=== PATIENT | female | born 2000 | race Caucasian/White ===

== ENCOUNTER 2022-10-30 16:42 | Outpatient (OUT) | payer OTHER, SELFPAY ==
--- NOTE | 2022-10-30 16:59 | US_ITS ---
[address] [address] Patient Name: SIMON RAMOS MRN: [id number] date: 2000 Sex: F Assigned Patient Location: US Current Patient Location: US Accession/Order Number: [id number] Exam Date: 10/30/2022 16:58 Report Date: 10/31/2022 15:11 At the request of: MARIALUISA ODELL Procedure: US OB growth EXAMINATION: US OB growth, US OB follow up HISTORY: size inconsistent with dates O26.849 COMPARISON: Ultrasound incomplete anatomy 10/09/2022, ultrasound anatomy 09/11/2022 FINDINGS: Heart Rate: 145.9 bpm Number: 1.0 Position: CEPHALIC Amniotic Fluid Volume: 12.6 cm Maximum Vertical Pocket: 4.6 cm Anatomy: Echogenic focus within left cardiac ventricle. BIOMETRY: BPD: 6.6 cm cm; 26 weeks 4 days; 5% HC: 24.6 cmcm; 26 weeks 5 days; <3% AC: 22.2 cm cm; 26 weeks 4 days; 9% FL: 5.0 cm cm; 27 weeks 0 days; 11 % EFW: 977.6 grams; 7% FL/AC: 22.6 FL/BPD: 76.3 HC/AC: 1.1 GESTATIONAL AGE: Age by EDC: 28 weeks 0 days VENKAT by EDC: Age by US: VENKAT by US: [id number] IMPRESSION: 1. Single live intrauterine with growth detailed above. 2. Estimated weight is at 7th percentile. Head circumference is less than 3rd percentile. 3. Persistent echogenic focus within left cardiac ventricle. Electronically authenticated by: CARMEL YODER Date: 10/31/2022 15:11
--- NOTE | 2022-10-30 16:59 | US_ITS ---
[address] [address] Patient Name: SIMON RAMOS MRN: [id number] date: 2000 Sex: F Assigned Patient Location: US Current Patient Location: US Accession/Order Number: [id number] Exam Date: 10/30/2022 16:58 Report Date: 10/31/2022 15:11 At the request of: MARIALUISA ODELL Procedure: US OB follow up EXAMINATION: US OB growth, US OB follow up HISTORY: size inconsistent with dates O26.849 COMPARISON: Ultrasound incomplete anatomy 10/09/2022, ultrasound anatomy 09/11/2022 FINDINGS: Heart Rate: 145.9 bpm Number: 1.0 Position: CEPHALIC Amniotic Fluid Volume: 12.6 cm Maximum Vertical Pocket: 4.6 cm Anatomy: Echogenic focus within left cardiac ventricle. BIOMETRY: BPD: 6.6 cm cm; 26 weeks 4 days; 5% HC: 24.6 cmcm; 26 weeks 5 days; <3% AC: 22.2 cm cm; 26 weeks 4 days; 9% FL: 5.0 cm cm; 27 weeks 0 days; 11 % EFW: 977.6 grams; 7% FL/AC: 22.6 FL/BPD: 76.3 HC/AC: 1.1 GESTATIONAL AGE: Age by EDC: 28 weeks 0 days VENKAT by EDC: Age by US: VENKAT by US: [id number] IMPRESSION: 1. Single live intrauterine with growth detailed above. 2. Estimated weight is at 7th percentile. Head circumference is less than 3rd percentile. 3. Persistent echogenic focus within left cardiac ventricle. Electronically authenticated by: CARMEL YODER Date: 10/31/2022 15:11
== END 2022-10-30 16:43 ==
PROVIDERS: PCP Family Medicine; Visit Provider Obstetrics & Gynecology
DX: O26.842 Uterine size-date discrepancy, second trimester (principal); Z36.2 Encounter for other antenatal screening follow-up
CPT/HCPCS: 76816

== ENCOUNTER 2022-12-02 13:50 | Outpatient (OUT) | payer OTHER, SELFPAY ==
--- NOTE | 2022-12-02 13:53 | US_ITS ---
The [address] [address] Patient Name: SIMON RAMOS MRN: [id number] date: 2000 Sex: F Assigned Patient Location: US Current Patient Location: US Accession/Order Number: [id number] Exam Date: 12/02/2022 13:55 Report Date: 12/02/2022 16:11 At the request of: MARIALUISA ODELL Procedure: US OB growth EXAMINATION: US OB growth HISTORY: SIZE INCONSISTENT WITH DATES COMPARISON: Ultrasound OB growth 10/30/2022 FINDINGS: Heart Rate: 154.0 bpm Number: 1.0 Position: CEPHALIC Amniotic Fluid Volume: 10.1 cm Maximum Vertical Pocket: 3.5 cm BIOMETRY: BPD: 7.6 cm cm; 30 weeks 4 days; <3% HC: 28.8 cmcm; 31 weeks 5 days; 3% AC: 27.2 cm cm; 31 weeks 2 days; 13% FL: 6.4 cm cm; 33 weeks 1 days; 51% EFW: 1846.5 grams; 17% FL/AC: 23.7 FL/BPD: 84.3 HC/AC: 1.1 GESTATIONAL AGE: Age by EDC: 32 weeks 5 days VENKAT by EDC: 01/22/2023 Age by US: 31 weeks 5 days VENKAT by US: 01/29/2023 US/US OB growth IMPRESSION: 1. Single live intrauterine with growth detailed above. 2. Estimated weight has increased to the 17th percentile. Electronically authenticated by: CARMEL YODER Date: 12/02/2022 16:11
== END 2022-12-02 13:51 | disposition home or self-care (01) ==
LOC: US 13:50
PROVIDERS: Visit Provider Obstetrics & Gynecology
DX: O26.843 Uterine size-date discrepancy, third trimester (principal); Z3A.32 32 weeks gestation of pregnancy
CPT/HCPCS: 76816

== ENCOUNTER 2022-12-11 09:16 | Outpatient (OUT) | payer OTHER, SELFPAY ==
--- NOTE | 2022-12-11 09:12 | US_ITS ---
[address] [address] Patient Name: SIMON RAMOS MRN: [facility]:[id number] date: 2000 Sex: F Assigned Patient Location: US Current Patient Location: Accession/Order Number: [id number] Exam Date: 12/11/2022 09:18 Report Date: 12/11/2022 15:31 At the request of: MARIALUISA ODELL Procedure: US OB BPP w non-stress EXAMINATION: US OB BPP w non-stress HISTORY: size inconsistent with dates O26.849 COMPARISON: Ultrasound OB growth 12/02/2022 TECHNIQUE: Ultrasound biophysical profile was performed in the radiology department. BREATHING MOVEMENTS: 2.0 GROSS BODY MOVEMENTS: 2.0 TONE: 2.0 QUALITATIVE AMNIOTIC FLUID VOLUME: 2.0 PRESENTATION: CEPHALIC HEART RATE: 129.8 bpm bpm. AMNIOTIC FLUID VOLUME: 10.7 cm GESTATIONAL AGE: 34 weeks 0 days CONCLUSION: 1. Total biophysical profile score 8.0. 2. Persistent echogenic focus within left cardiac ventricle. Electronically authenticated by: CARMEL YODER Date: 12/11/2022 15:31
[2022-12-11 09:59] VITALS: BP 118/79; PULSE 82
== END 2022-12-11 10:23 | disposition home or self-care (01) ==
LOC: US 09:16 → FBC 09:19
PROVIDERS: Visit Provider Obstetrics & Gynecology
DX: O26.843 Uterine size-date discrepancy, third trimester (principal); Z3A.34 34 weeks gestation of pregnancy
CPT/HCPCS: 76818

== ENCOUNTER 2022-12-14 07:14 | Outpatient (RCR) | payer OTHER, SELFPAY ==
[2022-12-14 07:25] VITALS: BP 120/65; PULSE 107
== END 2022-12-14 08:00 | disposition home or self-care (01) ==
LOC: FBCO 07:14
PROVIDERS: Visit Provider Obstetrics & Gynecology
DX: O26.843 Uterine size-date discrepancy, third trimester (principal)
CPT/HCPCS: 59025

== ENCOUNTER 2022-12-18 19:02 | Outpatient (OUT) | payer OTHER, SELFPAY ==
--- NOTE | 2022-12-18 19:05 | US_ITS ---
[address] [address] Patient Name: SIMON RAMOS MRN: [facility]:[id number] date: 2000 Sex: F Assigned Patient Location: [facility] Current Patient Location: [facility] Accession/Order Number: [id number] Exam Date: 12/18/2022 19:06 Report Date: 12/19/2022 15:15 At the request of: MARIALUSIA ODELL Procedure: US OB BPP w non-stress EXAMINATION: US OB BPP w non-stress HISTORY: SIZE INCONSISTENT WITH DATES COMPARISON: Ultrasound biophysical 12/11/2022 TECHNIQUE: Ultrasound biophysical profile was performed in the radiology department. BREATHING MOVEMENTS: 2.0 GROSS BODY MOVEMENTS: 2.0 TONE: 2.0 QUALITATIVE AMNIOTIC FLUID VOLUME: 2.0 PRESENTATION: CEPHALIC HEART RATE: 150.0 bpm bpm. AMNIOTIC FLUID VOLUME: 11.4 cm GESTATIONAL AGE: 35 weeks 0 days CONCLUSION: Total biophysical profile score 8.0. Electronically authenticated by: CARMEL YODER Date: 12/19/2022 15:15
[2022-12-18 19:29] VITALS: BP 129/74; PULSE 87; TEMP 36.3
== END 2022-12-18 19:53 | disposition home or self-care (01) ==
LOC: US 19:03 → FBC 19:05
PROVIDERS: Visit Provider Obstetrics & Gynecology
DX: O26.843 Uterine size-date discrepancy, third trimester (principal); Z3A.35 35 weeks gestation of pregnancy
CPT/HCPCS: 76818

== ENCOUNTER 2022-12-21 07:00 | Outpatient (RCR) | payer OTHER, SELFPAY | END 2022-12-21 07:50 | disposition home or self-care (01) | LOC: FBCO 07:00 | PROVIDERS: Visit Provider Obstetrics & Gynecology Gynecology | DX: O26.843 Uterine size-date discrepancy, third trimester (principal); Z3A.00 Weeks of gestation of pregnancy not specified | CPT/HCPCS: 59025 ==

== ENCOUNTER 2022-12-25 10:05 | Outpatient (OUT) | payer OTHER, SELFPAY ==
--- NOTE | 2022-12-25 18:52 | US_ITS ---
[address] [address] Patient Name: SIMON RAMOS MRN: [facility]:[id number] date: 2000 Sex: F Assigned Patient Location: US Current Patient Location: US Accession/Order Number: [id number] Exam Date: 12/25/2022 18:53 Report Date: 12/26/2022 15:33 At the request of: MARIALUISA ODELL Procedure: US OB BPP w non-stress EXAMINATION: US OB BPP w non-stress HISTORY: SIZE INCONSISTENT WITH DATES COMPARISON: Ultrasound biophysical 12/18/2022 TECHNIQUE: Ultrasound biophysical profile was performed in the radiology department. BREATHING MOVEMENTS: 2.0 GROSS BODY MOVEMENTS: 2.0 TONE: 2.0 QUALITATIVE AMNIOTIC FLUID VOLUME: 2.0 PRESENTATION: CEPHALIC HEART RATE: 134.3 bpm bpm. AMNIOTIC FLUID VOLUME: 12.5 cm GESTATIONAL AGE: 36 weeks 0 days CONCLUSION: Total biophysical profile score 8.0. Electronically authenticated by: CARMEL YODER Date: 12/26/2022 15:33
== END 2022-12-25 10:10 | disposition home or self-care (01) ==
LOC: US 12-31 10:01
PROVIDERS: PCP Family Medicine; Visit Provider Obstetrics & Gynecology
DX: O26.843 Uterine size-date discrepancy, third trimester (principal); Z3A.36 36 weeks gestation of pregnancy
CPT/HCPCS: 59025; 76818

== ENCOUNTER 2022-12-25 18:40 | Outpatient (OUT) | payer OTHER, SELFPAY | END 2022-12-25 20:05 | disposition home or self-care (01) | LOC: FBCO 12-31 10:09 → FBC 12-31 10:09 | PROVIDERS: PCP Family Medicine; Visit Provider Obstetrics & Gynecology | DX: O26.843 Uterine size-date discrepancy, third trimester (principal); Z3A.00 Weeks of gestation of pregnancy not specified ==

== ENCOUNTER 2022-12-28 07:22 | Outpatient (OUT) | payer OTHER, SELFPAY ==
[2022-12-28 07:30] VITALS: BP 133/89; PULSE 80
== END 2022-12-28 08:00 | disposition home or self-care (01) ==
LOC: FBCO 07:23 → FBC 07:24
PROVIDERS: PCP Family Medicine; Visit Provider Obstetrics & Gynecology
DX: O26.843 Uterine size-date discrepancy, third trimester (principal); Z3A.00 Weeks of gestation of pregnancy not specified
CPT/HCPCS: 59025

== ENCOUNTER 2023-01-01 18:42 | Outpatient (OUT) | payer OTHER, SELFPAY ==
--- NOTE | 2023-01-01 18:49 | US_ITS ---
[address] [address] Patient Name: SIMON RAMOS MRN: [facility]:[id number] date: 2000 Sex: F Assigned Patient Location: [facility] [place] [facility] Current Patient Location: [facility] [place] [facility] Accession/Order Number: [id number] Exam Date: 01/01/2023 18:50 Report Date: 01/02/2023 15:06 At the request of: MARIALUISA ODELL Procedure: US OB BPP w non-stress EXAMINATION: US OB BPP w non-stress HISTORY: SIZE INCONSISTENT WITH DATES O26.849 COMPARISON: Ultrasound OB biophysical 12/25/2022 TECHNIQUE: Ultrasound biophysical profile was performed in the radiology department. BREATHING MOVEMENTS: 2.0 GROSS BODY MOVEMENTS: 2.0 TONE: 2.0 QUALITATIVE AMNIOTIC FLUID VOLUME: 2.0 PRESENTATION: CEPHALIC HEART RATE: 135.7 bpm bpm. AMNIOTIC FLUID VOLUME: 11.9 cm GESTATIONAL AGE: 37 weeks 0 days CONCLUSION: 1. Total biophysical profile score 8.0. 2. Nuchal cord, with suspected double wrapped nuchal cord. Electronically authenticated by: CARMEL YODER Date: 01/02/2023 15:06
[2023-01-01 19:19] VITALS: BP 135/80; PULSE 98; TEMP 36.6
== END 2023-01-01 19:51 | disposition home or self-care (01) ==
LOC: FBCO 18:49 → FBC 18:58
PROVIDERS: PCP Family Medicine; Visit Provider Obstetrics & Gynecology
DX: O26.843 Uterine size-date discrepancy, third trimester (principal); Z3A.37 37 weeks gestation of pregnancy
CPT/HCPCS: 59025; 76818

== ENCOUNTER 2023-01-02 20:37 | Outpatient (REF) | payer OTHER, SELFPAY | END 2023-01-02 20:38 | disposition home or self-care (01) | LOC: LAB 20:37 | PROVIDERS: PCP Obstetrics & Gynecology; Visit Provider Obstetrics & Gynecology | DX: Z34.93 Encounter for supervision of normal pregnancy, unspecified, third trimester (principal) | CPT/HCPCS: 87081 ==

== ENCOUNTER 2023-01-04 07:00 | Outpatient (OUT) | payer OTHER, SELFPAY ==
[2023-01-04 07:35] VITALS: BP 130/81; PULSE 87
== END 2023-01-04 08:17 ==
LOC: FBC 07:30 → FBCO 07:30
PROVIDERS: PCP Obstetrics & Gynecology; Visit Provider Obstetrics & Gynecology
DX: O26.843 Uterine size-date discrepancy, third trimester (principal)
CPT/HCPCS: 59025

== ENCOUNTER 2023-01-05 17:15 | Inpatient (IN) | payer OTHER, SELFPAY ==
[2023-01-05] VITALS (17 sets, daily range): BP systolic 98–171; BP diastolic 57–97; PULSE 71–109; RESP 16; TEMP 36.7
--- NOTE | 2023-01-05 16:13 | PC.NURSE ---
here for nst, called in by RN after Dr Forman reviews results from last bpp. States baby feels like a fllipping motion but not normal kicks today. leaking fluid in pants since approx 1300, not wearing pad
[2023-01-05 19:32] LABS: Amnisure NEGATIVE (NEGATIVE)
[2023-01-05 19:39] LABS: Hematocrit 33.5 % (36.0-48.0); Mean Corpuscular HGB Conc 32.8 g/dL (29.9-35.2); Mean Corpuscular Hemoglobin 27.1 pg (26.7-34.0); Mean Corpuscular Volume 82.5 fL (81.0-99.0); Mean Platelet Volume 11.1 fL (9.5-13.5); Platelet Count 195 10^3/uL (150-450); Red Blood Count 4.06 10^6/uL (4.20-5.40); Red Cell Distribution Width 13.2 % (11.0-15.0); White Blood Count 11.5 10^3/uL (4.0-11.0)
[2023-01-05 19:54] LABS: Alanine Aminotransferase 15 U/L (14-59); Aspartate Amino Transferase 11 U/L (15-37); Lactate Dehydrogenase 154 U/L (81-234); Uric Acid 3.2 mg/dL (2.6-6.0)
--- NOTE | 2023-01-05 20:08 | W.PC.ACHO ---
Registration Status: ADM IN Primary Language: Liberian Preferred Language: Liberian Active Medications Generic Name Dose Route Start Last Admin Trade Name Freq PRN Reason Stop Dose Admin Carboprost Tromethamine 250 mcg 01/05/23 19:23 Carboprost Tromethamine 250 Mcg/Ml 1 Ml Vial IM 01/07/23 19:23 Q15M PRN Bleeding Diphenhydramine HCl 25 mg 01/05/23 19:38 Diphenhydramine Hcl 50 Mg/Ml (1ml) Vial IV 01/06/23 19:41 Q6H PRN Itching Ephedrine Sulfate 5 mg 01/05/23 19:38 Ephedrine Sulfate 50 Mg/Ml Vial IV 01/06/23 19:41 Q5M PRN Blood Pressure - Low Fentanyl Citrate 100 mcg 01/05/23 19:38 Fentanyl Citrate/Pf 100 Mcg/2 Ml Vial EPIDURAL 01/06/23 19:40 Q4H PRN Pain Oxytocin/Sodium Chloride 10 units in 500 mls @ 6 mls/hr 01/05/23 19:30 Pitocin 10 Unit/500 Ml-Ns IV Q24H [facility] Protocol 2 MILLIUNIT/MIN Oxytocin/Sodium Chloride 20 units in 1,000 mls @ 125 mls/hr 01/06/23 19:27 Pitocin 20 Unit/1,000 Ml-Ns IV 01/07/23 03:26 ONCE ONE Protocol Sodium Chloride 1,000 mls @ 1,000 mls/hr 01/05/23 19:38 Sodium Chloride 0.9% 1,000 Ml IV 01/05/23 20:37 .Q1H ONE Ropivacaine/Sodium Chloride 400 mg in 200 mls @ 6 mls/hr 01/05/23 19:45 Naropin 0.2% 400 Mg/200 Ml Bag EPIDURAL 01/06/23 19:40 Q24H SINDHU Lidocaine 5 ml 01/05/23 19:23 Lidocaine Viscous 2% 15 Ml Topical Solution TOPICAL PRN PRN Pain Lidocaine 1 ml 01/05/23 19:23 Lidocaine Hcl 1% 200 Mg/20 Ml Mdv INJ PRN PRN Pain Lidocaine 5 ml 01/05/23 19:38 Lidocaine Hcl 2% Pf 100 Mg/5 Ml Vial INJ 01/06/23 19:40 Q1H PRN EPIDURAL Methylergonovine Maleate 0.2 mg 01/05/23 19:23 Methylergonovine Maleate 0.2 Mg/Ml Ampule IM 01/07/23 19:23 ONCE PRN Uterine Contractility/Contract Methylergonovine Maleate 0.2 mg 01/05/23 19:23 Methylergonovine Maleate 0.2 Mg Tablet PO 01/07/23 19:23 Q4H PRN Uterine Contractility/Contract Misoprostol 600 mcg 01/05/23 19:23 Misoprostol 100 Mcg Tablet PO 01/07/23 19:23 ONCE PRN Uterine Bleeding Misoprostol 800 mcg 01/05/23 19:23 Misoprostol 100 Mcg Tablet SL 01/07/23 19:23 ONCE PRN Uterine Bleeding Misoprostol 1,000 mcg 01/05/23 19:23 Misoprostol 100 Mcg Tablet NM 01/07/23 19:23 ONCE PRN Uterine Bleeding Naloxone HCl 0.4 mg 01/05/23 19:38 Naloxone Hcl 0.4 Mg/Ml Vial IV 01/06/23 19:41 ONCE PRN RESP DEPRESSION Ondansetron HCl 4 mg 01/05/23 19:23 Ondansetron Pf 4 Mg/2 Ml Vial IV Q6H PRN Nausea And Vomiting Ondansetron HCl 4 mg 01/05/23 19:23 Ondansetron 4 Mg Rapdis Tablet SL Q6H PRN Nausea And Vomiting Oxytocin 10 unit 01/05/23 19:23 Oxytocin 10 Unit/Ml Vial IM 01/07/23 19:23 ONCE PRN HEMMORRHAGE Ropivacaine/Sodium Chloride 20 mg 01/05/23 19:38 Ropivacaine Hcl Pf 40 Mg/20 Ml Vial EPIDURAL 01/05/23 19:39 ONCE ONE Diet Category Date Time Status Regular Consistency Diet Diet 01/06/23 Breakfast Active Consults Category Date Time Status Consult to Anesthesiology Routine Cons 01/05/23 Ordered IV Insertion/Site Date of IV Line Insertion [ 01/05/23 Long PIV (>1.75 in) 20g left Hand] IV Insertion Time [Long PIV (> 18:45 1.75 in) 20g left Hand] Neurology Patient orientation (short person,place,time,situation list)
[2023-01-05] MEDS: 0.9 % SODIUM CHLORIDE 1,000 ML 125 ML IV (21:15)
[2023-01-05] MEDS: OXYTOCIN/0.9 % SODIUM CHLORIDE 10 UNITS/500 ML PLAST..BAG 6 UNIT IV (21:25)
[2023-01-05 22:23] LABS: Amphetamine Screen Urine NEGATIVE (NEGATIVE); Barbiturates Screen Urine NEGATIVE (NEGATIVE); Benzodiazepines Screen Urine NEGATIVE (NEGATIVE); Buprenorphine Screen Urine NEGATIVE (NEGATIVE); Cannabinoid Screen Urine NEGATIVE (NEGATIVE); Cocaine Screen Urine NEGATIVE (NEGATIVE); Methadone Screen Urine NEGATIVE (NEGATIVE); Methamphetamines Screen Urine NEGATIVE (NEGATIVE); Opiate Screen Urine NEGATIVE (NEGATIVE); Oxycodone Screen Urine NEGATIVE (NEGATIVE); Phencyclidine Screen Urine NEGATIVE (NEGATIVE); Tricyclic Antidepressant Urine NEGATIVE (NEGATIVE)
[2023-01-06] VITALS (50 sets, daily range): BP systolic 91–148; BP diastolic 51–93; PULSE 69–103; TEMP 35.1–35.7
[2023-01-06] MEDS: 0.9 % SODIUM CHLORIDE 1,000 ML 125 ML IV (04:25)
[2023-01-06] MEDS: ACETAMINOPHEN 325 MG TABLET 650 MG PO (05:42)
--- NOTE | 2023-01-06 07:24 | W.PC.ACHO ---
Registration Status: ADM IN Primary Language: Greenlandic Preferred Language: Greenlandic Report given to Adolfo Griffin and all epidural medications given to Adolfo Griffin. care relinquished Active Medications Generic Name Dose Route Start Last Admin Trade Name Veronica PRN Reason Stop Dose Admin Acetaminophen 650 mg 01/06/23 05:01 01/06/23 05:42 Acetaminophen 325 Mg Tablet PO 650 mg Q4H PRN Administration Mild Pain Carboprost Tromethamine 250 mcg 01/05/23 19:23 Carboprost Tromethamine 250 Mcg/Ml 1 Ml Vial IM 01/07/23 19:23 Q15M PRN Bleeding Diphenhydramine HCl 25 mg 01/05/23 19:38 Diphenhydramine Hcl 50 Mg/Ml (1ml) Vial IV 01/06/23 19:41 Q6H PRN Itching Ephedrine Sulfate 5 mg 01/05/23 19:38 Ephedrine Sulfate 50 Mg/Ml Vial IV 01/06/23 19:41 Q5M PRN Blood Pressure - Low Fentanyl Citrate 100 mcg 01/05/23 19:38 Fentanyl Citrate/Pf 100 Mcg/2 Ml Vial EPIDURAL 01/06/23 19:40 Q4H PRN Pain Oxytocin/Sodium Chloride 10 units in 500 mls @ 6 mls/hr 01/05/23 19:30 01/05/23 21:25 Pitocin 10 Unit/500 Ml-Ns IV 2 milliunit/min Q24H SINDHU 6 mls/hr Administration Protocol 2 MILLIUNIT/MIN Oxytocin/Sodium Chloride 20 units in 1,000 mls @ 125 mls/hr 01/06/23 19:27 Pitocin 20 Unit/1,000 Ml-Ns IV 01/07/23 03:26 ONCE ONE Protocol Ropivacaine/Sodium Chloride 400 mg in 200 mls @ 6 mls/hr 01/05/23 19:45 Naropin 0.2% 400 Mg/200 Ml Bag EPIDURAL 01/06/23 19:40 Q24H SINDHU Sodium Chloride 1,000 mls @ 125 mls/hr 01/06/23 04:30 01/06/23 04:25 Sodium Chloride 0.9% 1,000 Ml IV 125 mls/hr .Q8H SINDHU Administration Lidocaine 5 ml 01/05/23 19:23 Lidocaine Viscous 2% 15 Ml Topical Solution TOPICAL DAILY PRN Pain Lidocaine 1 ml 01/05/23 19:23 Lidocaine Hcl 1% 200 Mg/20 Ml Mdv INJ ONCE PRN Pain Lidocaine 5 ml 01/05/23 19:38 Lidocaine Hcl 2% Pf 100 Mg/5 Ml Vial INJ 01/06/23 19:40 Q1H PRN EPIDURAL Methylergonovine Maleate 0.2 mg 01/05/23 19:23 Methylergonovine Maleate 0.2 Mg/Ml Ampule IM 01/07/23 19:23 ONCE PRN Uterine Contractility/Contract Methylergonovine Maleate 0.2 mg 01/05/23 19:23 Methylergonovine Maleate 0.2 Mg Tablet PO 01/07/23 19:23 Q4H PRN Uterine Contractility/Contract Misoprostol 600 mcg 01/05/23 19:23 Misoprostol 100 Mcg Tablet PO 01/07/23 19:23 ONCE PRN Uterine Bleeding Misoprostol 800 mcg 01/05/23 19:23 Misoprostol 100 Mcg Tablet SL 01/07/23 19:23 ONCE PRN Uterine Bleeding Misoprostol 1,000 mcg 01/05/23 19:23 Misoprostol 100 Mcg Tablet ME 01/07/23 19:23 ONCE PRN Uterine Bleeding Naloxone HCl 0.4 mg 01/05/23 19:38 Naloxone Hcl 0.4 Mg/Ml Vial IV 01/06/23 19:41 ONCE PRN RESP DEPRESSION Ondansetron HCl 4 mg 01/05/23 19:23 Ondansetron Pf 4 Mg/2 Ml Vial IV Q6H PRN Nausea And Vomiting Ondansetron HCl 4 mg 01/05/23 19:23 Ondansetron 4 Mg Rapdis Tablet SL Q6H PRN Nausea And Vomiting Oxytocin 10 unit 01/05/23 19:23 Oxytocin 10 Unit/Ml Vial IM 01/07/23 19:23 ONCE PRN HEMMORRHAGE Diet Category Date Time Status Regular Consistency Diet Diet 01/06/23 Breakfast Active IV Insertion/Site Date of IV Line Insertion [20g 01/05/23 left Hand] Date of IV Line Insertion [ 01/05/23 Long PIV (>1.75 in) 20g left Hand] IV Insertion Time [20g left 20:58 Hand] IV Insertion Time [Long PIV (> 18:45 1.75 in) 20g left Hand] Neurology Patient orientation (short person,place,time,situation list)
[2023-01-06] MEDS: OXYTOCIN/0.9 % SODIUM CHLORIDE 10 UNITS/500 ML PLAST..BAG 6 UNIT IV (10:00)
[2023-01-06] MEDS: FENTANYL CITRATE/PF 100 MCG/2 ML VIAL EPIDURAL (13:25)
[2023-01-06] MEDS: ROPIVACAINE HCL/PF 400 MG/200 ML PREMIX 10 MG EPIDURAL (13:25)
[2023-01-06] MEDS: OXYTOCIN/0.9 % SODIUM CHLORIDE 10 UNITS/500 ML PLAST..BAG 60 UNIT IV (17:14)
--- NOTE | 2023-01-06 19:36 | PM.OBPRCVD ---
Procedure Intrapartal events: None Induction method: artificial rupture of membranes Delivery augmentation: rupture of membranes and pitocin Delivery monitor: external FHT and external uterine Route of delivery: Episiotomy Description: none Laceration description: none Estimated blood loss (mL): 200 Anesthesia type: Epidural Disposition: floor Delivery date: 01/06/23 Gender: male presentation: vertex Placental delivery description: Spontaneous cord description: 3 Vessels and Nuchal Cord (times 2)
[2023-01-06] MEDS: IBUPROFEN 600 MG TABLET PO (20:28)
[2023-01-07 00:30] VITALS: BP 138/87; PULSE 77; TEMP 36.9
[2023-01-07 05:54] VITALS: TEMP 36.9
[2023-01-07 06:27] LABS: Basophils Percent Auto 0.3 % (0.2-2.0); Eosinophils Absolute Auto 0.2 10^3/uL (0.0-0.7); Eosinophils Percent Auto 2.2 % (0.9-7.0); Hematocrit 29.8 % (36.0-48.0); Hemoglobin 9.5 g/dL (12.0-16.0); Immature Granulocytes Abs Auto 0.12 10^3/uL (0.00-0.03); Immature Granulocytes Pct Auto 1.1 % (0.0-0.5); Lymphocytes Absolute Auto 1.5 10^3/uL (1.2-3.8); Lymphocytes Percent Auto 13.8 % (20.5-60.0); Mean Corpuscular HGB Conc 31.9 g/dL (29.9-35.2); Mean Corpuscular Hemoglobin 27.1 pg (26.7-34.0); Mean Corpuscular Volume 85.1 fL (81.0-99.0); Mean Platelet Volume 10.5 fL (9.5-13.5); Monocytes Absolute Auto 1.1 10^3/uL (0.3-0.8); Monocytes Percent Auto 10.3 % (1.7-12.0); Neutrophils Absolute Auto 7.7 10^3/uL (1.4-6.5); Neutrophils Percent Auto 72.3 % (43.0-75.0); Platelet Count 136 10^3/uL (150-450); Red Cell Distribution Width 13.2 % (11.0-15.0); White Blood Count 10.7 10^3/uL (4.0-11.0)
--- NOTE | 2023-01-07 07:31 | W.PC.ACHO ---
Registration Status: ADM IN Primary Language: Czech Preferred Language: Czech Active Medications Generic Name Dose Route Start Last Admin Trade Name Freq PRN Reason Stop Dose Admin Acetaminophen 650 mg 01/06/23 19:34 Acetaminophen 325 Mg Tablet PO Q6H PRN Mild Pain Al Hydroxide/Mg Hydroxide 2,400 mg 01/06/23 19:34 Magnesium Hydroxide 2,400 Mg/10 Ml Oral.Susp PO Q6H PRN Dyspepsia Benzocaine/Menthol 1 applic 01/06/23 19:34 Benzocaine/Menthol 85 Gram [place] Bottle TOPICAL Q2H PRN Pain Diphenhydramine HCl 25 mg 01/06/23 11:07 Diphenhydramine Hcl 50 Mg/Ml (1ml) Vial IV Q6H PRN Itching Diphtheria/Pertussis/Tetanus Vacc 0.5 ml 01/08/23 09:00 Adacel Diph,Pertuss(Acell),Tet Vac/Pf 0.5 Ml Adult Syringe IM 01/08/23 09:01 .ONCE ONE Docusate Sodium 100 mg 01/07/23 09:00 Docusate Sodium 100 Mg Capsule PO BID SINDHU Ephedrine Sulfate 5 mg 01/06/23 11:07 Ephedrine Sulfate 50 Mg/Ml Vial IV Q5M PRN Blood Pressure - Low Fentanyl Citrate 100 mcg 01/06/23 11:06 01/06/23 13:25 Fentanyl Citrate/Pf 100 Mcg/2 Ml Vial EPIDURAL 100 mcg Q4H PRN Administration Pain Sodium Chloride 1,000 mls @ 125 mls/hr 01/06/23 04:30 01/06/23 09:30 Sodium Chloride 0.9% 1,000 Ml IV Infused .Q8H SINDHU Infusion Oxytocin/Sodium Chloride 10 units in 500 mls @ 6 mls/hr 01/06/23 10:00 01/06/23 10:00 Pitocin 10 Unit/500 Ml-Ns IV 2 milliunit/min Q24H SINDHU 6 mls/hr Administration Protocol 2 MILLIUNIT/MIN Ropivacaine/Sodium Chloride 400 mg in 200 mls @ 6 mls/hr 01/06/23 11:45 01/06/23 13:25 Naropin 0.2% 400 Mg/200 Ml Bag EPIDURAL 10 mls/hr Q24H SINDHU 10 mls/hr Administration Oxytocin/Sodium Chloride 10 units in 500 mls @ 60 mls/hr 01/06/23 17:15 01/06/23 17:14 Pitocin 10 Unit/500 Ml-Ns IV 20 milliunit/min Q24H SINDHU 60 mls/hr Administration Protocol 20 MILLIUNIT/MIN Ibuprofen 600 mg 01/06/23 19:34 01/06/23 20:28 Ibuprofen 600 Mg Tablet PO 600 mg Q6H PRN Administration Moderate Pain Lidocaine 1 ml 01/06/23 11:32 Lidocaine Hcl 1% 200 Mg/20 Ml Mdv INJ ONCE PRN Pain Lidocaine 5 ml 01/06/23 11:33 Lidocaine Viscous 2% 15 Ml Topical Solution TOPICAL DAILY PRN Pain Lidocaine 5 ml 01/06/23 11:33 Lidocaine Hcl 2% Pf 100 Mg/5 Ml Vial INJ Q1H PRN EPIDURAL Measles/Mumps/Rubella Vaccine Live 0.5 ml 01/08/23 09:00 Measles,Mumps,Rubella Vacc/Pf 0.5 Ml Vial SQ 01/08/23 09:01 .ONCE ONE Naloxone HCl 0.4 mg 01/06/23 11:34 Naloxone Hcl 0.4 Mg/Ml Vial IV ONCE PRN RESP DEPRESSION Ondansetron HCl 4 mg 01/05/23 19:23 Ondansetron Pf 4 Mg/2 Ml Vial IV Q6H PRN Nausea And Vomiting Ondansetron HCl 4 mg 01/05/23 19:23 Ondansetron 4 Mg Rapdis Tablet SL Q6H PRN Nausea And Vomiting Oxytocin 10 unit 01/06/23 11:06 Oxytocin 10 Unit/Ml Vial IM ONCE PRN HEMMORRHAGE Senna 17.2 mg 01/06/23 20:00 Sennosides 8.6 Mg Tablet PO QHS PRN Constipation Simethicone 80 mg 01/06/23 19:34 Simethicone 80 Mg Tab.Chew PO QID PRN Abdominal Distention Temazepam 15 mg 01/06/23 19:34 Temazepam 15 Mg Capsule PO QHS PRN Sleep Witch Mandie/Glycerin 1 pad 01/06/23 19:34 Glycerin/Witch Mandie Pads TOPICAL Q2H PRN Pain Diet Category Date Time Status Regular Consistency Diet Diet 01/06/23 Dinner Active Respiratory Lung sounds [Bilateral clear Throughout] Lung sounds [Bilateral clear Throughout] Lung sounds [Bilateral clear Throughout] Oxygen Delivery Method Room Air Oxygen Delivery Method Room Air
[2023-01-07] MEDS: DOCUSATE SODIUM 100 MG CAPSULE PO (09:19)
[2023-01-07] MEDS: IBUPROFEN 600 MG TABLET PO (09:19)
[2023-01-07 09:27] VITALS: BP 132/75; PULSE 101
--- NOTE | 2023-01-07 09:32 | P.OBPN_ITS ---
OB - PN: Subj Subjective Patient comments: no complaints [place] status: doing well Narrative: patient doing well. s/p patient would like to be discharged today as her baby is in [place]. She states she does have a sore throat, but she's not sure if it's due to the dryness in the room. She just woke up with it. I gave her fresh ice water and a popsicle to see if that helps. I will discharge her today so she can go see her baby in [place]. . Exam Constitutional Vital Signs, click to edit/add: Last Vital Signs Temp 98.5 F 01/07/23 05:54 Pulse 101 H 01/07/23 09:27 Resp 16 01/05/23 18:32 BP 132/75 01/07/23 09:27 O2 Del Method Room Air 01/07/23 00:30 Documenting provider has reviewed patient's vital signs: yes Common normals: no apparent distress General appearance: cooperative, comfortable and well kempt Orientation/consciousness: Yes awake, Yes oriented to person, Yes oriented to place and Yes oriented to time HENMT Common normals: normocephalic Lymph Lymphatic: no lymphadenopathy noted Chest Common normals: inspection of chest normal Respiratory Common normals: normal respiratory effort Effort & inspection: able to speak in complete sentences Auscultation: clear to auscultation bilaterally Cardio Common normals: no JVD, regular rate and regular rhythm Rate: regular rate Rhythm: regular rhythm GI Common normals: Normal to inspection, nondistended, normoactive bowel sounds present Auscultation: normoactive bowel sounds Palpation: soft and other (FF U/-1) Percussion: normal to percussion Common normals: no CVA tenderness Extremity Common normals: normal to inspection Neuro Common normals: oriented x3 Sensorium/orientation: awake, alert, oriented to person, oriented to place and oriented to time Psych Common normals: mental status grossly normal, thought process normal, cooperative, affect normal and speech normal Results Labs Labs: Short CBC 01/07/23 Range/Units 06:17 WBC 10.7 (4.0-11.0) 10^3/uL Hgb 9.5 L (12.0-16.0) g/dL Hct 29.8 L (36.0-48.0) % Plt Count 136 L (150-450) 10^3/uL OB - PN: A/P Plan - Vaginal Delivery day: 1 Time Spent with Patient Time: Total time spent is greater than 50% in coordination of care (as documented) at patient's floor/unit and/or counseling patient: Total time spent with greater than 50% in coordination of care (as documented) at patient's floor/unit and/or counseling patient: less than 15 minutes
[2023-01-07 09:35] VITALS: RESP 16; TEMP 37.2
--- NOTE | 2023-01-07 09:45 | P.DS_ITS ---
DS: Providers Provider Date of admission: 01/05/23 17:15 Primary care physician: Mitchell Arriola DO Admitting clinician: Mitchell Arriola Attending physician on admission: Mitchell Arriola Consults: 01/05/23 Consult to Anesthesiology Routine Consulting Provider: Hospitalist Reason for consultation: LABOR PAIN Has provider been notified: Yes Attending physician on discharge: ANTONI ALEGRE Discharging clinician: ANTONI ALEGRE Anticipated date of discharge: 01/07/23 DS: Diagnosis Discharge Diagnosis (1) Vaginal delivery: Plan Normal spontaneous vaginal delivery OB - DS: Summary Hospital Course Hospital Course: uneventful for patient. Baby was transferred to [facility] for RDS Peripartum Data - Vaginal Delivery Laceration description: none Complications complications: none Delivery method: spontaneous vaginal delivery Gender: male Discharge plan: home Time Spent with Patient Time attestation: Total time spent providing and/or coordinating discharge services: Time spent: less than 30 minutes Exam Constitutional Vital Signs, click to edit/add: Last Vital Signs Temp 98.5 F 01/07/23 05:54 Pulse 101 H 01/07/23 09:27 Resp 16 01/05/23 18:32 BP 132/75 01/07/23 09:27 O2 Del Method Room Air 01/07/23 00:30 Documenting provider has reviewed patient's vital signs: yes Common normals: no apparent distress DS: Data Data Completed and Pending Labs on day of discharge: Labs from last 24 hours 01/07/23 06:17 WBC 10.7 RBC 3.50 L Hgb 9.5 L Hct 29.8 L MCV 85.1 MCH 27.1 MCHC 31.9 RDW 13.2 Plt Count 136 L MPV 10.5 Neut % (Auto) 72.3 Lymph % (Auto) 13.8 L Barry % (Auto) 10.3 Eos % (Auto) 2.2 Baso % (Auto) 0.3 Neut # (Auto) 7.7 H Lymph # (Auto) 1.5 Barry # (Auto) 1.1 H Eos # (Auto) 0.2 Baso # (Auto) 0.0 Abs Immat Gran (auto) 0.12 H Imm/Tot Granulo (auto) 1.1 H Discharge Plan Discharge Disposition: Home, Self-Care Condition: Good Discharge Medications: New ibuprofen 800 mg tablet 800 mg PO Q8H PRN (Reason: Moderate Pain) Qty: 60 1RF ferrous sulfate 325 mg (65 mg iron) tablet 325 mg PO BID 30 Days Qty: 60 3RF ferrous sulfate [Iron (ferrous sulfate)] 325 mg (65 mg iron) tablet 325 mg PO BID 30 Days Qty: 60 2RF Continued levothyroxine [Euthyrox] 50 mcg tablet 50 mcg PO DAILY Activity: increase activity as tolerated Diet: advance to your usual diet Forms: Portal Instructions Follow Up Appointments: [address] Arriola
== END 2023-01-07 10:00 | disposition home or self-care (01) | DRG 560 ==
LOC: FBCO 17:49 → FBC 17:49
PROVIDERS: Admitting Provider Obstetrics & Gynecology; PCP Obstetrics & Gynecology; Visit Provider Obstetrics & Gynecology
DX: O26.843 Uterine size-date discrepancy, third trimester (principal); O69.81X0 Labor and delivery complicated by cord around neck, without compression, not applicable or unspecified; Z3A.00 Weeks of gestation of pregnancy not specified; Z37.0 Single live birth; Z79.890 Hormone replacement therapy
CPT/HCPCS: 36415; 51702; 59025; 59050; 59410; 80307; 83615; 84112; 84450; 84460; 84550; 85025; 85027; 85610; 85730; 86850; 86900; 86901; 87081; 96374; 96376

== ENCOUNTER 2023-07-16 08:38 | Outpatient (OUT) | payer OTHER, SELFPAY ==
--- NOTE | 2023-07-16 08:41 | US_ITS ---
Patient Name: SIMON RAMOS MR#: [id number] : 2000 Exam Date: 07/16/2023 Ordering Doctor: DR Mitchell Arriola . RADIOLOGY REPORT PROCEDURE: MM TOMOSYNTHESIS DIAGNOSTIC BI, 07/16/2023, 08:44 US BREAST BI COMPLETE, 07/16/2023, 09:34 COMPARISON: None. INDICATIONS: Mass Of Right Breast N63.10 Calculator Name NCI Breast Cancer Risk Assessment Tool 5 Year Breast Cancer Risk Not Applicable. Lifetime Breast Cancer Risk Not Applicable. Personal Breast Cancer No Personal Ovarian Cancer No Treatments None Family Cancers None LOCATION: [facility] BREAST COMPOSITION: Heterogeneously dense,which may obscure small masses. FINDINGS: DIAGNOSTIC CATEGORY 1--NEGATIVE. Breasts are medium to large in size. Heterogeneous parenchymal pattern. No mammographic or ultrasound abnormality is identified correspond to the 2 right and single left palpable lesions, indicated by triangle markers. Further evaluation should be based on clinical and physical exam. RIGHT BREAST: No significant suspicious finding. LEFT BREAST: No significant suspicious finding. RECOMMENDATIONS: CLINICAL EVALUATION. PLEASE NOTE: A NORMAL MAMMOGRAM DOES NOT EXCLUDE THE POSSIBILITY OF BREAST CANCER. A CLINICALLY SUSPICIOUS PALPABLE LUMP SHOULD BE BIOPSIED. Dictated by: Kaleb Flowers MD on 07/16/2023 at 09:46 Approved by: Kaleb Flowers MD on 07/16/2023 at 09:50
== END 2023-07-16 08:39 | disposition home or self-care (01) ==
LOC: MAMMO 08:38
PROVIDERS: PCP Obstetrics & Gynecology; Visit Provider Obstetrics & Gynecology
DX: N63.10 Unspecified lump in the right breast, unspecified quadrant (principal)
CPT/HCPCS: 76642; 77066; G0279

== ENCOUNTER 2024-10-18 12:27 | Outpatient (REF) | payer OTHER, SELFPAY ==
--- OUTSIDE RECORDS SUMMARY | 2024-05-26 11:20 | XMS_ITS ---
Author Organization [facility] in [place] Address [address] [place] [address] Care Team Providers Care It Program Auditor Name Role Phone Homer Ho MD Primary Care Provider Alexander Mtz [phone] Allergies No Known Allergies REASON FOR VISIT [...] points) Points 3 Interpretation Positive Vital Signs Weight 224.6 lbs 05/26/2024 Height 69 in 05/26/2024 BMI 33.16 kg/m2 05/26/2024 Encounters Encounter Location Date Provider Diagnosis Urology [facility] [address] [place] [address] 05/26/2024 Alexander Rogers Recurrent UTI N39.0 Assessments [...] * Ana SAUCEDADOB: 2 (24 yo F)Acc No.[id number]:05/26/2024 Progress Note Patient: Ana HERNANDEZ Provider: Omar Rogers MD :2000 A ge:24 Y S ex:Female Date:05/26/2024 Address:[address] [place], [place] [id number] Pcp:Homer Ho MD Check In:03:10 PM ESTCheck [...] 05/26/2024 Generated for Art portillo/Ana/Lauroitting on: 0 10/18/2024 12:30 PM EDT
--- OUTSIDE RECORDS SUMMARY | 2024-08-31 09:40 | XMS_ITS ---
Author Organization [facility] in [place] Address [address] [place] [address] Care Team Providers Care School Traffic Guard Name Role Phone Vic BERNSTEIN, Homer Primary Care Provider Unavailab Alexander Montano [phone] REASON FOR VISIT 3 month f/u Encounters Encounter Location Date Provider Diagnosis Urology [facility] [address] [address] 08/31/2024 Alexander Rogers Plan Of Treatment No Information Progress Notes * Ana SAUCEDADOB: [birth year] (24 yo F)Acc No.[id number]:08/31/2024 UNLOCKED PROGRESS NOTE Patient: Ana HERNANDEZ Provider: Omar Rogers MD :2000 A ge:24 Y S ex:Female Date:08/31/2024 Address:[address] [place], [place] [phone] Pcp:Homer Ho MD Subjective: * Chief Complaints: * 1 . 3 month f/u. * Medical History: Objective: * Vitals: Assessment: Plan: * Treatment: * * Electronic signature of Oscar Rogers MD, [id number] on 10/18/2024 at 12:31 PM EDT Sign off status: Pending Visit Status: N /S N/C (No Show/No Charge) * Provider: Omar Rogers MD Date: 0 08/31/2024 Generated for Printi ng/Faxing/eTransmitting on: 0 10/18/2024 12:31 PM EDT
--- OUTSIDE RECORDS SUMMARY | 2024-10-18 11:00 | XMS_ITS | Encounter Summary ---
Author Organization [facility] Address [address] [place] [address] Care Team Providers Care Surgical Specialist Name Role Phone Kaleb Vanegas MD Primary Care Provider [phone] Terri Gallardo Unavailable Reason for Visit * Reason Comments Well Women Visit Encounter Details Date Type Department Care Team (Late st Contact Info) Description 10/18/2024 11:00 AM EDT Office Visit [facility] [address] [place] [address] Terri Gallardo PA [address] [place] [address] Well woman exam with routine gynecological exam; Follow-up encounter involving medication; Yeast infection; Encounter for routine checking of intrauterine contraceptive device (IUD); Menorrhagia with irregular cycle Social History Tobacco Use Types Packs/Day Years Used Date Smoking Tobacco: Former Cigarettes Smokeless Tobacco: Never Alcohol Use Standard Drinks/Week Comments Never 0 (1 standard drink = 0.6 oz pur e alcohol) Comments No Sex and Gender Information Value Date Recorded Sex Assigned at Not on file Legal Sex Female 10:53 PM EDT Gender Identity Not on file Sexual Orientation Not on file documented as of this encounter Last Filed Vital Signs Vital Sign Reading Time Taken Comments Blood Pressure 120/82 10/18/2024 11:20 AM EDT Pulse - - Temperature - - Respiratory Rate - - Oxygen Saturation - - Inhaled Oxygen Concentration - - Weight 105 kg (231 lb 1.9 oz) 10/18/2024 11:20 A M EDT Height - - Body Mass Index 34.13 03/24/2024 2:33 PM EST documented in this encounter Progress Notes * YVONNE Gregg - 10/18/2024 11:00 AM EDT Reason for Appointment: Patient ID: Ana Sauceda is a 24 y.o. female who presents for Well Women Visit Patient presents today for Annual Exam. MEDICATIONS Current Outpatient Medications Medication Instructions Levonorgestrel (Mirena, 52 MG,) 20 MCG/DAY intrauterine device by Intrauterine route levothyroxine (SYNTHROID, LEVOXYL) 100 mcg, Daily before breakfast metFORMIN XR (GLUCOPHAGE-XR) 1,000 mg, Oral, Daily with evening meal, Do not crush, chew, or split. ALLERGIES No Known Allergies PROBLEMS Active Ambulatory Problems Diagnosis Date Noted Generalized anxiety disorder (CMS/HCC) 10/09/2022 Panic disorder (CMS/HCC) 10/09/2022 Hypothyroid (CMS/HCC) 10/09/2022 Resolved Ambulatory Problems Diagnosis Date Noted No Resolved Ambulatory Problems Past Medical History: Diagnosis Date BMI 29.0-29.9,adult ALLI (generalized anxiety disorder) (CMS/HCC) Hypothyroidism (CMS/HCC) Panic disorder without agoraphobia (CMS/HCC) Sinus tachycardia HISTORY PAST MEDICAL HISTORY SOCIAL HISTORY Past Medical History: Diagnosis Date BMI 29.0-29.9,adult ALLI (generalized anxiety disorder) (CMS/HCC) Hypothyroidism (CMS/HCC) Panic disorder without agoraphobia (CMS/HCC) Sinus tachycardia Social History Tobacco Use Smoking status: Former Types: Cigarettes Smokeless tobacco: Never Substance Use Topics Alcohol use: Never Drug use: Never FAMILY HISTORY Family History Problem Relation Name Age of Onset Alcohol abuse Father No Known Problems Son Mekhi No Known Problems Son [place] Cancer Other Grandmother SURGICAL HISTORY Past Surgical History: Procedure Laterality Date FEMUR SURGERY Right 10/12/2016 REVIEW OF SYSTEMS Review of Systems: Review of Systems Constitutional: Negative. HENT: Negative. Eyes: Negative. Respiratory: Negative. Cardiovascular: Negative. Gastrointestinal: Negative. Genitourinary: Negative. Musculoskeletal: Negative. Skin: Negative. Neurological: Negative. All other systems reviewed and are negative. Hematological: Negative. Endocrine: Negative. Allergic/Immunologic: Negative. OBJECTIVE Objective: Physical Exam Constitutional: Appearance: Normal appearance. She is well-developed. Genitourinary: Vulva normal. Genitourinary Comments: Bilateral nipple piecing Right Adnexa: not tender and no mass present. Left Adnexa: not tender and no mass present. No cervical discharge. Breasts: Breasts are soft. Right: Normal. Left: Normal. HENT: Head: Normocephalic. Nose: Nose normal. Mouth/Throat: Mouth: Mucous membranes are moist. Cardiovascular: Rate and Rhythm: Normal rate and regular rhythm. Pulmonary: Effort: Pulmonary effort is normal. Breath sounds: Normal breath sounds. Abdominal: General: Bowel sounds are normal. There is no distension. Palpations: Abdomen is soft. Tenderness: There is no abdominal tenderness. There is no guarding or rebound. Musculoskeletal: General: No swelling. Normal range of motion. Cervical back: Normal range of motion. Right lower leg: No edema. Left lower leg: No edema. Neurological: General: No focal deficit present. Mental Status: She is alert and oriented to person, place, and time. Skin: General: Skin is warm and dry. Psychiatric: Mood and Affect: Mood normal. Behavior: Behavior normal. Vitals and nursing note reviewed. Exam conducted with a grocery stock clerk present. Vitals: Estimated body mass index is 34.13 kg/m?? as calculated from the following: Height as of 24: 5' 9 . Weight as of this encounter: 231 lb 1.9 oz. BP: 120/82 No LMP recorded. (Menstrual status: IUD). ASSESSMENT & PLAN ICD-10-CM 1. Well woman exam with routine gynecological exam Z01.419 Pap Smear 2. Follow-up encounter involving medication Z79.899 metFORMIN XR (Glucophage-XR) 500 MG 24 hr tablet Annual Exam: Patient presents today for an annual exam. Patient states she is doing well and has no complaints. Pap was obtained without difficulty. Patient will have heavy bleeding with her IUD, discussed takingan oral BC but she would like to continue without oral medication at this time. We will do ultrasound to check IUD placement. Patient did have waxing recently and we will order medication for yeast infection. Follow Up: Patient is to return in one year for annual unless needed otherwise. Documented by Devora Jean LPN on behalf of: YVONNE Gregg documented in this encounter Plan of Treatment Scheduled Orders Name Type Priority Associated Diagnoses Orde r Schedule Pap Smear Pathology and Cytology Routine Well woman exam with routine gynecological exam Ordered: 10/18/2024 US pelvis transvaginal Imaging Routine Encounter for routine checking of intrauterine contraceptive device (IUD) Menorrhagia with irregular cycle Expected: 10/18/2024, Expires: 04/19/2025 documented as of this encounter Visit Diagnoses Diagnosis Well woman exam with routine gynecological exam Routine gynecological examination Follow-up encounter involving medication Yeast infection Encounter for routine checking of intrauterine contraceptive device (IUD) Menorrhagia with irregular cycle documented in this encounter Care Teams Surgical Specialist Relationship Specialty Start Date End Date Kaleb Vanegas MD [address] [place] [address] PCP - General Pediatrics 10/09/22 Terri Gallardo PA [address] [place] [address] [place] [address] PCP - [facility] 11/10/2304/10 documented as of this encounter
--- OUTSIDE RECORDS SUMMARY | 2024-10-18 12:30 | XMS_ITS | Encounter Summary ---
Author Organization [facility] Address [address] [place] [address] Care Team Providers Care Home Demonstrator Name Role Phone Kaleb Vanegas MD Primary Care Provider [phone] Terri Gallardo Unavailable Encounter Details Date Type Department Care Team (Late st Contact Info) Description 11/05/2022 Abstract [facility] [address] [facility] [place] [address] Mitchell Arriola, [address] [facility] [address] [place], [place] [id number] Social History Tobacco Use Types Packs/Day Years Used Date Smoking Tobacco: Never Assessed Comments Yes Sex and Gender Information Value Date Recorded Sex Assigned at Not on file Legal Sex Female 10:53 PM EDT Gender Identity Not on file Sexual Orientation Not on file documented as of this encounter Plan of Treatment Not on file documented as of this encounter Visit Diagnoses Not on filedocumented in this encounter Care Teams Home Demonstrator Relationship Specialty Start Date End Date Kaleb Vanegas MD [address] [place] [address] PCP - General Pediatrics 10/09/22 Terri Gallardo PA [address] [facility] [address] [place], [place] [id number] PCP - [facility] 11/10/2304/10 documented as of this encounter
--- OUTSIDE RECORDS SUMMARY | 2024-10-18 12:30 | XMS_ITS | Encounter Summary ---
Author Organization [facility] Address [address] [place] [address] Care Team Providers Care Wind Turbine Design Engineer Name Role Phone Kaleb Vanegas MD Primary Care Provider [phone] Terri Gallardo Unavailable Encounter Details Date Type Department Care Team (Late st Contact Info) Description 10/09/2022 Clinisync Result Encounter [facility] External Department Unsolicited Mitchell Arriola, DO [address] [facility] [address] [place], [place] [id number] Social History Tobacco Use Types Packs/Day Years Used Date Smoking Tobacco: Never Assessed Comments Yes Sex and Gender Information Value Date Recorded Sex Assigned at Not on file Legal Sex Female 10:53 PM EDT Gender Identity Not on file Sexual Orientation Not on file documented as of this encounter Plan of Treatment Not on file documented as of this encounter Procedures Procedure Name Priority Date/Time Associated Diagnosis Comments US PREG INCOMPLETE ANATOMY 10/09/2022 1:47 PM EDT documented in this encounter Results * US PREG INCOMPLETE ANATOMY (10/09/2022 1:47 PM EDT) Anatomical Region Laterality Modality Other 10/09/2022 1:47 PM EDT Narrative 10/09/2022 3:19 PM EDT EXAMINATION: US PREG INCOMPLETE ANATOMY HISTORY: screening COMPARISON: Ultrasound anatomy 09/11/2022 FINDINGS: Presentation: Cephalic Heart rate: 138 bpm Anatomy: Echogenic focus within left ventricle of heart. Adequate four-chamber view and cardiac outflow tracts. GA: 25 weeks 0 days VENKAT: 01/22/2023 IMPRESSION: 1. Single live intrauterine . 2. Echogenic focus within left cardiac ventricle; nonspecific but can be associated with the trisomy syndromes. Electronically authenticated by: CARMEL YODER Date: 2022-10-09 15:19 Procedure Note Radiology, Radiologist, - 10/09/2022 EXAMINATION: US PREG INCOMPLETE ANATOMY HISTORY: screening COMPARISON: Ultrasound anatomy 09/11/2022 FINDINGS: Presentation: Cephalic Heart rate: 138 bpm Anatomy: Echogenic focus within left ventricle of heart. Adequatefour-chamber view and cardiac outflow tracts. GA: 25 weeks 0 days VENKAT: 01/22/2023 IMPRESSION: 1. Single live intrauterine . 2. Echogenic focus within left cardiac ventricle; nonspecific but can be associated with the trisomy syndromes. Electronically authenticated by: CARMEL YODER Date: 2022-10-09 15:19 Mitchell Zeinab [facility] Final Result documented in this encounter Visit Diagnoses Not on filedocumented in this encounter Care Teams Wind Turbine Design Engineer Relationship Specialty Start Date End Date Kaleb Vanegas MD [address] [place] [address] PCP - General Pediatrics 10/09/22 Terri Gallardo PA [address] [place] [address] [place] [address] PCP - [facility] 11/10/2304/10 documented as of this encounter
--- OUTSIDE RECORDS SUMMARY | 2024-10-18 12:30 | XMS_ITS | Encounter Summary ---
Author Organization [facility] Address [address] [place] [address] Care Team Providers Care Certified Medical Technician Name Role Phone Kaleb Vanegas MD Primary Care Provider [phone] Terri Gallardo Unavailable Encounter Details Date Type Department Care Team (Late st Contact Info) Description 10/18/2024 Bamboo flowsheet [facility] [address] [facility] [place] [address] Terri Gallardo PA [address] [place] [address] [place], [id number] Social History Tobacco Use Types Packs/Day Years [...] on filedocumented in this encounter Care Teams Certified Medical Technician Relationship Specialty Start Date End Date Kaleb Vanegas MD [address] [place] [address] PCP - General Pediatrics 10/09/22 Terri Gallardo PA [address] [facility] [address] [place], [id number] 11/10/2304/10 documented as of this encounter
--- OUTSIDE RECORDS SUMMARY | 2024-10-18 12:30 | XMS_ITS | Clinical Summary ---
Author Organization [facility] Address [address] [place] [address] Care Team Providers Care Exhaust And Muffler Repairer Name Role Phone Kaleb Vanegas MD Primary Care Provider [phone] Terri Gallardo Unavailable Allergies No known active allergies Medications levothyroxine (Synthroid, Levoxyl) 50 MCG tablet Take 100 mcg by mouth in the morning. Take before meals. Active Levonorgestrel (Mirena, 52 MG,) 20 MCG/DAY intrauterine device by Intrauterine route Active metFORMIN XR (Glucophage-XR) 500 MG 24 hr tabletIndicatio ns:Follow-up encounter involving medication Take 2 tablets (1,000 mg) by mouth in the evening. Take with meals Do not crush, chew, or split. 30 tablet 025 2025 Active fluconazole (Diflucan) 150 MG tabletIndicatio ns:Yeast infection Take 1 tablet (150 mg) by mouth 1 (one) time for 1 dose This is a 1 time dose, take single tablet by mouth. 1 tablet 1 025 2024 Active metFORMIN XR (Glucophage-XR) 500 MG 24 hr tabletIndicatio ns:Insulin resistance Take 1 tablet (500 mg) by mouth in the evening. Take with meals Do not crush, chew, or split. 30 tablet 024 2024 Discontinued metFORMIN XR (Glucophage-XR) 500 MG 24 hr tabletIndicatio ns:Insulin resistance Take 1 tablet (500 mg) by mouth in the evening. Take with meals Do not crush, chew, or split. 30 tablet 11 025 2024 Discontinued metFORMIN XR (Glucophage-XR) 500 MG 24 hr tabletIndicatio ns:Follow-up encounter involving medication Take 2 tablets (1,000 mg) by mouth in the evening. Take with meals Do not crush, chew, or split. 30 tablet 11 025 2024 Discontinued(R eorder) Active Problems Problem Noted Date Diagnosed Date Generalized anxiety disorder 10/09/2022 Panic disorder 10/09/2022 Hypothyroid 10/09/2022 Encounters Date Type Department Care Team Description 10/18/2024 11:00 AM EDT Office Visit [facility] [address] [place] [address] Terri Gallardo PA Well woman exam with routine gynecological exam; Follow-up encounter involving medication; Yeast infection; Encounter for routine checking of intrauterine contraceptive device (IUD); Menorrhagia with irregular cycle 10/18/2024 Bamboo flowsheet [facility] [address] [place] [phone] Terri Gallardo PA 09/20/2024 11:10 AM EDT Office Visit [facility] [place] [address] [place] [phone] Mitchell Arriola DO Follow-up encounter involving medication 09/20/2024 Bamboo flowsheet [facility] [address] [place] [address] Mitchell Arriola DO 08/30/2024 9:20 AM EDT Office Visit [facility] [address] [place] [phone] Mitchell Arriola DO Vaginal cyst; Exposure to STD; Sinus tachycardia; Infected sebaceous gland; Insulin resistance; Bacterial vaginosis 08/30/2024 External Result Encounter [facility] External Department Unsolicited Mitchell Arriola DO 08/30/2024 Bamboo flowsheet [facility] [address] [place] [address] Mitchell Arriola DO from Last 3 Months Family History Medical History Relation Name Comments Alcohol abuse Father Cancer Other Grandmother No Known Problems Son 1 Mekhi No Known Problems Son 2 Leonardo Relation Name Status Comments Father Alive Other Grandmother Son 1 Mekhi Alive Son 2 Sabine Alive Social History Tobacco Use Types Packs/Day Years Used Date Smoking Tobacco: Former Cigarettes Smokeless Tobacco: Never Tobacco Cessation:Counseling Given: Not Answered Alcohol Use Standard Drinks/Week Comments Never 0 (1 standard drink = 0.6 oz pur e alcohol) Comments No Sex and Gender Information Value Date Recorded Sex Assigned at Not on file Legal Sex Female 10:53 PM EDT Gender Identity Not on file Sexual Orientation Not on file Last Filed Vital Signs Vital Sign Reading Time Taken Comments Blood Pressure 120/82 10/18/2024 11:20 AM EDT Pulse - - Temperature - - Respiratory Rate - - Oxygen Saturation - - Inhaled Oxygen Concentration - - Weight 105 kg (231 lb 1.9 oz) 10/18/2024 11:20 A M EDT Height 175.3 cm (5' 9 ) 03/24/2024 2:33 PM EST Body Mass Index 34.13 03/24/2024 2:33 PM EST Plan of Treatment Health Maintenance Due Date Last Done Comments Influenza Vaccine (Season Ended) 2025 Procedures Procedure Name Priority Date/Time Associated Diagnosis Comments RECURRENT VAGINITIS (HTRX) Routine 08/30/2024 11:29 AM EDT POCT URINALYSIS DIPSTICK Routine 08/30/2024 9:53 AM EDT Exposure to STD from Last 3 Months Results * (ABNORMAL) RECURRENT VAGINITIS (HTRX) (08/30/2024 11:29 AM EDT) Pathologist [facility] [place] ATOPOBIUM VAGINAE 25.654(A) 19.961 - 24.689 ppm 08/31/2024 7:39 AM EDT [facility] ATOPOBIUM VAGINAE Detected(A) 19.961 - 24.689 ppm 08/31/2024 7:39 AM EDT [facility] BVAB 2,3 (BACTERIAL VAGINOSIS ASSOCIATED BACTERIA 2, 3); MOBILUNCUS SPP 24.289(A) 19.961 - 24.689 ppm 08/31/2024 7:39 AM EDT [facility] BVAB 2,3 (BACTERIAL VAGINOSIS ASSOCIATED BACTERIA 2, 3); MOBILUNCUS SPP Detected(A) 19.961 - 24.689 ppm 08/31/2024 7:39 AM EDT [facility] SYLWIA ALBICANS, PARAPSILOSIS, TROPICALIS 0.000 19.961 - 30.770 ppm 08/31/2024 7:39 AM EDT [facility] SYLWIA ALBICANS, PARAPSILOSIS, TROPICALIS Not Detected 19.961 - 30.770 ppm 08/31/2024 7:39 AM EDT [facility] SYLWIA GLABRATA 0.000 23.000 - 32.138 ppm 08/31/2024 7:39 AM EDT [facility] SYLWIA GLABRATA Not Detected 23.000 - 32.138 ppm 08/31/2024 7:39 AM EDT [facility] SYLWIA KRUSEI 0.000 23.000 - 32.271 ppm 08/31/2024 7:39 AM EDT [facility] SYLWIA KRUSEI Not Detected 23.000 - 32.271 ppm 08/31/2024 7:39 AM EDT [facility] CHLAMYDIA TRACHOMATIS 0.000 23.000 - 31.467 ppm 08/31/2024 7:39 AM EDT [facility] CHLAMYDIA TRACHOMATIS Not Detected 23.000 - 31.467 ppm 08/31/2024 7:39 AM EDT [facility] GARDNERELLA VAGINALIS 20.731(A) 19.961 - 24.689 ppm 08/31/2024 7:39 AM EDT [facility] GARDNERELLA VAGINALIS Detected(A) 19.961 - 24.689 ppm 08/31/2024 7:39 AM EDT [facility] MEGASPHAERA (TYPES 1, 2) 0.000 19.961 - 24.689 ppm 08/31/2024 7:39 AM EDT [facility] MEGASPHAERA (TYPES 1, 2) Not Detected 19.961 - 24.689 ppm 08/31/2024 7:39 AM EDT [facility] NEISSERIA GONORRHOEAE 0.000 23.000 - 32.117 ppm 08/31/2024 7:39 AM EDT [facility] NEISSERIA GONORRHOEAE Not Detected 23.000 - 32.117 ppm 08/31/2024 7:39 AM EDT [facility] TRICHOMONAS VAGINALIS 0.000 23.000 - 32.119 ppm 08/31/2024 7:39 AM EDT [facility] TRICHOMONAS VAGINALIS Not Detected 23.000 - 32.119 ppm 08/31/2024 7:39 AM EDT [facility] MYCOPLASMA GENITALIUM 0.000 19.961 - 24.689 ppm 08/31/2024 7:39 AM EDT [facility] MYCOPLASMA GENITALIUM Not Detected 19.961 - 24.689 ppm 08/31/2024 7:39 AM EDT [facility] ERMB, C; MEFA 19.208(A) 23.000 - 27.611 ppm 08/31/2024 7:39 AM EDT [facility] ERMB, C; MEFA Detected(A) 23.000 - 27.611 ppm 08/31/2024 7:39 AM EDT [facility] TET B, TET M 18.046(A) 23.000 - 27.778 ppm 08/31/2024 7:39 AM EDT [facility] TET B, TET M Detected(A) 23.000 - 27.778 ppm 08/31/2024 7:39 AM EDT [facility] Tissue 08/30/2024 11:2 9 AM EDT 08/31/2024 2:24 AM EDT us Mitchell Dolano DO LAB BLOOD ORDERABLES Final Resul t [facility] [place] [address] * POCT urinalysis dipstick manually resulted (08/30/2024 9:53 AM EDT) Color, UA Yellow Clarity, UA Clear Glucose, UA Negative Negative - 2000(110) ++++ mg/dL Bilirubin, UA Negative Negative - 4(70) +++ mg/dL Ketones, UA Negative Negative - 160(16) ++++ mg/dL Spec Grav, UA 1.020 1 - 1.03 Blood, UA Negative Negative - 50 Matthew/mcL pH, UA 6.0 5 - 9 Protein, UA Negative Negative - 2000(20) ++++ mg/dL Urobilinogen, UA 0.2 0.2 - 12 mg/dL Leukocytes, UA Positive Negative - 500+++ Rosa/mcL Nitrite, UA Negative Negative - Positive Urine 08/30/2024 9:53 AM EDT Mitchell Arriola DO POINT OF CARE TEST ENTER/EDIT OR DERABLES Final Result from Last 3 Months Insurance [employer] Care Teams Exhaust And Muffler Repairer Relationship Specialty Start Date End Date Kaleb Vanegas MD [address] [place] [address] PCP - General Pediatrics 10/09/22 Terri Gallardo PA [address] [place] [address] Dr [place], [facility] - [facility] 11/10/2304/10
--- OUTSIDE RECORDS SUMMARY | 2024-10-18 12:30 | XMS_ITS | Encounter Summary ---
Author Organization [facility] Address [address] [place] [address] Care Team Providers Care Learning Support Specialist Name Role Phone Kaleb Vanegas MD Primary Care Provider [phone] Terri Gallardo Unavailable Encounter Details Date Type Department Care Team (Late st Contact Info) Description 07/16/2023 Clinisync Result Encounter [facility] External Department Unsolicited Mitchell Arriola DO [address] [facility] [place], [place] [id number] Social History Tobacco Use Types Packs/Day Years [...] Name Priority Date/Time Associated Diagnosis Comments US BREAST BI LIMITED 07/16/2023 9:50 AM EST documented in this encounter Results * US BREAST BI LIMITED (07/16/2023 9:50 AM EST) Anatomical Region Laterality Modality Other 07/16/2023 9:50 AM EST Narrative 07/16/2023 9:51 AM EST The [address] [address] Ultrasound Report Signed Patient: SIMON SAUCEDA MR#: [id number] : 2000 Acct:[id number] Age/Sex: 23 / F ADM Date: 07/16/23 Loc: MAMMO Attending Dr: Mitchell Arriola D.O. Ordering Physician: Mitchell Arriola D.O. Date of Service: 07/16/23 Procedure(s): US breast BI limited Accession Number(s): [id number] cc: Mitchell Arriola D.O. Patient Name: SIMON SAUCEDA MR#: [id number] : 2000 Exam Date: 07/16/2023 Ordering Doctor: DR Mitchell Arriola . RADIOLOGY REPORT PROCEDURE: MM TOMOSYNTHESIS DIAGNOSTIC BI, 07/16/2023, 08:44 US BREAST BI COMPLETE, 07/16/2023, 09:34 COMPARISON: None. INDICATIONS: Mass Of Right Breast N63.10 Calculator Name NCI Breast Cancer Risk Assessment Tool 5 Year Breast Cancer Risk Not Applicable. Lifetime Breast Cancer Risk Not Applicable. Personal Breast Cancer No Personal Ovarian Cancer No Treatments None Family Cancers None LOCATION: [facility] BREAST COMPOSITION: Heterogeneously dense,which may obscure small masses. FINDINGS: DIAGNOSTIC CATEGORY 1--NEGATIVE. Breasts are medium to large in size. Heterogeneous parenchymal pattern. No mammographic or ultrasound abnormality is identified correspond to the 2 right and single left palpable lesions, indicated by triangle markers. Further evaluation should be based on clinical and physical exam. RIGHT BREAST: No significant suspicious finding. LEFT BREAST: No significant suspicious finding. RECOMMENDATIONS: CLINICAL EVALUATION. PLEASE NOTE: A NORMAL MAMMOGRAM DOES NOT EXCLUDE THE POSSIBILITY OF BREAST CANCER. A CLINICALLY SUSPICIOUS PALPABLE LUMP SHOULD BE BIOPSIED. Dictated by: Kaleb Flowers MD on 07/16/2023 at 09:46 Approved by: Kaleb Flowers MD on 07/16/2023 at 09:50 Dictated By: Kaleb Flowers M.D. Signed By: 07/16/2351 DD/ TD/TT: Gi Technician: Procedure Note Radiology, RadiologistMD - 07/16/2023 [place] [address] Ultrasound Report Signed Patient: SIMON SAUCEDA LMR#: [id number] : 2000Acct:[id number] Age/Sex: 23 / FADM Date: 07/16/23 Loc: MAMMO Attending Dr: Mitchell Arriola D.O. Ordering Physician: Mitchell Arriola D.O. Date of Service: 07/16/23 Procedure(s): US breast BI limited Accession Number(s): [id number] cc: Mitchell Arriola D.O. Patient Name: SIMON SAUCEDA MR#: [id number] : 2000 Exam Date: 07/16/2023 Ordering Doctor: DR Mitchell Arriola . RADIOLOGY REPORT PROCEDURE: MM TOMOSYNTHESIS DIAGNOSTIC BI, 07/16/2023, 08:44 US BREAST BI COMPLETE, 07/16/2023, 09:34 COMPARISON: None. INDICATIONS: Mass Of Right Breast N63.10 Calculator Name NCI Breast Cancer Risk Assessment Tool 5 Year Breast Cancer Risk Not Applicable. Lifetime Breast Cancer Risk Not Applicable. Personal Breast Cancer No Personal Ovarian Cancer No Treatments None Family Cancers None LOCATION: [facility] BREAST COMPOSITION: Heterogeneously dense,which may obscure smallmasses. FINDINGS: DIAGNOSTIC CATEGORY 1--NEGATIVE. Breasts are medium to large in size. Heterogeneous parenchymal pattern.No mammographic or ultrasound abnormality is identified correspond to the 2right and single left palpable lesions, indicated by triangle markers. Further evaluation should be based on clinical and physical exam. RIGHT BREAST: No significant suspicious finding. LEFT BREAST: No significant suspicious finding. RECOMMENDATIONS: CLINICAL EVALUATION. PLEASE NOTE: A NORMAL MAMMOGRAM DOES NOT EXCLUDE THE POSSIBILITY OFBREAST CANCER. A CLINICALLY SUSPICIOUS PALPABLE LUMP SHOULD BE BIOPSIED. Dictated by: Kaleb Flowers MD on 07/16/2023 at 09:46 Approved by: Kaleb Flowers MD on 07/16/2023 at 09:50 Dictated By: Kaleb Flowers M.D. Signed By:07/16/2351 DD/ 9 TD/TT: Gi Technician: Mitchell Arriola DO [facility] Final Result documented in this encounter Visit Diagnoses Not on filedocumented in this encounter Care Teams Learning Support Specialist Relationship Specialty Start Date End Date Kaleb Vanegas MD [address] [place] [address] PCP - General Pediatrics 10/09/22 Terri Gallardo PA [address] [place] [address] [place] [address] PCP - [facility] 11/10/2304/10 documented as of this encounter
--- OUTSIDE RECORDS SUMMARY | 2024-10-18 12:30 | XMS_ITS | Encounter Summary ---
Author Organization [facility] Address [address] [place] [address] Care Team Providers Care Applications Specialist Name Role Phone Kaleb Vanegas MD Primary Care Provider [phone] Terri Gallardo Unavailable Encounter Details Date Type Department Care Team (Late st Contact Info) Description 11/04/2023 Abstract [facility] BCP OB [address] [facility] [place] [address] Mitchell Arriola DO [address] [facility] [address] [place], [facility] Social History Tobacco Use Types Packs/Day Years [...] on filedocumented in this encounter Care Teams Applications Specialist Relationship Specialty Start Date End Date Kaleb Vanegas MD [address] [place] [address] PCP - General Pediatrics 10/09/22 Terri Gallardo PA [address] [place] [address] [facility] 11/10/2304/10 documented as of this encounter
--- OUTSIDE RECORDS SUMMARY | 2024-10-18 12:31 | XMS_ITS | Patient Health Record ---
Author Organization [facility] [place] Address [address] [place] [address] Care Team Providers Care Sea Air Land Officer Name Role Phone Homer Ho MD Primary Care Provider UnavailAlexander Wood [phone] Allergies No Known Allergies Reason For Referral No Information Medications Medication SIG (Take, Route, Frequency, Duration) [...] Encounters Encounter Location Date Provider Diagnosis Urology s[facility] [address] [place] [address] 05/26/2024 Alexander Rogers Recurrent UTI N39.0 Assessments Encounter Date Diagnosis (ICD Code) Assessment Notes Treatment Notes Treatment Clinical Notes Section Notes 05/26/2024 Recurrent UTI (ICD-10 - N39.0) 05/26/2024 Other Discussed and recommended removal of IUD. Starting methenamine BID Plan Of Treatment No Information Insurance Providers Payer Name Payer Address Payer Phone Subscriber Number Group Number Insured Name Patient Relationship to Insured Coverage Start Date Coverage End Date [employer] [place] [employer] [address] [place] [address] [id number] Ana Sauceda Self - patient is the insured Medical (General) History Medical History History ICD Code Hypothyroidism sinus tachycardia recurrent UTI Surgical History Surgery Date(Month/Year) right femur dennis and screws
--- OUTSIDE RECORDS SUMMARY | 2024-10-18 12:31 | XMS_ITS | Encounter Summary ---
Author Organization [facility] Address [address] [place] [address] Care Team Providers Care Land Mobile Radio Technician Name Role Phone Kaleb Vanegas MD Primary Care Provider [phone] Terri Gallardo Unavailable Encounter Details Date Type Department Care Team (Late st Contact Info) Description 01/07/2023 Abstract [facility] BCP [facility] [address] [place] [address] Devora Jean LPN [address] [facility] [id number] Social History Tobacco Use Types Packs/Day Years Used Date Smoking Tobacco: Former Cigarettes Smokeless Tobacco: Never Alcohol Use Standard Drinks/Week Comments Never 0 (1 standard drink = 0.6 oz pur e alcohol) Comments Yes Sex and Gender Information Value Date Recorded Sex Assigned at Not on file Legal Sex Female 10:53 PM EDT Gender Identity Not on file Sexual Orientation Not on file documented as of this encounter Plan of Treatment Not on file documented as of this encounter Visit Diagnoses Not on filedocumented in this encounter Care Teams Land Mobile Radio Technician Relationship Specialty Start Date End Date Kaleb Vanegas MD [address] [place] [address] PCP - General Pediatrics 10/09/22 Terri Gallardo PA [address] [place] [address] [facility] 11/10/2304/10 documented as of this encounter
--- OUTSIDE RECORDS SUMMARY | 2024-10-18 12:31 | XMS_ITS | Encounter Summary ---
Author Organization [facility] Address [address] [place] [address] Care Team Providers Care Rental Counter Clerk Name Role Phone Kaleb Vanegas MD Primary Care Provider [phone] Terri Gallardo Unavailable Encounter Details Date Type Department Care Team (Late st Contact Info) Description 12/18/2022 Abstract [facility] BCP OB [address] [facility] [place] [address] Terri Gallardo PA [address] [facility] [address] [place], [facility] Social History Tobacco Use Types Packs/Day Years [...] on filedocumented in this encounter Care Teams Rental Counter Clerk Relationship Specialty Start Date End Date Kaleb Vanegas MD [address] [place] [address] PCP - General Pediatrics 10/09/22 Terri Gallardo PA [address] [facility] [address] [place] [id number] [facility] 11/10/2304/10 documented as of this encounter
--- OUTSIDE RECORDS SUMMARY | 2024-10-18 12:31 | XMS_ITS | Encounter Summary ---
Author Organization [facility] Address [id number] [address] [place] [address] Care Team Providers Care Sampler First Name Role Phone Unavailable Primary Care Provider Unavailabl e Encounter Details Date Type Department Care Team (Late Contact Info) Description 07/01/2024 Orders Only [facility] [address] [place] [phone] Susie Rivas MA Intermittent palpitations; Precordial pain Social History Tobacco Use Types Packs/Day Years Used Date Smoking Tobacco: Former Cigarettes Smokeless Tobacco: Never Alcohol Use Standard Drinks/Week Comments Yes 0 (1 standard drink = 0.6 oz pur e alcohol) Childcare Answer Date Recorded Childcare Unknown 10/21/2018 Employment Answer Date Recorded Employment Unknown 10/21/2018 Hunger Screening Answer Date Recorded Within the past 12 months we worried whether our food would run out before we got money to buy more. Never True 06/10/2024 Within the past 12 months th e food we bought just didn't last and we didn't have money to get more. Never True 06/10/2024 Comments Unknown Sex and Gender Information Value Date Recorded Sex Assigned at Not on file Legal Sex Female 11:59 AM EDT Gender Identity Not on file Sexual Orientation Not on file documented as of this encounter Plan of Treatment Upcoming Encounters Date Type Department Care Team (Late Contact Info) Description 12/22/2024 9:00 AM EDT Office Visit [facility] [address] [place] [phone] Ronaldo Murrell MD [address] [place] [address] documented as of this encounter Procedures Procedure Name Priority Date/Time Associated Diagnosis Comments EVENT MONITOR Routine 06/30/2024 Intermittent palpitations Precordial pain documented in this encounter Results * Event monitor (06/30/2024) Anatomical Region Laterality Modality Chest N/A Other us Ronaldo Murrell MD [facility] ORDERABLE S Final Result documented in this encounter Visit Diagnoses Diagnosis Intermittent palpitations Precordial pain documented in this encounter
--- OUTSIDE RECORDS SUMMARY | 2024-10-18 12:31 | XMS_ITS | Patient Health Record ---
Author Organization [facility] Address [address] [place] [address] Care Team Providers Care Filament Cutter Name Role Phone Devonte Marco Primary Care Provider Dr. Mendel Orozco [facility] [phone] Reason For Referral No Information Medications Medication SIG (Take, Route, Fr equency, Duration) Notes Start Date End Date Status Ibuprofen 800 MG 1 tablet with food o r milk as needed Orally Three times a day 10/04/2021 Active Plan Of Treatment No Information Insurance Providers Payer Name Payer Address Payer Phone Subscriber Number Group Number Insured Name Patient Relationship to Insured Coverage Start Date Coverage End Date [facility] ed 22. [address] [place] [place] [address] [phone] [id number] SIMON RAMOS Self - patient is the insured 2 zMEDICAID [employer] after [employer] [address] [place] [address] [id number] SIMON RAMOS Self - patient is the insured 2 zDENTAL [employer] 22 [address] [address] [place] [address] [id number] SIMON RAMOS Self - patient is the insured 2 zDental MEDICAID [employer] after [employer] [address] [place] [address] [id number] SIMON RAMOS Self - patient is the insured 2
--- OUTSIDE RECORDS SUMMARY | 2024-10-18 12:31 | XMS_ITS | Clinical Summary ---
Author Organization [facility] Address [id number] [address] [place] [address] Care Team Providers Care Car Driver Name Role Phone Unavailable Primary Care Provider Unavailabl e Allergies No known active allergies Medications levothyroxine (SYNTHROID, LEVOTHROID) 50 MCG tablet Take 2 tablets (100 mcg total) by mouth in the morning. 08/29/2022 Active methenamine (HIPREX) 1 gram tablet Take 1 tablet (1 g total) by mouth in the morning and 1 tablet (1 g total) in the evening. Take with meals. 05/28/2024 Active Active Problems No known active problems Social History Tobacco Use Types Packs/Day Years Used Date Smoking Tobacco: Former Cigarettes Smokeless Tobacco: Never Tobacco Cessation:Counseling Given: Not Answered Alcohol Use Standard Drinks/Week Comments Yes 0 [...] Sign Reading Time Taken Comments Blood Pressure 118/80 06/10/2024 1:35 PM EST Pulse 88 06/10/2024 1:35 PM EST Temperature - - Respiratory Rate - - Oxygen Saturation - - Inhaled Oxygen Concentration - - Weight 100.7 kg (222 lb) 06/10/2024 1:35 PM EST Height 175.3 cm (5' 9 ) 06/10/2024 1:35 PM EST Body Mass Index 32.78 06/10/2024 1:35 PM EST Plan of Treatment Upcoming Encounters Date Type Department Care Team (Late st Contact Info) Description 12/22/2024 9:00 AM EDT Office Visit [facility] [address] [place] [address] Ronaldo Murrell MD [address] [place] [address] Health Maintenance Due Date Last Done Comments Depression Screening 2014 Tobacco Screening 2014 Adult BMI Follow Up Plan 02/28/2020 Pap Smear 2023 Influenza Vaccine 01/10/2025 Adult BMI Screening 06/10/2025 06/10/2024 DTaP,Tdap and Td Vaccines (6 - Tdap) 06/12/2031 06/12/2021, 04/02/2004, 2002, Additional history exists Medical Devices Not on file Insurance [employer] [place] [id number]
--- OUTSIDE RECORDS SUMMARY | 2024-10-18 12:31 | XMS_ITS | Encounter Summary ---
Author Organization [employer] Address [id number] [address] [place] [address] Care Team Providers Care Baccarat Manager Name Role Phone Unavailable Primary Care Provider Unavailabl e Encounter Details Date Type Department Care Team ([facility] Contact Info) Description 06/11/2024 Orders Only [facility] [address] [place] [phone] External, Scanning Provider Social History Tobacco Use Types Packs/Day Years [...] AM EDT Office Visit [facility] [address] [place] [phone] Ronaldo Murrell MD [address] [place] [address] documented as of this encounter Procedures Procedure Name Priority Date/Time Associated Diagnosis Comments MULTIPLE LABS Routine 05/05/2024 12:59 PM EST ECG 12-LEAD Routine 05/02/2024 1:01 PM EST MULTIPLE LABS Routine 05/02/2024 1:00 PM EST ECG 12-LEAD Routine 03/14/2024 1:01 PM EST documented in this encounter Results * Multiple labs (05/05/2024 12:59 PM EST) us Scanning Provider External [place] [facility] Final Result Performing Organization Address [facility] de Phone Number MANUALLY TRANSCRIBED RESULTS * ECG 12 lead (05/02/2024 1:01 PM EST) us Scanning Provider External ECG ORDERABLES Final Result Performing Organization Address [facility] Phone Number MANUALLY TRANSCRIBED RESULTS * Multiple labs (05/02/2024 1:00 PM EST) us Scanning Provider External [place] [facility] Final Result Performing Organization Address [facility] de Phone Number MANUALLY TRANSCRIBED RESULTS * ECG 12 lead (03/14/2024 1:01 PM EST) us Scanning Provider External ECG ORDERABLES Final Result Performing Organization Address [facility] de Phone Number MANUALLY TRANSCRIBED RESULTS documented in this encounter Visit Diagnoses Not on filedocumented in this encounter
--- OUTSIDE RECORDS SUMMARY | 2024-10-18 12:31 | XMS_ITS | Encounter Summary ---
Author Organization [facility] Address [address] [place] [address] Care Team Providers Care Lawn Specialist Name Role Phone Kaleb Vanegas MD Primary Care Provider [phone] Terri Gallardo Unavailable Encounter Details Date Type Department Care Team (Late st Contact Info) Description 07/16/2023 Clinisync Result Encounter [facility] External Department Unsolicited Mitchell Arriola DO [address] [place] [address] [place], [place] [phone] Social History Tobacco Use Types Packs/Day Years [...] Procedure Name Priority Date/Time Associated Diagnosis Comments MM TOMOSYNTHESIS DIAGNOSTIC BI 07/16/2023 9:50 AM EST documented in this encounter Results * MM TOMOSYNTHESIS DIAGNOSTIC BI (07/16/2023 9:50 AM EST) Anatomical Region Laterality Modality Other 07/16/2023 9:50 AM EST Narrative 07/16/2023 9:51 AM EST The [address] [address] Mammography Report Signed Patient: SIMON SAUCEDA MR#: [id number] : 2000 Acct:[id number] Age/Sex: 23 / F ADM Date: 07/16/23 Loc: MAMMO Attending Dr: Mitchell Arriola D.O. Ordering Physician: Mitchell Arriola D.O. Results: Date of Service: 07/16/23 Follow Up: Procedure(s): MM tomosynthesis diagnostic BI Accession Number(s): [id number] cc: Mitchell Arriola D.O. Patient Name: SIMON SAUCEDA MR#: [id number] : 2000 Exam Date: 07/16/2023 Ordering Doctor: [...] Treatments None Family Cancers None LOCATION: [facility] BREAST COMPOSITION: Heterogeneously dense,which may obscure small [...] Dictated By: Kaleb Flowers M.D. Signed By: 07/16/23 0951 DD/ TD/TT: Bone Char Operator: Procedure Note Radiology, Radiologist, - 07/16/2023 [place] [address] Mammography Report Signed Patient: SIMON SAUCEDA LMR#: [id number] : 2000Acct:[id number] Age/Sex: 23 FADM Date: 07/16/23 Loc: MAMMO Attending Dr: Mitchell Arriola D.O. Ordering Physician: Mitchell Arriola D.O.Results: Date of Service: 07/16/23Follow Up: Procedure(s): MM tomosynthesis diagnostic BI Accession Number(s): [id number] cc: Mitchell Arriola D.O. Patient Name: SIMON SAUCEDA MR#: [id number] : 2000 Exam Date: 07/16/2023 Ordering Doctor: [...] Treatments None Family Cancers None LOCATION: [facility] BREAST COMPOSITION: Heterogeneously dense,which may obscure smallmasses. [...] By: Kaleb Flowers M.D. Signed By:07/16/2351 DD/ TD/TT: Bone Char Operator: Mitchell Arriola DO [facility] Final Result documented in this encounter Visit Diagnoses Not on filedocumented in this encounter Care Teams Lawn Specialist Relationship Specialty Start Date End Date Kaleb Vanegas MD [address] [place] [address] PCP - General Pediatrics 10/09/22 Terri Gallardo PA [address] [place] [address] [place] [address] PCP - [facility] 11/10/2304/10 documented as of this encounter
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
--- OUTSIDE RECORDS SUMMARY | 2024-10-18 12:31 | XMS_ITS | Encounter Summary ---
Author Organization [employer] [facility] tem Address [id number] [address] [place] [address] Care Team Providers Care Dry Cleaner Hand Name Role Phone Unavailable Primary Care Provider Unavailabl e Encounter Details Date Type Department Care Team (Late st Contact Info) Description 06/24/2024 Orders Only [facility] [address] [place] [phone] Susie Rivas MA Intermittent palpitations; Precordial pain [...] AM EDT Office Visit [facility] [address] [place] [phone] Ronaldo Murrell MD [address] [place] [address] documented as of this encounter Procedures Procedure Name Priority Date/Time Associated Diagnosis Comments ECHO COMPLETE WO CONTRAST Routine 06/24/2024 Intermittent palpitations Precordial pain documented in this encounter Results * Echo complete W/O contrast (06/24/2024) Anatomical Region Laterality Modality Chest N/A Ultrasound us Ronaldo Murrell MD CV ECHO ORDERABLES Final Resu lt documented in this encounter Visit Diagnoses Diagnosis Intermittent palpitations Precordial pain documented in this encounter
[2024-10-20 14:09] LABS: Age Gdln ACOG Testing Note (.); IGP, rfx Aptima HPV ASCU Note (.)
== END 2024-10-18 12:28 | disposition home or self-care (01) ==
LOC: LAB 12:27
PROVIDERS: PCP Obstetrics & Gynecology; Visit Provider Physician Assistant
DX: Z01.419 Encounter for gynecological examination (general) (routine) without abnormal findings (principal)
CPT/HCPCS: 88175

== ENCOUNTER 2024-10-22 19:58 | Outpatient (OUT) | payer OTHER, SELFPAY ==
--- OUTSIDE RECORDS SUMMARY | 2024-05-26 11:20 | XMS_ITS ---
Author Organization [facility] in [place] Address [address] [place] [address] Care Team Providers Care Heel Scourer Name Role Phone Homer Ho MD Primary Care Provider Alexander Mtz [phone] Allergies No Known Allergies REASON FOR VISIT Referred for Recurrent UTi/Pyelo -Right Medications Medication SIG (Take, Route, Frequency, Duration) Notes Start Date End Date Status Methenamine Hippurate 1 GM 1 tablet Oral ly Twice a day for 30 days 05/26/2024 Active Levothyroxine Sodium 100 MCG Oral for 30 Days Active Cephalexin 500 MG Oral for 10 Days Not-Taking Social History Tobacco Use: Social History Observation Description Date Details (start date - stop date) Current Smoker NA - NA Tobacco Control (Standard) Question Answer Notes Tobacco use: Current smoker AUDIT-C (Standard) Question Answer Notes Did you have a drink contain ing alcohol in the past year? Yes How often did you have six o r more drinks on one occasion in the past year? Never (0 point) How many drinks did you have on a typical day when you were drinking in the past year? 3 or 4 drinks (1 point) How often did you have a dri nk containing alcohol in the past year? 2 to 4 times a month (2 points) Points 3 Interpretation Positive Vital Signs Height 69 in 05/26/2024 Weight 224.6 lbs 05/26/2024 BMI 33.16 kg/m2 05/26/2024 Encounters Encounter Location Date Provider Diagnosis Urology [facility] [address] [place] [address] 05/26/2024 Alexander Rogers Recurrent UTI N39.0 Assessments Encounter Date Diagnosis (ICD Code) Assessment Notes Treatment Notes Treatment Clinical Notes Section Notes 05/26/2024 Recurrent UTI (ICD-10 - N39.0) 05/26/2024 Other Discussed and recommended removal of IUD. Starting methenamine BID Plan Of Treatment Medication Medication Name Sig Start Date Stop Date Notes Methenamine Hippurate 1 GM 1 tablet Oral ly Twice a day for 30 days 05/26/2024 Treatment Notes Assessment Notes Other Discussed and recomm ended removal of IUD. Starting methenamine BID Next Appt Details Follow Up: 3 Months, Reason: Progress Notes * Ana SAUCEDADOB: 2 (24 yo F)Acc No.[id number]:05/26/2024 Progress Note Patient: Ana HERNANDEZ Provider: Omar Rogers MD :2000 A ge:24 Y S ex:Female Date:05/26/2024 Address:[address] [place], [place] [id number] Pcp:Homer Ho MD Check In:03:10 PM ESTCheck O ut:03:47 PM EST Subjective: * Chief Complaints: * R eferred for Recurrent UTi/Pyelo -Right * HPI: U rology: We see Ana for recurrent UTI. Urine cultures demonstrate E. coli. No UTIs as a child. UTI started March 2024. She does have an IUD in place. CT scan normal. Will start on methenamine. * ROS: G eneral/Constitutional: Fever d enies. W eight loss d enies. F atigue or Weakness a dmits. G enitourinary: Incontinence d enies. F requent urination d enies.?Painful urination d enies. B lood in Urine d enies. * Active Problem List ?Problem List has not been verified* Medical History: * Surgical History: r ight femur dennis and screws * Hospitalization/Major Diagno stic Procedure: * Family History: N on-Contributory. * Social History: T obacco Use: T obacco Control (Standard) T obacco use: C urrent smoker D rug/Alcohol: A ALYSSA-C (Standard) D id you have a drink containing alcohol in the past year? Y es H ow often did you have six or more drinks on one occasion in the past year? N ever (0 point) H ow many drinks did you have on a typical day when you were drinking in the past year? 3 or 4 drinks (1 point) H ow often did you have a drink containing alcohol in the past year? 2 to 4 times a month (2 points) P oints 3 I nterpretation P ositive D rugs/Alcohol: C affeine I ntake: m ore than 4 cups per day * Medications: T akingLevothyroxine Sodium 100 MCG Tablet Oral Taking Levothyroxine Sodium 100 MCG Tablet Oral Not-Taking/PRNCephalexin 500 MG Capsule Oral Medication List reviewed and reconciled with the patientNot-Taking/PRN Cephalexin 500 MG Capsule Oral Medication List reviewed and reconciled with the patient * Allergies: N .K.D.A.no[Allergies Verified] Objective: * Vitals: W t:224.6lbs, Ht: 69 in, BMI:33.16Index, Ht-cm: 175.26 cm, Wt-k.88 kg. Assessment: * Assessment: 1. R ecurrent UTI - N39.0 (Primary) Plan: * Treatment: * Procedure Codes: * Follow Up: 3 Months * * Sign off status: Completed Visit Status: C HK (Check Out) true * Provider: Omar Rogers MD Date: 0 05/26/2024 Generated for Art portillo/Ana/Lauroitting on: 0 10/22/2024 08:01 PM EDT
--- OUTSIDE RECORDS SUMMARY | 2024-08-31 09:40 | XMS_ITS ---
Author Organization [facility] in [place] Address [address] [place] [address] Care Team Providers Care Outpatient Therapist Name Role Phone Vic BERNSTEIN, Homer Primary Care Provider Unavailab Alexander Montano [phone] REASON FOR VISIT 3 month f/u Encounters Encounter Location Date Provider Diagnosis Urology [facility] [address] [address] 08/31/2024 Alexander Rogers Plan Of Treatment No Information Progress Notes * Ana SAUCEDADOB: 2 (24 yo F)Acc No.[id number]:08/31/2024 UNLOCKED PROGRESS NOTE Patient: Ana HERNANDEZ Provider: Omar Rogers MD :2000 A ge:24 Y S ex:Female Date:08/31/2024 Address:[address] [place], [place] [phone] Pcp:Homer Ho MD Subjective: * Chief Complaints: * 1 . 3 month f/u. * Medical History: Objective: * Vitals: Assessment: Plan: * Treatment: * * Electronic signature of Oscar Rogers MD, [id number] on 10/22/2024 at 08:02 PM EDT Sign off status: Pending Visit Status: N /S N/C (No Show/No Charge) * Provider: Omar Rogers MD Date: 08/31/2024 Generated for Printi ng/Faxing/eTransmitting on: 0 10/22/2024 08:02 PM EDT
--- OUTSIDE RECORDS SUMMARY | 2024-10-18 11:00 | XMS_ITS | Encounter Summary ---
Author Organization [facility] Address [address] [place] [address] Care Team Providers Care Wharfmaster Name Role Phone Kaleb Vanegas MD Primary Care Provider [phone] Terri Gallardo Unavailable Reason for Visit * Reason Comments Well Women Visit Encounter Details Date Type Department Care Team (Late st Contact Info) Description 10/18/2024 11:00 AM EDT Office Visit [facility] [address] [facility] [place] [address] Terri Gallardo PA [address] [place] [address] Well woman exam with routine gynecological [...] Problems Son Mekhi No Known Problems Son [place] Cancer Other Grandmother SURGICAL HISTORY Past Surgical [...] nursing note reviewed. Exam conducted with a folder gluer operator present. Vitals: Estimated body mass index is [...] cycle documented in this encounter Care Teams Wharfmaster Relationship Specialty Start Date End Date Kaleb Vanegas MD [address] [place] [address] PCP - General Pediatrics 10/09/22 Terri Gallardo PA [address] [place] [address] [place] [address] PCP - [facility] 11/10/2304/10 documented as of this encounter
--- NOTE | 2024-10-22 | US_ITS ---
The [address] [address] Patient Name: SIMON RAMOS MRN: [id number] date: 2000 Sex: F Assigned Patient Location: US Current Patient Location: Accession/Order Number: [id number] Exam Date: 10/23/2024 10:34 Report Date: 10/23/2024 10:36 At the request of: SHERRY MIMS Procedure: US pelvis transvaginal Transabdominal and transvaginal pelvic ultrasound HISTORY: Assessment of IUD placement Uterus is anteverted. Uterus measures 8.3 x 4.4 x 6.3 cm. IUD identified in the endometrium in adequate position. The endometrium has a total combined thickness of 3 mm. Right ovary measures 2.3 x 2.5 x 2.0 cm. The left ovary not visualized. Multiple right ovarian follicles present. No adnexal mass. No free fluid. US/US pelvis transvaginal IMPRESSION: Adequate position of IUD. Impression dictated by: Reuben Brown M.D. 10/23/2024 10:36 AM Dictation Location: [place] [address] Electronically authenticated by: [id number] Y Date: 10/23/2024 10:36
--- OUTSIDE RECORDS SUMMARY | 2024-10-22 20:01 | XMS_ITS | Encounter Summary ---
Author Organization [facility] Address [address] [place] [address] Care Team Providers Care Nursery Nurse Name Role Phone Kaleb Vanegas MD Primary Care Provider [phone] Terri Gallardo Unavailable Encounter Details Date Type Department Care Team (Late st Contact Info) Description 10/09/2022 Clinisync Result Encounter [facility] External Department Unsolicited Mitchell Arriola, DO [address] [facility] [place], [place] [phone] Social History Tobacco Use Types Packs/Day Years [...] on filedocumented in this encounter Care Teams Nursery Nurse Relationship Specialty Start Date End Date Kaleb Vanegas MD [address] [place] [address] PCP - General Pediatrics 10/09/22 Terri Gallardo PA [address] [place] [address] [place] [address] PCP - [facility] 11/10/2304/10 documented as of this encounter
--- OUTSIDE RECORDS SUMMARY | 2024-10-22 20:01 | XMS_ITS | Clinical Summary ---
Author Organization [facility] Address [address] [place] [address] Care Team Providers Care Merry Go Round Operator Name Role Phone Unavailable Primary Care Provider [...] not taking.Reported on 01/07/2023 vitamin D (ERGOCALCIFEROL) 67639 UNITS CAPS capsule Take 1 capsule by [...] this topic Medical Devices Implanted Type Area Waterworks Chief Engineer Device Identifier Shelf Expiration Date Model / Serial / Lot Nail Fem [id number] Implanted:Qty: 1 on 10/12/2016 by Dewey Nicole MD at [facility] Screw/Mariah te/Nail/R od SYNTHES-PMM 07/09/2017 [id number] / / [id number] Screw Lk W/ T25 Stardrive 4.0x50mm Implanted:Qty: 1 on 10/12/2016 by Dewey Nicole MD at [facility] Screw/Mariah te/Nail/R od Right: Femur SYNTHES-PMM [id number] / / Screw Lk W/ T25 Stardrive 4.0x48mm Implanted:Qty: 1 on 10/12/2016 by Dewey Nicole MD at [facility] Screw/Mariah te/Nail/R od Right: Femur SYNTHES-PMM [id number] / / [place] [address] [place] [address] [employer] Advance Directives * Full Code (Latest Code Status on File) Date Activated Date Inactivated Comments 10/12/2016 3:24 AM 10/14/2016 9:38 PM
--- OUTSIDE RECORDS SUMMARY | 2024-10-22 20:01 | XMS_ITS | Clinical Summary ---
Author Organization [facility] Address [address] [place] [address] Care Team Providers Care Fitter Up Name Role Phone Kaleb Vanegas MD Primary Care Provider [phone] Terri Gallardo Unavailable Allergies No known active allergies Medications levothyroxine (Synthroid, Levoxyl) 50 MCG tablet Take 100 mcg by mouth in the morning. Take before meals. Active Levonorgestrel (Mirena, 52 MG,) 20 MCG/DAY intrauterine device by Intrauterine route 024 Active metFORMIN XR (Glucophage-XR) 500 MG 24 hr tabletIndicatio ns:Follow-up encounter involving medication Take 2 tablets (1,000 mg) by mouth in the evening. Take with meals Do not crush, chew, or split. 30 tablet 025 2025 Active metFORMIN XR (Glucophage-XR) 500 MG 24 hr tabletIndicatio ns:Insulin resistance Take 1 tablet (500 mg) by mouth in the evening. Take with meals Do not crush, chew, or split. 30 tablet 11 024 2024 Discontinued metFORMIN XR (Glucophage-XR) 500 MG 24 hr tabletIndicatio ns:Insulin resistance Take 1 tablet (500 mg) by mouth in the evening. Take with meals Do not crush, chew, or split. 30 tablet 025 2024 Discontinued metFORMIN XR (Glucophage-XR) 500 MG 24 hr tabletIndicatio ns:Follow-up encounter involving medication Take 2 tablets (1,000 mg) by mouth in the evening. Take with meals Do not crush, chew, or split. 30 tablet 11 025 2024 Discontinued(R eorder) fluconazole (Diflucan) 150 MG tabletIndicatio ns:Yeast infection Take 1 tablet (150 mg) by mouth 1 (one) time for 1 dose This is a 1 time dose, take single tablet by mouth. 1 tablet 1 025 2024 Active Problems Problem Noted Date Diagnosed Date Generalized anxiety disorder 10/09/2022 Panic disorder 10/09/2022 Hypothyroid 10/09/2022 Encounters Date Type Department Care Team Description 10/18/2024 11:00 AM EDT Office Visit [facility] [address] [place] [address] Terri Gallardo PA Well woman exam with routine gynecological exam; Follow-up encounter involving medication; Yeast infection; Encounter for routine checking of intrauterine contraceptive device (IUD); Menorrhagia with irregular cycle 10/18/2024 Clinisync Result Encounter [facility] External Department Unsolicited Terri Gallardo PA 10/18/2024 Bamboo flowsheet [facility] [address] [place] [address] Terri Gallardo PA 09/20/2024 11:10 AM EDT Office Visit [facility] [place] [address] [place] [address] Mitchell Arriola DO Follow-up encounter involving medication 09/20/2024 Bamboo flowsheet [facility] [address] [place] [address] Mitchell Arriola DO 08/30/2024 9:20 AM EDT Office Visit [facility] [address] [place] [address] Mitchell Arriola DO Vaginal cyst; Exposure to STD; Sinus tachycardia; Infected sebaceous gland; Insulin resistance; Bacterial vaginosis 08/30/2024 External Result Encounter [facility] External Department Unsolicited Mitchell Arriola DO 08/30/2024 Bamboo flowsheet [facility] [address] [facility] [address] [place] [address] Mitchell Arriola DO from Last 3 Months Family History Medical History Relation Name Comments Alcohol abuse Father Cancer Other Grandmother No Known Problems Son 1 Mekhi No Known Problems Son 2 Leonardo Relation Name Status Comments Father Alive Other Grandmother Son 1 Mekhi Alive Son 2 Clarion Alive Social History Tobacco Use Types Packs/Day [...] Procedure Name Priority Date/Time Associated Diagnosis Comments IGP,APTIMA HPV,AGE GDLN Routine 10/18/2024 11:14 AM EDT RECURRENT VAGINITIS (HTRX) Routine 08/30/2024 11:29 AM EDT POCT URINALYSIS DIPSTICK Routine 08/30/2024 9:53 AM EDT Exposure to STD from Last 3 Months Results * IGP,APTIMA HPV,AGE GDLN (10/18/2024 11:14 AM EDT) AGE GDLN ACOG TESTING Note . TB Comment: TESTS RESULT FLAG UNITS REF RANGE LAB Clinician Provided Cytology Information Source.............Cervix;Endocervix No. of containers..01 ThinPrep Vial Age Pete RANDLE Khadijah... FLAG LEGEND: L-Low Normal,H-High Normal,LL-Alert Low,HH-Alert High <-Panic Low,>-Panic High,A-Abnormal,AA-Critical Abnormal Performed at: 01 [facility] [address] [place] [address] Vonnie Hermosillo MD, IGP, RFX APTIMA HPV ASCU Note . [facility] Comment: TESTS RESULT FLAG UNITS REF RANGE LAB DIAGNOSIS: 02 NEGATIVE FOR INTRAEPITHELIAL LESION OR MALIGNANCY. Specimen adequacy: 02 Satisfactory for evaluation. No endocervical component is identified. Performed by: 02 Teddy Grady Marketing Information Analyst ([facility]) . 02 Note: Note 02 The Pap smear is a screening test designed to aid in the detection of premalignant and malignant conditions of the uterine cervix. It is not a diagnostic procedure and should not be used as the sole means of detecting cervical cancer. Both false-positive and false-negative reports do occur. Test Methodology: Note 02 This liquid based ThinPrep(R) pap test was screened with the use of an image guided system. . 02 The HPV DNA reflex criteria were not met with this specimen result therefore, no HPV testing was performed. FLAG LEGEND: L-Low Normal,H-High Normal,LL-Alert Low,HH-Alert High <-Panic Low,>-Panic High,A-Abnormal,AA-Critical Abnormal Performed at: [address] [address] Vonnie Hermosillo MD, Performed at: = - [facility] [id number] Civil Design Specialist: Vonnie Hermosillo MD, Phone: [phone] Performed at: [address] [id number] Civil Design Specialist: Vonnie Hermosillo MD, Phone: [phone] 10/18/2024 11:1 4 AM EDT 10/18/2024 12:31 PM EDT Narrative [facility] - 10/20/2024 2:09 PM EDT BRUSH-SPATULA CERVIX ENDOCERVIX us Terri RUSSELL LAB BLOOD ORDERABLES Final Resul t [facility] * (ABNORMAL) RECURRENT VAGINITIS (HTRX) (08/30/2024 11:29 AM EDT) ATOPOBIUM VAGINAE 25.654(A) 19.961 - 24.689 ppm 08/31/2024 7:39 AM EDT [facility] ATOPOBIUM VAGINAE Detected(A) 19.961 - 24.689 ppm 08/31/2024 7:39 AM EDT [facility] BVAB 2,3 (BACTERIAL VAGINOSIS ASSOCIATED BACTERIA 2, 3); MOBILUNCUS SPP 24.289(A) 19.961 - 24.689 ppm 08/31/2024 7:39 AM EDT [facility] BVAB 2,3 (BACTERIAL VAGINOSIS ASSOCIATED BACTERIA 2, 3); MOBILUNCUS SPP Detected(A) 19.961 - 24.689 ppm 08/31/2024 7:39 AM EDT [facility] SYLWIA ALBICANS, PARAPSILOSIS, TROPICALIS 0.000 19.961 - 30.770 ppm 08/31/2024 7:39 AM EDT [facility] SYLWIA ALBICANS, PARAPSILOSIS, TROPICALIS Not Detected 19.961 - 30.770 ppm 08/31/2024 7:39 AM EDT [facility] SYLWIA GLABRATA 0.000 23.000 - 32.138 ppm 08/31/2024 7:39 AM EDT [facility] SYLWIA GLABRATA Not Detected 23.000 - 32.138 ppm 08/31/2024 7:39 AM EDT [facility] SYLWIA KRUSEI 0.000 23.000 - 32.271 ppm 08/31/2024 7:39 AM EDT [facility] SYLWIA KRUSEI Not Detected 23.000 - 32.271 ppm 08/31/2024 7:39 AM EDT [facility] CHLAMYDIA TRACHOMATIS 0.000 23.000 - 31.467 ppm 08/31/2024 7:39 AM EDT [facility] CHLAMYDIA TRACHOMATIS Not Detected 23.000 - 31.467 ppm 08/31/2024 7:39 AM EDT [facility] GARDNERELLA VAGINALIS 20.731(A) 19.961 - 24.689 ppm 08/31/2024 7:39 AM EDT [facility] GARDNERELLA VAGINALIS Detected(A) 19.961 - 24.689 ppm 08/31/2024 7:39 AM EDT [facility] MEGASPHAERA (TYPES 1, 2) 0.000 19.961 - 24.689 ppm 08/31/2024 7:39 AM EDT [facility] MEGASPHAERA (TYPES 1, 2) Not Detected 19.961 - 24.689 ppm 08/31/2024 7:39 AM EDT [facility] NEISSERIA GONORRHOEAE 0.000 23.000 - 32.117 ppm 08/31/2024 7:39 AM EDT [facility] NEISSERIA GONORRHOEAE Not Detected 23.000 - 32.117 ppm 08/31/2024 7:39 AM EDT [facility] TRICHOMONAS VAGINALIS 0.000 23.000 - 32.119 ppm 08/31/2024 7:39 AM EDT [facility] TRICHOMONAS VAGINALIS Not Detected 23.000 - 32.119 ppm 08/31/2024 7:39 AM EDT [facility] MYCOPLASMA GENITALIUM 0.000 19.961 - 24.689 ppm 08/31/2024 7:39 AM EDT [facility] MYCOPLASMA GENITALIUM Not Detected 19.961 - 24.689 ppm 08/31/2024 7:39 AM EDT [facility] ERMB, C; MEFA 19.208(A) 23.000 - 27.611 ppm 08/31/2024 7:39 AM EDT [facility] ERMB, C; MEFA Detected(A) 23.000 - 27.611 ppm 08/31/2024 7:39 AM EDT [facility] TET B, TET M 18.046(A) 23.000 - 27.778 ppm 08/31/2024 7:39 AM EDT [facility] TET B, TET M Detected(A) 23.000 - 27.778 ppm 08/31/2024 7:39 AM EDT [facility] Tissue 08/30/2024 11:2 9 AM EDT 08/31/2024 2:24 AM EDT Mitchell Arriola DO LAB BLOOD ORDERABLES Final Resul t [facility] [place] [address] * POCT urinalysis dipstick manually resulted (08/30/2024 [...] Months Insurance [employer] Care Teams Fitter Up Relationship Specialty Start Date End Date Kaleb Vanegas MD [address] [place] [address] PCP - General Pediatrics 10/09/22 Terri Gallardo PA [address] [place] [address] [place] [address] PCP - [facility] 11/10/2304/10
--- OUTSIDE RECORDS SUMMARY | 2024-10-22 20:01 | XMS_ITS | Encounter Summary ---
Author Organization [facility] Address [address] [place] [address] Care Team Providers Care Coal Bagger Name Role Phone Kaleb Vanegas MD Primary Care Provider [phone] Terri Gallardo Unavailable Encounter Details Date Type Department Care Team (Late st Contact Info) Description 07/16/2023 Clinisync Result Encounter [facility] External Department Unsolicited Mitchell Arriola DO [address] [facility] [address] [place], [place] [id number] Social History Tobacco Use Types Packs/Day Years [...] EST Narrative 07/16/2023 9:51 AM EST The [address] [address] Ultrasound Report Signed Patient: SIMON SAUCEDA MR#: [id number] : 2000 Acct:[id number] Age/Sex: 23 / F ADM Date: 07/16/23 Loc: MAMMO Attending Dr: Mitchell Arriola D.O. Ordering Physician: Mitchell Arriola D.O. Date of Service: 07/16/23 Procedure(s): US breast BI limited Accession Number(s): [id number] cc: Mitchell Arriola D.O. Patient Name: SIMON SAUCEDA MR#: [id number] : 2000 Exam Date: 07/16/2023 Ordering Doctor: [...] Treatments None Family Cancers None LOCATION: The [facility] BREAST COMPOSITION: Heterogeneously dense,which may obscure small [...] Flowers M.D. Signed By: 07/16/2351 DD/ TD/TT: Nut Feeder: Procedure Note Radiology, RadiologistMD - 07/16/2023 [place] [address] Ultrasound Report Signed Patient: SIMON SAUCEDA LMR#: [id number] : 2000Acct:[id number] Age/Sex: 23 / FADM Date: 07/16/23 Loc: MAMMO Attending Dr: Mitchell Arriola D.O. Ordering Physician: Mitchell Arriola D.O. Date of Service: 07/16/23 Procedure(s): US breast BI limited Accession Number(s): [id number] cc: Mitchell Arriola D.O. Patient Name: SIMON SAUCEDA MR#: [id number] : 2000 Exam Date: 07/16/2023 Ordering Doctor: [...] Treatments None Family Cancers None LOCATION: The [facility] BREAST COMPOSITION: Heterogeneously dense,which may obscure smallmasses. [...] Flowers M.D. Signed By:07/16/2351 DD/ 9 TD/TT: Nut Feeder: Mitchell Arriola DO [facility] Final Result documented in this encounter Visit Diagnoses Not on filedocumented in this encounter Care Teams Coal Bagger Relationship Specialty Start Date End Date Kaleb Vanegas MD [address] [place] [id number] PCP - General Pediatrics 10/09/22 Terri Gallardo PA [address] [place] [address] [place] [address] PCP - [facility] 11/10/2304/10 documented as of this encounter
--- OUTSIDE RECORDS SUMMARY | 2024-10-22 20:01 | XMS_ITS | CCD ---
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 [facility] Comment on above: Performed By: #### 2 [id number] #### [facility] (DEFAULT) [address] [place] [address] 31750 Anion gap [Moles/Vol] 13.8 mmol/L Normal 5.0-19.0 [facility] Comment on above: Performed By: #### 2 [id number] #### [facility] (DEFAULT) [address] [place] [address] 32411 AST [Catalytic activity/Vol] 13 U/L Low 15-41 [facility] Comment on above: Performed By: #### 2 [id number] #### [facility] (DEFAULT) [address] [place] [address] 51044 Bili Total 0.2 mg/dL Low 0.3-1.2 [facility] Comment on above: Performed By: #### 2 [id number] #### [facility] (DEFAULT) [address] [place] [address] 97722 Calcium [Mass/Vol] 9.4 mg/dL Normal 8.9-10.3 [facility] Comment on above: Performed By: #### 2 [id number] #### [facility] (DEFAULT) [address] [place] [address] 27245 Chloride [Moles/Vol] 104 mmol/L Normal 101-111 [facility] Comment on above: Performed By: #### 2 [id number] #### [facility] (DEFAULT) [address] [place] [address] 59033 CO2 [Moles/Vol] 25 mmol/L Normal 21-32 [facility] Comment on above: Performed By: #### 2 [id number] #### [facility] (DEFAULT) [address] [place] [address] 49382 Creatinine [Mass/Vol] 0.73 mg/dL Normal 0.60-1.30 [facility] Comment on above: Performed By: #### 2 [id number] #### [facility] (DEFAULT) [address] [place] [address] 04795 Globulin (S) [Mass/Vol] 4.0 g/dL Normal 1.5-4.3 [facility] Comment on above: Performed By: #### 2 [id number] #### [facility] (DEFAULT) [address] [place] [address] 85398 Glucose [Mass/Vol] 107.0 mg/dL Normal 74.0-118.0 [facility] Comment on above: Performed By: #### 2 [id number] #### [facility] (DEFAULT) [address] [place] [address] 09506 Osmolality 276 mOsm/L Invalid Interpretation Code [facility] Comment on above: Performed By: #### 2 [id number] #### [facility] (DEFAULT) [address] [place] [address] 67731 Potassium [Moles/Vol] 3.8 mmol/L Normal 3.6-5.1 [facility] Comment on above: Performed By: #### 2 [id number] #### [facility] (DEFAULT) [address] [place] [address] 46457 Protein [Mass/Vol] 8.3 g/dL High 6.5-8.1 [facility] Comment on above: Performed By: #### 2 [id number] #### [facility] (DEFAULT) [address] [place] [address] 27109 Sodium [Moles/Vol] 139.0 mmol/L Normal 136.0-144.0 [facility] Comment on above: Performed By: #### 2 [id number] #### [facility] (DEFAULT) [address] [place] [address] 82584 Urea nitrogen [Mass/Vol] 8 mg/dL Normal 8-26 [facility] Comment on above: Performed By: #### 2 [id number] #### [facility] (DEFAULT) [address] [place] [address] 89578 Urea nitrogen/Creatinine [Mass ratio] 10.9 mg/mg Normal 4.6-16.2 [facility] Comment on above: Performed By: #### 2 [id number] #### [facility] (DEFAULT) [address] [place] [address] 34895 ED Note-Nursingon 09-08-2024 ED Note-Nursing Pt ambulatory back t o ED RM 8 C/O sun burnt, headache, dizziness, and nausea that started two days ago. Pt has vomited a several episodes the past two days. pt stated yessenia increased my fluid and tried liquid iv pt skin is red/ pink no blisters. Pt denies any abdominal pain or fever or chills. Pt is A/OX4 call light within reach Normal [facility] Extra Blueon 09-08-2024 Tube Collected Yes Invalid Interpretation Code [facility] Comment on above: Performed By: #### 2 [id number] #### [facility] (DEFAULT) [address] [place] [address] hCG Quantitativeon hCG Quantitative <0.6 Normal 0.0-0.6 [facility] Comment on above: Result Comment: Post -Menopausal Reference Range is: 0.1-11.6 mIU/mL Performed By: #### 2 [id number] #### [facility] (DEFAULT) [address] [place] [address] RECURRENT VAGINITIS (HTRX)on 08-31-2024 ATOPOBIUM VAGINAE 25.654 Abnormal [facility] althcare ATOPOBIUM VAGINAE Detected Abnormal [facility] althcare BVAB 2,3 (BACTERIAL VAGINOSIS ASSOCIATED BACTERIA 2, 3); MOBILUNCUS SPP 24.289 Abnormal [facility] BVAB 2,3 (BACTERIAL VAGINOSIS ASSOCIATED BACTERIA 2, 3); MOBILUNCUS SPP Detected Abnormal [facility] SYLWIA ALBICANS, PARAPSILOSIS, TROPICALIS 0 [facility] SYLWIA ALBICANS, PARAPSILOSIS, TROPICALIS Not detected [facility] SYLWIA GLABRATA 0 [facility] Hea lthcare SYLWIA GLABRATA Not [facility] SYLWIA KRUSEI 0 [facility] Healt hcare SYLWIA KRUSEI Not detected [facility] He[facility] lthcare CHLAMYDIA TRACHOMATIS 0 [facility] CHLAMYDIA TRACHOMATIS Not detected [facility] ERMB, C; MEFA 19.208 Abnormal [facility] Health care ERMB, C; MEFA Detected Abnormal [facility] GARDNERELLA VAGINALIS 20.731 Abnormal [facility] GARDNERELLA VAGINALIS Detected Abnormal [facility] Interpretation and review of laboratory results Abnormal [facility] Healthca re MEGASPHAERA (TYPES 1, 2) 0 [facility] Healthcare MEGASPHAERA (TYPES 1, 2) Not detected [facility] Healthcare MYCOPLASMA GENITALIUM 0 [facility] MYCOPLASMA GENITALIUM Not detected [facility] NEISSERIA GONORRHOEAE 0 [facility] NEISSERIA GONORRHOEAE Not detected [facility] TET B, TET M 18.046 Abnormal [facility] Health[facility] are TET B, TET M Detected Abnormal [facility] Healthc are TRICHOMONAS VAGINALIS 0 [facility] TRICHOMONAS VAGINALIS Not detected [facility] Healthcar e Urinalysis macro (dipstick) panel (U)on 08-30-2024 Bilirubin, UA Negative Negative - 4(70) +++ mg/dL [facility] Blood, UA Negative Negative - 50 Matthew/mcL [facility] Clarity, UA [facility] re Color, UA Yellow [facility] Healthcar e Glucose, UA Negative Negative - 1999(110) ++++ mg/dL [facility] Interpretation and review of laboratory results [facility] re Ketones, UA Negative Negative - 160(16) ++++ mg/dL [facility] Leukocytes, UA Positive Negative - 500+++ Rosa/mcL [facility] Nitrite, UA Negative Negative - Positive [facility] pH, UA 6 5 - 9 [facility] Protein, UA Negative Negative - 1999(20) ++++ mg/dL [facility] Spec Grav, UA 1.02 1 - 1.03 [facility] Urobilinogen, UA 0.2 0.2 - 12 mg/dL [facility] Coding Summaryon 08-26-2024 Coding Summary HTMLBase 64 PlzdviqiRSz5eBe+PGhlY WQ+KU8FMOClC59rrGVkdB 3dA1RCIHlXMejfOUKNACb UQbNbbiUgWV8whMGuPFYm IC8+WI5cRWMkHrqbuUCmr 4E1hBU7I86ohr8lATairT D5DSUeEzDpnsfhy7igoAw 6IDcuNmluOyBt TLKjfY36YTW3rB37Kq38q NPbeLNpz4keiMn3KwHwLP YfOKA5mCotIOjkq6YfJOQ zU22cqJLwo1S2 BSIcoZrxyYZlWhYsvRY3a Y9rBSdnhrahh6mwqsrpOd t9bs70hKQsl3P2gAK2T1F crvY9RXWcgESy IfwhmZZOeA3cdnhwc2wve cviKxMnMRCcHEu2BCh5UM ZzzWgxIqXrVF87SEL8SPY nxgZeN6GpGUMw eIqqXdK5h8N9Du5VA1XUA bklW2DHCBZFQKkhaYS+PC 98ws35Z6TzGrjdFkr6VSW bBPL2yKX2nT3l KIZxECuvl4G0rIN0G2Loj pXxdl1dr4phOLZkQBenM6 5zvKUtg7J5FZWeaEZ0FXH osDndMhKkpF51 Oyc+XIWxbDolm7LaKmpfn 1jca9tldPz0HedoRTEkol JnoReaMQL5u8FsAk8fHDV xmTH5iQY2kX0r UgVeUuE7UPkoW124LqSlg JCaWgwiA01gU9OfrHL+PH OpGex6GMLfeTucPW0cB6U hZGRpbmctbGVm pOolXC8qYEVccjrkTYPhj A4sJZRgW9h4HvOvVxY5EL ouP0GgORJyrlesSd01lD9 xDpJeChN7KNkm L8DbvvV6FWAbgJSqMQiuH OC5B59al1W3OWAwGWMyLU P3nGT1bC3hmVwaaaiymXN mdDsgdmVydGlj QCtrQFqdZ953KNVekNtbO kNvZGluZyBEYXRlOiAgMD QvMTcvMjAyNTwvdGQ+PHR hTWK6fUazRALg gCYhEEotNi1ifEexbQpyF B0zPPOjjjnfZIHwyT9aHM BbnVSfgBwzZA8vSQMhnrv bu446NhAfSUC6 VATspLDcM4TjeI7tHvFiP BKoRJScC8JjxAOeNYgeU9 10EEwkRnZ0DWEoijTgS8K sLWFsaWduOiB0 o5Z8Dk4Kr4RagnsvS6Kcr ULnRnXxNscjTPf0G0JmWb wvdHI+FM21MVOgCV23JDv 8AOH5rDrbUCgj NLFkB4AeuO7vYgXwVUMuP GRkOyc+PHRhYmxlIHdpZH RoPScxMDAlJyBzdHlsZT0 hTv5xEZNoVRPv qHporOViEnOxv1wdVXDrC EtvDF2fiGydY8ZutSR1DJ Ptw9p5Ek59A70nM8KiiPR +YAZzgYA8hBP5 cU9lZyAdKiU5DPeyG089X aLefCYkStkan2xee8zotJ v5DfQ2HTTkhePvdWguHTL 2g5PtEa37F82s IHdpZHRoPSIxNSUiIHZhb Njzau2ymE8lYo0+PGNvbC F6eQL2cD1hLlTwFzP6RNj lY975KsAmqROp Mlwpo5pjo6nngBv6XgLaA NLgmxSfoJpqBZN3h2WsEv 27B2EsvOzjz5BvTga9er4 9lFAuu5Y7eDJ2 I9OtKJTpscbgbMRufVojU T3pPZWumvxrZWBnxN5eWG DhC1o0CiNvIhS6OZtkF7M xslZ7UXShiAIt SCVwvAKCaK6anfgyx2ysj yrgZmUeJMDzUAm8LBb7WK TblRnsDsPaJSJ1EfR4KMU 1iQAouI4oxUlp boihjP0nIpi+VFI0jNBqr UYUGX6fYqcrnGD+PHRkIH O9nNarGFxfDBUuzQ4vVLJ jA1e8ZrZhByT1 NSpgX9BoxjQ9WEOkxUKwW CHzvBJXzD0avdhve9ktjg haFeBvPPDsHYv9CBj4GIH saWduOiBsZWZ0 EjW6BGU9zWOikI0anKhaq byibE6nDhl+QmlydGggRG S9LMb1F2ZiUai8FNNbvOd oJC5rvUQlNSot Cd9spRhdcKzqJC8oROOhj lqlb063PbEsk0lgYRZxvS TlEXmoTKM8J81nu7L6KJB yTIHsDYG8yJU9 xT8exAqoqymahPQfeLrue fNthQsfXAesUIsqV352GN EtaYfyUjIdYMl1F0QkWpj 1OCQtoZteBL1u jVSdSJvfEp2syHdplBvyE V6eYNKwzsxhl123TsNry7 xqMMWdoFFpYHraBWQ1R15 ik1N9PBUhWADn NVZ2tWV7vV5nrRtgjuraf GVmdDsgdmVydGljYWwtYW hkE584UCQszVwzKpEtaXj 9I4PtWqg6QVFo rNpkSH0mjSWhMPgjCs1xp PgtsLbyFO9uMCUggyeaw8 76TkQjd5bsXSPnrHPvNZm qPJB6J25aq6D7 KBDqFKTxBPZ2cFB1oS6mg GlnbjogbGVmdDsgdmVydG fkTTmtZUkzE559EVDkiGb nPlBhdGllbnQg KTymYAd4S1DcOllwbPB+P O12AAZeVG82zXOzwLSwd9 imrHp9IpJtADHeOIQ2nTs kCVzmp6OmXUPc O73taBTqi3C7ULJitFgqb PYdEvCsiEA3eS0aBJnrwp nnf8kovrtlBksuu9pujj0 6lY30A59pIIya ZHRoPSIzMCUiIHZhbGlnb b6jsD6xIx2+INFdeZV8aA C0wV1zVFJjPbB2VLrvP15 9InRvcCIvPjxj n0qsa5ypfHa1VbY7QGRkb kVsdXuuNMG6x0ExUb36D2 9sIHdpZHRoPSIyMCUiIHZ ktAzqff9ggW3h Ii8+THQvgVJ7dFK9cY3bM yOoRzM0MQgnH074FxBczT LoTzbvZ51eX3UsfVB+PHR pTmf6RGRczYpt TK1goMWyONwgPn7vLFU9P tEoBwTtSGxoO0GwEKJarp bvcnljjPA1ZXVuPWRyxG4 3Ia2xuAleRKRe jIGLrX5nhcmsi2fekuztK fHbHQYtGIb4KDh1UJDkjG vtCxVyLLT3UtL8TED9pZE rlU9vvUjwuzls cS3mE0HbMVTdddtnTs74p K7tTpSiWuG9YEokPmp+RF VORkVFLCBNSVJBTkRBIEx FRTwvdGQ+PHRk EPD8sTijBJiwCVNzsY5kM YIhT5e8MgSmNmO9NCzlI2 BgVBBaocanHx14kX3jWeQ mDcW2NNvvG8Jv gcU2JKTncKNwHLdhQEW2K 22dr0A5YBWiYZFtTTN7oT Q4lK3tiEapplzqfCWhbVn gdmVydGljYWwt JXeeS048WQFohFtsSoNnT bN6UtUkLVZ1G5VmXlc0OW QakOsgKC1ldKGeQAlhQj2 npDhyuJmpTS4e AMZzimsuUMYhtO2wFQXvn JVjcEhdQB4sRVBqitxqy0 36MkRsERG7GULyvOLuC5H mcF9jQxOhUFQg EKAwK1VfbMLnACoqG657J GuaNhF2LANtudSlN1ZdKK DulHedElA2u5P0En5bQaN ZZWFyczwvdGQ+ OACiOXB6nDjnHOaqHSQvg H9gSCKhR2h8YfYdLdH0GX jcF9IpGLCexbfdNe49nD6 jEzXuSpL6GGbs F6QxlqV1ELDlzUHxRTawO IJ6M05xa4Z8IVVyVPJrKD R9fGB8uA5rrPuxmmlntSO mdDsgdmVydGlj JGihHFmoO142QKKrbLtoD kZFTUFMRTwvdGQ+PHRkIH B5fZopJAcxTHOtzE1pXXN mU8e7NjQnUxT8 DRnhR5HwAJOyivquWb60a L5dKbFwQsL0JGoqE3Wvtr J8GNMtiSGbJFeiXKX2G05 yw5K1FSQzLCOa EDY5vPI1pT4aqPbiyitix GVmdDsgdmVydGljYWwtYW mcQ296GCNjeDhgQuCoLQL kDE5utSqscDO+ SR64zs72W1BnXxfjHic6U ADpZPM7rXI3hI6mMLAdLU dhe9Q5lIK2L4JcsuJwfv8 cq4mmPSAlDEat Y73vtLOtk5T5CDMiuVF0F WWndZyzPjHggS91Bnu+PG AhfZlre9ZtFixzr8smf3p tvAu0GuIcVONl kmPvuAzeQTL4w2XuKx11G 29sIHdpZHRoPSIzMCUiIH NziJllyl0ltH0dYc3+PGN yiXP9qJP3mR1e NnJaVdT2DMaoB274XyCoa AElYiplj9xhi7qbiYc9Mf UwNFFdnvVwcTmpCBZ2u7O bGs58H4FfeXbm k1XzUas2gw64gMAqk4W6q BM0T3HrWIYzokaxuTKajD reRK4fOOXfrjrdALMjhZ4 mXUVgB9p2XmPw NbW0DAhwS9JueyL2WITca UAfYYVtbGIEiI0qbgqrz2 mjtovtOcPfETPkPJb4MUe 0LWFsaWduOiBs QTC5LlE6RXK2fETcrF0ki FwroagnyZ5dBpz+UGh5c2 rdmCWfCJ2dfWJ3SN13EZ9 9tFBeq5A4pDP6 Y8IkLYZluqrfyzryoXO6L CZeVXOhdF22Zs3fsQjaAw 4uFOTpWWX6IIOlxLHhS4R wtK4lTmGeAIEg JXJwR0PwiJPsCRbbG934G BrcDbP3ZPNmnqNtX6VtXM JxgNmnHwW0c1W7Qc6EGN2 2RN23CB26qIKh c6H8oUB3O6MwQIXbamyve sugaGU7CPStQQNjkH76Ys 3sqGngEm8cNWNtYLQ0AQE usKGvX8PacQ3c ZqCuTAQuJGArR3PfbRXrU FjtI670ERpkWoW8DBGjez XyS2EkAGJffLgzTaB2h5J 1Kl5OQn55BQ76 QO57bKBut5J1mCM1L5GgU RSerysyhcuyhGV3IMHyWO XbwW81Yq5eeJhlTm5lGSH aUGR6HDGidKPm L5FkmT2vRrBcYSNkMEJmH 6EkiGZbKOplD338ZUwxSr P9ELJwwmZkV2DmJMQatYm sSdC7p5J8Oc0Z IEzsrmg5S2RcWpcegOB+P V49PQQcOL14eIWhjQScw3 pxjAz3YyEwSMLtJZV1hSh wIQwsf5LgOSPk Y29 (more content not included)... [facility] Outside Recordson 08-19-2024 Outside Records [id number] [facility] Coding Summaryon 07-05-2024 Coding Summary HTMLBase 64 VqsuklffJTx4oBa+PGhlY WQ+NB4AAPWjZ34ryTHjaM 4oT6JQPJfVTvplWLOXZPb ERuXukiFwSV8nuNZeKBTd IC8+GB7oPTBzImcmkZTtb 4R8wGC9D56odg7gFKfqvM M3KINsWbChgmnfu5gavVh 6IDcuNmluOyBt TJVtmF05DVN1qP98Kt84l XYmvHXib0redVd0NlCwBV ZcJDT4eYisKJyoi4AoPHD uC74czUJyr2L7 JAJvmRtmwGWbGgRkbKK6l N0nZOohshbxn2sglzzgNn o9zh67cKXvm2M8wLB6C2U oozK3BXCqfPSp HoepgHXTkP8shumqw2dyv zooRtHbQSLrILn5VYo4JR TqiVvoVrGkDP72YEE9IVW stwQmC2IsHXSb aCftBjG5c7O7Qv3UI0MKH nvyL9KHTWUIHZlnnYB+PC 00dn45Y9ZmMethTir4PLN aWUM5eHL1tB1m FPZkXJfgs2G7yTV2C1Csd nOnrd5lj5izMZDdJVckA4 4zuGZra6O6MKKmnLE5MYH sySyuYxCwiS44 Oyc+AXHydYiek0VjAfwvr 6mau6iagUk2HtyrSLXnmj HpdOprFHZ9k2UnDj6wIPD ucTJ3mCI2gF1c CrYfHyV3FVopO780JfBle DZmRvcaW00zZ7WjiYO+PH VfAdc6KTMsaHqhDI0jZ6K hZGRpbmctbGVm rMeaNG1mCWSjvsxhUVOqw K2pTPKcZ9s0BbCkDqZ3LC miV9EzGBCqyhorFh41oN3 tLrCiFhO8ATtn D7YhkhN6RWRheILvIVppV TJ0Q19mi8B4GIPzXZWfJT J7fCA1rC0muJeqpikzaAU mdDsgdmVydGlj CVfmEDcxC476FGYzuZkpB kNvZGluZyBEYXRlOiAgMD IvMjQvMjAyNTwvdGQ+PHR pJOS0cNgqFZTl sBZoQYsqEb7qsEykfTpoU R7sUOYsurbfAVQatM2qNV ZtyUAigVkkFF1vYWAjxey lg138PyAkKVK6 KMNxjWHnV0OvfG9wMbFdI ZRsJJTkN6PbtCFhJWwfF9 04SPdfXkH8FKMxftHzH7P sLWFsaWduOiB0 i9D2Ul6Oi4CedjnuI7Lyx OUkGfTkWadoFYy7B6ShWq wvdHI+WU35IXGuOJ49EBm 4ZBW9xPeuBPev TRQaB4KjvK3nSsQzSLAfW GRkOyc+PHRhYmxlIHdpZH RoPScxMDAlJyBzdHlsZT0 yNx0jPZQdDMPo jHjuaSDwKyXbv4bfITBgQ KexGG4fsUucK7OspJV9US Wbw5n4Zi63J01kO3QciBM +TUYldVD6qMX6 fC3lFbBbYnT5DVjcZ375S jYjwUOpEvclq4dcj6reyC r8XxG6JJYysaOpkNitHBF 6o8KcSc67G07g IHdpZHRoPSIxNSUiIHZhb Yttds7dbC5iRx7+PGNvbC W4dAZ3dO9nBuOlKuR7HMs sV298XjUriPNa Zjtnp8ydn6nlmUd9JnYtN ILvvzSugJcnPBI9n3QpXe 00J4QfhWssx5YdJwe6su6 1eCCmi4C3cOX1 R5NmDWJxbejokPOsdUhqO V3uWVXrbvznLGQbyL6vNF EnI6j4GzCjSbO7UDlhL9H ydhU1PYMvnCVp TCKznPLTsQ9cjfjwm9bwd swqOpAoOSVfSHr5HYm7TP VdiLwsIiOsHLS1SrC3MHL 7oLYnsU8pnRxx kerzcW8jMpc+WRN3lNFjt KPCTB5kVpyyaKP+PHRkIH K3rPazGTxeXPAslV1yDSB sX2a3CvMaHxF8 SNrkT7QvojL0EORmkMQrF TRoyVVFrA5yuangq9nfes wnRoGtAPXhROb7ANm7LLT saWduOiBsZWZ0 IhR3MMN9dCSzhT1xrPmzq yckhL0cYow+QmlydGggRG D0JEw0I5FqGgc0VLTorDm zHV0miYPzZQtk Wt6qzVahhDlrCB9vSJChz ymyo216GjKpk2cfSFIroU AaTAlzIKU1Y92jr5K3TBC cWAQhZNK3nDH3 qX6nzAcpxkjltNQxdFvbj wGtuKwlPVlyOCbaV709BV CkpFpcWxHaVJw3R8FnAqp 4FPYueTizER9i cAUiKOjcVc1mlLpghOzrX S0bVQTjhoemm100RoUug0 yxPRUbxHHbWXvxIPS0M47 yk7D6JGXkLXIk IJP6yLO2eY5soHqvopvnh GVmdDsgdmVydGljYWwtYW koF270GETunRoaUbCmsZy 7P1SrXyy7OGNz jJkuVR5puNEyYGivPm2tt FbepKbqGY1jAEZsbeylr5 93DyFle5nhZMYjfGTtZAl lDCV6Y94wx8Z0 HMOyBKUcSFU6dYY4pN3ea GlnbjogbGVmdDsgdmVydG cmVEhoFDuiC184DTCftZn nPlBhdGllbnQg MSynYBb6U0WjDioihGN+P R44YAVeGK67aOWhoGCcw5 ersSy4ZtZoYUMrAVF4vLx sXTzwc6TrZAVq V30smJIsn5I6ISMeuOitt TOqIgOfhGL0mJ8yZDpkxk qck4wmshilCrfit2hkhi8 3vV50R98wPJtw ZHRoPSIzMCUiIHZhbGlnb y0hfH8yLk1+WXZraFE3fF D9vJ5nZZLwSnM8OGvvA45 9InRvcCIvPjxj b5cxv0dhkWq2WgL8RGLxb nQwyHjgWMO8w6HoSg52F0 9sIHdpZHRoPSIyMCUiIHZ njHezfw8dhK4w Ii8+IXHrsPL1dMW7dD0jP cUjObK7WOxcA073XsAzmS XvPwoxN81kA1MsyYZ+PHR hOro8RNHbwNov HJ6qbOXcZUgjKo1jPFF0Q jRxYnMmDKboC2FiMTHlag mzoewraWR5XUDeZQHruA7 3We8wcDntRUAu wHHQsG3tuvqnd9psqmqmF gFlEABjOBx8EIv8LSAkfE cbJuCzVCF3ScY5CWU5yEZ kjN6qtZuibdol uR2dV2IhOCEtlsfpLu41d R9xOlOrFgE1LLnoUuz+RF VORkVFLCBNSVJBTkRBIEx FRTwvdGQ+PHRk FOT7jUylMXcdRPOylH6kQ UOhU3w5RlJdYsK8EGadU9 ScDZZbmitfWq58pX1iEjB uRyY9NPvxM2Qt evZ5LTRglGIkBThqWMP6D 07yt3O7KLJmPTAcKPR9gL J2dC9lvCkmqwvtkPRwuGg gdmVydGljYWwt AGzzR720XQDcgCuuYeQmL iF2BtHvTOR9G7EwHxh1BU OqcUzgYV6qlQZfKIokBf1 pcYngsRewXC7w CUSybykbBLXblI7vYRWtw CNnrCkaJT2tVZPzqxpvl7 55KuRmDIE5LPGsaGSzZ3K nvO7qYwWpNDHo ZMXbG2EnhYRuKMgeG022Z BviAdN3OPSdkbZgX1TwJZ RuhMvnUnS3l9A5Qv1lZcM ZZWFyczwvdGQ+ KEBeZZG0xPvsKNgeELYsi A9gYDYoR8a6HuZvIoG3AO lkP4FmSCIehxzyQx95oL7 jSrJwXbY6IAac A0EzcvT0REIfjUWoWVhcZ AU7Y12bk8U6MBZiIQMqBN G3yFA0pN1rlKepfxeuwYA mdDsgdmVydGlj BQwhBXmyJ480DSOhxQwwP kZFTUFMRTwvdGQ+PHRkIH E5qIuiXHrfFXCoxY7iSWZ dJ8w6VdQyEgL7 YRluX9GrEPEahicqAw76w L1yVfReOmW8KQplB1Nvic G1HXQfcLTpVHtgKVL0Y76 qf1N6TSTbBOGg AQJ2xKZ9fN1inKrhgxwfq GVmdDsgdmVydGljYWwtYW zfG628RPNvkCjgEb7SCP4 8CW34F1HkGjfd dGFibGU+PHRhYmxlIHdpZ HRoPScxMDAlJyBzdHlsZT 1uUy6oRNEpVBQkoDyhiHR sAlLby6miSDIj ZEvgNZ5mxYtsY9CwyGX2H GNvo6n9Gk18T91nI6LckR A+UGCycGI6lXZ3bB0tHeB fTgI9FGegU435 RgLhzPDwHbgli1cmv1gic Jg7PrJjPQXkezAboGejTC G2p1NoWz43V98cDSuhQQA oPSIyMCUiIHZh vKifhc9ptQ4iGa4+PGNvb RT4gNH3hU5cWpTtFtR4XK ilF589VcMjoVMdXvnrQ22 rK8JnvAR+PHRy Psj1TYHdwYhlGF9vkVXoQ EnrTi5iEBI2CkVgNkRoGN krV2BaNPWnqvtaglxziEI 9SICkPXBxdM87 Ml8fiSyvJh8cKCIvONX1D EKrpOMcN4WekC7eYqHeUB XqDBYcL6MlyCAmUHhkL31 4HCuhRwL4UYAs xsFtR5PbBRZifCydIrV3k 5S6Ja4BxDzaqATdYI2tIk GvLAs1A8OoTmw0NSJjmNb jPB7vbZPsITwi Bq4sjDbzvHcbWI0oTQDsz zovf983ZuGzh2pnZNUbfZ UhCInhTEI5T88vj9F6TAU qRYDfFAE2sIC9 vG7hhYnwfscerZOetLfgb vQujHonTRsnDWfwI080HV VxtIufAzAONyt3Q2MfQao 3USZvvPidLK1f wIAlTUvwEu3whOmwuRdpX O6qMHTvowbrr766YlRqt9 gbTIHipZGnBFgvBVD3F09 ay0G7UJRcPASb PPZ0tPL0hI0iqFibwaaey GVmdDsgdmVydGljYWwtYW lyF087IMKzuBxmKw8AHfd 4K4XrGel9VYSw uAowDQ2ysIAhJFnrPo2xp IgszHldYF5mPKAstzxzo7 06AgKfw8ngXAJsmBVhTZc rHNU2V80bo0T4 SQPjGVBqJDO0eLG8yU3es GlnbjogbGVmdDsgdmVydG ooMZjgNVurI703YPIxmYw nPlBheWVyOjwv dGQ+NR85nj04S8GaCdvcB yn3VTDkMVU3sWL5eH6bMC WsMUxpo8U5oFL8G8XthhX bpj6jb7nzUOOl ZTo (more content not included)... [facility] Event Monitoron 07-02-2024 Event Monitor [id number]#1 .00OTGTIFF [facility] US Echocardiogram Completeon 06-23-2024 US Echocardiogram Complete APPROVED REPORT EXAM: Comprehensive 2D, Doppler, and color-flow Echocardiogram BSA: 2.14 m2BP: 138/82 mmHg Rhythm: NSR Indications: Palpitations:Precordi al pain Past Med. Hx: Hypothyroid, Anxiety, ? POTS, Former smoker, Vapes daily Other Information Study Quality: Adequate Conclusion The left ventricular systolic function is normal. The left ventricular ejection fraction is within the normal range. LVEF is 60-65%. The left ventricular diastolic function is normal. The right ventricle is normal size. Left Ventricle The left ventricle is normal size. There is normal left ventricular wall thickness. The left ventricular systolic function is normal. The left ventricular ejection fraction is within the normal range. LVEF is 60-65%. There is normal LV segmental wall motion. The left ventricular diastolic function is normal. Right Ventricle The right ventricle is normal size. The right ventricular systolic function is normal. Atria The left atrium size is normal. The right atrium size is normal. Aortic Valve The aortic valve is normal in structure. Adequate excursion of aortic valve leaflets. There is no aortic valvular stenosis. No aortic regurgitation is present. Mitral Valve The mitral valve is normal in structure. No evidence of mitral valve stenosis. There is no mitral valve regurgitation noted. Tricuspid Valve The tricuspid valve is normal in structure. There is trace tricuspid regurgitation. The right atrial pressure is estimated at 3 mmHg. Right ventricular systolic pressure is estimated at less than 30 mmHg. There is no pulmonary hypertension. RVSP may be underestimated due to poor TR envelope. Pulmonic Valve The pulmonary valve is normal in structure. Trace pulmonic regurgitation. Great Vessels The aortic root is normal in size. IVC is normal in size and collapses >50% with inspiration. Pericardium There is no pericardial effusion. 2D Dimensions RV Minor (Base)3.32 cmLV EDV (Teich) 99.43 mL IVSd 0.94 cm F: 0.6 - 0.9LV ESV (Teich) 42.02 mL LVDd 4.64 cm F: 3.9 - 5.3Left Atrium 3.15 cm F: 2.7 - 3.8 PWd 0.98 cm F: 0.6 - 1.0Sinus of Valsalva2.43 cm LVDs 3.23 (2.1 - 4.0 cm) Sinotubular Junction1.89 cm F: 2.3 - 2.9 LV Qrta935.62 g LVOT Diameter 2.09 cm IVC1.99 (<= 2.1cm) M-Mode Dimensions Aortic Root2.99 cm F: < 3.8MV EPSS0.68 ( < 0.7 cm) Aortic Cusp Exc2.30 (1.5 - 2.6 cm)TAPSE 2.2 (>1.7) Left Atrium3.59 cm F: 2.7 - 3.8 LV Volume - Method of Disks (Castellanos's) Single Plane 2D LV VolumesBiplane 2D LV Volumes LV EDV A6H432.7 mLLV EDV BP113.81 mL F: 46 - 106 LV ESV A4C43.5 mLLV ESV BP42.3 mL LVEF(%) A4C60.0 %LVEF(%) BP62.87 % F: 54 - 74 LV EDV F4Z447.4 mLLV EDV BP Index53.18 mL/m2 F: 29 - 61 LV ESV A2C39.3 mLSV (BP)71.55 mL LVEF(%) A2C65.7 %SV (BP) Index33.37 mL/m2 CO BP5.5 L/min Left Atrium Volume Systole (Method of Disks) Single Plane 4 CH 44.83 mLBiplane LA Aujhsc97.53 mL Single Plane 2 CH44.38 mLLA ESV Index22.21 mL/m2 Right Atrium Area Systole RA Systolic Area A4C15.61 cm2RA Systolic Vol A4C41.40 mL Aortic Valve AoV Peak Velocity1.27 m/sLVOT Peak Velocity0.90 m/s AO Mean Velocity0.85 m/sLVOT Mean Velocity0.56 m/s AO Peak PG6.46 mmHgLVOT Peak PG3.26 mmHg AO Mean PG3.25 mmHgLVOT Mean PG1.53 mmHg AO V2 VTI23.41 cmLVOT V1 VTI19.27 cm NEETA (Vmax)2.45 yt6GRQS Area 3.44 cm2 NEETA (VTI)2.84 cm2SV (LVOT) 66.37 mL Indexed NEETA (VTI)1.32 cm2/m2 Mitral Valve MV E Max Velocity0.66 m/sMV PHT56.08 ms MV A Max Velocity0.45 m/sMVA (PHT)3.92 cm2 E/A Ratio1.5 MV Decel. Tjfg646.38 ms TDI Med e' Iwcpkzpl42.61 cm/sMV E / Medial e' 5.69 Lat e' Bsuiasof62.60 cm/sMV E / Lateral e' 3.76 TV S'14.67 cm/s Pulmonary Valve PV Peak Velocity0.97 m/sPV Peak PG3.78 mmHg AK End Diastolic Cody.41.97 m/s PV Mean PG2.09 mmHg Tricuspid Valve TR Peak Velocity1.56 m/sRAP Estimate3.00 mmHg TR Peak PG9.79 lvYdNCZS22.79 mmHg Final Signed (Electronic Signature): Home Caro MD 06/24/24 12:06 p Technologist: [facility] Provider Orderson 06-10-2024 Provider Orders [id number]# [facility] [id number]# 1.00[facility] Coding Summaryon 05-13-2024 Coding Summary [facility] NiuwnwlbINr7rNw+PGhlY WQ+QV2LMOStW94ldMFehU 2yI5BCJTjPDnltSQNMVHv LKeAilgNaEF3hvNQlIRWm IC8+XB4oZNYuLxipfGMej 3Q7nCL2C64iqm4rNQtaaH L6CBIePuZpygzwy8hrsMg 6IDcuNmluOyBt BHIctO67GPB0bF76Gb71h BEpjYCey2jjqLe1VxDwHT JkGJX8tEgdKXfhn8ReSEP fZ36zlQHso1Z1 KFYebOttaQHrQaShlDZ6t G5zXHcgukyeq8tsggaaYj u7mx41vBSuq8O6rVA8D8H gbnX2YCRkeUHo XgiiwAXCoT2vyosdt7vad kjyJfWcPZPaKSw1KTx4XN IwwBinIiSdGF28TOM0ABP zweWeU1IxBARd cUhhHiK0n4Y2Km3CG0TKG lotX8OOHIHSKMkuyLH+PC 90is53I0HlPbzzFdi0CYD yGIO2zAJ2hV4l GMIjFNydh0B4iJA6W8Jem lWzqn9eo2puDOFuCWhtP9 7igRPmw9W4GYRydYQ4OPN uiLncQgRscR42 Oyc+HOBvdZpku1BqLmejn 6rxm7jnnUk5OmabAFFnjy FhzQdlMAP4m9WcCe6xTSI nwGJ0ePK9bP5o BhCtGiH5GSzxE756KtTie ALyIilbT66mM5UnkEP+PH HyBif0TQPacZdbEX1zB2M hZGRpbmctbGVm wQggQV6cKDUqloupAPPpx F3mEOAuR4m1FeKhOoM1DF mbJ2PsXWVaryxiDr62cF2 eCoZtHoX7WSxa M2DikmF8BHAwpRCtLHuwY IQ2J09df7Q6OEAiFNFlJD H6kSQ4nT5tmDjremikrCK mdDsgdmVydGlj XOpyTYcvA163WMWilChqT kNvZGluZyBEYXRlOiAgMD EvMDIvMjAyNTwvdGQ+PHR wITK8wPelBQOg bJLoUVwcKa6aySofbDqbF G1fXQOwqflhWJLdfX2oOT ZidEAboWobKU9fJIJmlfa iz159PpEyWHK6 OQItcSHzO1VicA1qYjCeN NWkQTItZ6VpvRCwHIqbK0 13LNieBwA5NMJcndJfO8R sLWFsaWduOiB0 n6D9Ww9Ol6TgtcjtM1Eky MXqKjUhYhvyDYx2Y4KjDi wvdHI+LU94FHKrJC25YXl 5UUH4yZdqWXuk CDRsA6DskO0oZuRvCLEeP GRkOyc+PHRhYmxlIHdpZH RoPScxMDAlJyBzdHlsZT0 yNv9qBYSpNKMq uVwcvJDuDyTaq0bjCWUxY VsxIZ9xuXthI2FroKH9AN Wwv5b8Ro34B47aK9NyiXN +JUBizZP8wCT9 iD2pTfRgBqF9PXjpD378P eNrxYYzJsfrb6hqk9ixbN b1HpO5QPHzorJtfZthAZS 1q1EzAa04V31l IHdpZHRoPSIxNSUiIHZhb Rbmhs9zvT1wKl6+PGNvbC I4iHH7nB6dBtCcCfN7FWx iI193PhJffQVg Clbpz5egl6wbkWf9ViLhX NBbwsOujRxnZSE4o7IzHd 26I8TyjRpjd9XoVgy3cb0 8tLIjs0X2cIG3 O0QiNBMagnzupAOriBmrT K8oLTKcmkswPFMxpC3zJT OmY2z1QiFyRiQ5KFshD7Z hfkM3ORKcbDFo KKPygPZAfQ0shewlz1mol qpeUsOuDNSqWIc9MPn0WB WlkZnzFnAkNIJ4WzE9DYD 9zGQzjJ2ryLvo zkryxV8fLkv+HRE0jTLef RQHVV3nIpqdaJO+PHRkIH Z0yJcvHStyRKRdzV8dFPN kM3r6BeZmChK9 CZhbD1IvpcR7TCLynFHcY CDisYULyC7xnwive7liyf fcHiUiJEYyZWy9RKb3XID saWduOiBsZWZ0 YtZ4AYS6kSYkpL7dwHehs sfyfQ3dJbe+QmlydGggRG I8HDv9Z6BcDrp3QZKuzSf wKZ3klJQbFGfe Iv6kmPpwwRzkIT9hKNOqw deqo598NyPjy9xzSCZuyW BlAJvjFIS4K36xo0Y4ZZJ mVWHnCIA1pIL1 jB9jsGaggtfdvVNfcQsxx fOghVwbCUuqUKmaQ005ZQ UbaCghPiVnPMw4B2YeIuh 9JXPmeFatBG6q fXLzHBohRt8orGfftGqsS T2zBPHjbpbex828MlPwf9 lsPAQfiVRhILniRWY3Y92 re3Z4ZNBnIYKp RXL4kQA9wJ4ykGeszhllk GVmdDsgdmVydGljYWwtYW zjV150UELkjMoeCzHcqZi 3J5NkUnh4UJZv oHjlAC6geEOyZGffVi8xq IuchDczQX7bKYGtaxwsr8 00YfQpb0eoMCYzmGSjZPb hTLM8R82jt4P9 LVOsQRBwZFZ0yAT4wE0bd GlnbjogbGVmdDsgdmVydG mnTXwtYTxeP235MCWmxFd nPlBhdGllbnQg HYjwSJc4U2PqVwmprRO+P D24JAUmNK21fACszZSgs1 qutVy1SyDaXBTnAPH6iPw dYQbmv9IjBHMr C62iaYGkm2X2UTEmiWmmp VKyVqEzlYC4iL8mLNjwfn mnb9sblwulYeqsb3aajl1 2kY59G81lMCjw ZHRoPSIzMCUiIHZhbGlnb n5tmW6aTy7+XRNhmVR8qA I5iJ5tGDKiGpR6AKhpE10 9InRvcCIvPjxj r8ugm3sbnAr4NsW0EZKmd zItxKebHDE8y3NiPe52X3 9sIHdpZHRoPSIyMCUiIHZ anZzima3kfG4n Ii8+XWGpbWW6rBL4gT5lD wPcYrY0KXtrV813BkYzfG WcToyeA70hH4HnbLE+PHR zAvt8RAMokPpl DU6toXJeLRwbXh8fBXN9N kKwNhUtTLjtU4InFEIdzr vnfnwhzIE0GRHgQCBiyB8 7Rg1zjNgeRIIi qFZHpB3fkyfce1fczuesA mTsMPAxFIo7OPe4RZLntC ceFlDoAFR4VpQ4MKG8kQL caI7gvRwzokfo iM6dC0GqIQTvpzixPd52q X8kByBlEmV3ICcrHzx+RF VORkVFLCBNSVJBTkRBIEx FRTwvdGQ+PHRk GGI6sUudAQtaWOAxoM7cG HQbJ9c6AcUtIcW5NFveH9 ViUCHmfilgLg74dN0hUaM pOcQ8YUacR0Zi miT1QYAceCTzDAqrQBD4R 16oz2O7QEBtSEChEQI0kK U9oK3yjVgxywotaNZfmSe gdmVydGljYWwt SNthJ164SOWrrEcdIhMlK kO0HjRqUGM4U7ImUvu3TB SdqHeoZN7wrJHbNSszAi6 avGbabIhtZY1w MWScipkfHRIftD2gZTYbb JEplAknNF5iRTTzrthyd5 33BkVrFUI3DDOdkFDkO8C fqF4hYaXrGIPj LGCyT9WnzIBqZCnoF110F UgwMbP9RZTznxSeR5YaQH YxfQesPmG3z5D2Zz9qLrQ ZZWFyczwvdGQ+ WRTrNDG2iWyzGBoqHJXal L3zKSRvC7z9RdOaFiF0MZ joM8DxGJLkuvxyNk77uZ1 fNsTzEqR2MIma J3VluxD4ZKZpmTIgIFykR HE0V88xg2Z8TQDjCTLoKU I3mCG5jE9neEtdfigsjDT mdDsgdmVydGlj XLahCYzcY482HTVoxTziY kZFTUFMRTwvdGQ+PHRkIH H4pAooLBsuQBGjoP4yGGQ tV8z7PkUlDgY7 CSdpX8XoCNEatxkvZf78w S6hIrLmMtX7NWabM2Sxrv X9MQTowIQcASlwKBM3G79 cc3S2FCUfIMIg LFP4qYA9jA9vlQpimjawm GVmdDsgdmVydGljYWwtYW qqM217BKQzaQdqWiDwMBT cDN0wlXdqfWN+ UC49nb05A2UkBjrlJjs8X JWtCON9aVX5rK8wONSxJY mui6J8zVM3V2CaasLmsu7 di2ffXJFoHXlo S47dkHAiw5O4WZXvqYV2H GHceJjjFyVoqH14Jjy+PG ZtnIoqj6GkAxpou8puy8b tnZr2KtVbWVJx pmAktQumIJN0r8QbMz81Q 29sIHdpZHRoPSIzMCUiIH OzxVotqu6kfF8cYg3+PGN eeJV3vVY3fL8h JhErUtD1ELrpB741RrFbg DNrUewzt4gkf6reeCt6Le NmYZSxeuArpCoqJXJ3d0K iYo61Q0WnoMju e1RhHns9pn04vUUuv2D6u BD8A3ItIGQznzyigEQixD frGC8xYNCpvgitYYMniC1 cDELuB7q7AlDq RzI9IUmhN8YkloG3JQEuw XJkXYKngCPTiZ5leckbp5 ugxakcQvKzVTPwHSq4JRs 0LWFsaWduOiBs IBW7HoT8ODM2oHGyaB7zp OlelhlofV0jNgf+UGh5c2 unoNCqAD9irUM5UY94LO5 9fAOgu6G4jVF9 N4BxYYOturpwtsbehEB4E OXxGODdjK34Mq6tzJgyXr 0uXKOgKPB5BSYivWBiD0M dgA6aTqPgRCYu XTUsK9TveHMnLAecM468K ElwZyO7ATRfwsCyD0UpOI HwcZggFvO0g3R2Nk2NJH6 6DX23CG55qOUc p4Z9dCD8O7RdCEQvnrteg ygnmKE7SLUvEKMyjU16Lk 3mnEthEa1vFQGyJNP7IGT ovBXjO3MunD2d AqSrNTUaWQNxG8LqgPCtO IaxJ239JOywHjU1QDIcge ZqJ2TyGBVorXknKwO7p2F 8Uc4QFm98BL23 VW88kHLbl1W9rXV2I4FiD XBionmdeisdcUL7ALGdPN OoqT30Go5nbQixEc6qXHE wJUM7RDDrnVTm Y1VxyW6uVmHoCVHyYWLoB 4QvmARaPEyoH771PTpgOr I7AZXydnRfV1DhHOBsgNm lWwB6i6H3Tp9L ILcquub4G4MzRqlkpMU+P V50EYBdIE99eQVdiODfi8 tukKx8TjGeQLLiIUT8dDt fDXhmm4AqHZYn Y29 (more content not included)... Normal [facility] C Bloodon 05-07-2024 C Blood No growth at 5 Days [facility] Comment on above: Performed By: #### [id number] ####[facility] (DEFAULT)[address] [place] [address] Outside Recordson 05-06-2024 Outside Records [id number] .[id number] [facility] Blood Cultureon 05-05-2024 Bacteria identified Cx Nom (Bld) NO GROWTH 5 DAYS PERFORMED BY: [address] [place] [address] PATHOLOGIST MECH[employer] ENGINE[employer] RYAN ZUNIGA M.D. Normal [facility] Comment on above: Performed By: #### L ACTIC, CBC, CMP, CUBLD #### [address] Complete Blood Count Auto Di ffon 05-05-2024 Basophils (Bld) [#/Vol] 0.0 10*3/uL Normal 0.0-0.2 [facility] Comment on above: Result Comment: PERF ORMED BY: [place] [phone] PATHOLOGIST [employer]CH[employer] ENG[employer] RYAN ZUNIGA M.D. Performed By: #### L ACTIC, CBC, CMP, CUBLD #### [address] Basophils/100 WBC (Bld) 0.4 % Normal . [facility] Comment on above: Performed By: #### L ACTIC, CBC, CMP, CUBLD #### [address] Eosinophils (Bld) [#/Vol] 0.0 10*3/uL Normal 0.0-0.45 [facility] Comment on above: Performed By: #### L ACTIC, CBC, CMP, CUBLD #### [address] Eosinophils/100 WBC (Bld) 0.4 % Normal . [facility] Comment on above: Performed By: #### L ACTIC, CBC, CMP, CUBLD #### [address] Erythrocyte distribution width (RBC) [Ratio] 17.1 % High 11.9-15.3 [facility] Comment on above: Performed By: #### L ACTIC, CBC, CMP, CUBLD #### [address] Hematocrit (Bld) [Volume fraction] 30.2 % Low 34.0-46.4 [facility] Comment on above: Performed By: #### L ACTIC, CBC, CMP, CUBLD #### [address] Hemoglobin (Bld) [Mass/Vol] 9.6 g/dL Low 11.8-15.4 [facility] Comment on above: Performed By: #### L ACTIC, CBC, CMP, CUBLD #### [address] Lymphocytes (Bld) [#/Vol] 1.1 10*3/uL Normal 1.00-4.8 [facility] Comment on above: Performed By: #### L ACTIC, CBC, CMP, CUBLD #### [address] Lymphocytes/100 WBC (Bld) 10.3 % Normal . [facility] Comment on above: Performed By: #### L ACTIC, CBC, CMP, CUBLD #### [address] MCH (RBC) [Entitic mass] 23.0 pg Low 24.7-34.3 [facility] Comment on above: Performed By: #### L ACTIC, CBC, CMP, CUBLD #### [address] MCV (RBC) [Entitic vol] 72.1 fL Low 80-100 [facility] Comment on above: Performed By: #### L ACTIC, CBC, CMP, CUBLD #### [address] Mean Corpuscular HGB Conc 31.9 g/dL Low 32.0-35.0 [facility] Comment on above: Performed By: #### L ACTIC, CBC, CMP, CUBLD #### [address] Monocytes (Bld) [#/Vol] 1.5 10*3/uL High 0.0-0.8 [facility] Comment on above: Performed By: #### L ACTIC, CBC, CMP, CUBLD #### [place] [id number] [place] Monocytes/100 WBC (Bld) 23.61 % High 0.00-20.00 [facility] Comment on above: Result Comment: For adults in ED, MDW > 20.0 may be associated with a higher risk of sepsis during the first 12 hrs of hospital admission Performed By: #### L ACTIC, CBC, CMP, CUBLD #### [address] Monocytes/100 WBC (Bld) 14.1 % Normal . [facility] Comment on above: Performed By: #### L ACTIC, CBC, CMP, CUBLD #### [address] Neutrophils (Bld) [#/Vol] 8.0 10*3/uL High 1.8-7.7 [facility] Comment on above: Performed By: #### L ACTIC, CBC, CMP, CUBLD #### [address] Neutrophils/100 WBC (Bld) 74.8 % Normal . [facility] Comment on above: Performed By: #### L ACTIC, CBC, CMP, CUBLD #### [address] NRBC% 0.0 /100{WBC} Normal 0-0.5 [facility] Comment on above: Performed By: #### L ACTIC, CBC, CMP, CUBLD #### [address] Platelet mean volume (Bld) [Entitic vol] 8.2 fL Normal 6.3-10.7 [facility] Comment on above: Performed By: #### L ACTIC, CBC, CMP, CUBLD #### [address] Platelets (Bld) [#/Vol] 216 10*3/uL Normal 150-450 [facility] Comment on above: Performed By: #### L ACTIC, CBC, CMP, CUBLD #### [address] RBC (Bld) [#/Vol] 4.20 10*6/uL Normal 3.60-5.00 [facility] Comment on above: Performed By: #### L ACTIC, CBC, CMP, CUBLD #### [facility] [address] WBC (Bld) [#/Vol] 10.7 10*3/uL Normal 3.8-11.6 [facility] Comment on above: Performed By: #### L ACTIC, CBC, CMP, CUBLD #### [address] Comprehensive Metabolic Pane rafaela 05-05-2024 Albumin [Mass/Vol] 4.0 g/dL Normal 3.5-5.7 [facility] Comment on above: Performed By: #### L ACTIC, CBC, CMP, CUBLD #### [address] Albumin/Globulin [Mass ratio] 1.2 {ratio} Normal [facility] Comment on above: Performed By: #### L ACTIC, CBC, CMP, CUBLD #### [address] ALP [Catalytic activity/Vol] 41 U/L Normal 34-104 [facility] Comment on above: Performed By: #### L ACTIC, CBC, CMP, CUBLD #### [address] ALT [Catalytic activity/Vol] 9 U/L Normal 7-52 [facility] Comment on above: Performed By: #### L ACTIC, CBC, CMP, CUBLD #### [address] Anion gap [Moles/Vol] 12.3 mmol/L Normal 6.0-15.0 [facility] Comment on above: Performed By: #### L ACTIC, CBC, CMP, CUBLD #### [address] AST [Catalytic activity/Vol] 9 U/L Low 13-39 [facility] Comment on above: Performed By: #### L ACTIC, CBC, CMP, CUBLD #### [address] Bilirubin [Mass/Vol] 0.5 mg/dL Normal 0.3-1.0 [facility] Comment on above: Performed By: #### L ACTIC, CBC, CMP, CUBLD #### [address] Calcium [Mass/Vol] 8.5 mg/dL Low 8.6-10.3 [facility] Comment on above: Performed By: #### L ACTIC, CBC, CMP, CUBLD #### [address] Chloride [Moles/Vol] 104 mmol/L Normal 98-107 [facility] Comment on above: Performed By: #### L ACTIC, CBC, CMP, CUBLD #### [address] CO2 [Moles/Vol] 24.1 mmol/L Normal 21.0-31.0 [facility] Comment on above: Performed By: #### L ACTIC, CBC, CMP, CUBLD #### [address] Creatinine [Mass/Vol] 0.71 mg/dL Normal 0.60-1.20 [facility] Comment on above: Performed By: #### L ACTIC, CBC, CMP, CUBLD #### [address] Creatinine Clr Calc Pharmacy 157.12 Normal [facility] Comment on above: Result Comment: PERF ORMED BY: [place] [id number] PATHOLOGIST [employer]CH[employer] ENGINEER[employer] RYAN ZUNIGA M.D. Performed By: #### L ACTIC, CBC, CMP, CUBLD #### [address] GFR/1.73 sq M.predicted MDRD (S/P/Bld) [Vol rate/Area] mL/min/{1.73_m2} Normal [facility] Comment on above: Performed By: #### L ACTIC, CBC, CMP, CUBLD #### [address] Globulin (S) [Mass/Vol] 3.3 g/dL Normal [facility] Comment on above: Performed By: #### L ACTIC, CBC, CMP, CUBLD #### [address] Glucose [Mass/Vol] 102 mg/dL High 70-100 [facility] Comment on above: Result Comment: [facility] Glucose Reference Range is dependent on time and content of last meal. Glucose of more than 200 mg/dL in a nonstressed, ambulatory subject supports the diagnosis of Diabetes Mellitus. ADA recommended reference range Performed By: #### L ACTIC, CBC, CMP, CUBLD #### [address] Potassium [Moles/Vol] 3.4 mmol/L Low 3.5-5.1 [facility] Comment on above: Performed By: #### L ACTIC, CBC, CMP, CUBLD #### [address] Protein [Mass/Vol] 7.3 g/dL Normal 6.4-8.9 [facility] Comment on above: Performed By: #### L ACTIC, CBC, CMP, CUBLD #### [address] Sodium [Moles/Vol] 137 mmol/L Normal 136-145 [facility] Comment on above: Performed By: #### L ACTIC, CBC, CMP, CUBLD #### [address] Urea nitrogen [Mass/Vol] 7 mg/dL Normal 7-25 [facility] Comment on above: Performed By: #### L ACTIC, CBC, CMP, CUBLD #### [address] Dipstick and Microscopicon 1 07-06-2023 Appearance (U) Cloudy Critically abnormal Clear [facility] Comment on above: Order Comment: Name Collection Type:: Clean-Voided Midstream Performed By: #### C UU, ADDONUAPLUS #### [address] Bacteria,Urine 2+ High None Seen [facility] Comment on above: Order Comment: Name Collection Type:: Clean-Voided Midstream Performed By: #### C UU, ADDONUAPLUS #### [place] [address] [place] Bilirubin,Urine Negative Normal Negative [facility] Comment on above: Order Comment: Name Collection Type:: Clean-Voided Midstream Performed By: #### C UU, ADDONUAPLUS #### [address] Color (U) Yellow Normal Yellow [facility] Comment on above: Order Comment: Name Collection Type:: Clean-Voided Midstream Performed By: #### C UU, ADDONUAPLUS #### [address] Glucose Ql (U) Normal Normal Normal [facility] Comment on above: Order Comment: Name Collection Type:: Clean-Voided Midstream Performed By: #### C UU, ADDONUAPLUS #### [place] [address] [place] Hyaline Casts,Urine None Normal 0-8 [facility] Comment on above: Order Comment: Name Collection Type:: Clean-Voided Midstream Performed By: #### C UU, ADDONUAPLUS #### [place] [address] [place] Ketones Ql (U) Negative Normal Negative [facility] Comment on above: Order Comment: Name Collection Type:: Clean-Voided Midstream Performed By: #### C UU, ADDONUAPLUS #### [place] [address] [place] Leukocyte esterase Test strip Ql (U) 4+ High Negative [facility] Comment on above: Order Comment: Name Collection Type:: Clean-Voided Midstream Performed By: #### C UU, ADDONUAPLUS #### [address] Mucus,Urine Rare Normal [facility] Comment on above: Order Comment: Name Collection Type:: Clean-Voided Midstream Result Comment: PERF ORMED BY: [place] [id number] PATHOLOGIST MECHANICAL ENGINEER[employer] RYAN ZUNIGA M.D. Performed By: #### C UU, ADDONUAPLUS #### [address] Nitrite,Urine Positive High Negative [facility] Comment on above: Order Comment: Name Collection Type:: Clean-Voided Midstream Performed By: #### C UU, ADDONUAPLUS #### [place] [address] [place] Occult Blood,Urine 2+ High Negative [facility] Comment on above: Order Comment: Name Collection Type:: Clean-Voided Midstream Result Comment: PERF ORMED BY: [place] [id number] PATHOLOGIST MECH[employer] ENGINEER[employer] RYAN ZUNIGA M.D. Performed By: #### C UU, ADDONUAPLUS #### [address] pH (U) 7.0 [pH] Normal 5.0-9.0 [facility] Comment on above: Order Comment: Name Collection Type:: Clean-Voided Midstream Performed By: #### C UU, ADDONUAPLUS #### [address] Protein (U) [Mass/Vol] 20 mg/dL High Negative [facility] Comment on above: Order Comment: Name Collection Type:: Clean-Voided Midstream Performed By: #### C UU, ADDONUAPLUS #### [address] RBC,Urine 5 [HPF] High 0-4 [facility] Comment on above: Order Comment: Name Collection Type:: Clean-Voided Midstream Performed By: #### C UU, ADDONUAPLUS #### [address] Specificy [place],Urine 1.016 Normal 1.001-1.030 [facility] Comment on above: Order Comment: Name Collection Type:: Clean-Voided Midstream Performed By: #### C UU, ADDONUAPLUS #### [address] Squamous Epithelial Cell,Urine 20 [HPF] High 0-2 [facility] Comment on above: Order Comment: Name Collection Type:: Clean-Voided Midstream Performed By: #### C UU, ADDONUAPLUS #### [address] Urobilinogen,Urine Normal Normal Normal [facility] Comment on above: Order Comment: Name Collection Type:: Clean-Voided Midstream Performed By: #### C UU, ADDONUAPLUS #### [address] WBC CLUMP, Urine Many High None Seen [facility] Comment on above: Order Comment: Name Collection Type:: Clean-Voided Midstream Performed By: #### C UU, ADDONUAPLUS #### [address] WBC,Urine Innumerable High 0-4 [facility] Comment on above: Order Comment: Name Collection Type:: Clean-Voided Midstream Performed By: #### C UU, ADDONUAPLUS #### [address] Lactic Acidon 05-05-2024 Lactate [Moles/Vol] 0.6 mmol/L Normal 0.5-2.2 [facility] Comment on above: Result Comment: PERF ORMED BY: [place] [id number] PATHOLOGIST MECHANICAL ENGINEER[employer] RYAN ZUNIGA M.D. Performed By: #### L ACTIC, CBC, CMP, CUBLD #### [address] Urine Cultureon 05-05-2024 Bacteria identified Cx Nom (U) ORGANISM: Escherichia coli (O:ESCCOL) [place] Count >100,000 Aerobic WILIAN Charge (NMIC56) ---- SUSCEPTIBILITY --- ORGANISM: O:ESCCOL ANTIBIOTIC INTERPRETATION WILAIN Amikacin S <16 Amoxacillin/K Clavulanate S <8 Ampicillin S <8 Ampicillin/Sulbactam S <4 Aztreonam S <4 Cefazolin S <2 Cefepime S <2 Ceftazidime S <1 Ceftazidime/Avibactam S <4 Ceftolozane/Tazobacta m S <2 Ceftriaxone S <1 Cefuroxime S <4 Ciprofloxacin S <0.25 Ertapenem S <0.5 Gentamicin S <2 Levofloxacin S <0.5 Meropenem S <1 Meropenem/Vaborbactam S <2 Nitrofurantoin S <32 Piperacillin/Tazobact am S <8 Tetracycline S <4 Tigecycline S <2 Tobramycin S <2 Trimethoprim/Sulfamet hoxazole R >2 S = SUSCEPTIBLE I = INTERMEDIATE R = RESISTANT BLANK = DATA NOT AVAILABLE, OR DRUG NOT ADVISABLE OR TESTED R* = RESISTANCE DUE TO EXTENDED SPECTRUM BETA-LACTAMASES ESBL = EXTENDED SPECTRUM BETA-LACTAMASE TFG = THYMIDINE-DEPENDENT STRAIN CHERIE = BETA-LACTAMASE POSITIVE IB = INDUCIBLE BETA-LACTAMASE. APPEARS IN PLACE OF 'S' WITH SPECIES KNOWN TO POSSESS INDUCIBLE BETA-LACTAMASES. POTENTIALLY THEY MAY BECOME RESISTANT TO ALL B-LACTAM DRUGS. PERFORMED BY: [facility] [address] [place] [address] PATHOLOGIST MECHANICAL ENGINEERING COOP RYAN ZUNIGA M.D. Normal [facility] Comment on above: Performed By: #### C UU, ADDONUAPLUS #### [facility] [address] [place] [id number] [facility] .QC SARS-CoV-2 (COVID-19)/Fl u/RSV (GeneXpert)on 05-03-2024 Internal Control Pass Normal [facility] Comment on above: Order Comment: Place d by Discern Expert Performed By: #### 2 [id number] #### [facility] (DEFAULT) [address] [place] [id number] COVID/Flu/RSV (GeneXpert)on 05-03-2024 Flu A (GXpert COVFLURSV) Negative Normal Negative [facility] Comment on above: Performed By: #### 2 [id number] #### [facility] (DEFAULT) [address] [place] [address] Flu B (GXpert COVFLURSV) Negative Normal Negative [facility] Comment on above: Performed By: #### 2 [id number] #### [facility] (DEFAULT) [address] [place] [id number] RSV (GXpert COVFLURSV) Negative Normal Negative [facility] Comment on above: Performed By: #### 2 [id number] #### [facility] (DEFAULT) [address] [place] [id number] SARS-CoV-2 (COVID-19) RNA ELEONORA+probe Ql (Unsp spec) Negative Normal Negative [facility] Comment on above: Result Comment: Perf ormed by PCR methodology. Performed By: #### 2 [id number] #### [facility] (DEFAULT) [address] [place] [address] ED Clinical Summaryon 2023 ED Clinical Summary [facility] - Emergency Department [address] [place] [address] ED Clinical Summary PERSON INFORMATION Name: ANA SAUCEDA Age: 24 Years Sex: FEMALE : 2000 MRN: Acct#: Visit Reason: Flank pain; L FLANK PAIN Arrival: 05/02/2024 22:14:00 Discharge: 05/03/2024 01:28:00 LOS: 000 03:14 Check In: 05/02/2024 22:14:00 Checkout:05/03/2024 01:28:00 Address: [facility] [place] [id number] PCP: Joseph Vanegas MD PROVIDER INFORMATION Provider Role Assigned Unassigned Alejandro Alonzo MD ED Provider 05/02/2024 22:14:31 Betsy Richardson RN ED Nurse 05/02/2024 22:32:03 Sara Okeefe RN ED Nurse 05/02/2024 22:51:55 VITALS INFORMATION Vital Sign Triage Latest Temperature Tympanic Temperature Temporal Artery Pulse Rate 146 bpm 95 bpm O2 Sat 100 % 96 % Respiratory Rate 18 br/min 12 br/min Blood Pressure /97 mmHg /97 mmHg MEDICAL INFORMATION Medications Given: Medication Dose Route Sodium Chloride 0.9% intravenous solution 500 mL 500 mL Initial Volume 250 mL/hr IV Right Antecubital Fossa Sodium Chloride 0.9% intravenous solution 500 mL 500 mL Initial Volume 250 mL/hr IV Right Antecubital Fossa acetaminophen (Tylenol) 1000 mg Oral ondansetron 4 mg Oral ketorolac 30 mg IV Push metoclopramide 10 mg IV Piggyback Allergy Information: No Known Medication Allergies PHYSICIAN DOCUMENTATION DISCHARGE INFORMATION: Discharge Disposition: Home Discharge Location: Home PATIENT EDUCATION INFORMATION Instructions: Abdominal Pain, Adult, Kcoo-bp-Brbn Follow-Up: With: Address: When: Joseph Vanegas MD [address] [place], [place] [id number] Within 3 to 5 days DIAGNOSIS: 1:Left flank pain Patient Understands: Yes - Patient/family/caregi migue verbalizes understanding of instructions given Comment: Normal [facility] ED Patient Summaryon 024 ED Patient Summary [facility] - Emergency Department [address] [place] [address] PATIENT DISCHARGE INSTRUCTIONS Patient Information Name: ANA SAUCEDA Age: 24 Years Date of : 2000 Reason For Visit: Flank pain; L FLANK PAIN Arrival Time: 05/02/2024 22:14:00 Primary Care Physician: Joseph Vanegas MD Attending Physician: Alejandro Alonzo MD Comment: Visit Diagnosis: Diagnoses This Visit Flank pain ([id number]) Left flank pain (R10.9) The Pharmacy at [facility] is open Friday through Friday from 9A to 6P and Friday and Friday from 9A to 5P Prescription Information: If you have been given a prescription for narcotics, seek immediate medical attention if you have any difficulty breathing or any sudden status changes such as confusion and sleepiness. If you or anyone you know is experiencing suicidal thoughts, mental health, alcohol and/or drug addiction problems; contact the [facility] 02/12 Crisis Hotline -Text 1PEGO hw [id number]. If you received any narcotics, sedation, or any other medication that causes drowsiness for the next 24 hours, unless otherwise directed: ? Do not drive a car. ? Do not operate machinery such as power tools, lawn mowers, drills, sewing machines, or stoves ? Avoid alcoholic beverages and drugs for allergies, nerves, or sleep ? Do not make important personal or business decisions or sign any legal documents With: Address: When: Guilherme BERNSTEIN, Joseph Thurston [address] [place], [place] [id number] Within 3 to 5 days Medication Information: The exam and treatment you received today in the [facility] Department were for an urgent problem and are not intended as complete care. It is important for you to follow up with a doctor, nurse practitioner, or physician?s data assistant for ongoing care. If your symptoms become worse or you do not improve as expected and you are unable to reach your usual health care provider, you should return to the Emergency Department, we are available 24 hours a day. For those patients who have received Radiology results, the interpretation of your X-ray as given to you by our Emergency Department physician is only a preliminary report. The Radiologist will review your films and if there is a change in the diagnosis you will be notified by phone. Please make sure you have provided a working phone number so we can reach you if necessary. In the event that you had a lab culture while you were a patient in the Emergency Department, you will be notified by phone if there is a need to change your antibiotic. Please make sure you have provided a working phone number so we can reach you if necessary. [facility] Emergency Department has provided you with a complete list of medications post discharge. Please inform your filenet p8 developer/provider of your visit and for further instruction on these medications. Any specific questions regarding your chronic medications and dosages should be discussed with your primary care physician(s) and/or pharmacist. Additional medications on your home medication list not specifically addressed. Please contact the ordering physician if you have questions about these medications. ferrous sulfate (ferrous sulfate 325 mg (65 mg elemental iron) oral delayed release tablet) 1 tab(s) Oral (given by mouth) every day. Refills: 9. levothyroxine (levothyroxine 100 mcg (0.1 mg) oral tablet) 1 tab(s) Oral (given by mouth) every day. Refills: 9. metFORMIN (MetFORMIN (Eqv-Glucophage XR) 500 mg oral tablet, extended release) Visit Information Allergies: Substance Reaction Symptoms Type Comments No Known Medication Allergies Drug Vital Signs: Vitals and Measurements this Visit (last charted value for your 05/02/2024 visit) Vital Signs This Visit Temperature Oral: 39.4 DegC Peripheral Pulse Rate: 95 bpm Heart Rate Monitored: 97 bpm Respiratory Rate: 12 br/min Systolic Blood Pressure: 114 mmHg Diastolic Blood Pressure: 75 mmHg Mean Arterial Pressure, Cuff-Calculation: 88 mmHg Mean Arterial Pressure Cuff-Monitor: 86 mmHg SpO2: 96 % Oxygen Therapy: Room air Measurements This Visit Height/Length Measured: 175.26 cm Weight Measured: 99.79 kg Weight Dosin.790 kg Body Mass Index: 32.49 kg/m2 Problems List: Problem Onset Comments Closed fracture of shaft of femur 10/12/16 COVID-19 ruled out Generalized anxiety disorder 10/09/22 Hypothyroidism Lightheadedness Patient Education Abdominal Pain, Adult Use Tylenol or ibuprofen as needed for the pain. Follow-up with your primary care physician to review this emergency department visit. Return to the emergency department any worsening symptoms. Many things can cause belly (abdominal) pain. In most cases, belly pain is not a serious problem and can be watched (more content not included)... Normal [facility] .Auto Diff 05-02-2024 Auto [place] % 2 % Normal 05-23 [facility] Comment on above: Performed By: #### 1 [id number], 1424273, 45132511, 6458933, 1929336810, [id number] #### [facility] (DEFAULT) [address] [place] [address]3781 Baso Abs# 0.0 x10 Normal 0.0-0.2 [facility] Comment on above: Performed By: #### 1 [id number], 8147362, 91344493, 7156201, 5634477122, 1164487253 #### [facility] (DEFAULT) [address] [place] [address] 28920 Basophils/100 WBC (Bld) 0.4 % Normal 0.2-2.0 [facility] Comment on above: Performed By: #### 1 190034142, 3371081, 57937989, 2366550, 0191219686, 5311494404 #### [facility] (DEFAULT) [address] [place] [address] Eos Abs# 0.1 x10 Normal 0.0-0.4 [facility] Comment on above: Performed By: #### 1 [id number], 7399527, 76553353, 8280304, 1661720347, 0839216848 #### [facility] (DEFAULT) [address] [place] [address] 27060 Eosinophils/100 WBC (Bld) 0.7 % Low 0.9-4.0 [facility] Comment on above: Performed By: #### 1 780217215, 6341300, 54557187, 5732761, 4159128741, 4156018143 #### [facility] (DEFAULT) [address] [place] [address] 89023 Lymph Abs# 1.0 x10 Low 1.3-2.9 [facility] Comment on above: Performed By: #### 1 651541957, 5491926, 53285737, 1716279, 6878888591, 5931251130 #### [facility] (DEFAULT) [address] [place] [address] 74654 Lymphocytes/100 WBC (Bld) 10 % Low 14-48 [facility] Comment on above: Performed By: #### 1 154147906, 4912546, 71218383, 9481419, 8074515952, 5906559293 #### [facility] (DEFAULT) [address] [place] [address] [place] Abs# 0.2 x10 Normal 0.0-0.8 [facility] Comment on above: Performed By: #### 1 182596325, 8777791, 40976140, 7045544, 8404378402, 6980496917 #### [facility] (DEFAULT) [address] [place] [address] Neut Abs# 8.4 x10 Normal 1.5-9.2 [facility] Comment on above: Performed By: #### 1 299344754, 9914628, 73721017, 2150685, 5396201449, 6531381698 #### [facility] (DEFAULT) [address] [place] [address] Neutrophils/100 WBC (Bld) 86 % Normal 44-88 [facility] Comment on above: Performed By: #### 1 390045377, 5276017, 76270063, 2660217, 4108582632, 4061370651 #### [facility] (DEFAULT) [address] [place] [address] CBC w/ Auto Diffon 4 Erythrocyte distribution width (RBC) [Ratio] 17.5 % High 11.5-15.0 [facility] Comment on above: Performed By: #### 1 708921171, 9085603, 63812364, 7361793, 4634484293, 1898219328 #### [facility] (DEFAULT) [address] [place] [address] Hematocrit (Bld) [Volume fraction] 33.0 % Low 33.7-40.4 [facility] Comment on above: Performed By: #### 1 739979521, 6364528, 45738701, 0558950, 2602121743, 4997346135 #### [facility] (DEFAULT) [address] [place] [address] Hemoglobin (Bld) [Mass/Vol] 10.5 g/dL Low 11.3-15.9 [facility] Comment on above: Performed By: #### 1 488631919, 1985098, 59892295, 2456855, 5166447103, 1867008346 #### [facility] (DEFAULT) [address] [place] [address] Man Diff? Auto Invalid Interpretation Code [facility] Comment on above: Performed By: #### 1 909345753, 9945067, 62497139, 4444731, 0080720059, 0378733866 #### [facility] (DEFAULT) [address] [place] [address] MCH (RBC) [Entitic mass] 24 pg Normal 24-34 [facility] Comment on above: Performed By: #### 1 361276562, 1696738, 81625566, 7950034, 2647089178, 9002304589 #### [facility] (DEFAULT) [address] [place] [address] MCHC (RBC) [Mass/Vol] 32 g/dL Normal 26-37 [facility] Comment on above: Performed By: #### 1 621505172, 1027374, 61638686, 5249903, 1436908048, 1559968166 #### [facility] (DEFAULT) [address] [place], [place] [address] MCV (RBC) [Entitic vol] 74 fL Low 81-100 [facility] Comment on above: Performed By: #### 1 078938832, 5542293, 86337122, 3450162, 3942486520, 1055312397 #### [facility] (DEFAULT) [address] [place] [address] Platelet 239 x10 Normal 138-427 [facility] Comment on above: Performed By: #### 1 103614827, 8324505, 22985798, 1031008, 1357937143, 1222765364 #### [facility] (DEFAULT) [address] [place] [address] Platelet mean volume (Bld) [Entitic vol] 7.7 fL Normal 6.3-10.2 [facility] Comment on above: Performed By: #### 1 121522785, 8273646, 45004940, 8904506, 4702781171, 4963245530 #### [facility] (DEFAULT) [address] [place] [address] RBC 4.46 x10 Normal 3.70-5.30 [facility] Comment on above: Performed By: #### 1 138124221, 3097344, 76527518, 7332039, 2752880112, 3882008838 #### [facility] (DEFAULT) [address] [place] [address] WBC 9.7 x10 Normal 3.5-10.5 [facility] Comment on above: Performed By: #### 1 650529003, 7512019, 34587120, 2978740, 8459861725, 8384678444 #### [facility] (DEFAULT) [address] [place] [address] CMP Standardon 05-02-2024 eGFR Non AA >60 Invalid Interpretation Code [facility] Comment on above: Performed By: #### 1 723504930, 4232923, 80307661, 7725155, 3115736259, 6018512490 #### [facility] (DEFAULT) [address] [place] [address] eGFR AA >60 Invalid Interpretation Code [facility] Comment on above: Performed By: #### 1 048212818, 7058259, 28470889, 6164286, 6500726852, 1967491262 #### [facility] (DEFAULT) [address] [place] [address] Albumin [Mass/Vol] 3.9 g/dL Normal 3.5-5.0 [facility] Comment on above: Performed By: #### 1 044620134, 2487147, 33035388, 8615672, 2370132906, 0667547193 #### [facility] (DEFAULT) [address] [place] [address] Albumin/Globulin [Mass ratio] 1.0 {ratio} Low 1.4-2.6 [facility] Comment on above: Performed By: #### 1 727774286, 8879212, 72262894, 2972943, 8942106631, 9738400877 #### [facility] (DEFAULT) [address] [place] [address] 31617 Alk Phos 51 IU/L Normal 32-91 [facility] Comment on above: Performed By: #### 1 422129724, 5264234, 99715416, 4220513, 9411373604, 5798136732 #### [facility] (DEFAULT) [address] [place] [address] 20692 ALT [Catalytic activity/Vol] 15.0 U/L Normal 14.0-54.0 [facility] Comment on above: Performed By: #### 1 675291216, 9547240, 41932153, 8692207, 9386156386, 3116467784 #### [facility] (DEFAULT) [address] [place] [address] Anion gap [Moles/Vol] 10.2 mmol/L Normal 5.0-19.0 [facility] Comment on above: Performed By: #### 1 131949857, 1751380, 79628632, 9520439, 0647630738, 9430643043 #### [facility] (DEFAULT) [address] [place] [address] 67976 AST [Catalytic activity/Vol] 20 U/L Normal 15-41 [facility] Comment on above: Performed By: #### 1 047604920, 4492506, 48231091, 5802955, 1133332340, 5126807410 #### [facility] (DEFAULT) [address] [place] [address] 61740 Bili Total 0.4 mg/dL Normal 0.3-1.2 [facility] Comment on above: Performed By: #### 1 650193627, 3269952, 55545631, 4298794, 2042240110, 1816692663 #### [facility] (DEFAULT) [address] [place] [address] 49957 Calcium [Mass/Vol] 8.4 mg/dL Low 8.9-10.3 [facility] Comment on above: Performed By: #### 1 308936430, 8024022, 92025806, 3419856, 7711106003, 5964849873 #### [facility] (DEFAULT) [address] [place] [address] 25058 Chloride [Moles/Vol] 103 mmol/L Normal 101-111 [facility] Comment on above: Performed By: #### 1 188197554, 9026980, 51299950, 2320541, 9674410532, 1369617475 #### [facility] (DEFAULT) [address] [place] [address] 85377 CO2 [Moles/Vol] 23 mmol/L Normal 21-32 [facility] Comment on above: Performed By: #### 1 661835685, 3313728, 02866568, 1260941, 2275125961, 3943234823 #### [facility] (DEFAULT) [address] [place] [address] 67787 Creatinine [Mass/Vol] 0.72 mg/dL Normal 0.60-1.30 [facility] Comment on above: Performed By: #### 1 033478579, 4636397, 41166169, 6696425, 7932216076, 6432468446 #### [facility] (DEFAULT) [address] [place] [address] 85304 Globulin (S) [Mass/Vol] 3.9 g/dL Normal 1.5-4.3 [facility] Comment on above: Performed By: #### 1 463423611, 9932563, 56491845, 3336427, 4334716588, 3030851166 #### [facility] (DEFAULT) [address] [place] [address] 31989 Glucose [Mass/Vol] 101.0 mg/dL Normal 74.0-118.0 [facility] Comment on above: Performed By: #### 1 014140246, 8022469, 20567378, 2219803, 6879053623, 8433852694 #### [facility] (DEFAULT) [address] [place] [address] 96891 Osmolality 266 mOsm/L Invalid Interpretation Code [facility] Comment on above: Performed By: #### 1 734850579, 1917734, 14369396, 7812374, 9846604031, 3528705649 #### [facility] (DEFAULT) [address] [place] [address] 83651 Potassium [Moles/Vol] 3.2 mmol/L Low 3.6-5.1 [facility] Comment on above: Performed By: #### 1 594833675, 6942145, 36331146, 2478320, 4113324724, 8127389568 #### [facility] (DEFAULT) [address] [place] [address] 12046 Protein [Mass/Vol] 7.8 g/dL Normal 6.5-8.1 [facility] Comment on above: Performed By: #### 1 044188631, 3387768, 39727858, 6502065, 1985075429, 3560404694 #### [facility] (DEFAULT) [address] [place] [address] 58726 Sodium [Moles/Vol] 133.0 mmol/L Low 136.0-144.0 [facility] Comment on above: Performed By: #### 1 263067543, 0173203, 16081161, 6491225, 9517924550, 2752604325 #### [facility] (DEFAULT) [address] [place] [address] 00614 Urea nitrogen [Mass/Vol] 12 mg/dL Normal 8-26 [facility] Comment on above: Performed By: #### 1 961118571, 2115190, 96550318, 4835143, 0903532577, 2855074286 #### [facility] (DEFAULT) [address] [place] [address] 79928 Urea nitrogen/Creatinine [Mass ratio] 16.6 mg/mg High 4.6-16.2 [facility] Comment on above: Performed By: #### 1 675405385, 2049866, 29139665, 0162149, 6607382562, 5839915523 #### [facility] (DEFAULT) [address] [place] [address] Abdomen/Pelvis w/o Contra ston 05-02-2024 CT Abdomen/Pelvis w/o Contrast EXAMINATION: CT Abdomen/Pelvis w/o Contrast, 05/02/2024 10:18 PM MST HISTORY: Fever, left flank pain COMPARISON: CT abdomen and pelvis examination dated 01/07/2024. TECHNIQUE: CT scan of the abdomen and pelvis was performed without IV contrast. CT dose reduction technique was used, including Automated Exposure Control. FINDINGS: There is a 0.4 cm nodule in the right middle lobe (series 2, image 5). There is mild bibasilar atelectasis. There is a 0.3 cm nodule in the left lower lobe (series 2, image 11). Abdomen: Please note that the sensitivity for detection of focal lesions or vascular disease is markedly reduced without intravenous contrast. The liver and spleen are unremarkable. There is no intra or extrahepatic biliary duct dilatation. The gallbladder is unremarkable. The pancreas, adrenal glands, kidneys, and bowel loops, including the appendix, are unremarkable. There is no mesenteric or retroperitoneal lymphadenopathy. Pelvis: The bladder and rectum are unremarkable. There is no iliac or inguinal lymphadenopathy. An IUD is in place. The ovaries appear within normal limits by CT. Bone windows show no aggressive osseous lesions. Partially imaged are postsurgical changes of the right femur. The hardware causes streak artifact which renders evaluation of adjacent structures suboptimal. IMPRESSION: 1. No specific etiology identified to explain the patient's fever or flank pain. 2. There are a couple pulmonary nodules measuring up to 0.4 cm. These are likely postinfectious or inflammatory in a patient of this age. 3. Normal appendix. 4. An IUD is in place. Final Dictated by: Faustino Haynes MD Dictated DT/TM: 05/03/24 0:55 Signed (Electronic Signature): Faustino Haynes MD 05/03/24 1:02 am Technologist: JALEN Olivarez [facility] Extra Greenon 05-02-2024 Tube Collected Yes Invalid Interpretation Code [facility] Comment on above: Performed By: #### 1 [id number], 7721826, 70833680, 5029155, 6742475986, 8428469278 #### [facility] (DEFAULT) [address] [place] [address] Test Urine 1on U Preg Negative [facility] Comment on above: Performed By: #### 3 [id number] ####[facility] (DEFAULT)[address] [place] [address] U Preg Internal Control Pass [facility] Comment on above: Performed By: #### 3 [id number] ####[facility] (DEFAULT)[address] [place] [address] UA Oobzz8mf 05-02-2024 UA Bacteria Trace [facility] Comment on above: Order Comment: Urina lysis Microscopic order added on by Discern Expert Rules system. Performed By: #### 1 258579947, 5099922, 91300473, 4148285, 3602655577, 4640417025 #### [facility] (DEFAULT) [address] [place] [address] UA Mucous Trace [facility] Comment on above: Order Comment: Urina lysis Microscopic order added on by Discern Expert Rules system. Performed By: #### 1 674762058, 5429181, 35617428, 9372960, 2766185333, 9882022125 #### [facility] (DEFAULT) [address] [place] [address] UA RBC 0-2 [facility] Comment on above: Order Comment: Urina lysis Microscopic order added on by SeeOn Expert Rules system. Performed By: #### 1 757515619, 4251502, 39389033, 6915059, 0429459094, 3181967194 #### [facility] (DEFAULT) [address] [place] [address] UA Squam Epi Few [facility] Comment on above: Order Comment: Urina lysis Microscopic order added on by Discern Expert Rules system. Performed By: #### 1 976199078, 3145274, 85132888, 8971218, 0363395269, 8334181169 #### [facility] (DEFAULT) [address] [place] [address] UA WBC 0-2 [facility] Comment on above: Order Comment: Urina lysis Microscopic order added on by Discern Expert Rules system. Performed By: #### 1 804830665, 7501288, 27257218, 5847551, 8018196733, 8486132183 #### [facility] (DEFAULT) [address] [place] [address] UA w Culture if Ind Standard on 05-02-2024 Breakpoint UA Normal [facility] Comment on above: Performed By: #### 1 658524361, 4436004, 61796816, 9669041, 1096060372, 6111834014 #### [facility] (DEFAULT) [address] [place] [address] Color (U) Yellow Normal [facility] Comment on above: Performed By: #### 1 080673508, 3733765, 31239908, 1007951, 1836348511, 7657528743 #### [facility] (DEFAULT) [address] [place] [address] Culture? Not Indicated Invalid Interpretation Code [facility] Comment on above: Result Comment: Resu lt created by rule GL_MAGR_ADD_UA_CULT Result created by rule GL_MAGR_ADD_UA_CULT Performed By: #### 1 001335403, 4982871, 54850705, 4124654, 5311019954, 5246292175 #### [facility] (DEFAULT) [address] [place] [address] Glucose (U) [Mass/Vol] Negative [facility] Comment on above: Performed By: #### 1 729935366, 6957463, 34848159, 1213495, 5238637104, 6955458702 #### [facility] (DEFAULT) [address] [place] [address] 86270 Ketones Ql (U) Negative Normal [facility] Comment on above: Performed By: #### 1 156088298, 2862687, 73460914, 4544868, 4510539654, 0249297982 #### [facility] (DEFAULT) [address] [place] [address] Micro? Indicated Invalid Interpretation Code [facility] Comment on above: Result Comment: Resu lt created by rule GL_MAGR_ADD_UA_MICRO Performed By: #### 1 [id number], 5825442, 68893079, 6166848, 7326090968, 4175624105 #### [facility] (DEFAULT) [address] [place] [address] 99451 UA Bilirubin Negative Normal [facility] Comment on above: Performed By: #### 1 131757475, 1555739, 68237262, 0160133, 7997886824, 0109617174 #### [facility] (DEFAULT) [address] [place] [address] 64014 UA Blood SMALL Abnormal NEGATIVE [facility] Comment on above: Performed By: #### 1 635994912, 1305895, 78614344, 0704110, 3818059009, 6467019209 #### [facility] (DEFAULT) [address] [place] [address] 11046 UA Clarity CLEAR Normal CLEAR [facility] Comment on above: Performed By: #### 1 025071397, 1799129, 95838265, 9570510, 8872868817, 5647409540 #### [facility] (DEFAULT) [address] [place] [address] 92348 UA Leuk Est SMALL Abnormal NEGATIVE [facility] Comment on above: Performed By: #### 1 196705287, 8268610, 75618013, 4494787, 7278170243, 8070360693 #### [facility] (DEFAULT) [address] [place] [address] 29166 UA Nitrite Negative Normal NEGATIVE [facility] Comment on above: Performed By: #### 1 357965103, 3881241, 02125539, 2719787, 7587458486, 7790782705 #### [facility] (DEFAULT) [address] [place] [address] 24981 UA pH 5.5 Normal 5-8 [facility] Comment on above: Performed By: #### 1 838795254, 9356667, 63864359, 3324996, 4157997006, 0833642149 #### [facility] (DEFAULT) [address] [place] [address] 60230 UA Protein Negative Normal NEGATIVE [facility] Comment on above: Performed By: #### 1 110646985, 2057563, 51432734, 1613685, 4445543127, 3363324668 #### [facility] (DEFAULT) [address] [place] [address] UA Spec Grav 1.015 Normal 1.001-1.035 [facility] Comment on above: Performed By: #### 1 917255348, 8095546, 82505590, 1788046, 6632523404, 1422679728 #### [facility] (DEFAULT) [address] [place] [address] UA Urobilinogen 0.2 mg/dL Normal 0.2-1.0 [facility] Comment on above: Performed By: #### 1 136990637, 8369474, 25874762, 2803552, 2882038764, 0360663562 #### [facility] (DEFAULT) [address] [place] [address] Urine Source Clean Catch Normal [facility] Comment on above: Performed By: #### 1 823697721, 2971002, 57657480, 1220682, 3804159227, 2653565342 #### [facility] (DEFAULT) [address] [place] [address] ADT Notificationon ADT Notification - From: Maria Esther Hernandez ([facility] ([facility])) To: Joseph Vanegas MD; Sent: 04/13/2024 12:43:49 EST Subject: tachycardia Caller Name: ANA SAUCEDA; Caller Number: Germán , M I called the patient with lab results. She wanted me to tell you that she has been trying to go to the gym and work out. She said when she is on the treadmill for just a few minutes her heart rate is up to almost 200 and she becomes faint and has mild chest pains. She spoke to you about this at her appointment and you wanted to check her thyroid and her thyroid is normal. What do you recommend? Please advise. From: Joseph Vanegas MD To: Guilherme Basurto ([facility]); Sent: 04/14/2024 07:53:02 EST Subject: RE: tachycardia Caller Name: ANA SAUCEDA; Caller Number: Germán , Bobby would recommend referral to cardio to eval. Spoke with patient, she does agree with referral to Proposal Review Analyst From: Courtney Reyes LPN ([facility] ([facility])) To: Joseph Vanegas MD; Sent: 04/14/2024 11:06:30 EST Subject: FW: tachycardia Caller Name: ANA SAUCEDA; Caller Number: Germán , Bobby Submitted: Order:Referral Ambulatory [facility] Details: Cardiology, tachycardia, [facility], External Referral, 04/14/2024 11:26 EST Signed by Joseph Vanegas MD 04/14/2024 11:26:00 EST Normal [facility] Coding Summaryon 04-09-2024 Coding [facility] SdeftygjBKi2bHd+PGhlY WQ+JB2IORSnG82uoNWgyN 0wY1ATLYeZMvwuDSRVEXl RQzFrpnJwQM6wcEVzARUy IC8+SH6zISZdNaxuxFJys 0N9rBG7J40lbp5vMPwqzQ V6IEVvDfGgawjhv2rfkQv 6IDcuNmluOyBt EJHsfC52WMK6pC36Dh60u IAnaITfs7esaQi1JqOmLC IrPPB6fAvnNGzsx3SmTKS rB02cjDBrq2S4 PXEwkWsvdRFdQiSjoRA3u V1qJGnwmliph9aeuhfsSb i5qp25iFBic5Q7qQV1T2D aixZ4LBZytOZq UnqdwOSEoH9aqyauc2fjx yrlBaHdKDOgIBh1LKh5ON UlhGrcJdSxUK65YWR8XWS uiyNhW3CcBVBg gZeyJhT7f4K7Sq5NF5GEK kriV2CDHZSSSEbkmAD+PC 21nn30Y5AiFlnnLhm5TMC xPBE8rHP9uX2i PBNsPWpmv2H5sEH7I4Gfc gVyfd0sm4muLEPyOLqlY3 1huRSvq0Z8QSCzcWU9UXQ hjJufAlAngJ95 Oyc+XRKfpHlgv5VfNxbqw 9ihm9rqqJj9QkpjWDJbui TeoHgkNFA2c1BgCr4fCLY qhKX0mTN4bW5r BvHcEmK6UBadH159CcCtj PJdGyrfO02iL6XuvFL+PH CyBei9ESHhpNovAD6fO9H hZGRpbmctbGVm jAwhHG0mYQMozosuJKPki N2dAMHdX2j0RpSqVfA7VU cbN2TwABEdhtonMv54wU1 jFuHvJgW2TWeg H2OuymR6GNGhiLNcUBshU DE8E20oh3Z1QFHwFCFxCI O5iTU3rG9izVpjwfzdxTZ mdDsgdmVydGlj FUweUFgvZ298JZPuqZetX kNvZGluZyBEYXRlOiAgMT EvMjkvMjAyNDwvdGQ+PHR oNZP8wSnbCINr fUXhELhlQw3skEixzZjsC P3qQOYpluyxGACovH9lPB NurTIhxTvkTS5oPCGjjzf oc787RdIcJGL4 IWLorWUzX4KtxX5vQbNvU VSpVVDsZ2DdtWCtSHnsS9 68NHsqRsU1ODPvpcWcT3V sLWFsaWduOiB0 v6I0Rp9Xd8UucexxE7Jmc OArEoJlZycrCLi0Q9EfGd wvdHI+VC00PNXpWJ44ALj 9WIR2mQduYDqi EUGoE1SvyU5mHfDoFPWdD GRkOyc+PHRhYmxlIHdpZH RoPScxMDAlJyBzdHlsZT0 fAh8iGRXsRTWf iWaftVTvLoMgi0vvEZUsD EzvUM8iaKliC2ZssXZ0SV Gcl8i0Me52B26jT2YqwLB +OSEurTM2yUY3 nY9cYrKaHbT2LTlpB484Z mUbgSHwXjwlq6tqp7ftmZ b0BmT7LAJgjkPbaQvlJKQ 1n7GjOe11S47r IHdpZHRoPSIxNSUiIHZhb Vyudi5vrD7cAt7+PGNvbC U1zSF8yD6mHrNhSjX8TSg wZ788QnRayZWg Obioe0iyh7fyfFq0OhMbU YWejfMtrEmaTPL7g3GoYy 36N6RfaPvwn4WdDec4ha0 6sAZlb9L3aIE3 B9EvXYSkvsvakPAwxPqnO P2vQZXcmnnwVJTpeC8dFK QlR5v0RnNjNzX1PUkuW3I hdpU8NKRxdGVh BINejXFAkY1vhjviz1qxy rarWzYoYWXzEYd8ISj0VU YhfZomHtIiYHK2OnV9WTI 8hGJtgM4jaKqh uliidE0dTvw+BTI3yYYwr MVLCA3pMkxanSZ+PHRkIH U9mIhwQQcoVFBprM0xIAF rN3y8WbEhMmY0 ONocS4IadwR7MYGdpDKaG URdlWRJnM0fzpfym3bjve sbQaKdTBUmIVa1TBi5WFR saWduOiBsZWZ0 ZuI3YJO7rWSowE9kgFmer wagwL8jPjn+QmlydGggRG U0NNj4E2LhIlz5RUBlgBc hUD4tyYDwDVxy Ie0vvTxodIfnMV0uSOLfx nwvb420YmQyr5lfKLNyzA HrXZhkTFR7P96ho1V2ZWZ xLXVhZYJ3qFY3 rE6fhQyniaajbLXgqLgad aCgzLvpUZsvQJveG688NO QhwVisBkOmXQg0Z7RcRaw 9VPWouHaeMB8w kHLwSScuJv7cnLyyeEegR R9xTDHqstllg013TnHcz8 qvCQUqpAQyLMjsRRW9R28 oc1N3WONtGOOw ZGS4fXU4xG6lyZoxiqocl GVmdDsgdmVydGljYWwtYW frF801DEAqcVxwHgPagHg 8H0UzNpk3WTAx fGzcJM0cvJYmLDlfDu0fg LjreXxqRJ6vAWRicwapk6 13PmAqa1goCHJcdWAdEBb vJDC5C86sg8T4 JMCuWWJgGSA9lNC3aF1ra GlnbjogbGVmdDsgdmVydG ugLRcjRDptD024BSGhvZo nPlBhdGllbnQg YAacPIo1O8RuKjgjlUB+P O88LMVrZJ11eUCvsPSfk6 syjBm7NoZnVHCuKRT7fZa eEIxga8QbCWEj L77nmTAac6Y8HORmuZzhj WNjDkJrwSJ5bY0rYRnsln brd7jbexejUhimy3ayxw6 3fE67K83tTQnn ZHRoPSIzMCUiIHZhbGlnb s3emV5qCr3+LKVlzCZ5wZ R2bG5xPFBuTsF2HKtqD26 9InRvcCIvPjxj d5iqp4naaVl7FoN0GVSev gBfgVkhGPP1v3NsOf23U5 9sIHdpZHRoPSIyMCUiIHZ deOlolq8agN1t Ii8+TOBmrHU3pLR7sT6kC bPvWxH0CJlaZ768ZrExgT YsZxaqJ75pI9DvwSA+PHR oVgx6BXThnQno KS0ztQHcKDcuTi7uJCS8N yXiGaDnXNbbS5IzGFHibv ptadctiGR7GKVtAXMasP7 3Vb0prYewQRMj cFZCpL9pkkldt6pcrzibP mUgJVHdYOc6WGp7VYWyeU jiLrPqNNC5RzH5JKA5gED yjR9aaEgyccqt cY1oK8DfLBJsuuxwSg05s D0oTqSuEuX5RAwvJmf+RF VORkVFLCBNSVJBTkRBIEx FRTwvdGQ+PHRk IVZ6mZsrMLhjOWXdeJ8jN RObE1p2UjWzDlA9PYgmD2 McUSHywmrwDz13fK3nStG zSuC2DRuvK4Ed jrN4BHUiiVMtRXxsTBA6R 83rj4L3KPWvTVVhOBI3hQ L2yY5jsJhxkqklaESfwBs gdmVydGljYWwt LPvxG635JWVotDqgBfFbE yN8OcJpKWI3G1YzDbg8UM EbqTqqKH0psVTcTTyuVb0 deFzijKjzAV4u GCVapafdAGVjdL5sBROji RNdrObfAE1jRUImaizbe2 76QgEfWTY4LPPdlZQzN9H mfG0xJqTdDOTl ZUNjD0LarSJrOIhvM425K LxxNhF5DJQqanFoA5MjPN FnlGldVfR0q8X5Oz7pDvR ZZWFyczwvdGQ+ FOQzKUY8pJyqYOacPOBdj A8cHGPyR5k9SmCsFwQ1YP nrY3TkBFDziivdAg20sB5 uBkMcBtL9ZZow L2VmegG4KNHtzMKcBXlnO CO4M01my0Z6OFOnLSQdXF K9hSK1iO7tlFdpnzsybPT mdDsgdmVydGlj WHgtVRkkK192QEFxyHerE kZFTUFMRTwvdGQ+PHRkIH N7uBckGWwlADSaoO5tLTK qU0m2DwYuAiF3 OPfmM2GpTSAtcqrvGu90y T4tGdInLuN1MXovE3Oayo Z7RKOdwSMaOQoaMXU5T04 ch2T8CMOcIGUk IBD8tZB9pE6ixApfwazpq GVmdDsgdmVydGljYWwtYW coO111UVQxrOpjNc4NAM4 1FB49T8ZxEixa dGFibGU+PHRhYmxlIHdpZ HRoPScxMDAlJyBzdHlsZT 5rYw2pOKWfLCHvaJvblTM zSwVcy6klUVSd OJgyIA4wdZkjH2IorZP1K RPjr6j5Av24T86eC6UdrK A+PTTtzGG1vCH5oO9lPiP hWbD5PJtdF676 ZnBwmQLmEuexr7dyr5ewj Dk6TxGqYTZvtqSnbOziEW C5y0EjZn51G57aUWkdGTF oPSIyMCUiIHZh nQssvd3voP1mMh8+PGNvb IM6aAP7rC2mMcDcPwY2SE eeX582UiMgdFHwXkakF28 fJ4QkgNY+PHRy Fhl2LUSkgYygCG3inEZqI WplPx0gBJO3YtYzLcXjBD qnJ3BjQCZlekracffpuXR 9YPWrWKPzfS25 Wm1ccChfLn0gCIHoPTT1Y JOulUSnA2CepX3vSlZsBK EeGBSsG0IehMUfPKgqP06 4XZvoQzW1LJGx biFbK3RoZMZmmYfsJfE2r 4K5We2QnHofoKTbLC0uQg AlMCn6H3ZxFjc8WIZjkIl dAZ5utZMnTIkr Dx6hgEykdSmpFG4yUAUem mawg079MnAai3teHQGheT DvSSygMEN7W72gx9C3WMG zNYZwDCX2rKC4 fJ8riHfwffyycHGqjTxbb wUtoMdpTSssZZnsT026OA FvtXelWnHQJnm0X5JlQos 3DRNeaGytSL9t sDNgFBqvXt5pqAikfQryD C5iNOKsxiqal808FkPtd9 bmPYJnaIDmSVhdNBX8I57 we5Q1NKZvSCBv PGF0gTP3tY8tbAhtsrinq GVmdDsgdmVydGljYWwtYW ndR514IIQshOpfYe3QZvg 7N5IbXro1JQKh aAclPX4igRPdZFdtPk4hk SnyyNibQF0fTKCaxpqyi6 72HrFsc2iaUSJsaTXnVVa iYVE0E03xn0A7 SIBvVTWlGJY5qZG9cA7yf GlnbjogbGVmdDsgdmVydG blOJpfBVidA238NDWriOn nPlBheWVyOjwv dGQ+OC62ix69B2PsQxbqV gq0QOBaJDI2rGJ8zR0eQW YnLIhaa9T7zFS3G5JlugF gxc2fm4ahKNAx ZTo (more content not included)... Normal [facility] 04-05-2024 eGFR Non AA >60 Invalid Interpretation Code [facility] Comment on above: Performed By: #### 1 [id number] ####[facility] (DEFAULT)[address] [place] [address] eGFR AA >60 Invalid Interpretation Code [facility] Comment on above: Performed By: #### 1 [id number] ####[facility] (DEFAULT)[address] [place] [address] 81009 Anion gap [Moles/Vol] 13.4 mmol/L Normal 5.0-19.0 [facility] Comment on above: Performed By: #### 1 [id number] ####[facility] (DEFAULT)[address] [place] [address] 18838 Calcium [Mass/Vol] 8.7 mg/dL Low 8.9-10.3 [facility] Comment on above: Performed By: #### 1 [id number] ####[facility] (DEFAULT)[address] [place] [address] 42730 Chloride [Moles/Vol] 104 mmol/L Normal 101-111 [facility] Comment on above: Performed By: #### 1 [id number] ####[facility] (DEFAULT)[address] [place] [address] 03782 CO2 [Moles/Vol] 22 mmol/L Normal 21-32 [facility] Comment on above: Performed By: #### 1 [id number] ####[facility] (DEFAULT)[address] [place] [address] 86822 Creatinine [Mass/Vol] 0.61 mg/dL Normal 0.60-1.30 [facility] Comment on above: Performed By: #### 1 [id number] ####[facility] (DEFAULT)[address] [place] [address] 49246 Glucose [Mass/Vol] 81.0 mg/dL Normal 74.0-118.0 [facility] Comment on above: Performed By: #### 1 [id number] ####[facility] (DEFAULT)[address] [place] [address] 28723 Osmolality 270 mOsm/L Invalid Interpretation Code [facility] Comment on above: Performed By: #### 1 [id number] ####[facility] (DEFAULT)[address] [place] [address] 33352 Potassium [Moles/Vol] 3.4 mmol/L Low 3.6-5.1 [facility] Comment on above: Performed By: #### 1 [id number] ####[facility] (DEFAULT)[address] [place] [address] 85760 Sodium [Moles/Vol] 136.0 mmol/L Normal 136.0-144.0 [facility] Comment on above: Performed By: #### 1 [id number] ####[facility] (DEFAULT)[address] [place] [address] 10415 Urea nitrogen [Mass/Vol] 10 mg/dL Normal 8-26 [facility] Comment on above: Performed By: #### 1 [id number] ####[facility] (DEFAULT)[address] [place] [address] 21288 Urea nitrogen/Creatinine [Mass ratio] 16.3 mg/mg High 4.6-16.2 [facility] Comment on above: Performed By: #### 1 [id number] ####[facility] (DEFAULT)[address] [place] [address] 48284 Iron Profileon 04-05-2024 Iron [Mass/Vol] 21.0 ug/dL Low 28.0-170.0 [facility] Comment on above: Performed By: #### 1 [id number] ####[facility] (DEFAULT)[address] [place] [address] 52547 Iron Sat 5 % Low 20-55 [facility] Comment on above: Performed By: #### 1 [id number], [id number], [id number] ####[facility] (DEFAULT)[address] [place] [address] 88862 TIBC 434 mcg/dL High 250-400 [facility] Comment on above: Performed By: #### 1 [id number], [id number] ####[facility] (DEFAULT)[address] [place] [address] Transferrin [Mass/Vol] 309.8 mg/dL Normal 192.0-382.0 [facility] Comment on above: Performed By: #### 1 [id number], [id number], [id number] ####[facility] (DEFAULT)[address] [place] [address] Office/Clinic Noteon 024 Office/Clinic Note Patient: ANA SAUCEDA Age: 24 years Sex: FEMALE : 2000 Associated Diagnoses: Hypokalemia; Iron deficiency anemia; Hypothyroidism; Recurrent UTI Author: Joseph Vanegas MD A History of Present Illness 24-year-old female presents in follow-up UTI at the beginning of the month. She has had recurrent urinary tract infections which ends up causing Pyelo on the right side. She has not had any imaging studies or seen urology. Urine culture was positive for E. coli. She denies any symptoms. When she does get a urinary tract infection will cause her to become septic very quickly. She denies even having any symptoms prior to the episodes. While in the emergency room was also found to be anemic with a MCV of about 78. Iron levels were not checked. She was also hypokalemic. She does have a history of hypothyroidism and is due to have her thyroid checked as well. Review of Systems Constitutional: Fatigue. Respiratory: Negative. Cardiovascular: Negative. Genitourinary: Negative except as documented in history of present illness. Health Status Allergies: Allergic Reactions (Selected) No Known Medication Allergies, Allergies (1) Active Severity Reaction No Known Medication Allergies None Documented Current medications: (Selected) Prescriptions Prescribed levothyroxine 100 mcg (0.1 mg) oral tablet: 100 mcg = 1 tab(s), Oral, Daily, 30 tab(s), 9 Refill(s) naproxen sodium 550 mg oral tablet: 550 mg = 1 tab(s), Oral, q12hr, PRN: as needed for pain, 20 tab(s), 0 Refill(s) nystatin 100,000 units/g topical powder: 1 willy, Topical, BID, 60 gm, 1 Refill(s) ondansetron 4 mg oral tablet, disintegratin mg = 1 tab(s), Oral, TID, for 3 day(s), PRN: as needed for nausea/vomiting, 10 tab(s), 0 Refill(s) Documented Medications Documented MetFORMIN (Eqv-Glucophage XR) 500 mg oral tablet, extended release: 0 Refill(s) Physical Examination VS/Measurements Vital Signs 04/05/2024 14:57 EST Apical Heart Rate 113 bpm HI Pulse Site Pulse Oximetry Systolic Blood Pressure 120 mmHg Diastolic Blood Pressure 74 mmHg BP Site Right arm SpO2 98 % , Measurements from flowsheet : Measurements 04/05/2024 14:57 EST Height 175 cm Height/Length Measured (inches) 68.9 in Weight 98.61 kg Weight Measured (lbs) 217.398 lb Weight Dosing 98.610 kg Body Mass Index 32.2 kg/m2 Pearl Body Weight Calculated 65.965 kg BSA Measured 2.19 m2 Documented vital signs: Pulse ( 90 beats per min ) General: Alert and oriented, No acute distress. Neck: No carotid bruit, No jugular venous distention, No lymphadenopathy. Respiratory: Lungs are clear to auscultation, Respirations are non-labored, Breath sounds are equal. Cardiovascular: Normal rate, Regular rhythm, No murmur, Good pulses equal in all extremities. Impression and Plan Diagnosis Hypokalemia (GAO22-HB E87.6). Plan: Will repeat potassium level.. Orders Orders Evaluation and Management: 18837 Office visit - established pt, Level 4 (Order): 04/05/2024 14:56 EST, Qty: 1, Recurrent UTI - Hypokalemia - Hypothyroidism - Iron deficiency anemia. Diagnosis Iron deficiency anemia (NNO78-QC D50.9). Course: Will check iron profile. Will start her on iron supplement 325 mg daily. Discussed possibility of dark stool also constipation with iron supplement.. Diagnosis Hypothyroidism (ZTS84-VS E03.9). Course: She is due to have her thyroid rechecked since adjusting her medication previously.. Diagnosis Recurrent UTI (JOG25-DF N39.0). Course: Will refer to urology for potential evaluation of recurrent urinary tract infection and history of Juan A. Prep she needs imaging study looking for stricture of the ureter.. Orders Orders Referral: Referral Ambulatory MAG[facility] (Order): Urology, recurrent uti/ pyelo Ken taylor Bradley J MD, External Referral, 04/05/2024 15:38 EST, Recurrent UTI. [Electronically Signed on: 04/05/2024 15:39 EST] Joseph Vanegas MD [Verified on: 04/05/2024 15:39 EST] Joseph Vanegas MD Normal [facility] TSH w/ Reflex to FT4on 04-05 TSH Qn 1.72 m[IU]/L Normal 0.45-5.33 [facility] Comment on above: Performed By: #### 1 [id number], [id number] ####[facility] (DEFAULT)[address] [place] [address] Coding Summaryon 03-29-2024 Coding Summary HTMLBase 64 HaqtqtpgUTc3aFg+PGhlY WQ+DW4RSKIrJ97mmVDcpB 4qJ6NYYQwLVtjhFJSPKOj NDtJdhmOtXN4jhBCuPGIc IC8+TK6qOOIgOiucvMBtp 1X6tLU0C53zkh0cYTnmkE E1KJGmQmNhumxda8htjOe 6IDcuNmluOyBt KFRnmT47ACI0hI59Mp60u YEkvVXci0wkoFt6XuRlUR NxQWR1aXefJZfwc7KwZGQ vB86wlRAan3M1 NFPhgUwixTWhOcLiqZZ7k Y4oQDdiwbbma3jfmvgdAd m9sp16eKQwg3U5oSV6J5I skzL6RHKuwHEf JpzugYSPwL2aahnel2fdn ghgQlTsTZQiLBu6NBq9EW XjjFkgXpBfCX81DTM5MOY hcbYjP4GfFEZs sAadYlR3g1R1Pw3WZ9XMY mmmX3HNKCNTKVdndFU+PC 13lc68V8ZlOakvDiq3VNU dQSC5pMI2dU5c YRCtEJqik0P7pFL2N5Lli oJqko8zo6jyMAUqERvcM8 1ugBZpe3Q8ZJXhkXQ8DOW bqNaoNmLacQ51 Oyc+DLUweFjoj7YfZrneu 2fie7rjzJq7RinlUWOmnn TraMxdIAN4d9PvVh1bLEX nnYY8uMD6hK1m HtVvAzG3EHbiA632WjOtw JOrKxfkK57lK6YhbBH+PH FgIlp0BUOoqGvmJK3zF7K hZGRpbmctbGVm pInhQC2hPDSpoyneVCAlc E7gFKOvK3w9WeJmEgM2EU dhB6RmTEFpjggjAn34bM0 gRnDfHcP5IJxp J5DskxM2KFOsrOVyCUsbA WI3P31jg4X1UYOrSRTtWA F0aSB3pH9epIolkvpqyBW mdDsgdmVydGlj VByeSDigE848WHYjlAphU kNvZGluZyBEYXRlOiAgMT EvMTgvMjAyNDwvdGQ+PHR gUON4zMyxGLHj aUJuIGwqUj7ioNguxCnyX U6rUSHdburePQBkfF6fCS ZwkWJukWveNK9xHFXtduv de054QjIhVIN8 FNRecHYqN7HdyD4hPvBhQ KKuQTMhB8HqtNLmGKwyR8 68EPqtXlH3GOZbrtVnF7D sLWFsaWduOiB0 r6O3Zs0Vr7BcjawrK7Wmi YSlLaItCrsrCTt4K6EdEl wvdHI+UK79KZYoXR98VFk 7QWI1aEjmBRpg AXYtN5QibL5qClTxOSGbM GRkOyc+PHRhYmxlIHdpZH RoPScxMDAlJyBzdHlsZT0 mAr8pCXWmZAAt nYdkoJJyEnTeb9wiSWUlK PebNA6kwSnrY1FkwAS2WC Fub7o8Gg40K12wC8QctLK +YCIblKP7cZY7 mJ6gWwSoOxO1PDlvB160W fTgiWDzSjjyl7jre2hnuN g3XmS5BZCsozKykOhfWGC 7x9UvXy35T12o IHdpZHRoPSIxNSUiIHZhb Efmjk2mwI0fFb2+PGNvbC M4gWE1yO9nNwVsZnT8VSz zB364HiFmgPLp Xjuiz5ckr2dxtUe7AxViM KBpohCrqRgySIY8x4KxJt 10T5XqlSbky1EfNnm1hp4 6uBXmq7H8oBE6 B6FpPPLgcvemyFOcxXnvD J0eQRVrxlrgNKSraI5lIN YoX2t8WhYbGwP7IWvhM7M eedQ1AIHwtYYz WNOyhZRQxV6nlbuym0xiy daoNvAwJXLyCCv3ELo3CA AfmZutKvXkDCR2TcI3UBE 5bJRcmC1kdQsy dtgijS7rKyf+NSX1gXKxg OXGKK6yGcaxjDV+PHRkIH B1mHzcIWlyWSFnpG2jHFX cU8z1KtYxTlL5 PWttP6ZoyaO1MKEkcPOiQ KKyjJHLkF5cxmvwo7dndl qxTzAoEENiKGo0OYe5ATI saWduOiBsZWZ0 HuQ1GCY8aXRolS8giQaxr pdgqX6lMic+QmlydGggRG N1QYr4O4BpZpi3FHLntJv tSK1nzTGxEIcu Nl3bvZmqyRvdTF0nRWAfn pcph619JtHpf1clMTKleE ZxIHdiEIX3P24gr0P3UWM nBJWvNYE0hZI2 zO2krDshaackgGGhrKsin qTofKrbJLqzINsuR133WS OneVudLeXuGRt1S0BuKri 2LAFhfSoaLP8e mXRyLFdfGu0xfPsuoQtbV B3cDVPkhdwyb586BgCqt9 xsOXJdcAMyPPhkFML0H57 gx9Q6WMUkGHKw KKR9vQC1rJ3seQvryzwdi GVmdDsgdmVydGljYWwtYW iuY459CVIeiHymMcHeuMe 3Q0QyAqz7PZYl aRanDU3duSKmBQmcQm4bf MuwcZesZV2fNZTakgjvh3 09CkBkk5hlMHWraGOsOBm hXRB6P45xq0I1 XXTgFKNjCZA2jOQ9fC2wg GlnbjogbGVmdDsgdmVydG yqSAxuIQhbP322GQYkdJz nPlBhdGllbnQg NFynZTl3X8UoGxfvrAZ+P P05DOKhMH35rCHmdFBjj0 txvVl1CeSkVDUnCSP8qYs wYRjro0XuOAWo A78djQLwq9E2UNQehLbwd HGzVxZcqTC5pA3cFTsonl idw8ujqjxnFjdgg7hzjd6 0sM73Y32mXXuf ZHRoPSIzMCUiIHZhbGlnb r9lzQ7uDh2+GOXwmTB6eS Q9vP5lMFYvMlZ8URhuG28 9InRvcCIvPjxj j1uqm3norIc4IiZ0YHKwo xReqLxvTQV2e2AxNd45F6 9sIHdpZHRoPSIyMCUiIHZ cfYjuoj4kpQ5k Ii8+IVMvkKH2gZC6qO2iC oFhZiW8FRwyY727FvSrrU OyLnodF85tZ8KxgSU+PHR uYpx1YVIivRxk JP9waOCjAYqpAs4qXOF1G dZfOqSjUCvuX7BtHTLwhh teuitocCW9ACRzVXQobF4 2Zg2spPloVNNk iUNWuC9mfsjia4qlqmfbI rImCLNkGTx7GEt9DMYcnB olItShEUW3CmA8OKB5bQB xqW7bbNxffvni wI9aG0AeIUIxndnbAj08a W1bKvLmZkV4SLwiEvc+RF VORkVFLCBNSVJBTkRBIEx FRTwvdGQ+PHRk UJB1sWqbTOhfNELipL1oR QBtX0z0RcBwHyF6FLdfD8 NqLHIygbovWy01zT4xCaF hBdI0BHcxC5Ri kqD6PCZluXFnKEqpVVX2N 08mc0R2FBTmCUUcCFC8pI U2dQ5nfGgpavnncFHoiVz gdmVydGljYWwt OCcpR969BPOwjDqfXuTpL fL1HrOwRQL0Q5RdRor8UR YbbRjsOY7zuUUeTBleTh1 muTbdqQbhYW5i ULWujcqcJNYqvU1sLSJzd BCleDazWS8fDAZrdhzrl4 96ClAfGJQ8EAOgmJLuC4C bjR1hVjWhHFSx XNBnZ8AypVNfJWmwO861Q KsvTvW4EHPvipTcN3SdYW WkzLuyIqC7c5C6Jq7rUuM ZZWFyczwvdGQ+ ZYJmIKZ2rGlxBEyyDRPjh T6vFSYsT7t4KzHwHwA4BX ltC0WiWRIwutniDh46aD6 qHhOqRvV6DEcg P0GfipN2LTIshLHsOCjnL HO1D90di5O4CTAuZTElYH K8aSF5vS1zmFhbkmggfMT mdDsgdmVydGlj FIlzEKahK434NWGojZlzZ kZFTUFMRTwvdGQ+PHRkIH J5gRhgGQsfTGYvuG6tLIB fX8l6OwLmTsH6 YRrhE7WoAQRtvnxlGm62r C6mTxEaZhN7EBlaE3Cczk C9OPKeaDLlDNsuEVC6D89 ju4R0DISxWLIf PTQ7nLN2qT1pxXgbgfczx GVmdDsgdmVydGljYWwtYW eaY115NUBhsAezLbWbTRA vPF3omDsaoUU+ RJ17na98B1KxGmqfAfy5X VRkFRM9lLS2tE2oLSXuYU xqx1U4uRG3R7WrzoWmzi1 xr3hbPKJlYXlp E69nfTOpu6B6QXLoaBD5D CCarJeoZrVxiQ84Qgi+PG NiwFdrp5QfFctfj5pot5h jbEv7MbVqEAFu zvCvkEfjRDQ2w1DxCi10K 29sIHdpZHRoPSIzMCUiIH PxjLllms5ggC0hYo5+PGN maUT9pTK5rE2x BpToObX4QUxrL191FwPug KHwXpppi4nql3dxeSa2Zv QlDIPqfsLujVxlHXF7o0K zLj52S9YedAyw d0BsJpc6nw22zVLlo8K0l VR9U3DpROPqbkwsdTGgcP ymGM8bQEEswpeyVSRahU8 fWWIzJ1m1GoRb TpA1CTdaT6IhslO9PXJyv TXmQJPyiABJuB8eaabap8 uhgrllPcDgMWRjFFj8WMv 0LWFsaWduOiBs QGK2UeQ7PMO4uXKzuE7ur TscmhsltW5lKra+UGh5c2 pyaGPqQM5usXV4FT68AQ4 0pWTby7P2mGL3 L8UuTLYrfkpvzjerwRD6D MZoEIMqcU77Qo8fiXxjNj 5cAMQrIIP6DEHhnVYgK9J ylO6qBlZgOQUo KSUxS8DuaQIsXQtlJ940S LbsLhF4OQKqquCwB9ReFF WhlWyiUjK7b2C7Yr9TAO4 9VV03KV61wDGj d9J0lLH6I9GdREJjdrjja wjszJI5CNHyZRIsmJ53Ws 0njUbkZd9bKSLvRVN4MHX zfBHjQ0GibJ0s StBzHCPdNNQuT2ZioKKuS IdcQ585PFqbYlO4JQQaob UhS1ThKFJdbBhjQlG3n9G 5Ce5QGz33VR77 RU85oANwh7D6wTJ9R0GtG BBnfjxerzsaiXB6LRXdFN VabZ00Uj5wsVgrMj4jCVL rEEY4BCClhEBo O1UqoJ4aRyHmVMBvLLZoE 3AndSVlGJxpE209WSatDn X1FLKuerJcR4JcGSZicDl wWdG0v0D2Dx5H BXnxcnb1W5JlKfsdpSU+P U76KKRaQM18fAMkbQHod7 uddLr4DrMtURQpELL3tIs cOQair2VwVTOa Y29 (more content not included)... [facility] Outside Recordson 03-18-2024 Outside Records [id number] [facility] C Bloodon 03-17-2024 C Blood Escherichia coli Results called to Peggy Aparicio at ED by [facility] and results read back for confirmation on 03/15/2024 13:09:34 ORGANISM EC ---- SUSCEPTIBILITY --- ORGANISM ID: 1 ANTIBIOTIC INTERPRETATION WILIAN STATUS ORGANISM ECEC Amp S <=8 Verified Amp/Sul S <=8/4 Verified Azt S <=4 Verified Cefaz S <=2 Verified Cefep S <=2 Verified Cefo <=2 Verified Ceftaz S <=1 Verified Ceftri S <=1 Verified Cefur S <=4 Verified Cipro S <=0.25 Verified Ertap S <=0.5 Verified Gent S <=2 Verified Levo S <=0.5 Verified Nitro <=32 Verified Pip/Tae S <=8 Verified Tetra S <=4 Verified Tobra S <=2 Verified Tri/Sulf R > Verified [facility] Comment on above: Performed By: #### 6 [id number] #### [facility] (DEFAULT) [address] [place] [address] ED Note-Nursingon 03-17-2024 ED Note-Nursing Blood Culture result s were reviewed by Dr. Worrell. He requested the cultures to be faxed to PCP. Results were faxed to Dr. Vanegas's at [phone]. [facility] C Urineon 03-16-2024 C Urine Urine Culture ordere d as a result of parameters set on specific urine dip and urine microsopic results. >100,000 cfu/ml Escherichia coli ORGANISM EC ---- SUSCEPTIBILITY --- ORGANISM ID: 1 ANTIBIOTIC INTERPRETATION WILIAN STATUS ORGANISM ECEC Amp S <=8 Verified Amp/Sul S <=8/4 Verified Azt S <=4 Verified Cefaz S <=2 Verified Cefep S <=2 Verified Cefo <=2 Verified Ceftaz S <=1 Verified Ceftri S <=1 Verified Cefur S <=4 Verified Cipro S <=0.25 Verified Ertap S <=0.5 Verified Gent S <=2 Verified Levo S <=0.5 Verified Nitro S <=32 Verified Pip/Tae S <=8 Verified Tetra S <=4 Verified Tobra S <=2 Verified Tri/Sulf R > Verified [facility] Comment on above: Performed By: #### 6 [id number] ####[facility] (DEFAULT)[address] [place] [address] ED Note - Physicianon 2023 ED Note - Physician Patient: ANA SAUCEDA Age: 24 years Sex: FEMALE : 2000 Associated Diagnoses: None Author: Main Worrell DO Made aware at 9:20 this morning that patient urine culture was positive for E. coli greater than 100,000 colonies. Also patient has a preliminary blood culture that is positive. Chart was reviewed. Patient with a history of pyelonephritis and sepsis. Patient was treated in the ER with IV Rocephin. Discharged home on amoxicillin. Discussed with the nurse to send information to patient's primary care physician. Also to contact the patient. Strongly encouraged to return to the emergency department for any worsening persistence or changes to her symptoms. If the patient is feeling better we will change her antibiotic to Augmentin 875 mg twice daily x 10 days. [Electronically Signed on: 03/16/2024 09:33 EST] Main Worrell DO [Verified on: 03/16/2024 09:33 EST] Main Worrell DO [facility] ED Note-Nursingon 03-16-2024 ED Note-Nursing Patient returned mik l and informed of positive urine and blood cx, states she is doing about the same. Informed Dr would like to put her on a stronger antibiotic she requested [place]. Instructed to return to ER if worsening symptoms or develops fever. Patient understands. Rx called in to [facility]. [facility] ED Clinical Summaryon 2023 ED Clinical Summary [facility] - Emergency Department [address] [place] [id number] ED Clinical Summary PERSON INFORMATION Name: ANA SAUCEDA Age: 24 Years Sex: FEMALE : 2000 MRN: Acct#: Visit Reason: Flank pain; LIGHTHEADED, BACK PAIN, CHILLS, VOMITING Arrival: 03/14/2024 22:21:52 Discharge: 03/15/2024 02:01:00 LOS: 000 03:40 Check In: 03/14/2024 22:21:52 Checkout:03/15/2024 02:01:00 Address: [address] [place], [place] [id number] PCP: Joseph Vanegas MD PROVIDER INFORMATION Provider Role Assigned Unassigned Holger Carranza MD ED Provider 03/14/2024 22:34:43 Romana Lunsford CLERICAL INVESTIGATOR Nurse 03/14/2024 22:43:57 VITALS INFORMATION Vital Sign Triage Latest Temperature Tympanic Temperature Temporal Artery Pulse Rate 105 bpm 95 bpm O2 Sat 100 % 95 % Respiratory Rate 15 br/min 16 br/min Blood Pressure /93 mmHg /93 mmHg MEDICAL INFORMATION Medications Given: Medication Dose Route acetaminophen (Tylenol) 1000 mg Oral ondansetron 4 mg IV Push cefTRIAXone 2 gm IV Piggyback Allergy Information: No Known Medication Allergies PHYSICIAN DOCUMENTATION Patient: AAN SAUCEDA Age: 24 years Sex: FEMALE : 2000 Associated Diagnoses: Microcytic anemia; Acute pyelonephritis; Acute hypokalemia Author: Holger Carranza MD Basic Information Time seen: Date & time 03/14/2024 22:35:00. History source: Patient. Arrival mode: Private vehicle. History limitation: None. Additional information: Chief Complaint from Nursing Triage Note : Chief Complaint 03/14/2024 22:30 EST Chief Complaint Pt arrives with c/o fever and right flank pain . History of Present Illness The patient presents with flank pain. 24-year-old female presented to ER with complaint regarding fever and flank pain. Patient stated that she had concern regarding possible urinary tract infection and septicemia. Stated that she had a previous infection several months ago. Stated that she has some pain with urination postcoital, about 4 days ago. Only 1 time. Stated that there is increasing pain at the right flank area, within the past 24 hours. Stated that there is fever today. Stated that she has been vomiting. No abdominal pain. Only right flank pain. Admitted that she is not . Has IUD in place. Admitted that she had 3 previous . Review of Systems Constitutional symptoms: Fever. Skin symptoms: Negative except as documented in HPI. Eye symptoms: Negative except as documented in HPI. ENMT symptoms: Negative except as documented in HPI. Respiratory symptoms: Negative except as documented in HPI. Cardiovascular symptoms: Negative except as documented in HPI. Gastrointestinal symptoms: Abdominal pain, right flank, nausea, vomiting, No diarrhea, Genitourinary symptoms: No dysuria, no hematuria. Musculoskeletal symptoms: Back pain. Neurologic symptoms: Negative except as documented in HPI. Psychiatric symptoms: Negative except as documented in HPI. Endocrine symptoms: Negative except as documented in HPI. Hematologic/Lymphatic symptoms: Negative except as documented in HPI. Allergy/immunologic symptoms: Recurrent infections. Health Status Allergies: Allergic Reactions (Selected) No Known Medication Allergies. Medications: (Selected) Prescriptions Prescribed levothyroxine 100 mcg (0.1 mg) oral tablet: 100 mcg = 1 tab(s), Oral, Daily, 30 tab(s), 9 Refill(s) naproxen sodium 550 mg oral tablet: 550 mg = 1 tab(s), Oral, q12hr, PRN: as needed for pain, 20 tab(s), 0 Refill(s) nystatin 100,000 units/g topical powder: 1 willy, Topical, BID, 60 gm, 1 Refill(s) Documented Medications Documented MetFORMIN (Eqv-Glucophage XR) 500 mg oral tablet, extended release: 0 Refill(s). Past Medical/ Family/ Social History Medical history: Resolved Acne, mild (36634067): Resolved. Submental lymphadenopathy (030959): Resolved. ([id number]): Resolved. Chlamydia infection during (614561115): Resolved., Reviewed as documented in chart. Surgical history: Fracture of femoral condyle ([id number]). Comments: 08/09/2022 15:00 Sruthi Red LPN dennis placed, Reviewed as documented in chart. Family history: Diabetes mellitus Grandparent Hypertension Father , Reviewed as documented in chart. 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 [facility] ED Patient Summaryon 024 ED Patient Summary [facility] - Emergency Department [address] [place] [address] PATIENT DISCHARGE INSTRUCTIONS Patient Information Name: ANA SAUCEDA Age: 24 Years Date of : 2000 Reason For Visit: Flank pain; LIGHTHEADED, BACK PAIN, CHILLS, VOMITING Arrival Time: 03/14/2024 22:21:52 Primary Care Physician: Joseph Vanegas MD Attending Physician: Holger Carranza MD Comment: Visit Diagnosis: Diagnoses This Visit Acute hypokalemia (E87.6) Acute pyelonephritis (N10) Flank pain ([id number]) Microcytic anemia (D50.9) The Pharmacy at [facility] is open Friday through Friday from 9A to 6P and Friday and Friday from 9A to 5P Prescription Information: If you have been given a prescription for narcotics, seek immediate medical attention if you have any difficulty breathing or any sudden status changes such as confusion and sleepiness. If you or anyone you know is experiencing suicidal thoughts, mental health, alcohol and/or drug addiction problems; contact the [facility] 02/12 Crisis Hotline -Text 6QWJT pj 877815. If you received any narcotics, sedation, or any other medication that causes drowsiness for the next 24 hours, unless otherwise directed: ? Do not drive a car. ? Do not operate machinery such as power tools, lawn mowers, drills, sewing machines, or stoves ? Avoid alcoholic beverages and drugs for allergies, nerves, or sleep ? Do not make important personal or business decisions or sign any legal documents With: Address: When: Joseph Vanegas [address] [place], [place] [id number] Business (1) Within 3 to 5 days Comments: Reviewed discharge care instruction. Continue with therapy as outlined by Dr. Carranza. Hydrate yourself adequately. Drink 8 ounce of fluid every 3-4 hours. May take 2 tablet of Tylenol 3 times a day as needed for fever aches or pain. Take amoxicillin twice daily for the next 7 days. Take Zofran as needed for nausea or vomiting. Take potassium supplementation daily. Contact your family doctor or PCP within the recommended time. Return to ER for any worsening symptoms especially any symptom that concerns you. Medication Information: The exam and treatment you received today in the [facility] Emergency Department were for an urgent problem and are not intended as complete care. It is important for you to follow up with a doctor, nurse practitioner, or physician?s data assistant for ongoing care. If your symptoms become worse or you do not improve as expected and you are unable to reach your usual health care provider, you should return to the Emergency Department, we are available 24 hours a day. For those patients who have received Radiology results, the interpretation of your X-ray as given to you by our Emergency Department physician is only a preliminary report. The Radiologist will review your films and if there is a change in the diagnosis you will be notified by phone. Please make sure you have provided a working phone number so we can reach you if necessary. In the event that you had a lab culture while you were a patient in the Emergency Department, you will be notified by phone if there is a need to change your antibiotic. Please make sure you have provided a working phone number so we can reach you if necessary. [facility] Emergency Department has provided you with a complete list of medications post discharge. Please inform your filenet p8 developer/provider of your visit and for further instruction on these medications. Any specific questions regarding your chronic medications and dosages should be discussed with your primary care physician(s) and/or pharmacist. New Medications [facility] [id number], [address], [place] [id number], [phone] amoxicillin (amoxicillin 500 mg oral capsule) 2 cap(s) Oral (given by mouth) 2 times per day for 7 Days. Refills: 0. ondansetron (ondansetron 4 mg oral tablet, disintegrating) 1 tab(s) Oral (given by mouth) 3 times per day as needed as needed for nausea/vomiting for 3 Days. Refills: 0. potassium bicarbonate (potassium bicarbonate 25 mEq oral tablet, effervescent) 1 tab(s) Oral (given by mouth) every day for 7 Days. dissolve in water or juice. Refills: 0. Additional medications on your home medication list not specifically addressed. Please contact the ordering physician if you have questions about these medications. levothyroxine (levothyroxine 100 mcg (0.1 mg) oral tablet) 1 tab(s) Oral (given by mouth) every day. Refills: 9. metFORMIN (MetFORMIN (Eqv-Glucophage XR) 500 mg oral tablet, extended release) naproxen (naproxen sodium 550 mg oral tablet) 1 tab(s) Oral (given by mouth) Every 12 hours scheduled time as needed as needed for pain. Refills: 0. nystatin topical (nystatin 100,000 units/g topical powder) 1 willy Topical (on the skin) 2 times per day. (more content not included)... [facility] UA [id number] 03-15-2024 UA Bacteria 1+ [facility] Comment on above: Order Comment: Urina lysis Microscopic order added on by SeeOn Expert Rules system. Performed By: #### 6 [id number], [id number], [id number] ####[facility] (DEFAULT)[address] [place] [address] UA Mucous Trace [facility] Comment on above: Order Comment: Urina lysis Microscopic order added on by SeeOn Expert Rules system. Performed By: #### 6 [id number], [id number], [id number] ####[facility] (DEFAULT)[address] [place] [address] 17674 UA RBC 0-2 [facility] Comment on above: Order Comment: Urina lysis Microscopic order added on by SeeOn Expert Rules system. Performed By: #### 6 [id number], [id number], [id number] ####[facility] (DEFAULT)[address] [place] [address] UA Squam Epi Few [facility] Comment on above: Order Comment: Urina lysis Microscopic order added on by SeeOn Expert Rules system. Performed By: #### 6 050614, [id number], [id number] ####[facility] (DEFAULT)[address] [place] [address] UA WBC 3-5 [facility] Comment on above: Order Comment: Urina lysis Microscopic order added on by Discern Expert Rules system. Performed By: #### 6 855001, [id number], [id number] ####[facility] (DEFAULT)[address] [place] [address] UA w Culture if Ind Standard on 03-15-2024 Breakpoint UA [facility] Comment on above: Performed By: #### 6 995992, [id number], [id number] ####[facility] (DEFAULT)[address] [place] [address] Color (U) Yellow [facility] Comment on above: Performed By: #### 6 982854, [id number], [id number] ####[facility] (DEFAULT)[address] [place] [address] Culture? Indicated Invalid Interpretation Code [facility] Comment on above: Result Comment: Resu lt created by rule GL_MAGR_ADD_UA_CULT Result created by rule GL_MAGR_ADD_UA_CULT Result created by rule GL_MAGR_ADD_UA_CULT1 Result created by rule GL_MAGR_ADD_UA_CULT Performed By: #### 6 [id number], [id number], [id number] ####[facility] (DEFAULT)[address] [place] [address] Glucose (U) [Mass/Vol] Negative [facility] Comment on above: Performed By: #### 6 544623, [id number], [id number] ####[facility] (DEFAULT)[address] [place] [address] Ketones Ql (U) Negative Normal [facility] Comment on above: Performed By: #### 6 472599, [id number], [id number] ####[facility] (DEFAULT)[address] [place] [address] Micro? Indicated Invalid Interpretation Code [facility] Comment on above: Result Comment: Resu lt created by rule GL_MAGR_ADD_UA_MICRO Performed By: #### 6 687887, [id number], [id number] ####[facility] (DEFAULT)[address] [place] [address] UA Bilirubin Negative Normal [facility] Comment on above: Performed By: #### 6 105867, 74285653, [id number] ####[facility] (DEFAULT)[address] [place] [address] UA Blood MODERATE Abnormal NEGATIVE [facility] Comment on above: Performed By: #### 6 950763, 24307120, [id number] ####[facility] (DEFAULT)[address] [place] [address] UA Clarity CLEAR Normal CLEAR [facility] Comment on above: Performed By: #### 6 931285, [id number], [id number] ####[facility] (DEFAULT)[address] [place] [address]57 UA Leuk Est TRACE Abnormal NEGATIVE [facility] Comment on above: Performed By: #### 6 327406, 12435531, [id number] ####[facility] (DEFAULT)[address] [place] [address] 61058 UA Nitrite Negative Normal NEGATIVE [facility] Comment on above: Performed By: #### 6 541292, 93801235, [id number] ####[facility] (DEFAULT)[address] [place] [address] 61339 UA pH 7.5 Normal 5-8 [facility] Comment on above: Performed By: #### 6 434798, 29931149, [id number] ####[facility] (DEFAULT)[address] [place] [address] 66713 UA Protein Negative Normal NEGATIVE [facility] Comment on above: Performed By: #### 6 364973, 88356777, [id number] ####[facility] (DEFAULT)[address] [place] [address] UA Spec Grav 1.015 Normal 1.001-1.035 [facility] Comment on above: Performed By: #### 6 771036, 19308784, [id number] ####[facility] (DEFAULT)[address] [place] [address] UA Urobilinogen 0.2 mg/dL Normal 0.2-1.0 [facility] Comment on above: Performed By: #### 6 546716, 84255903, [id number] ####[facility] (DEFAULT)[address] [place] [address] Urine Source Clean Catch Normal [facility] Comment on above: Performed By: #### 6 754486, 30541554, [id number] ####[facility] (DEFAULT)[address] [place] [address] .Auto Diff 1on - Auto [place] % 4 % Normal -12 [facility] Comment on above: Performed By: #### 1 [id number], 9947673, 3197530679, 96402961, [id number] ####[facility] (DEFAULT)[address] [place] [address] Baso Abs# 0.0 x10 Normal 0.0-0.2 [facility] Comment on above: Performed By: #### 1 [id number], 2450318, 5845523686, 02856480, [id number] ####[facility] (DEFAULT)[address] [place] [address] Basophils/100 WBC (Bld) 0.1 % Low 0.2-2.0 [facility] Comment on above: Performed By: #### 1 [id number], 3246092, 5581041751, 07041992, [id number] ####[facility] (DEFAULT)[address] [place] [address] Eos Abs# 0.1 x10 Normal 0.0-0.4 [facility] Comment on above: Performed By: #### 1 950355190, 2425668, 6792503825, 52948503, 8327778799 ####[facility] (DEFAULT)[address] [place] [address]75 Eosinophils/100 WBC (Bld) 0.5 % Low 0.9-4.0 [facility] Comment on above: Performed By: #### 1 732511347, 4969245, 8908094428, 39810017, 6753956556 ####[facility] (DEFAULT)[address] [place] [address] 32451 Lymph Abs# 0.5 x10 Low 1.3-2.9 [facility] Comment on above: Performed By: #### 1 [id number], 1337476, 7311356982, 08992402, 3637353833 ####[facility] (DEFAULT)[address] [place] [address] 29767 Lymphocytes/100 WBC (Bld) 4 % Low 14-48 [facility] Comment on above: Performed By: #### 1 783383094, 5657652, 1280768265, 46578018, 8001333585 ####[facility] (DEFAULT)[address] [place] [address] 93958 [place] Abs# 0.5 x10 Normal 0.0-0.8 [facility] Comment on above: Performed By: #### 1 518369529, 9754350, 8533582864, 39088847, 1981149870 ####[facility] (DEFAULT)[address] [place] [address] 93381 Neut Abs# 11.7 x10 High 1.5-9.2 [facility] Comment on above: Performed By: #### 1 358628495, 1617972, 7179888462, 33577504, 9544268573 ####[facility] (DEFAULT)[address] [place] [address] 30807 Neutrophils/100 WBC (Bld) 92 % High 44-88 [facility] Comment on above: Performed By: #### 1 946816387, 5096016, 5389962815, 48414415, 0122028994 ####[facility] (DEFAULT)[address] [place] [address] CBC w/ Auto Diffon 4 Erythrocyte distribution width (RBC) [Ratio] 16.9 % High 11.5-15.0 [facility] Comment on above: Performed By: #### 1 029185065, 2865629, 9076682932, 36025388, [id number] ####[facility] (DEFAULT)[address] [place] [address] Hematocrit (Bld) [Volume fraction] 32.7 % Low 33.7-40.4 [facility] Comment on above: Performed By: #### 1 298273491, 9048331, 8388002578, 89024767, 9994563579 ####[facility] (DEFAULT)[address] [place] [address] Hemoglobin (Bld) [Mass/Vol] 10.3 g/dL Low 11.3-15.9 [facility] Comment on above: Performed By: #### 1 417565269, 4106718, 7887815720, 12029767, 5099692060 ####[facility] (DEFAULT)[address] [place] [address] Man Diff? Auto Invalid Interpretation Code [facility] Comment on above: Performed By: #### 1 [id number], 6100437, 6412990245, 36767530, 6881662941 ####[facility] (DEFAULT)[address] [place] [address] MCH (RBC) [Entitic mass] 23 pg Low 24-34 [facility] Comment on above: Performed By: #### 1 743803705, 5134306, 7285721022, 43555646, 0198122848 ####[facility] (DEFAULT)[address] [place] [address] MCHC (RBC) [Mass/Vol] 32 g/dL Normal 26-37 [facility] Comment on above: Performed By: #### 1 088903002, 0186653, 7065435348, 77081229, 9023982062 ####[facility] (DEFAULT)[address] [place] [address] 20261 MCV (RBC) [Entitic vol] 73 fL Low 81-100 [facility] Comment on above: Performed By: #### 1 122608802, 2396046, 7922103705, 37290109, 3031710781 ####[facility] (DEFAULT)[address] [place] [address] 18338 Platelet 244 x10 Normal 138-427 [facility] Comment on above: Performed By: #### 1 534883707, 0831760, 3969384807, 88753488, 1298367224 ####[facility] (DEFAULT)[address] [place] [address] 64255 Platelet mean volume (Bld) [Entitic vol] 7.8 fL Normal 6.3-10.2 [facility] Comment on above: Performed By: #### 1 443991085, 1308301, 0083299843, 32824856, 7150582075 ####[facility] (DEFAULT)[address] [place] [address] 63543 RBC 4.46 x10 Normal 3.70-5.30 [facility] Comment on above: Performed By: #### 1 732846476, 8503127, 8121453503, 16371125, 7892103275 ####[facility] (DEFAULT)[address] [place] [address] 45579 WBC 12.8 x10 High 3.5-10.5 [facility] Comment on above: Result Comment: Slid e Reviewed Performed By: #### 1 880595424, 1879058, 7707762903, 68833308, 2868778287 ####[facility] (DEFAULT)[address] [place] [address] 92928 CMP Standardon 03-14-2024 eGFR Non AA >60 Invalid Interpretation Code [facility] Comment on above: Performed By: #### 1 504784504, 7655697, 0548343379, 82916896, 0233856866 ####[facility] (DEFAULT)[address] [place] [address] eGFR AA >60 Invalid Interpretation Code [facility] Comment on above: Performed By: #### 1 513290325, 3715228, 2962017018, 12588914, 9749140552 ####[facility] (DEFAULT)[address] [place] [address] Albumin [Mass/Vol] 4.1 g/dL Normal 3.5-5.0 [facility] Comment on above: Performed By: #### 1 966628247, 7161957, 3518512512, 37924481, 0423072730 ####[facility] (DEFAULT)[address] [place] [address] Albumin/Globulin [Mass ratio] 1.2 {ratio} Low 1.4-2.6 [facility] Comment on above: Performed By: #### 1 796029581, 2950726, 6621815748, 94980581, 6183497596 ####[facility] (DEFAULT)[address] [place] [address] Alk Phos 42 IU/L Normal 32-91 [facility] Comment on above: Performed By: #### 1 011424965, 1797780, 5241643934, 29935962, 3180235659 ####[facility] (DEFAULT)[address] [place] [address] ALT [Catalytic activity/Vol] 15.0 U/L Normal 14.0-54.0 [facility] Comment on above: Performed By: #### 1 373275897, 7465105, 8502954975, 68262771, 0923702269 ####[facility] (DEFAULT)[address] [place] [address] 97182 Anion gap [Moles/Vol] 15.0 mmol/L Normal 5.0-19.0 [facility] Comment on above: Performed By: #### 1 337699436, 4446247, 0070726386, 01143435, 7524190749 ####[facility] (DEFAULT)[address] [place] [address] 45392 AST [Catalytic activity/Vol] 20 U/L Normal 15-41 [facility] Comment on above: Performed By: #### 1 150629460, 5374656, 8133490690, 47726283, 7719298320 ####[facility] (DEFAULT)[address] [place] [address] 73249 Bili Total 0.6 mg/dL Normal 0.3-1.2 [facility] Comment on above: Performed By: #### 1 218836114, 9007232, 7246104295, 53794004, 0498282727 ####[facility] (DEFAULT)[address] [place] [address] Calcium [Mass/Vol] 8.0 mg/dL Low 8.9-10.3 [facility] Comment on above: Performed By: #### 1 118265837, 9182987, 0066338048, 82398444, 2387184046 ####[facility] (DEFAULT)[address] [place] [address] 89802 Chloride [Moles/Vol] 106 mmol/L Normal 101-111 [facility] Comment on above: Performed By: #### 1 039585057, 5419439, 9295029980, 45624494, 5311157706 ####[facility] (DEFAULT)[address] [place] [address] 08563 CO2 [Moles/Vol] 19 mmol/L Low 21-32 [facility] Comment on above: Performed By: #### 1 659820155, 2576116, 7673883485, 04579729, 3940894184 ####[facility] (DEFAULT)[address] [place] [address] 17651 Creatinine [Mass/Vol] 0.67 mg/dL Normal 0.60-1.30 [facility] Comment on above: Performed By: #### 1 218471718, 7776403, 4592670469, 23350022, 2901864694 ####[facility] (DEFAULT)[address] [place] [address] 05858 Globulin (S) [Mass/Vol] 3.3 g/dL Normal 1.5-4.3 [facility] Comment on above: Performed By: #### 1 497254068, 6750652, 5417174845, 90256080, 8784628775 ####[facility] (DEFAULT)[address] [place] [address] 39327 Glucose [Mass/Vol] 102.0 mg/dL Normal 74.0-118.0 [facility] Comment on above: Performed By: #### 1 227375111, 4851933, 8211943474, 24125482, 4671894662 ####[facility] (DEFAULT)[address] [place] [address] 85281 Osmolality 272 mOsm/L Invalid Interpretation Code [facility] Comment on above: Performed By: #### 1 854508157, 0151993, 6615585643, 23401175, 5371960105 ####[facility] (DEFAULT)[address] [place] [address] 60344 Potassium [Moles/Vol] 3.0 mmol/L Low 3.6-5.1 [facility] Comment on above: Performed By: #### 1 962183830, 0557945, 4968529571, 89719509, 8542566105 ####[facility] (DEFAULT)[address] [place] [address] 38889 Protein [Mass/Vol] 7.4 g/dL Normal 6.5-8.1 [facility] Comment on above: Performed By: #### 1 770859491, 9622777, 7957851961, 60914650, 7916529214 ####[facility] (DEFAULT)[address] [place] [address] 83497 Sodium [Moles/Vol] 137.0 mmol/L Normal 136.0-144.0 [facility] Comment on above: Performed By: #### 1 745606819, 3311836, 3804581323, 96488247, 6456664322 ####[facility] (DEFAULT)[address] [place] [address] 61016 Urea nitrogen [Mass/Vol] 8 mg/dL Normal 8-26 [facility] Comment on above: Performed By: #### 1 573298016, 2326318, 4430187068, 45583055, 3629657695 ####[facility] (DEFAULT)[address] [place] [address] Urea nitrogen/Creatinine [Mass ratio] 11.9 mg/mg Normal 4.6-16.2 [facility] Comment on above: Performed By: #### 1 478371946, 9879692, 7788397343, 77361380, 0983016027 ####[facility] (DEFAULT)[address] [place] [address] ED Note - Physicianon 2023 ED Note - Physician Patient: ANA SAUCEDA Age: 24 years Sex: FEMALE : 2000 Associated Diagnoses: Microcytic anemia; Acute pyelonephritis; Acute hypokalemia Author: Holger Carranza MD Basic Information Time seen: Date & time 03/14/2024 22:35:00. History source: Patient. Arrival mode: Private vehicle. History limitation: None. Additional information: Chief Complaint from Nursing Triage Note : Chief Complaint 03/14/2024 22:30 EST Chief Complaint Pt arrives with c/o fever and right flank pain . History of Present Illness The patient presents with flank pain. 24-year-old female presented to ER with complaint regarding fever and flank pain. Patient stated that she had concern regarding possible urinary tract infection and septicemia. Stated that she had a previous infection several months ago. Stated that she has some pain with urination postcoital, about 4 days ago. Only 1 time. Stated that there is increasing pain at the right flank area, within the past 24 hours. Stated that there is fever today. Stated that she has been vomiting. No abdominal pain. Only right flank pain. Admitted that she is not . Has IUD in place. Admitted that she had 3 previous . Review of Systems Constitutional symptoms: Fever. Skin symptoms: Negative except as documented in HPI. Eye symptoms: Negative except as documented in HPI. ENMT symptoms: Negative except as documented in HPI. Respiratory symptoms: Negative except as documented in HPI. Cardiovascular symptoms: Negative except as documented in HPI. Gastrointestinal symptoms: Abdominal pain, right flank, nausea, vomiting, No diarrhea, Genitourinary symptoms: No dysuria, no hematuria. Musculoskeletal symptoms: Back pain. Neurologic symptoms: Negative except as documented in HPI. Psychiatric symptoms: Negative except as documented in HPI. Endocrine symptoms: Negative except as documented in HPI. Hematologic/Lymphatic symptoms: Negative except as documented in HPI. Allergy/immunologic symptoms: Recurrent infections. Health Status Allergies: Allergic Reactions (Selected) No Known Medication Allergies. Medications: (Selected) Prescriptions Prescribed levothyroxine 100 mcg (0.1 mg) oral tablet: 100 mcg = 1 tab(s), Oral, Daily, 30 tab(s), 9 Refill(s) naproxen sodium 550 mg oral tablet: 550 mg = 1 tab(s), Oral, q12hr, PRN: as needed for pain, 20 tab(s), 0 Refill(s) nystatin 100,000 units/g topical powder: 1 willy, Topical, BID, 60 gm, 1 Refill(s) Documented Medications Documented MetFORMIN (Eqv-Glucophage XR) 500 mg oral tablet, extended release: 0 Refill(s). Past Medical/ Family/ Social History Medical history: Resolved Acne, mild (99617325): Resolved. Submental lymphadenopathy (515768): Resolved. (023661350): Resolved. Chlamydia infection during (201419140): Resolved., Reviewed as documented in chart. Surgical history: Fracture of femoral condyle (107408163). Comments: 08/09/2022 15:00 Sruthi Red [employer]UDENT [employer] dennis placed, Reviewed as documented in chart. Family history: Diabetes mellitus Grandparent Hypertension Father , Reviewed as documented in chart. 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 Problem list: Active Problems (6) Closed fracture of shaft of femur COVID-19 ruled out Generalized anxiety disorder Hypothyroidism Lightheadedness , per nurse's notes. Physical Examination Vital Signs Vital Signs 03/14/2024 22:30 EST Temperature Oral 37.8 DegC HI Systolic Blood Pressure 143 mmHg HI Diastolic Blood Pressure 93 mmHg HI . Measurements 03/14/2024 22:30 EST Height 175 cm Weight 100.33 kg Weight Dosing 100.330 kg Body Mass Index Measured 32.76 kg/m2 . General: Alert, moderate distress. Skin: Warm, dry, intact. Head: Normocephalic, atraumatic. Neck: Supple, no tenderness. Eye: Extraocular movements are intact, normal conjunctiva. Cardiovascular: No murmur, Normal peripheral perfusion, No edema, Tachycardia. Respiratory: Lungs are clear to auscultation, respirations are non-labored, breath sounds are equal. Gastrointestinal: Soft, Nontender, Normal bowel sounds. Back: Normal range of motion (more content not included)... Normal [facility] Extra Blueon 03-14-2024 Tube Collected Yes Invalid Interpretation Code [facility] Comment on above: Performed By: #### 1 [id number], 6091914, [id number], 33272981, [id number] ####[facility] (DEFAULT)[address] [place] [address] Progress Note - Nurseon 11-0 Progress Note - Nurse Patient presents to the ER with c/o dizziness, nausea, vomiting, back and flank pain a started yesterday. Patient is a/ox4 and ambulated into room 5 with steady gait. Patient states she feels like she is going to pass out, and that she feels like she is becoming septic from a kidney infection. EKG was done and showed sinus tachycardia. Patient states her pain is 11/10. [Electronically Signed on: 03/14/2024 23:01 EST] Romana Lunsford RN [Verified on: 03/14/2024 23:01 EST] Romana Lunsford RN [facility] HCG ( test) Ql (U)o n 02-24-2024 Interpretation and review of laboratory results [facility] re Preg Test, Ur Negative [facility] e IUD Insertionon 02-24-2024 Meredith Tripathi LPN 02/25/2024 10:11 AM IUD Insertion Performed by: Mitchell Arriola DO Authorized by: Mitchell Arriola DO Procedure: IUD insertion Consent obtained by patient, parent, or legal power of civil litigation attorney - including discussion of procedure risks and benefits, patient questions answered, and patient education provided: yes risk: reasonably certain the patient is not Date/Time of Insertion: 02/24/2024 2:30 PM Immediately prior to procedure a time out was called: no Pelvic exam performed: no Speculum placed in vagina: yes Cervix cleaned and prepped: yes Tenaculum/Allis/Ring Forceps applied to cervix: yes Anesthesia used: no IUD inserted without complications: yes OSM: 52 mg Levonorgestrel 20 MCG/DAY Patient tolerated procedure well: yes Inserted with ultrasound guidance: no Intended removal date: 5 years Insertion comments: IUD Insertion: Patient presents today for an IUD Insertion. Patient is having a Mirena placed and written consent was obtained. Patient was placed in the dorsal lithotomy position with feet in stirrups. A sterile speculum ws placed into the vagina and the cervix was visualized. Cervix was cleansed with betadine and the anterior lip was grasped with ring forceps. Uterus was then gently sounded. New IUD device was gently advanced through the endocervix, toward te uterine fundus. The IUD was then deployed as device was gently removed from the uterus. The IUD strings were cut to the length from external os. All instruments were removed from the vagina. Post-procedure instructions given. All of patients questions were answered and she expressed understanding. Advised to call interim with any questions or concerns. Follow Up: Patient is to return to the office in 4 weeks for a string check[facility] Coding Summaryon 02-18-2024 Coding Summary HTMLBase 64 BotjjzfpOLt0yHl+PGhlY WQ+XP7WGNSgG18vaDRebG 6uZ4ORNKlYXferQQEJABr HUwJklpJwEP6lfIQdSHZl IC8+MA0xAKIbUpfeyRIfl 8G0xIF5T68sej8cFSvvpR T4ULVwApXdahajj8cnoNt 6IDcuNmluOyBt SSRflQ63LPI3yK43Dr13o RWxkVGnq5nhgVx5LxQmEB AqPYZ8lIkcCSvii4JfVTI jZ48snSOdp7L9 SOOxtLpxxNLnClYvjNB9d Y3vMQzlunanq8bvuofgLb v9pz20sFNkw1U2mUT4L0N texC5PDHkkGRg JozujVCLdY4jctazt5cis riyTsAsIXIqMWk0SXl7XY HkhZfxAaAgZC05ONO4KGQ onyRlL6JbCGPo dGvuMxZ9b4V1Pz3TG5WKS mxzI3KYSIBRNPralDF+PC 73bi27G0RgUtymVvt4SXZ jXIF0yHS4sF3j MCRnLFadx9F5mXR3R5Yrd zYfro7uh0uvMZQqHMzzC3 8sxNNak6V2ZHZerLJ8CCS fePolXvLrnR72 Oyc+VHEmrSepw3UvQezie 1xum7tvaRh6BehfFWSjfd FwwQlyRZT3e9WrUd3vFQH mvNY1wQC5lL6r HdCoRrC7CDsjK837JzJcg TDoNlvqN88mA9LyuHH+PH EhXvn0PKNofGzxXV2sE9U hZGRpbmctbGVm jSbaIQ7wMFMddpkrCDMuc T2aURMfP9c8JaYyZdY4LN jkY5UiDGGuyjhsHm67pQ5 yGbYzArE6UXrc T5VapsH7MRXjiLXcSVtmT GO9I79rt4T3WGWiWHDsFW Z4bEI5nB7ggKmhqbfdsFN mdDsgdmVydGlj YRudWKehG858ANXuyEapJ kNvZGluZyBEYXRlOiAgMT AvMDkvMjAyNDwvdGQ+PHR hSOD6iXrtZSCi yEIvHIuqEn9stOsxxGdhU P4nCMMaotfjZDWaeX6fMG RvnHGgnXzsNH7jCOAmmrg pq493TiTfZYR6 EQZvvRBbT8QfpE0zQsIgS MKvEFMkJ5SrmPTdDQxaA5 00CYnqQuV6XRAatkFeH4S sLWFsaWduOiB0 v2I5Nq8Az0YbaqrdK1Eaq MHvKhRlMjhaCVm3E2AbIi wvdHI+VD72FPIfPJ38CNf 4YCS4rDvfNIcf QGFcI8NzdP9tDaDzYTDeW GRkOyc+PHRhYmxlIHdpZH RoPScxMDAlJyBzdHlsZT0 fYr1zEWYmHIRy aXykjYKmWoGiu7krIOMkP AuvIX6pgAujI2BxpNE4QQ Skm9a1Ly31I61pZ2TptJF +AHBriAB0uAS8 cT2nBiMyJeS7ZNdwP025L jUtcSDyUxbfw0gro0eaqT d7DdV2ROHotcNxsNiyZIL 9h3PgVz39X68l IHdpZHRoPSIxNSUiIHZhb Cwvjs8nsO5wAn8+PGNvbC T4oLI8fF6oUpHdBrS1AQt sF051YzDblLSs Ckshl9omu8jafRu1UqYdT MSifrWfsFkdZYU7z2VkJp 03P1WroXpez0XqAhr0or8 2iJLvs7Y8uLI5 C6CdRLHbwzsxjLAfnGidG X5iQHDpdzgqSMFwhX1oSL QaJ8x1NcCwFvC3JJfsS3V iisN8SBVooOMf PHHgiMTRoC1xmmkzx4nsg mkzPsMmCNAnFDn8NPx0DJ HonPkdAbBtXOP1EsK9UDR 3lYWzxU1uuVss fjeckD8bPqp+OKK6lOFqy FSNGC3lXxhqlDS+PHRkIH T6gXlxRVbfJOUdoA2qKVI nE7w8EwBaAuI5 IXiaS6OdogR2IEPhtGRiJ MHxqPYNhQ4cpdvqf1mcxj lhAdHzVONdXDk4LXy0URW saWduOiBsZWZ0 QzH4TPO9sFPfpG2esVmyq ypdmG2pSok+QmlydGggRG J1SYu9Z9RdUga2AGRrgXr yIF6qeQSxGYwl Nm6uzWzrlXxwAF7yNBYme oufh815ZnFzg6kiIGCxjF BfVJqgSSW5V95jy9N2JVH dIGHeLKC6kQP3 cR2gnGkyrjhytPUcuCqud fQvpUbeZDqaVWhdY267YJ AraRsmLgOcOHh5U7BrLqi 2QNJhhUduCR4z kNOlSWhwYu7gjMnnzPbwE R8gDRNrnezag166QzTzu7 qcFODjoZRqMAxlGOY0N89 ta7F7XOXjCRIr FFW2dRK9tZ6csYeqvmtmz GVmdDsgdmVydGljYWwtYW ilB172QAVxhYhfYjZpwYv 9B1CtUmz2SEPh wYvmBK1umGNdEXptWx0do RuepQapJA9mBYLyibkzh3 91OeRji4tyBKSvyDJvTXs aHJE5M16dn3L9 MCGnJLHgPUF7sSS4kX3si GlnbjogbGVmdDsgdmVydG fjEUlwIEjhO570SVCsoWp nPlBhdGllbnQg RIpvVQr0B4YaXbgavEP+P B43SFXnRO33wTJfuTDtr4 lbmCm1UxJzXWRfQSQ9hYs bZJvrf0ErFVQy R10gyURuz1W8RGDwhQqfu OPpLgGxaFT6tF5vYEmkiv ljl0alqmwtLwawd0dwqo3 7vT86O60oQGnc ZHRoPSIzMCUiIHZhbGlnb s7leA9aYs9+TVFdfHU9aB Q5bA6wCFNkQzI4QAhvD05 9InRvcCIvPjxj u9hfk5yujLb5WyJ2AOEti uKuvQsxFCG6p7IvGz22S0 9sIHdpZHRoPSIyMCUiIHZ ixAdvhe6jbQ5d Ii8+WLVmsHV9bMN4pF7lK kSbRrN6REmnR466CeNbdG YrNjydF09dZ8KtxCM+PHR qGpu0MYAqpNqk AZ2mtUUuBYzcOn5oXXY3H iRzSgKeXWfrN3GcLBKzdv patmcdtKA8PZVvBPNmkD5 2Ty8pbQvfFRUo mAWYvH5qkfyvn8zhovidL tJcCIRyAZd4LVp1DQUzgZ kjHrGzNZY6OsG5TIW9gFJ yhF3fzLulxvgi lG9iB5OnBHReafgzJm39t X2yKmLyNaL5SGzqHtq+RF VORkVFLCBNSVJBTkRBIEx FRTwvdGQ+PHRk DDA3cYezWOdsZCJjzO4aP FSyH4k7IiJkVoQ6JLmdE7 ViRLEaqfktEz52fF0oPxF fXeX1HTkbQ2Ur rrP3PVPdoSYbMTelWXV6P 34ho2D9TGIcJOQuODR3fA Y7dG1czFnzymjkuGYweOk gdmVydGljYWwt QUlbK587JEIukXonUrLqE dJ2SaGnVTG5B4YtLvi3BQ LrlKojVL4krBMcGNtaLf8 hbZgahHxnQN7i EEOihvveZXHroW7cYMAjk QHgwYseTX4mNEHihvvlk5 05NiDdRKT9OVRdbVXqZ6G feB4mZsWtPWSz EGEmI0YhuTIcSOmpS696Q SrzNxW4CNNckoCfH4OkAZ GczZtmMmU8q9P5Zm8dMJY ZZWFyczwvdGQ+ NOGkNBC8nZaxGQeqHTKkf E4eFCYsR8v3FiNhDdN3GA btB2QaEWZbgsrtUv23qN2 uZxZoHsV8MEvl X1JdgcT6EBFxwFXuRKhaV XO8X36nh3Z5LKCcKUXjZN W8kSZ1rQ0jmLukidqzmEQ mdDsgdmVydGlj DRrgXTmvD243ICKdwYwaB kZFTUFMRTwvdGQ+PHRkIH B8wIulSFiaRMLtiN8cPEP dM0s1SzErAcC8 HLqjV5WcXQWucubaTb34g Z5fRcItNdQ8VEvlB1Vvmt R6RQCmdTAeGXllPUP3E49 xy1O2FLQzTIHs YEM8lWV4aD7gqTjkwugpc GVmdDsgdmVydGljYWwtYW twD488XXEdzWvlGo6ODH6 8IN52V8KhAkji dGFibGU+PHRhYmxlIHdpZ HRoPScxMDAlJyBzdHlsZT 0yOp5lZQAkNCVtnOstfHZ tSrTec5yxBWDs GUaxUD9alGeeW4IdlRG9B RTfa9t5Pr14I89jV0OmpJ A+GIRerKI6uLM8sX0hCuR kMsM4ZRpeP297 GcEopAVkZfzov7gsk9chz Qz1QiXzJJStseXggWrkEH F4t0CsBu94W68aYCkrCBI oPSIyMCUiIHZh sMwogg0uyG6gRh1+PGNvb ZE0uAS0zZ1eXwMgMkL9RU opG018KzXdjSJtMoatL31 gR4JriEE+PHRy Gdd5EYCkqLsqZB6erKRsQ EefWv7aJZU8ArGeQsSeJP pbN5XsPTJfypfvlsdodKG 4YAYrAIGgsP06 Sn5nzQxtYg9gAQDeMBZ5B IAjdNPgL3HrrM6cQuPrAO UhQFAfM1SreFXnEUpxJ34 6QLquJcA8ISWp hrWgW5KrSFWkyTgmQyY7f 9G0Gj9NqPcsgDFqBA4pBg ZtFTa5D2EjVcu5UTYkxTs wJJ0ubONeXZjn Um4rrTwapLizFW6vHGDom qrjj498AzUtf6rpOYYugT WbBAarOLC4U97jb6F5TKU tUJPfWSG6rNV4 fZ1sgYjzwhzljQCieHwzi eZguGtlCNnsTXbsV262KZ AelJliRzYNSrc8F1BpUus 5XYGfjPfrWV5a xOPfKJiuDe3kdCyaeRiyS N6xRZFkfdzrn873StDrt2 tpOLUrvHIpUHoiBBI9N50 vh4P9GMVwKQVw WPS0xZL3rW0mfSsdjacjt GVmdDsgdmVydGljYWwtYW byI674BHLcbGukFu9ASpj 5T3QuNlt5AARy lAhtGJ5xbYHpIDivQz4yp FpxhGyhWT6qWWLyglqfh7 73NeBzg1uaIRHzmEGnZYs cTAQ6A09ps9I6 RQKaOSMkGFE7dBU3vZ3bt GlnbjogbGVmdDsgdmVydG taLWboNEogK561KQGwgRs nPlBheWVyOjwv dGQ+OG63xv86C1OaCaeiB bp9EZFzZPM5iWI0aR1sLG XsNPcqy9A0gZQ7I1ImspL [id number] ZTo (more content not included)... Normal [facility] Free T4on 01-26-2024 Free T4 [Mass/Vol] 0.91 ng/dL Normal 0.61-1.12 [facility] Comment on above: Performed By: #### [id number] #### [facility] (DEFAULT) [address] [place], [place] [id number] Office/Clinic Noteon 024 Office/Clinic Note Patient: ANA SAUCEDA MRN: [id number] Age: 23 years Sex: FEMALE : 2000 Associated Diagnoses: Hypothyroidism Author: Joseph Vanegas MD A History of Present Illness 23-year-old female presents today with continued episodes of intermittent dizziness. Can occur just at random when not even moving. May last a few minutes or even up to a couple hours. Occasional headache with symptoms. She is also continues to have issues with losing weight. She is being treated for hypothyroidism and it has been 2 months since her last check. We adjusted the medication at that time. Review of Systems Constitutional: Negative. Ear/Nose/Mouth/Throat : Negative. Respiratory: Negative. Cardiovascular: Negative. Endocrine: Negative except as documented in history of present illness. Health Status Allergies: Allergic Reactions (Selected) No Known Medication Allergies, Allergies (1) Active Severity Reaction No Known Medication Allergies None Documented Current medications: (Selected) Prescriptions Prescribed levothyroxine 75 mcg (0.075 mg) oral tablet: 75 mcg = 1 tab(s), Oral, Daily, 30 tab(s), 9 Refill(s) naproxen sodium 550 mg oral tablet: 550 mg = 1 tab(s), Oral, q12hr, PRN: as needed for pain, 20 tab(s), 0 Refill(s) nystatin 100,000 units/g topical powder: 1 willy, Topical, BID, 60 gm, 1 Refill(s) Physical Examination VS/Measurements Vital Signs 01/26/2024 9:45 EDT Peripheral Pulse Rate 87 bpm Systolic Blood Pressure 130 mmHg HI Diastolic Blood Pressure 92 mmHg HI BP Site Left arm SpO2 98 % , Measurements from flowsheet : Measurements 01/26/2024 9:45 EDT Height 175.0 cm Height/Length Measured (inches) 68.9 in Weight 100.33 kg Weight Measured (lbs) 221.19 lb Weight Dosing 100.330 kg Body Mass Index 32.76 kg/m2 Pearl Body Weight Calculated 65.965 kg BSA Measured 2.21 m2 General: Alert and oriented, No acute distress. Eye: Pupils are equal, round and reactive to light, Extraocular movements are intact. Neck: No carotid bruit, No jugular venous distention, No lymphadenopathy, No thyromegaly. Respiratory: Lungs are clear to auscultation, Respirations are non-labored, Breath sounds are equal. Cardiovascular: Normal rate, Regular rhythm, No murmur, Good pulses equal in all extremities. Neurologic: Alert, Oriented, Normal sensory, Normal motor function, No focal deficits. Cognition and Speech: Speech clear and coherent, Functional cognition intact. Psychiatric: Appropriate mood & affect. Impression and Plan Diagnosis Hypothyroidism (FGC17-VX E03.9). Plan: Patient is due to have her thyroid rechecked. Will check her TSH and free T4. Will adjust medications if needed. Wondering if some of her symptoms could be related to her thyroid.. Orders Orders Evaluation and Management: 62274 Office visit - established pt, Level 3 (Order): 01/26/2024 9:41 EDT, Qty: 1, Hypothyroidism. [Electronically Signed on: 01/26/2024 10:17 EDT] Joseph Vanegas MD [Verified on: 01/26/2024 10:17 EDT] Joseph Vanegas MD [facility] TSHon 01-26-2024 TSH Qn 7.02 m[IU]/L High 0.45-5.33 [facility] Comment on above: Performed By: #### [id number] #### [facility] (DEFAULT) [address] [place] [address] Coding Summaryon 01-13-2024 Coding Summary HTMLBase 64 QidotalxLPm8kZp+PGhlY WQ+DS9OLOUzC82kwDZthR 7wO3XMCRoFShhlRQIPFFc IMqMjcvHeJC5rlNZyHRVn IC8+RB2pDAJdZwkroZXcu 0P4tGU3O87bcq5mRPysyK X0JPGaMnZpnxjqb1mtbYw 6IDcuNmluOyBt HODefY49DYM8dE28On25h BUaiGEsv3tmpYo0KeGzQX FlJHI3rBzrRPhhl3FkJVD oB02omAAfp8V4 VOHrkLzzcRSlYvTffTO7b D7qHYtjztnfi2lttgioEd x6lp57hFWrx0W8tLQ7R9G cgzO8ERJqvVVc JrhtlHLDaE0lumkds0wgc awqIkQnDLFeIEb1NYi9XV LzgButZaIlTA76RSU0LPE srnPyQ7EpYTJc pAcsRnA3l3S7Qj3PO0YGU paoQ5XPPWABYYmhiIJ+PC 61ua66Q8QsXljgZkg3FZF lLRO3lTN1nQ6i WKNyYBxum3P7kTV2D3Jcp oVqvh0kw1elRAJgIKyzI4 7eeASla9Y3BBJtmPZ8YJS bhJpiFwMqvC22 Oyc+TPTreGali0MeInwbg 2ihp9ptnEy9DbrzCGUkmy YnnAktFXU2f5MuLr7bNET hhQF7mSA5aB4c AoRmOtB6ALazI838LbIuh JKqNbbeF55wI5XamPN+PH OrOcy2WNSvfIxmBN2jU3A hZGRpbmctbGVm gZgaOF4sBNCdfbyeFGXfq A8qEGSsN0n9DjEvTlC8FI utL2OzMCUtumkxWu24yX9 iRoQtHsZ3FTuf I0TktsB3KWRrgRIcIPpwM IR9Z74na3Y9ZRZjKLKpWW G3vBC9tM7wgLlhpwmfpZB mdDsgdmVydGlj GMhuFOydN681YIEylDluP kNvZGluZyBEYXRlOiAgMD kvMDMvMjAyNDwvdGQ+PHR wDOE9bUnaIRSp cCXtAJavYs4lpHjsrOofL M4tXFPdfdkaRPQinJ7lIP TsvEZmjKeaEW4pMULcgmy fr410SsNqUMX6 GJQehFItR0DenB3yQrAsW MOmXRSlW8SxcORvLQebR6 76HTjmCaU4EFLcbyJeY7G sLWFsaWduOiB0 a4T7Rp2Na5ZlxejfC8Bpm CJsUwLeEnmaPNa5Q0QsPn wvdHI+AJ29RBFbDW93ZWq 9NRK6lZdyXRgh ATFwA2EkdQ1uGxGjWCXfW GRkOyc+PHRhYmxlIHdpZH RoPScxMDAlJyBzdHlsZT0 wZk5sHEMeFSHr zDlgpBUqBsFvx8ciMDDaY VydOU6ffStzJ0SpaKK4GM Zhw1n6Hf29H90jO9KosWN +JXUdzHU6uNJ6 kQ5pJsAnWiF6QLefX105L zNxoLOdPirce5egz7atmY c9YvL3UFHjpkFzcQfbBCG 7m4VrNg67M00f IHdpZHRoPSIxNSUiIHZhb Djmjn7xbH0kCn8+PGNvbC B9aFA9hF5fZiGjYgC0JLk mC721ZdNfqYEz Oozoy5yqs4shxAn5JxFmA EXyfhWstKxpDZY2p2BdLh 29Q5NwsXumy5IzNee2do7 2eUErr2R1sDH6 T5UbAZOwetmndVNckLhoS O7xXOScrthuKWIgfP8hIN CrJ7j4VoOdRkQ8DKnfQ1E opoC1RIAdzDKg CURuvFADxJ7adzteg5eot xioVhAcTDJzUTy8ITh0NY VekSzlOcMmOOW0UaD1UPA 1sCAimI8tqJbp yeogzM2iErj+ASI3hGEce BVPMG7oRallmXA+PHRkIH C8mAsuYQpdIPBbiR9wPSI yL0e2RuAvScO3 QXuhH1ZmkqF5RIFtmXWyM RLfvPPWgA9pofqbz3dhdb ucPnSjJKUsIRz8DDd1HGM saWduOiBsZWZ0 NdE1NIV3jIRlxU2pbKmow rdikD2qRsk+QmlydGggRG H1BOg5M6FvYlr7QARnwEy cOB8emVZaTSdp Iv5ggDlzqAexLW5sWIIth ygom663QyNov5tpQRGqsR WvGZraKOY2Y14sy2L7SAM gDFRuPHR8nIB4 xS4dnGdlxbawqFRljUqbs rCttQtdQTckEHuwA200HH QonZtbSpLxNZu2D6CzYpx 4ZYZzeHbaZQ2e cVOkGWyuPo1irLbpdHmiQ Y0iWAMdkogyx131KrXgc6 ekOAMhjLIsOGfnBAM7M29 zl9C5YHWyUHQe KCF3iIJ0gM7zvNennrzad GVmdDsgdmVydGljYWwtYW nxL556NKArqNpvEsLkpRh 3M1NcZel8CPXt uThzJW1swKKaJDszQt7cc NiupUhlHE9iSEVxzipql2 16UmDev0ueRBUceFWuEBe gFOJ0P90yu5B2 GDMfWXYcRDK0mWA0sH4hq GlnbjogbGVmdDsgdmVydG mlNDooWUvlV209XBLxxKs nPlBhdGllbnQg DRotPAo2X2DrVdydzMN+P M51SOQbTN92mSDydTWtt9 rkcPl3BsCnXCWhXYX7aWd dEPzrx4XdLRAl M94bkTSqa7K6ZGTxrIezl KMkGxCfvKI3jQ1lQJsncr mur1dgcyfyJaiif6pnlj2 3rN35S93cRQpo ZHRoPSIzMCUiIHZhbGlnb k1jqW0pLw6+FXEncMN6mF N8tY9wUNXsMaK1PKzlW13 9InRvcCIvPjxj o4klb2mqmCx8AiB0UJTds qKmtJmtEDC7c2AbAj31G8 9sIHdpZHRoPSIyMCUiIHZ uhCobhx1ooV9e Ii8+VJPhyBT3yCY8gI0cD lBdDgL8LErsT560SqXpfI GnGkcyT87vD0KxnLV+PHR kBkp1XLZsfElv LT4biHQoQNcaFa2rOXO7H tTzAwZbNJceD3TjSNTsxg ogydslhFG6YJPkQPWgqD4 9Wu7giQwrRUBi gMFEuC4katynp6bwgkbrE sGoTRGaWKh9EMh7RDOzmU tqKpHbDGT9MoU1UBT2bOL yyT7ltLouuckz dE3nF1DqUVTdqjipFl86u M5kCaSlIbQ4MYezLpp+RF VORkVFLCBNSVJBTkRBIEx FRTwvdGQ+PHRk RJW3fZydIWnsMXNiwR2bH OMdZ9j2TdQzSuM0ZJtdE1 MgIIBukigdTa08bO8zUbL nYwT8XTuxB9Fw vgY7AAFopKCcMJqbBLI2J 69us5N9SEXsLUAfSWO1tO K2aA7wkBjqoguvmEXywYp gdmVydGljYWwt HVegT370COLruYxyAuQhL bV3UuDxRAM7H5AcBnm8MT IhmDrvOX2rhZFiSLgdJw9 guDyxtKuuQU1o GQFxrsqxOYSelV4nAOSbz DZnlVukQO6qSPYnvaqvf0 20WkTrJUB4DMZgcFIiW9R feT1tWsQaQBYd CZMwI3LgoFKjSJpiE343H ZmbQvY5OUZadmEbO2WsKW SujPmrEtZ5l9J4Kx1zFAN ZZWFyczwvdGQ+ EDHeQSU9hHtyYYosEDEyc V8lZUSuT7c5DwSvTgZ3KL heM1GyUWIsuenvEz62rZ7 pWoCqKdZ5UZlf P4HepsT9SPWkvZJvNVpmT YI0N29vx1Z9ZLGeOSLtXI W0hKB5rJ0lgGzmohidvSY mdDsgdmVydGlj GZgsMLvrY286ECBubYqtW kZFTUFMRTwvdGQ+PHRkIH Y3vAkjBRafGRImxE6qGZA wN6m3MfBfRmL8 NYicV9EwHBSzurkgYz52k N2gOpOqIzH9NZsqU9Xfwy L5WRCslMWbGVksRUG1G09 ii3F8ZRJcHPPc FKI0uZP7iD8hcHxivhtup GVmdDsgdmVydGljYWwtYW xiN939XVBsaJciMhNwVAS fFM3ziHpwvHH+ NP56ht86U3UpPmidQos7D GMpIXT0rAK5aX9nNOPvKJ nne4Z7hFM5H9GomvNmsi0 rj2soCBEaTPrq G24ljGDbv7J9UOTgnID9I DKksZqqZpEhtV14Him+PG ZfePlzm8UkTuejk9vvb6i mrPp2BkOoZTMf ivAedLclWPB4s8PwKg59Z 29sIHdpZHRoPSIzMCUiIH MxzEhwcj2rjA9aFt0+PGN lzTZ1uYV4yH5t KcUkRyV2MTshO791KdGwt FMkRoixa3nzh0cbgDr5Ul SgDNCwknCszXsdZFB9j4T mHw86X3GztYca c7AkBrk5fl43xEUds6O1s DX4C4KqDVOsrojkeWAheE tmLV9tTUOnurcaSMEcrG5 oZCEkS4x3RhGg ZgD4LAguD9XrruZ6YODhu FPkKHGvbSWGpQ1pyacqo6 wbiwlcYsYuWBVuERv3PGr 0LWFsaWduOiBs SRX8EkN3SFH6fFOwjQ9cz SbvqyygwX8jQpe+UGh5c2 fytAWqPK5ffFO2RK44JZ4 6xVPzf8Z4eRN3 S6OkQMOmafizpjlbhPY2X XOmNYMzeG99Ke7aqJwnQs 7pMABbZKX0QNJetVFuY5K enN4gCcYiTXBv CMRsP1JnxOYjFIrqG991Z LyoQhH4MVLricAtJ2BrNB KmrGddKnV6o5P4Lf4LNL7 5NG20TS42ePGl t3C6gTC1F9HxDUUuxruzp jsvoCS6IHQhGOAhjO83Xe 8wqIbwTg2kXCQhQTT6BRS ybBBrN6LqlW8y UzUrBZXfZVDpQ6LnmZPrN AxpZ906HPgnVkJ1EAExgo NxR2HdLTYjmHrqLzT1g6N 1Mt8XJb00DS55 UL64rDZth3J4xSO8B3QgK HUwzbsvjlzvqIB3DZDeCM FbeL21Mv5yvLkmXy3hAMH mCGK1PVItdOBj P5GvsN2pXjNfBLKyCYItV 0OguVBtSTioO938MWtnXv V7LACtqxOvH3LuKHJvtZx vRfX0y2D4Sc1Y EPebgcf8N1EtCdskiEV+P R78MHHgRP21aXYkjEMwx7 gaxZq9ZsHjVQIzBJS9mDg uALlwj5XuHUGq Y29 (more content not included)... [facility] Provider Orderson 01-13-2024 Provider Orders [id number]. 00OTGTIFF [facility] C Urineon 01-09-2024 C Urine Urine Culture ordere d as a result of parameters set on specific urine dip and urine microsopic results. >100,000 cfu/ml Escherichia coli ORGANISM EC ---- SUSCEPTIBILITY --- ORGANISM ID: 1 ANTIBIOTIC INTERPRETATION WILIAN STATUS ORGANISM ECEC Amp S <=8 Verified Amp/Sul S <=8/4 Verified Azt S <=4 Verified Cefaz S <=2 Verified Cefep S <=2 Verified Cefo <=2 Verified Ceftaz S <=1 Verified Ceftri S <=1 Verified Cefur S <=4 Verified Cipro S <=0.25 Verified Ertap S <=0.5 Verified Gent S <=2 Verified Levo S <=0.5 Verified Nitro S <=32 Verified Pip/Tae S <=8 Verified Tetra S <=4 Verified Tobra S <=2 Verified Tri/Sulf R > Verified [facility] Comment on above: Performed By: #### 1 [id number], [id number] #### [facility] (DEFAULT) [address] [place] [address] ED Note-Nursingon 01-09-2024 ED Note-Nursing Patient called and informed of urine cultures. Instructed to d/c Bactrim and Rx for Macrobid called into [facility] pharmacy in [place] per patient request. [facility] CT Abdomen/Pelvis w/o Contra stoyaw 01-07-2024 CT Abdomen/Pelvis w/o Contrast EXAMINATION: CT Abdomen/Pelvis w/o Contrast, 01/07/2024 5:37 PM EDT HISTORY: Right flank pain ro stone COMPARISON: 12/02/2023. 07/23/2023. TECHNIQUE: CT scan of the abdomen and pelvis was performed without IV contrast. CT dose reduction technique was used, including Automated Exposure Control. FINDINGS: The visualized lung bases and the pleural spaces are clear. Unremarkable gallbladder. No significant biliary ductal dilatation. Allowing for the lack of intravenous contrast, the liver, spleen, pancreas and the adrenal glands are unremarkable. No renal or ureteral calculi. Minimal right pelvocaliectasis and right ureterectasis with mild diffuse right periureteral edema, likely secondary to ascending UTI. Normal appendix. No enlarged lymph nodes within the abdomen or the pelvis. No ascites or focal intraperitoneal fluid collections. IMPRESSION: 1. Minimal right pelvocaliectasis and right ureterectasis with mild diffuse right periureteral edema, likely secondary to ascending UTI. 2. No renal or ureteral calculi. Final Dictated by: Home Childress MD Dictated DT/TM: 01/07/24 6:03 Signed (Electronic Signature): Home Childress MD 01/07/24 6:29 pm Technologist: Narcisa PRASAD [facility] ED Clinical Summaryon 2023 ED Clinical Summary [facility] - Emergency Department [address] [place] [id number] ED Clinical Summary PERSON INFORMATION Name: ANA SAUCEDA Age: 23 Years Sex: FEMALE : 2000 MRN: Acct#: Visit Reason: Fever; Flank pain; RT SIDE FLANK AND BACK PAIN Arrival: 01/07/2024 16:21:16 Discharge: 01/07/2024 18:45:00 LOS: 000 02:24 Check In: 01/07/2024 16:21:16 Checkout:01/07/2024 18:45:00 Address: [address] [place], [place] [address] PCP: Joseph Vanegas MD PROVIDER INFORMATION Provider Role Assigned Unassigned Jerome Monaco MD ED Provider 01/07/2024 16:22:56 Tiffanie Casper CLERICAL INVESTIGATOR Nurse 01/07/2024 16:28:05 VITALS INFORMATION Vital Sign Triage Latest Temperature Tympanic Temperature Temporal Artery Pulse Rate O2 Sat 97 % 98 % Respiratory Rate 18 br/min 17 br/min Blood Pressure /69 mmHg /69 mmHg MEDICAL INFORMATION Medications Given: Medication Dose Route cefTRIAXone 1 gm IV Piggyback Allergy Information: No Known Medication Allergies PHYSICIAN DOCUMENTATION DISCHARGE INFORMATION: Discharge Disposition: Home Discharge Location: Home PATIENT EDUCATION INFORMATION Instructions: Pyelonephritis, Adult; Urinary Tract Infection, Adult Follow-Up: With: Address: When: Follow-up with your PCP in the next 1 to 2 days. Return to the emergency department should symptoms worsen or become worrisome in any way. Within 1 to 2 days DIAGNOSIS: 1:UTI (urinary tract infection) Patient Understands: Yes - Patient/family/caregi migue verbalizes understanding of instructions given Comment: Normal [facility] ED Patient Summaryon 024 ED Patient Summary [facility] - Emergency Department [address] [place], [place] [id number] PATIENT DISCHARGE INSTRUCTIONS Patient Information Name: ANA SAUCEDA Age: 23 Years Date of : 2000 Reason For Visit: Fever; Flank pain; RT SIDE FLANK AND BACK PAIN Arrival Time: 01/07/2024 16:21:16 Primary Care Physician: Joseph Vanegas MD Attending Physician: Jerome Monaco MD Comment: Visit Diagnosis: Diagnoses This Visit Fever ([id number]) Flank pain ([id number]) UTI (urinary tract infection) (N39.0) The Pharmacy at [facility] is open Friday through Friday from 9A to 6P and Friday and Friday from 9A to 5P Prescription Information: If you have been given a prescription for narcotics, seek immediate medical attention if you have any difficulty breathing or any sudden status changes such as confusion and sleepiness. If you or anyone you know is experiencing suicidal thoughts, mental health, alcohol and/or drug addiction problems; contact the [facility] 02/12 Crisis Hotline -Text 3CSZO gq 668680. If you received any narcotics, sedation, or any other medication that causes drowsiness for the next 24 hours, unless otherwise directed: ? Do not drive a car. ? Do not operate machinery such as power tools, lawn mowers, drills, sewing machines, or stoves ? Avoid alcoholic beverages and drugs for allergies, nerves, or sleep ? Do not make important personal or business decisions or sign any legal documents With: Address: When: Follow-up with your PCP in the next 1 to 2 days. Return to the emergency department should symptoms worsen or become worrisome in any way. Within 1 to 2 days Medication Information: The exam and treatment you received today in the [facility] Emergency Department were for an urgent problem and are not intended as complete care. It is important for you to follow up with a doctor, nurse practitioner, or physician?s data assistant for ongoing care. If your symptoms become worse or you do not improve as expected and you are unable to reach your usual health care provider, you should return to the Emergency Department, we are available 24 hours a day. For those patients who have received Radiology results, the interpretation of your X-ray as given to you by our Emergency Department physician is only a preliminary report. The Radiologist will review your films and if there is a change in the diagnosis you will be notified by phone. Please make sure you have provided a working phone number so we can reach you if necessary. In the event that you had a lab culture while you were a patient in the Emergency Department, you will be notified by phone if there is a need to change your antibiotic. Please make sure you have provided a working phone number so we can reach you if necessary. [facility] Emergency Department has provided you with a complete list of medications post discharge. Please inform your filenet p8 developer/provider of your visit and for further instruction on these medications. Any specific questions regarding your chronic medications and dosages should be discussed with your primary care physician(s) and/or pharmacist. New Medications [facility] [id number], [address], [place] [id number], [phone] sulfamethoxazole-trim ethoprim (Bactrim DS 800 mg-160 mg oral tablet) 1 tab(s) Oral (given by mouth) 2 times per day for 14 Days. Refills: 0. Medications to Continue That Have Not Changed Other Medications acetaminophen-oxycodo ne (Percocet 5 mg-325 mg oral tablet) 1 tab(s) Oral (given by mouth) every 8 hours. as needed as needed for pain. Refills: 0. levothyroxine (levothyroxine 75 mcg (0.075 mg) oral tablet) 1 tab(s) Oral (given by mouth) every day. Refills: 9. naproxen (naproxen sodium 550 mg oral tablet) 1 tab(s) Oral (given by mouth) Every 12 hours scheduled time as needed as needed for pain. Refills: 0. nystatin topical (nystatin 100,000 units/g topical powder) 1 willy Topical (on the skin) 2 times per day. Refills: 1. Visit Information Allergies: Substance Reaction Symptoms Type Comments No Known Medication Allergies Drug Vital Signs: Vitals and Measurements this Visit (last charted value for your 01/07/2024 visit) Vital Signs This Visit Temperature Oral: 36.6 DegC Heart Rate Monitored: 85 bpm Respiratory Rate: 17 br/min Systolic Blood Pressure: 120 mmHg Diastolic Blood Pressure: 72 mmHg SpO2: 98 % Oxygen Therapy: Room air Measurements This Visit Height/Length Measured: 175 cm Weight Measured: 98 kg Weight Dosin.000 kg Body Mass Index: 32 kg/m2 Problems List: Problem Onset Comments Closed fracture of shaft of femur 10/12/16 COVID-19 ruled out Generalized anxiety disorder 10/09/22 Hypothyroidism Lightheadedness Patient Education Pyelonephritis, Adult (Inserted Image. Unable to disp (more content not included)... Normal [facility] Test Urine U Preg Negative Normal [facility] Comment on above: Performed By: #### 6 [id number], [id number] #### [facility] (DEFAULT) [address] [place] [address] U Preg Internal Control Pass [facility] Comment on above: Performed By: #### 6 [id number], [id number] #### [facility] (DEFAULT) [address] [place] [address] UA Aouno0lj 01-07-2024 UA Amorph. Rare [facility] Comment on above: Order Comment: Urina lysis Microscopic order added on by SeeOn Expert Rules system. Performed By: #### 1 [id number], [id number], 61709284, 7649351, [id number], [id number] #### [facility] (DEFAULT) [address] [place] [address] UA Bacteria 1+ [facility] Comment on above: Order Comment: Urina lysis Microscopic order added on by See[employer] Expert Rules system. Performed By: #### 1 [id number], 8193377, 79495186, 1758071, [id number], [id number] #### [facility] (DEFAULT) [address] [place] [address] UA Mucous 2+ [facility] Comment on above: Order Comment: Urina lysis Microscopic order added on by See[employer] Expert Rules system. Performed By: #### 1 [id number], [id number], 77959948, 7741649, [id number], [id number] #### [facility] (DEFAULT) [address] [place] [address] UA RBC 3-5 [facility] Comment on above: Order Comment: Urina lysis Microscopic order added on by See[employer] Expert Rules system. Performed By: #### 1 [id number], 1572576, 04655826, 3476234, [id number], [id number] #### [facility] (DEFAULT) [address] [place] [address] UA Renal Epi Rare [facility] Comment on above: Order Comment: Urina lysis Microscopic order added on by SeeOn Expert Rules system. Performed By: #### 1 [id number], 9866087, 27719054, 1822960, [id number], [id number] #### [facility] (DEFAULT) [address] [place] [address] UA Squam Epi Few [facility] Comment on above: Order Comment: Urina lysis Microscopic order added on by See[employer] Expert Rules system. Performed By: #### 1 [id number], 6607196, 77188500, 3653603, [id number], [id number] #### [facility] (DEFAULT) [address] [place] [address] UA WBC 60-70 [facility] Comment on above: Order Comment: Urina lysis Microscopic order added on by See[employer] Expert Rules system. Performed By: #### 1 [id number], 7891989, 28076932, 6165984, [id number], [id number] #### [facility] (DEFAULT) [address] [place] [address] UA w Culture if Ind Standard on 01-07-2024 Breakpoint UA [facility] Comment on above: Performed By: #### 1 [id number], 5051717, 55685201, 8392078, [id number], [id number] #### [facility] (DEFAULT) [address] [place] [address] Color (U) Yellow [facility] Comment on above: Performed By: #### 1 [id number], 3316292, 83423535, 9253843, [id number], [id number] #### [facility] (DEFAULT) [address] [place] [address] Culture? Indicated Invalid Interpretation [facility] Comment on above: Result Comment: Resu lt created by rule GL_MAGR_ADD_UA_CULT Result created by rule GL_MAGR_ADD_UA_CULT Result created by rule GL_MAGR_ADD_UA_CULT1 Result created by rule GL_MAGR_ADD_UA_CULT Performed By: #### 1 [id number], 6069056, 89741795, 7352185, [id number], [id number] #### [facility] (DEFAULT) [address] [place] [address] Glucose (U) [Mass/Vol] Negative [facility] Comment on above: Performed By: #### 1 [id number], 2104388, 65143431, 3357774, [id number], [id number] #### [facility] (DEFAULT) [address] [place] [address] Ketones Ql (U) Negative Normal [facility] Comment on above: Performed By: #### 1 [id number], 7560184, 85667666, 4291143, [id number], [id number] #### [facility] (DEFAULT) [address] [place] [address] Micro? Indicated Invalid Interpretation Code [facility] Comment on above: Result Comment: Resu lt created by rule GL_MAGR_ADD_UA_MICRO Performed By: #### 1 [id number], 6270970, 48857386, 4661356, [id number], [id number] #### [facility] (DEFAULT) [address] [place] [address] UA Bilirubin Negative Normal [facility] Comment on above: Performed By: #### 1 [id number], 7848881, 84845441, 8492150, [id number], [id number] #### [facility] (DEFAULT) [address] [place] [address] UA Blood SMALL Abnormal NEGATIVE [facility] Comment on above: Performed By: #### 1 [id number], 6748957, 59752592, 8055284, [id number], [id number] #### [facility] (DEFAULT) [address] [place] [address] UA Clarity CLEAR Normal CLEAR [facility] Comment on above: Performed By: #### 1 [id number], 5570233, 90855307, 4279290, [id number], [id number] #### [facility] (DEFAULT) [address] [place] [address] UA Leuk Est MODERATE Abnormal NEGATIVE [facility] Comment on above: Performed By: #### 1 [id number], 6297113, 63119352, 4029988, [id number], [id number] #### [facility] (DEFAULT) [address] [place] [address] UA Nitrite Positive Abnormal NEGATIVE [facility] Comment on above: Performed By: #### 1 [id number], 5270617, 33788545, 8230580, [id number], [id number] #### [facility] (DEFAULT) [address] [place] [address] UA pH 6.0 Normal 5-8 [facility] Comment on above: Performed By: #### 1 [id number], 2610495, 98274100, 2002417, [id number], [id number] #### [facility] (DEFAULT) [address] [place] [address] UA Protein 30 Abnormal NEGATIVE [facility] Comment on above: Performed By: #### 1 [id number], 3299850, 86695951, 2884569, [id number], [id number] #### [facility] (DEFAULT) [address] [place] [address] UA Spec Grav 1.020 Normal 1.001-1.035 [facility] Comment on above: Performed By: #### 1 [id number], 2807867, 16610668, 2062953, [id number], [id number] #### [facility] (DEFAULT) [address] [place] [address] UA Urobilinogen 0.2 mg/dL Normal 0.2-1.0 [facility] Comment on above: Performed By: #### 1 [id number], 9414974, 77714944, 3088905, 1676375974, [id number] #### [facility] (DEFAULT) [address] [place] [address] 32762 Urine Source Clean Catch Normal [facility] Comment on above: Performed By: #### 1 [id number], 4384124, 99142755, 7876895, [id number], [id number] #### [facility] (DEFAULT) [address] [place] [address] Office/Clinic Noteon 024 Office/Clinic Note Patient: ANA SAUCEDA Age: 23 years Sex: FEMALE : 2000 Associated Diagnoses: Pyelonephritis; Hypothyroidism Author: Joseph Vanegas MD A History of Present Illness 23-year-old female presents today follow-up recent hospitalization for pyelonephritis. She denied having any urinary symptoms but was having some flank pain and was found to have a high fever. Was admitted and received IV antibiotics. Then discharged home on antibiotics. Repeat urinalysis today was negative. She is having some vaginal discharge consistent with a yeast infection. Also on the day that she went to the hospital outpatient blood work came back which showed her TSH to still be elevated. She is currently on 50 mcg of levothyroxine. Review of Systems Constitutional: Negative. Ear/Nose/Mouth/Throat : Negative. Respiratory: Negative. Gastrointestinal: Negative. Genitourinary: Negative except as documented in history of present illness. Endocrine: Negative except as documented in history of present illness. Health Status Allergies: Allergic Reactions (Selected) No Known Medication Allergies, Allergies (1) Active Severity Reaction No Known Medication Allergies None Documented Current medications: (Selected) Prescriptions Prescribed Percocet 5 mg-325 mg oral tablet: 1 tab(s), Oral, q8hr, PRN: as needed for pain, 20 tab(s), 0 Refill(s) Pyridium 200 mg oral tablet: 200 mg = 1 tab(s), Oral, TID, for 3 day(s), 9 tab(s), 0 Refill(s) fluconazole 150 mg oral tablet: 150 mg = 1 tab(s), Oral, Once, 1 tab(s), 0 Refill(s) levothyroxine 50 mcg (0.05 mg) oral tablet: 1 tab(s), Oral, Daily, 90 tab(s), 2 Refill(s) naproxen sodium 550 mg oral tablet: 550 mg = 1 tab(s), Oral, q12hr, PRN: as needed for pain, 20 tab(s), 0 Refill(s), Home Medications (5) Active fluconazole 150 mg oral tablet 150 mg = 1 tab(s), Oral, Once levothyroxine 50 mcg (0.05 mg) oral tablet 1 tab(s), Oral, Daily naproxen sodium 550 mg oral tablet 550 mg = 1 tab(s), PRN, Oral, q12hr Percocet 5 mg-325 mg oral tablet 1 tab(s), PRN, Oral, q8hr Pyridium 200 mg oral tablet 200 mg = 1 tab(s), Oral, TID Problem list (past medical history): Active Problems (6) Closed fracture of shaft of femur COVID-19 ruled out Generalized anxiety disorder Hypothyroidism Lightheadedness Physical Examination VS/Measurements Vital Signs 12/12/2023 13:05 EDT Peripheral Pulse Rate 110 bpm HI Pulse Site Pulse Oximetry Systolic Blood Pressure 98 mmHg Diastolic Blood Pressure 62 mmHg BP Site Left arm SpO2 98 % Documented vital signs: Pulse ( 90 beats per min ) General: Alert and oriented, No acute distress. HENT: Tympanic membranes are clear, Normal hearing, Oral mucosa is moist. Neck: No carotid bruit, No jugular venous distention, No lymphadenopathy, No thyromegaly. Respiratory: Lungs are clear to auscultation, Respirations are non-labored, Breath sounds are equal. Cardiovascular: Normal rate, Regular rhythm, No murmur, Good pulses equal in all extremities. Gastrointestinal: Soft, Non-tender, Non-distended, Normal bowel sounds. Genitourinary: No costovertebral angle tenderness. Impression and Plan Diagnosis Pyelonephritis (BVB65-BJ N12). Plan: Symptoms have resolved. Continue to monitor.. Orders Orders Evaluation and Management: 18580 Office visit - established pt, Level 3 (Order): 12/12/2023 12:51 EDT, Qty: 1, Pyelonephritis - Hypothyroidism. Diagnosis Hypothyroidism (PMU18-VJ E03.9). Course: Will increase her levothyroxine to 75 mcg daily. Plan on rechecking TSH in 2 months.. [Electronically Signed on: 12/12/2023 13:33 EDT] Joseph Vanegas MD [Verified on: 12/12/2023 13:33 EDT] Joseph Vanegas MD [facility] Coding Summaryon 12-11-2023 Coding Summary HTMLBase 64 UeijcxfhMZk6tBq+PGhlY WQ+FW6AAFJyX84fyMOjdN 8vR9BUHJrPPrhlTMAENEs DYyQhspNyUC8ymWOiGLCy IC8+SE4qJIXsHyqxbISgx 4L0gFN1I41tkm5hBVvicV O0FPCtKcRhjwmmu5safFs 6IDcuNmluOyBt KSVwiC84PMZ7hU07Cr18u IGipCYsx9dkxTs0JgYfRK EbALD5sIxfUUoev5ZrCWG mO26yhQRwe3F9 VWJmlNdizAHiRpVejLP0t U1yXZpwcntme3sxbkxbFr w4dp85hXJgd4O7wWR5U9C ixxA9SSHskXSd AtkgoSIUdF4bpoinv5apm oxlCnIqNWFaTNo3KBf7ZX EcqWqsUuGgYT50YJH2INP umlYxM9BxSPBk oKcuZtR5y5R7Mt6HR5CJE rtiN9EONIBXDFqpbZW+PC 59xp86L1DiXwlkJek8TTM aGDJ8wJE1qD0o DGZpOJdgr5B9uSJ5S8Vkh nMutx5yr2yzTEOuYQmeQ4 9ddISus5D7HEMinQK2QAT zfRueGcNxcI22 Oyc+BFUbnFebb1SoZubcs 6zwr2tlqHo9WsluYQBdwl WvlQioXQY2r2CpVe6tKFP vhTV6fTM2qL8k ChUmEhY9GBenA688IkQxe HEsYvwgI94xB6UlnZX+PH HyJwd1ADKojEnkMH3cX7Q hZGRpbmctbGVm qJqiCM3nQWRannyiBGLxc K2wJRPhE9o9XyPeBwG6ZM ovB5UtGBYegvikUk20eH5 gWqRuHcB5JAvi Y0YqibL0QIKtjTSmWHhtD EN6E50ya2S7LSClXCMqMI U4wLY0eX3toVweagolrCD mdDsgdmVydGlj KMhuJUjvT196HLTobDgcX kNvZGluZyBEYXRlOiAgMD gvMDEvMjAyNDwvdGQ+PHR nAAJ1fNtoSJUb eKAyLMyxPx1duCpucNwdZ K5eXVVvihlnSIYuyZ9gXS XqiGDicTboRV6jQLJzohu bx210XoSkJZT7 QFPawHToF9YwhS0iQtNkF ELhBAWsM3TewQJsTTosJ7 03JEvvMnU6VOUlzcLkO3A sLWFsaWduOiB0 f4U4Rv9Am4IedeinA3Bqx UJxLjOeHkasNWh3F7MaXa wvdHI+HU51UAYhHG58GXd 9YTR5mGjfZZnh YXQaX2QtgL3eFbNxBPWxK GRkOyc+PHRhYmxlIHdpZH RoPScxMDAlJyBzdHlsZT0 wCb9jRGArZHVo yBxppQVoAyUzv1naOAXhN RniIQ9gfRviL0HhyMF6AR Jiy7o7Qa04A18lZ4DloKR +GKJtkCK6rYA9 gR3cWsPwDxN0OKiaK841W iVqvUKcZqdpd5hdn3pxgG m1PqA0DJVbwaYbjJocSZH 3d6IkJn04I51y IHdpZHRoPSIxNSUiIHZhb Jvfde9uzJ4eQb8+PGNvbC Q8qZC4eP8fXiMgXfG9TOf hL843BtIyiEYu Gkapw0sqw5ybtFb4BkYjS YUfieTmsXyfELG9h6GyHk 33G8PtjBcqk6VnXyv5nc2 8pRBmq4I5fHS3 D2UdWMQgxwgrwBMdqZwzP Y2uJKFonudrGBUtdV9nTA GaE3h9QlJyHiE8ZAdgN5R crvD9CQBhxRRw QFInfIHBeD0lsndzi9jre weuQhGpABRsBSh0KSu9FS AmrVpxAvQuTJE8JdO9PPM 3jERzeS6jxBrr ysamyB1sRni+FNI0bKNuu GGDPY7vAwinwKL+PHRkIH E4vJjmMBhaFYQlrS9oKOY mG6c5YlGgSqV6 OPksU9IptpI3AMZqzRWnU WJaiIDLuP8hrhakm5xctr btItXnKFZrDXb6BNu3HQU saWduOiBsZWZ0 StS8XIB3gVIvpJ0fmEafg iixlD3jMap+QmlydGggRG W1ORy9W7AgMak0HYWxzGh fMR2lxHYsUIua Dr1xnRybdIalBT9fJSVpb fzik329SmPnb5aoTJBrjL RhHKwxDSB7I66vb5F4SHE wQFHjXKH6aZV0 rP3irYxkzzsvkXFvuSozh pIgpUjcXToqNBfrN915CP IrbFdzLxTrURi4F8FgYoz 6GLGpdEpgNV8i kEAbSOxyDw0zaMdfmSisU K2cMIKvwyxjl623RmLwv4 dxBNKlmHPaZEidDDO3Z04 lw0Q2GMUsGEZo BHP3fUI2gK0ckRdbpyxkw GVmdDsgdmVydGljYWwtYW noO643FHRwqNivKrNrjWp 8P5ZeOgr4NJJf rGmdKC6wwHOwJWqbEr8dk QwbaBzkEW4oLCEmoxpaw8 38XdHjl5ueRUHonKZoWUc oJAD5P97ma3V6 DCQxJSOrEVX3yKO3jT1ym GlnbjogbGVmdDsgdmVydG jgTVxrPSlsH373HFXneLz nPlBhdGllbnQg RPirIKr1B6KdCcxiiCA+P T70XKWwES98zYIexTRva4 nlaFg0GfHbKFItBMU7qPo bXYngz5KsSZFx Z69ltBPmi8Z9XQYhiWpem XHcMzZofJK5uS3tKStnwi fmg0zgijedLfsus9nkyq3 6uT64Q49nDIng ZHRoPSIzMCUiIHZhbGlnb l6fgH7xAf8+DDPzeMS1gH G8vU9nQXQgEdC0FEziM42 9InRvcCIvPjxj t4dou4aquKm2IaR8PYSae aOlvUymEQX4z1NiTw62G3 9sIHdpZHRoPSIyMCUiIHZ toVpdos1hvS4c Ii8+WPHayZQ0xSK4gY1cA dSuIxP7RHnpG418BtXkvQ OsKmycX47zD6CbyHY+PHR aCsi6RWJwyCse MX3irFIiHCpqXn4zYTH6Q aQbIgWtBTxgU4KbXJEnxb pirzpdzJW2SFHkBKQamK9 1Vz7blActQPPh cUOEmT4iznnnr6xiwmjhF zUhBUSuXYm9THe9LXNkaY gsPhZqEWT4KyZ5ASE1fTH qeS2oaCtdzruu dH5cU5UzPWFlgtfmFj19m B6fSlTbQoZ5THdoOfd+RF VORkVFLCBNSVJBTkRBIEx FRTwvdGQ+PHRk BSN4uXlqJLzvUJDdoD1vN YJkA5k4BsIjGwN9ALxnZ2 PqOJYbxywsBr58oN2kMzD mNlU0XOsaT0Zc oqH5QJHxyJHcEKzcDZI8F 29cv7Y5JHIdDJPrPZG8uR I5rW3erIesisxrfXDubIw gdmVydGljYWwt PQwwD135LVJksYfbSrIjE iQ8GsMfERP1I3GaSmk9UE WsiNrmXV1cbGKsHFfmMv9 laIvqfAduRP8y HTIualwxIRTuoK9mTJMej XOwrPjsAN4yOOCdudimf8 63FuQwFIM9WSWvzMSiM8U jaP5rWuWvVOVy KQOqI1KvqOYgHEgiH039E UzrEjK7XBOwbyHcL0OgKS DmeZvyKzQ3e1I6Tp8kYVX ZZWFyczwvdGQ+ SPCyRBJ8vSxtFAyhTGUpz O1fVKMbP3g2ShIdJdG8YX kbT4WxEVErexeiTx38hN0 lLaInGnY0YXsq H8HlpvT5KXHvjWGoKSasS VV9U14hu4B5NYSgXQYmRU R5fJR5dR4rtUgmjssliLD mdDsgdmVydGlj IUxdCXgkZ658CTKmlZcjA kZFTUFMRTwvdGQ+PHRkIH T2jVabUHdnJYOzwB9oWGE iK4f0OkZuHiD7 KNgwM1XxSHZcfeflMt78w M5fLsEmYsN4PBuiA9Oowf D7DTNcbTStXIohHFR7W95 gc4C5KFBqYZTl FXL6vXQ5mM6zsCpcvhdww GVmdDsgdmVydGljYWwtYW xxK414THGayHjeRi0QIL4 4IE66D0DnXksr dGFibGU+PHRhYmxlIHdpZ HRoPScxMDAlJyBzdHlsZT 3wQi1qKOAcPEWsfWglzUO tIgHho2odMXPd WRzuKH9uuOupH7ZqlBW8V AQzz7r7Pw08J62gD2PgaQ A+QLFhuVQ7cIY3aV8lKyO fVdN9ZIohX328 JvVjkQLqVopha7owk5acr Zc5XhQyMNGiwoLbaMwfDN H9o1VpCj86P97kMUloECF oPSIyMCUiIHZh cQsurx9vfR1iHn5+PGNvb WS6bPJ9xF8fMlUxGzT1GS odB971WjKaeUHmMldrZ44 yN9RiwPJ+PHRy Pra4RWYcoJexAE2mqWDjY YllQm8xVFV1FbFcJsFiFB gbB6KaKDJllxqbzvzgvPT 4ZIPoAPHflX22 Ds1qaKmhCw2aQRKcXEN3E SAuxGMgZ0ZwxX9yOrYpNW FmQYSdE3PiiGLhYZglT61 6UTejKzG8UDKu vcHfV4ExHVZfzZcsXcW7h 1Y9Iq4FgAlblHCrGQ1sUl DjJEd4X9KkTmm0VVAebJz cYL0wgYItZLxv Jb7qnFjysJfmFK7yKTVjf zrwn329MhNdg3jhKZXyyI BrBXhmIVJ2Y26ti2G5DAJ yVEEyFNB4lSD8 zK0jdMfggtiwzCHwrOswv cNwcOckBLxyFQmnQ668VG ZryFmhDcCWOpy0L2VoLjh 7ZRYdaJppXY3h nKUxSQlkHh1gbDwthNukE H5kRLWrxhnbj135ZnNlk4 jsOUBrfNDiRHxaNRI9W59 kl4T8GBZlDGLy EZZ0qPB5cY3zjPcgucbwi GVmdDsgdmVydGljYWwtYW fpA113CIBwuVpoCx5EPla 9F0AwJja6SNNs eVkbGZ0thPYbULdfGc6aw ZlfePuyCQ1aHXKsolnra1 63McPcy8dyAVFoxNBkLDj oTUW3S45de3V6 KHPqNBSfZAL3fLS3pT1gy GlnbjogbGVmdDsgdmVydG bpWQsuFWlnY028ZNZxiRe nPlBheWVyOjwv dGQ+XP41ji50Q9AhOnjnS ne6GZAmYWX5fIQ8qX1mLS QqKTaet8A7cKW6Q8SjvgE erd6dh2lrKNLx ZTo (more content not included)... [facility] Coding Summaryon 12-08-2023 Coding Summary HTMLBase 64 UphylsdcBHp8jPx+PGhlY WQ+IW8ITGBkN87ahLWchD 5aR2IVCHeVChfkOBIDLQh XVpWtpiCnPL1lsTNbLZPo IC8+OU3jNOJiCmvijQDyh 7T3yXJ7G04qse8jACmkhX N4SPPiEbRplxqid6mfmFq 6IDcuNmluOyBt IWBpwN35ZWM0pD70Er69u QPycQTgg6iqlOa5RgJnIJ IeWYA8qWhwZZfxa0BgABC pR24cyJTeo9W3 TSYhfJkgyKFjOhLylPK8p A7pFHxrhodop2sjhtnjYs b8im70uFFdq0W7vPC6P4J rijH0XGAspLSm JslckRWDjM6nancah4llh dvvHhJdHOTqASk8GKp7FD PhrJrrXhSdMX95KWA4XVY rsyRiD7MzBXUu sZhlQpV7z4B2Go9UV0XAT xgzV3XVGTLURWbmhHD+PC 19sb73N6QePjqdBjk3LUH gFHV6oIY1dV7x HCKnVPnig6K4nNO5P0Lno dIlwh5se4ujHZEpJXumD7 3osXOlc9I6GKFbyPW9KCE yjVwsOlMpbF62 Oyc+PDHxqQfym9FfPkbom 6hvb6vgkUy9OpviXSGgai PxxQzdCOX0k4RzQd6iAAH duNB1iSG9yO5d ZgUyPiT6RKcuR540XmBjz KKmShbaM13oL1MyvJU+PH JpGhu4CZUheFlaJB8cC8Z hZGRpbmctbGVm sSyoFM5gTTXneanjCWMux S1rWSLlX9t3TxBzYyE0VB kfT3MoIDAbskyiZv20iT4 lIsJoJrW9YNlw X1QzfyD3KTMiyELcLEsyI ZU5F57mc0V9BCIzWPHzMK A8wXA4tQ5qfUiidnsjkVI mdDsgdmVydGlj MAukOWubQ230KZWfxZazI kNvZGluZyBEYXRlOiAgMD cvMjkvMjAyNDwvdGQ+PHR mLCJ3lCkoXRIg jPCpYPmaCm6dfRykuUhwH M9vAPEapakoVQGdhX2zKG QlsOAkjJnhLY7fSIGgsde gj080McJrXZU7 UHReuEZpL1AwtX9vZoWwQ CRwSIKyR0QwuLImZHamT4 01VNcvWyP8LJEoruYnT4I sLWFsaWduOiB0 b2Y2Wi3Sv5UdiyolU6Swu WTrYeCjXuybXUn4G8WhDb wvdHI+NQ81CDGpSQ76RLa 6YKH3gJzjHGru VQLiJ7EkgX8oHfBuQZTmN GRkOyc+PHRhYmxlIHdpZH RoPScxMDAlJyBzdHlsZT0 oNz8zLIUfHSAr mPxdzHKqMqJog4nwXBXsA HpcNU9ilWbhW0UwyBW3MU Pro3c4Mi83P06sX0BmiOG +HYIwbLM0zDK2 mJ3bIgIsInO7YLkqU457O tPckEYhKbidy9pbc0qtfF h2OdD6YZKlcxCwaZqfZUX 7z4CrNu04O21p IHdpZHRoPSIxNSUiIHZhb Lzowd6vuE7eAg6+PGNvbC I3nZW4zY0kWgRdHtA1EQu dK678ShUzqKMb Jmloh7hxb5wwdOv2DxUgC VKowmUacGneDDA8x0VmTp 75F8XvqWppb1MbQig8bc5 1hZNzs9M0mSJ9 Z7TyTSLpvijtwIDrnHelD Z7fPEEagbzdXXPjnL8mTF RsT9i5OlRgVvJ8HVbuQ3S blsL1TRTrhUMi VEBypGFEpI1lwuhem0noi juvCtWgKMIuSYr7IIs9BD OocLqxMvPbDIF7FtU6OSJ 5sWFfkA5lkUcq makhxB7rUoc+SCF1rNEmr ZQEHV7dNoguoXF+PHRkIH U1hJzgRZcnRYDvpZ6lAMG gN9p1NeJpXdP1 QMzxD9MomrQ7GUGyhAKfN FAgmONLsM0ldgzvk6gcjy sxHpIkXNJwQAv5QFu5TDL saWduOiBsZWZ0 MrL1WZW1hOCjgD6bcIork noejP8mKvx+QmlydGggRG K7RZq8Z6HuEtj9FYAunTq xRU5jeCFoPDhs Du9tmQiklRbxRM9sDQZoh ghbl868AtJrf5wfDBYkbY AyIIotIIJ8X52zs8L1PBC tBCLzFGA8yZE4 jE6qqSotjcrqjNGriGqrm cIghNnoGXhdDYlzC764DE LdfUheEkKsVEd3G2RoYuw 7LLEfzJwtRE5r hFMdZUduFd9ioKiwyWwpF Q2yKCEgntcha896MtYdn0 lqDVHgySKjOFakTVM0A30 yq6X2PRApHFUl VKJ3bUZ8yW6twPajptshj GVmdDsgdmVydGljYWwtYW xcM736VTNbzNefWhUfeZe 1Z7MkTbx4ZXCm mXnzLB3zzIBcYXgmUk0cm HuqgNqfFC7iXNCkmfebm0 07IfIdl3znRQDxuMMzNVf eVFO3Z13it6E1 BFErVOUgKOA6xLJ5vP1ex GlnbjogbGVmdDsgdmVydG naXKedBUasY200CZYgwOz nPlBhdGllbnQg NKzeEUf1E9KdEncfqAV+P L12YISjBM00yYHbkOGim4 cghIw7SiJoEDFwNAK4dHt ePFyaj8UlVVBp F07ysQAnk2C5SLSdzJbrs BEjNuNkuFS4yV0yIOivny aor0neelruAhjei2twvp6 2lL60H95rEUae ZHRoPSIzMCUiIHZhbGlnb e9stO9yJd6+UBAgoQZ1lF Q1hL5yHRWcZeI8SEftP14 9InRvcCIvPjxj n1vsz4stwZe5PvB3OIVky aUkwWfaQPT2i3GuSp76I3 9sIHdpZHRoPSIyMCUiIHZ kmPovus5vnI4f Ii8+FNSizKO6nNQ4lD8zV jAzKmT7ZEmdI816XpCkdE NfPdwqM16jS8ZhhDP+PHR dAdz3BUIpcMus FT5ogUDdBQrwFh1hOJI5U cCpNhGoYMnbW9PeKHZmdz yyrldsxAY2FHCiCDKmdB7 7Nd6ivRccUPHq jDKFsV8dpiodx0zkgymoV aJmFXGgQZd9VZz4HQMjbW sbBoVkGFB4UoD2HVL7hXI efR8rpWiyhxba sD3rU1RrBYXentbxVt38f M6yXvBeDpI6EYfbJfr+RF VORkVFLCBNSVJBTkRBIEx FRTwvdGQ+PHRk TCL4kZqgQDxqSOJrcS9uC BCnV4f9YtEsTaJ9ZHtyW0 FeQELrzuitSb41dT5sAfG hLvJ8SEvhH0Ih ktF7ETUatYToQHdvTGR5M 46ae9H8GQYqPWYqHSL1hO Q4pM9asAbitajcbCOqcVu gdmVydGljYWwt HLqnL500XLAvpCqmCzMmF eB1OpPwVHR6R7GbHqx7KK IfrLucNB6hnIWnAEmgTw7 yoZasvVlsUB9y VQSjwhywQZYadP8lDUReu ROrbJjnVV3zSNNgsjlmh2 51BuPrKNO7XCEotLGoT5A jiI5fNtIcHCQd TSMbM7EsmNNuKShsC145Q CniZtQ3LQSeyrXyY4IpSH ZxiJbxVpW4n4J5Ow3tVTD ZZWFyczwvdGQ+ VCMqEHO7wYspLTvnJEKst G3bVFXyA3o9WoBxUeS2GL meK0ToSUJrfmqyGu04sF8 dQgSoKaN5EWbk L2LzqkI4YKIimGDmOKhlQ TX0O46ph0Z6GKYvJFSrPZ L8zLY7eE1wfMcukyetbDV mdDsgdmVydGlj RFtcHExtN326RHHmxHjzR kZFTUFMRTwvdGQ+PHRkIH S0vYnkZLinRHPyoS5tEOY nC6l8ReKpWkY4 VIwiX1UcKGGbnpojBu86i M9cWvRiPoL8EDrkX5Oxyw C7LKVikAXdCOanWAK2I08 hm3Q3FXJjKAZs LOO5cQZ0oX2yxKxspytil GVmdDsgdmVydGljYWwtYW fcR002MGNpdRusKumoiKI 0aWVudDwvdGQ+ KX15ha05X7TiRdbeCzo6F HNrINQ8kAU9sT1zVRKdDS zfn6M5bXZ7Q8VdumLqsk5 ep0foUOJsHVnl L17rgTCvz0O9NIRskZF9N MEdcEacLaRroV84Mwz+PG DygVtak3UfPifda3pdl9y bvVs2RrZzZIFj jsBayIjzCJI4k8KuHg89A 29sIHdpZHRoPSIzMCUiIH DzqQpubl4hvI8vIo9+PGN gyUT4oLJ5eZ8z RvXqRcG6RFgeY771YuJxz SXoFjsms2wdp2kuvAu4Vu JrLOCaywVygZvhBOY0y8R eHa90V5PxcDir a7UkAor0yj73hZWty3Q1s OA0M4XxZBTkefpsaCGpvD ehBI6bQCNekohrNFBtfH8 dZYTzT2m8TxZx KjL6ZFxoY9ImomB3GDJtj INkBHDylMPWkB2nxhmtt6 hfbeqyFpCiXHTsFDk0IGk 0LWFsaWduOiBs EFQ5BwM0NQM8pHEedB7qt DfiolnulB3jWxa+UGh5c2 qsqOZeXO8lnVF8ZT35UA7 7eGRif1Y9vIV7 E3HjGHZllrtmxyhjxDX7X FVpFIMghE73So7igBohVc 7hUZNxGZX8MNJzrXUtI6Q ydM8gVjEvRDJc WXSqK4OkwKJrBPqaZ244A FsjXbB5IKMiftMdP3UqBA NvoHwcGgG1e3S8Li5SKK8 4CS09UM27hXFu k9G2oMQ6L7DcKZSwcitma snwtVL9EMRaXPKoqF20Js 0skLhjBf3nDLJoWKF8BMB crCDsD8SosA1z XlMhOHVdCQKxI7GgrBAyR VwoY165HIuqVbA8RDNnxx PwL2CfTWRwhNaxQkG3z2G 2Uk3XNv41ZJ57 VK74bUIri3X2kCC3V2CkO VYlxdsfggmueSN2QXQtJX YxiR47Ud4htZtjHg3uWGX mMNJ7WVOsqHTg D9NhyW6hHnVoONDdCQVeG 0XmaMEnTJccU838ITwpBx J8DWHlnzZwG7DnCGFizUf rGjQ9m9S6Yc2U UYkbvqg1M4JyEzqxgDT+P H40MJMbCR01rOLskUQwg4 fzgOn6AmGrKGFjRDQ4sHa tLQyle8PuZYWz Y29 (more content not included)... [facility] C Urineon 12-05-2023 C Urine Urine Culture ordere d as a result of parameters set on specific urine dip and urine microsopic results. >100,000 cfu/ml Escherichia coli ORGANISM EC EC ---- SUSCEPTIBILITY --- ORGANISM ID: 1 ANTIBIOTIC INTERPRETATION WILIAN STATUS ORGANISM ECEC Amik S <=16 Verified Amox/Cla S <=8/4 Verified Amp S <=8 Verified Amp/Sul S <=8/4 Verified Azt S <=4 Verified Cefaz S <=2 Verified Cefep S <=8 Verified Cefo S <=2 Verified Ceftaz S <=1 Verified Ceftri S <=1 Verified Cefur S <=4 Verified Cipro S <=1 Verified Ertap S <=0.5 Verified Gent S <=2 Verified Imi S <=1 Verified Levo S <=2 Verified Nitro S <=32 Verified Pip/Tae S <=16 Verified Tetra S <=4 Verified Tobra S <=4 Verified Tri/Sulf R > Verified ---- SUSCEPTIBILITY --- ORGANISM ID: 2 ANTIBIOTIC INTERPRETATION WILIAN STATUS ORGANISM ECEC Amik S <=16 Verified Amox/Cla S <=8/4 Verified Amp S <=8 Verified Amp/Sul S <=8/4 Verified Azt S <=4 Verified Cefaz S <=2 Verified Cefep S <=8 Verified Cefo S <=2 Verified Ceftaz S <=1 Verified Ceftri S <=1 Verified Cefur S <=4 Verified Cipro S <=1 Verified Ertap S <=0.5 Verified Gent S <=2 Verified Imi S <=1 Verified Levo S <=2 Verified Nitro S <=32 Verified Pip/Tae S <=16 Verified Tetra S <=4 Verified Tobra S <=4 Verified Tri/Sulf R >38 Verified Normal [facility] Comment on above: Performed By: #### 1 [id number] #### [facility] (DEFAULT) [address] [place] [address] .Auto Diff 12-04-2023 Auto [place] % 13 % High -12 [facility] Comment on above: Performed By: #### 6 [id number] #### [facility] (DEFAULT) [address] [place] [address] Baso Abs# 0.1 x10 Normal 0.0-0.2 [facility] Comment on above: Performed By: #### 6 [id number] #### [facility] (DEFAULT) [address] [place] [address] Basophils/100 WBC (Bld) 0.9 % Normal 0.2-2.0 [facility] Comment on above: Performed By: #### 6 [id number] #### [facility] (DEFAULT) [address] [place] [address] Eos Abs# 0.3 x10 Normal 0.0-0.4 [facility] Comment on above: Performed By: #### 6 [id number] #### [facility] (DEFAULT) [address] [place] [address] Eosinophils/100 WBC (Bld) 4.4 % High 0.9-4.0 [facility] Comment on above: Performed By: #### 6 [id number] #### [facility] (DEFAULT) [address] [place] [id number] Lymph Abs# 1.7 x10 Normal 1.3-2.9 [facility] Comment on above: Performed By: #### 6 [id number] #### [facility] (DEFAULT) [address] [place] [id number] Lymphocytes/100 WBC (Bld) 22 % Normal 14-48 [facility] Comment on above: Performed By: #### 6 [id number] #### [facility] (DEFAULT) [address] [place] [address] [place] Abs# 1.0 x10 High 0.0-0.8 [facility] Comment on above: Performed By: #### 6 [id number] #### [facility] (DEFAULT) [address] [place] [address] Neut Abs# 4.7 x10 Normal 1.5-9.2 [facility] Comment on above: Performed By: #### 6 [id number] #### [facility] (DEFAULT) [address] [place] [id number] Neutrophils/100 WBC (Bld) 60 % Normal 44-88 [facility] Comment on above: Performed By: #### 6 [id number] #### [facility] (DEFAULT) [address] [place] [address] Standardon 12-04-2023 eGFR Non AA >60 Invalid Interpretation Code [facility] Comment on above: Performed By: #### 6 [id number] #### [facility] (DEFAULT) [address] [place] [id number] eGFR AA >60 Invalid Interpretation Code [facility] Comment on above: Performed By: #### 6 [id number], [id number] #### [facility] (DEFAULT) [address] [place] [address] 83184 Anion gap [Moles/Vol] 9.2 mmol/L Normal 5.0-19.0 [facility] Comment on above: Performed By: #### 6 163653, [id number] #### [facility] (DEFAULT) [address] [place] [address] 99728 Calcium [Mass/Vol] 8.5 mg/dL Low 8.9-10.3 [facility] Comment on above: Performed By: #### 6 096752, 9195900 #### [facility] (DEFAULT) [address] [place] [address] 93173 Chloride [Moles/Vol] 107 mmol/L Normal 101-111 [facility] Comment on above: Performed By: #### 6 386369, 7590536 #### [facility] (DEFAULT) [address] [place] [address] 47065 CO2 [Moles/Vol] 25 mmol/L Normal 21-32 [facility] Comment on above: Performed By: #### 6 527278, 8170872 #### [facility] (DEFAULT) [address] [place] [address] 70150 Creatinine [Mass/Vol] 0.65 mg/dL Normal 0.60-1.30 [facility] Comment on above: Performed By: #### 6 977158, 2141733 #### [facility] (DEFAULT) [address] [place] [address] 55838 Glucose [Mass/Vol] 101.0 mg/dL Normal 74.0-118.0 [facility] Comment on above: Performed By: #### 6 582302, 0659549 #### [facility] (DEFAULT) [address] [place] [address] 21379 Osmolality 272 mOsm/L Invalid Interpretation Code [facility] Comment on above: Performed By: #### 6 017352, 9276827 #### [facility] (DEFAULT) [address] [place] [address] 37288 Potassium [Moles/Vol] 4.2 mmol/L Normal 3.6-5.1 [facility] Comment on above: Result Comment: IV T herapy Performed By: #### 6 985652, 0923324 #### [facility] (DEFAULT) [address] [place] [address] 30959 Sodium [Moles/Vol] 137.0 mmol/L Normal 136.0-144.0 [facility] Comment on above: Performed By: #### 6 695784, 3564708 #### [facility] (DEFAULT) [address] [place] [address] 63424 Urea nitrogen [Mass/Vol] 7 mg/dL Low 8-26 [facility] Comment on above: Performed By: #### 6 773275, 0681932 #### [facility] (DEFAULT) [address] [place] [address] Urea nitrogen/Creatinine [Mass ratio] 10.7 mg/mg Normal 4.6-16.2 [facility] Comment on above: Performed By: #### 6 417621, 2708961 #### [facility] (DEFAULT) [address] [place] [address] CBC w/ Auto Diffon 4 Erythrocyte distribution width (RBC) [Ratio] 16.2 % High 11.5-15.0 [facility] Comment on above: Performed By: #### 6 259005, 5987095 #### [facility] (DEFAULT) [address] [place] [address] Hematocrit (Bld) [Volume fraction] 30.3 % Low 33.7-40.4 [facility] Comment on above: Performed By: #### 6 533542, 3647919 #### [facility] (DEFAULT) [address] [place] [address] 30120 Hemoglobin (Bld) [Mass/Vol] 9.8 g/dL Low 11.3-15.9 [facility] Comment on above: Performed By: #### 6 805050, 5719385 #### [facility] (DEFAULT) [address] [place] [address] Man Diff? Auto Invalid Interpretation Code [facility] Comment on above: Performed By: #### 6 502594, 4785281 #### [facility] (DEFAULT) [address] [place] [address] 13068 MCH (RBC) [Entitic mass] 25 pg Normal 24-34 [facility] Comment on above: Performed By: #### 6 424625, 2738691 #### [facility] (DEFAULT) [address] [place] [address] 68902 MCHC (RBC) [Mass/Vol] 32 g/dL Normal 26-37 [facility] Comment on above: Performed By: #### 6 396070, 2093507 #### [facility] (DEFAULT) [address] [place] [address] 66901 MCV (RBC) [Entitic vol] 77 fL Low 81-100 [facility] Comment on above: Performed By: #### 6 216322, 2862195 #### [facility] (DEFAULT) [address] [place] [address] 36443 Platelet 213 x10 Normal 138-427 [facility] Comment on above: Performed By: #### 6 009954, 2721999 #### [facility] (DEFAULT) [address] [place] [address] 85268 Platelet mean volume (Bld) [Entitic vol] 8.4 fL Normal 6.3-10.2 [facility] Comment on above: Performed By: #### 6 400534, 9973266 #### [facility] (DEFAULT) [address] [place] [address] 74662 RBC 3.94 x10 Normal 3.70-5.30 [facility] Comment on above: Performed By: #### 6 442275, 1961501 #### [facility] (DEFAULT) [address] [place] [address] 86750 WBC 7.8 x10 Normal 3.5-10.5 [facility] Comment on above: Performed By: #### 6 452848, 6809470 #### [facility] (DEFAULT) [address] [place] [address] 47146 Inpatient Patient Summaryon 12-04-2023 [place] [address] Patient Discharge Instructions Name: ANA SAUCEDA : 2000 Patient Address: [address] [place] [address] Primary Care Provider: Name: Joseph Vanegas MD After you are discharged if you find you have any questions, please, call [phone] ext [phone] to speak to a nurse. The Pharmacy at [facility] is open Friday through Friday from 9A to 6P and Friday and Friday from 9A to 5P Discharge Diagnosis: 1:Sepsis; 2:Acute pyelonephritis; 3:Hypothyroidism Prescription Information: If you have been given a prescription for narcotics, seek immediate medical attention if you have any difficulty breathing or any sudden status changes such as confusion and sleepiness. If you or anyone you know is experiencing suicidal thoughts, mental health, alcohol and/or drug addiction problems; contact the [facility] 02/12 Crisis Hotline -Text [id number] fh [phone]. If you received any narcotics, sedation, or any other medication that causes drowsiness for the next 24 hours, unless otherwise directed: ? Do not drive a car. ? Do not operate machinery such as power tools, lawn mowers, drills, sewing machines, or stoves ? Avoid alcoholic beverages and drugs for allergies, nerves, or sleep ? Do not make important personal or business decisions or sign any legal documents [facility] would like to thank you for allowing us to assist you with your healthcare needs. The following includes patient education materials and information regarding your injury/illness. ANA SAUCEDA has been given the following list of follow-up instructions, prescriptions, and patient education materials: Follow-up Instructions With: Address: When: Guilherme BERNSTEIN, Joseph Thurston [address] [place] [address] [id number] 12/12/2023 1:00 PM Medications During the course of your visit, your medication list was updated with the most current information. The details of those changes are reflected below: New Medications [facility] [id number] [place], [place] [id number], [phone] levoFLOXacin (levoFLOXacin 750 mg oral tablet) 1 tab(s) Oral (given by mouth) every 24 hours. for 7 Days. Refills: 0. naproxen (naproxen sodium 550 mg oral tablet) 1 tab(s) Oral (given by mouth) Every 12 hours scheduled time as needed as needed for pain. Refills: 0. Printed Prescriptions acetaminophen-oxycodo ne (Percocet 5 mg-325 mg oral tablet) 1 tab(s) Oral (given by mouth) every 8 hours. as needed as needed for pain. Refills: 0. Medications to Continue That Have Not Changed Other Medications levothyroxine (levothyroxine 50 mcg (0.05 mg) oral tablet) 1 tab(s) Oral (given by mouth) every day. Refills: 2. It is important to always keep an active list of medications available so that you can share with other providers and manage your medications appropriately. As an additional courtesy, we are also providing you with your final active medications list that you can keep with you. acetaminophen-oxycodo ne (Percocet 5 mg-325 mg oral tablet) 1 tab(s) Oral (given by mouth) every 8 hours. as needed as needed for pain. Refills: 0. levoFLOXacin (levoFLOXacin 750 mg oral tablet) 1 tab(s) Oral (given by mouth) every 24 hours. for 7 Days. Refills: 0. levothyroxine (levothyroxine 50 mcg (0.05 mg) oral tablet) 1 tab(s) Oral (given by mouth) every day. Refills: 2. naproxen (naproxen sodium 550 mg oral tablet) 1 tab(s) Oral (given by mouth) Every 12 hours scheduled time as needed as needed for pain. Refills: 0. Take only the medications listed above. Contact your doctor prior to taking any medications not on this list. Medication leaflets, if any, will display below Diet & Activity Patient Activity Level: As Tolerated Patient Diet: Regular Patient Activity Restrictions: Patient education materials, if any, will display below Pyelonephritis, Adult Pyelonephritis is an infection in the kidney. The kidneys are the parts of the body that help clean the blood. They move waste out of the blood and into the pee (urine). This infection can happen fast, or it can last for a long time. In most cases, it clears up with treatment and does not cause other problems. What are the causes? This infection may be caused by germs (bacteria). The germs may go: ? From your bladder up into your kidney. This may happen after you have a bladder infection. ? From your blood into your kidney. What increases the risk? You are more likely to get this condition if: ? You are . ? You are older. ? You have: ? Diabetes. ? Prostatitis. This is irritation and swelling of the prostate gland. ? Kidney stones or bladder stones. ? Other problems with your kidney or the parts of your body that carry pee from the kidneys to the bladder (ureters). ? (more content not included)... [facility] Pharmacy Noteon 12-04-2023 Pharmacy Note I have personally reviewed the patient's medication list upon discharge including, prescription medications, OTC products, vitamins and supplements. Below are the following medications the patient is discharged on. New Medications [facility] [id number], [address] [place], [place] [id number], [phone] levoFLOXacin (levoFLOXacin 750 mg oral tablet) 1 tab(s) Oral (given by mouth) every 24 hours. for 7 Days. Refills: 0. naproxen (naproxen sodium 550 mg oral tablet) 1 tab(s) Oral (given by mouth) Every 12 hours scheduled time as needed as needed for pain. Refills: 0. Printed Prescriptions acetaminophen-oxycodo ne (Percocet 5 mg-325 mg oral tablet) 1 tab(s) Oral (given by mouth) every 8 hours. as needed as needed for pain. Refills: 0. Medications to Continue That Have Not Changed Other Medications levothyroxine (levothyroxine 50 mcg (0.05 mg) oral tablet) 1 tab(s) Oral (given by mouth) every day. Refills: 2. Discharge Med Rec Notes: Counseled patient on medication changes including side effects, directions of how to take, and what each medication is for. Answered patient's questions regarding drug therapy. [Electronically Signed on: 12/04/2023 11:05 EDT] [facility] [Verified on: 12/04/2023 11:05 EDT] [facility] Progress Note - Nurseon 11-10 Progress Note - Nurse Patient PIV removed without incident. Patient and was given discharge instructions regarding follow up appointments, medications and restrictions. Both verbalized understanding with no questions or concerns voiced at this time. Patient was discharged per wheelchair. [Electronically Signed on: 12/04/2023 17:08 EDT] Lay Ocasio RN [Verified on: 12/04/2023 17:08 EDT] Lay Ocasio RN [facility] Telemetry Stripson Telemetry Strips [id number]#1. 00OTGTIFF [facility] .Auto Diff 1on 12-03-2023 Auto [place] % 11 % Normal -12 [facility] Comment on above: Performed By: #### 6 [id number], [id number] #### [facility] (DEFAULT) [address] [place] [address] 58582 Baso Abs# 0.0 x10 Normal 0.0-0.2 [facility] Comment on above: Performed By: #### 6 344594, 8186636 #### [facility] (DEFAULT) [address] [place] [address] 84666 Basophils/100 WBC (Bld) 0.5 % Normal 0.2-2.0 [facility] Comment on above: Performed By: #### 6 140999, 2901814 #### [facility] (DEFAULT) [address] [place] [address] 67987 Eos Abs# 0.2 x10 Normal 0.0-0.4 [facility] Comment on above: Performed By: #### 6 963958, 3337576 #### [facility] (DEFAULT) [address] [place] [address] 61455 Eosinophils/100 WBC (Bld) 2.6 % Normal 0.9-4.0 [facility] Comment on above: Performed By: #### 6 388616, 6486649 #### [facility] (DEFAULT) [address] [place] [address] 81463 Lymph Abs# 1.2 x10 Low 1.3-2.9 [facility] Comment on above: Performed By: #### 6 838744, 6641982 #### [facility] (DEFAULT) [address] [place] [address] 61177 Lymphocytes/100 WBC (Bld) 16 % Normal 14-48 [facility] Comment on above: Performed By: #### 6 547233, 6448009 #### [facility] (DEFAULT) [address] [place] [address] 20982 [place] Abs# 0.8 x10 Normal 0.0-0.8 [facility] Comment on above: Performed By: #### 6 070714, 9031825 #### [facility] (DEFAULT) [address] [place] [address] 80008 Neut Abs# 5.2 x10 Normal 1.5-9.2 [facility] Comment on above: Performed By: #### 6 879016, 9570388 #### [facility] (DEFAULT) [address] [place] [address] 41446 Neutrophils/100 WBC (Bld) 70 % Normal 44-88 [facility] Comment on above: Performed By: #### 6 923335, 1345885 #### [facility] (DEFAULT) [address] [place] [address] 69624 [facility] Standardon 12-03-2023 eGFR Non AA >60 Invalid Interpretation Code [facility] Comment on above: Performed By: #### 6 094449, 6549537 #### [facility] (DEFAULT) [address] [place] [address] 65630 eGFR AA >60 Invalid Interpretation Code [facility] Comment on above: Performed By: #### 6 393018, 0425829 #### [facility] (DEFAULT) [address] [place] [address] 42320 Anion gap [Moles/Vol] 8.6 mmol/L Normal 5.0-19.0 [facility] Comment on above: Performed By: #### 6 962823, 4233140 #### [facility] (DEFAULT) [address] [place] [address] 90142 Calcium [Mass/Vol] 8.1 mg/dL Low 8.9-10.3 [facility] Comment on above: Performed By: #### 6 195146, 8657799 #### [facility] (DEFAULT) [address] [place] [address] 15273 Chloride [Moles/Vol] 108 mmol/L Normal 101-111 [facility] Comment on above: Performed By: #### 6 437775, 2281066 #### [facility] (DEFAULT) [address] [place] [address] 91843 CO2 [Moles/Vol] 25 mmol/L Normal 21-32 [facility] Comment on above: Performed By: #### 6 961922, 5393812 #### [facility] (DEFAULT) [address] [place] [address] 53748 Creatinine [Mass/Vol] 0.77 mg/dL Normal 0.60-1.30 [facility] Comment on above: Performed By: #### 6 648238, 3927299 #### [facility] (DEFAULT) [address] [place] [address] 92604 Glucose [Mass/Vol] 115.0 mg/dL Normal 74.0-118.0 [facility] Comment on above: Performed By: #### 6 975021, 9182443 #### [facility] (DEFAULT) [address] [place] [address] 20503 Osmolality 274 mOsm/L Invalid Interpretation Code [facility] Comment on above: Performed By: #### 6 935008, 1783595 #### [facility] (DEFAULT) [address] [place] [address] 41470 Potassium [Moles/Vol] 3.6 mmol/L Normal 3.6-5.1 [facility] Comment on above: Performed By: #### 6 209959, 6642428 #### [facility] (DEFAULT) [address] [place] [address] 75900 Sodium [Moles/Vol] 138.0 mmol/L Normal 136.0-144.0 [facility] Comment on above: Performed By: #### 6 201657, 7337172 #### [facility] (DEFAULT) [address] [place] [address] Urea nitrogen [Mass/Vol] 7 mg/dL Low 8-26 [facility] Comment on above: Performed By: #### 6 002787, 2379106 #### [facility] (DEFAULT) [address] [place] [address] Urea nitrogen/Creatinine [Mass ratio] 9.0 mg/mg Normal 4.6-16.2 [facility] Comment on above: Performed By: #### 6 263015, 7499563 #### [facility] (DEFAULT) [address] [place] [address] CBC w/ Auto Diffon 4 Erythrocyte distribution width (RBC) [Ratio] 16.5 % High 11.5-15.0 [facility] Comment on above: Performed By: #### 6 011718, 0340537 #### [facility] (DEFAULT) [address] [place] [address] Hematocrit (Bld) [Volume fraction] 28.8 % Low 33.7-40.4 [facility] Comment on above: Performed By: #### 6 151835, 6733750 #### [facility] (DEFAULT) [address] [place] [address] Hemoglobin (Bld) [Mass/Vol] 9.3 g/dL Low 11.3-15.9 [facility] Comment on above: Performed By: #### 6 922502, 0232125 #### [facility] (DEFAULT) [address] [place] [address] Man Diff? Auto Invalid Interpretation Code [facility] Comment on above: Performed By: #### 6 179143, 8025039 #### [facility] (DEFAULT) [address] [place] [address] 28235 MCH (RBC) [Entitic mass] 25 pg Normal 24-34 [facility] Comment on above: Performed By: #### 6 158414, 0423207 #### [facility] (DEFAULT) [address] [place] [address] 80611 MCHC (RBC) [Mass/Vol] 32 g/dL Normal 26-37 [facility] Comment on above: Performed By: #### 6 962566, 2864115 #### [facility] (DEFAULT) [address] [place] [address] 46651 MCV (RBC) [Entitic vol] 78 fL Low 81-100 [facility] Comment on above: Performed By: #### 6 753223, 0872460 #### [facility] (DEFAULT) [address] [place] [address] 06337 Platelet 156 x10 Normal 138-427 [facility] Comment on above: Performed By: #### 6 042007, 8514950 #### [facility] (DEFAULT) [address] [place] [address] 27238 Platelet mean volume (Bld) [Entitic vol] 8.8 fL Normal 6.3-10.2 [facility] Comment on above: Performed By: #### 6 832243, 0159607 #### [facility] (DEFAULT) [address] [place] [address] 78569 RBC 3.70 x10 Normal 3.70-5.30 [facility] Comment on above: Performed By: #### 6 104145, 3204987 #### [facility] (DEFAULT) [address] [place] [address] 49650 WBC 7.4 x10 Normal 3.5-10.5 [facility] Comment on above: Performed By: #### 6 440695, 0926289 #### [facility] (DEFAULT) [address] [place] [address] 71576 Nutrition Noteon 12-03-2023 Nutrition Note Pt admitted w/ sepsi s secondary to acute pyelonephritis. Pt placed on a Regular diet, intake improving. WBC wnl. Pt fever free. Lytes replaced and wnl. TSH 8.99H hx of hypothyroid, tx in place. H/H 9.3/28.8L; did receive IVF. Admit wt 98.1kg, slow wt gain noted over the past few years (? thyroid, Pt also w/ 3 young children). Overall Pt appears at low nutrition risk. To follow. Normal [facility] Telemetry Stripson Telemetry Strips [id number]#1.00 OTGTIFF Normal [facility] .Auto Diff 1on 12-02-2023 Auto [place] % 10 % Normal -12 [facility] Comment on above: Performed By: #### 1 [id number], 0069136, 30749953, 5656245, 1418530873, 0656104013 #### [facility] (DEFAULT) [address] [place] [address] 72473 Baso Abs# 0.1 x10 Normal 0.0-0.2 [facility] Comment on above: Performed By: #### 1 310931267, 2978017, 93147655, 7089916, 7796984269, 2835331739 #### [facility] (DEFAULT) [address] [place] [address] 27245 Basophils/100 WBC (Bld) 0.7 % Normal 0.2-2.0 [facility] Comment on above: Performed By: #### 1 [id number], 4523702, 30710340, 3254971, 9715272415, 8896303824 #### [facility] (DEFAULT) [address] [place] [address] 92539 Eos Abs# 0.1 x10 Normal 0.0-0.4 [facility] Comment on above: Performed By: #### 1 456423731, 5298888, 38683843, 1963363, 1452861019, 1782163836 #### [facility] (DEFAULT) [address] [place] [address] 00711 Eosinophils/100 WBC (Bld) 0.8 % Low 0.9-4.0 [facility] Comment on above: Performed By: #### 1 360661539, 8514590, 24418441, 8277453, 8948799092, 1764305943 #### [facility] (DEFAULT) [address] [place] [address] 13956 Lymph Abs# 1.4 x10 Normal 1.3-2.9 [facility] Comment on above: Performed By: #### 1 951286344, 3068592, 15240391, 8969710, 3054174911, 2277528371 #### [facility] (DEFAULT) [address] [place] [address] 80739 Lymphocytes/100 WBC (Bld) 13 % Low 14-48 [facility] Comment on above: Performed By: #### 1 057350793, 6421623, 15970424, 0336186, 9188168951, 6857298616 #### [facility] (DEFAULT) [address] [place] [address] 51703 [place] Abs# 1.1 x10 High 0.0-0.8 [facility] Comment on above: Performed By: #### 1 577754713, 0517387, 63845317, 1060773, 0097177588, 2147965795 #### [facility] (DEFAULT) [address] [place] [address] 19849 Neut Abs# 7.7 x10 Normal 1.5-9.2 [facility] Comment on above: Performed By: #### 1 908983379, 3303343, 26473153, 8128720, 8225090910, 1868682904 #### [facility] (DEFAULT) [address] [place] [address] 09928 Neutrophils/100 WBC (Bld) 75 % Normal 44-88 [facility] Comment on above: Performed By: #### 1 501475480, 8203234, 57507276, 5206376, 1297327107, 8389292240 #### [facility] (DEFAULT) [address] [place] [address] 89834 Auto [place] % 8 % Normal 1-12 [facility] Comment on above: Performed By: #### 1 440205681, 7363876, 52561549, 4394331, 7670048579, 0293108153 #### [facility] (DEFAULT) [address] [place] [address] 17765 Baso Abs# 0.0 x10 Normal 0.0-0.2 [facility] Comment on above: Performed By: #### 1 860437336, 2636314, 11405612, 5480283, 6319003425, 4942013910 #### [facility] (DEFAULT) [address] [place] [address] 50170 Basophils/100 WBC (Bld) 0.3 % Normal 0.2-2.0 [facility] Comment on above: Performed By: #### 1 317904516, 1337156, 82101902, 0291743, 6142141736, 5777825120 #### [facility] (DEFAULT) [address] [place] [address] 39794 Eos Abs# 0.1 x10 Normal 0.0-0.4 [facility] Comment on above: Performed By: #### 1 842068654, 6647138, 60838280, 9823441, 9665228765, 9064724560 #### [facility] (DEFAULT) [address] [place] [address] 92356 Eosinophils/100 WBC (Bld) 0.5 % Low 0.9-4.0 [facility] Comment on above: Performed By: #### 1 160516416, 7469548, 59940428, 8682751, 0051785238, 4325822008 #### [facility] (DEFAULT) [address] [place] [address] 99016 Lymph Abs# 1.0 x10 Low 1.3-2.9 [facility] Comment on above: Performed By: #### 1 525313659, 3161492, 27438925, 3074154, 4709260891, 1471374699 #### [facility] (DEFAULT) [address] [place] [address] 53495 Lymphocytes/100 WBC (Bld) 8 % Low 14-48 [facility] Comment on above: Performed By: #### 1 295870665, 7565606, 83821253, 3363378, 3478180268, 7859760930 #### [facility] (DEFAULT) [address] [place] [address] 84883 [place] Abs# 0.9 x10 High 0.0-0.8 [facility] Comment on above: Performed By: #### 1 703323334, 7720480, 53611579, 6927412, 0617553463, 3539276098 #### [facility] (DEFAULT) [address] [place] [address] Neut Abs# 9.9 x10 High 1.5-9.2 [facility] Comment on above: Performed By: #### 1 305755259, 8304817, 99444783, 2534842, 9712290363, 6868411187 #### [facility] (DEFAULT) [address] [place] [address] Neutrophils/100 WBC (Bld) 83 % Normal 44-88 [facility] Comment on above: Performed By: #### 1 915677461, 1521795, 66276053, 6234947, 5486941404, 3762764828 #### [facility] (DEFAULT) [address] [place] [address] Standardon 12-02-2023 eGFR Non AA >60 Invalid Interpretation Code [facility] Comment on above: Performed By: #### 1 442244541, 0035502, 72624008, 1683301, 6845612134, 3165262164 #### [facility] (DEFAULT) [address] [place] [address] 63729 eGFR AA >60 Invalid Interpretation Code [facility] Comment on above: Performed By: #### 1 441523056, 7113772, 39566828, 6339349, 7847392240, 4674875757 #### [facility] (DEFAULT) [address] [place] [address] 14570 Anion gap [Moles/Vol] 7.2 mmol/L Normal 5.0-19.0 [facility] Comment on above: Performed By: #### 1 709277575, 0759914, 73849140, 9995217, 4505299236, 8517809511 #### [facility] (DEFAULT) [address] [place] [address] 12585 Calcium [Mass/Vol] 7.7 mg/dL Low 8.9-10.3 [facility] Comment on above: Performed By: #### 1 330207785, 8604273, 76034874, 5740427, 2776398147, 7259874275 #### [facility] (DEFAULT) [address] [place] [address] 47970 Chloride [Moles/Vol] 109 mmol/L Normal 101-111 [facility] Comment on above: Performed By: #### 1 [id number], 2870406, 99121631, 0839617, [id number], [id number] #### [facility] (DEFAULT) [address] [place] [address] 95427 CO2 [Moles/Vol] 25 mmol/L Normal 21-32 [facility] Comment on above: Performed By: #### 1 [id number], 3101584, 39698059, 5423725, [id number], [id number] #### [facility] (DEFAULT) [address] [place] [address] 08438 Creatinine [Mass/Vol] 0.73 mg/dL Normal 0.60-1.30 [facility] Comment on above: Performed By: #### 1 [id number], 9690575, 41672305, 4457314, 9129564436, [id number] #### [facility] (DEFAULT) [address] [place] [address] 91463 Glucose [Mass/Vol] 144.0 mg/dL High 74.0-118.0 [facility] Comment on above: Performed By: #### 1 [id number], 5513537, 47804265, 0972543, 0252953241, [id number] #### [facility] (DEFAULT) [address] [place] [address] 73905 Osmolality 277 mOsm/L Invalid Interpretation Code [facility] Comment on above: Performed By: #### 1 [id number], 9389989, 73263929, 6115245, 4752158451, [id number] #### [facility] (DEFAULT) [address] [place] [address] 39936 Potassium [Moles/Vol] 3.2 mmol/L Low 3.6-5.1 [facility] Comment on above: Performed By: #### 1 [id number], 4884589, 53573607, 2097279, 7110669007, 8077120504 #### [facility] (DEFAULT) [address] [place] [address] Sodium [Moles/Vol] 138.0 mmol/L Normal 136.0-144.0 [facility] Comment on above: Performed By: #### 1 [id number], 8912545, 40730297, 8011796, 5206232481, 8007525134 #### [facility] (DEFAULT) [address] [place] [address] Urea nitrogen [Mass/Vol] 9 mg/dL Normal 8-26 [facility] Comment on above: Performed By: #### 1 [id number], 9728762, 38782149, 1389459, 9843978127, [id number] #### [facility] (DEFAULT) [address] [place] [address] Urea nitrogen/Creatinine [Mass ratio] 12.3 mg/mg Normal 4.6-16.2 [facility] Comment on above: Performed By: #### 1 [id number], 4221846, 02820407, 1277411, 7264975007, 6254045930 #### [facility] (DEFAULT) [address] [place] [address] 09425 CBC w/ Auto Diffon Erythrocyte distribution width (RBC) [Ratio] 16.3 % High 11.5-15.0 [facility] Comment on above: Performed By: #### 2 [id number] #### [facility] (DEFAULT) [address] [place] [address] 06280 Hematocrit (Bld) [Volume fraction] 28.2 % Low 33.7-40.4 [facility] Comment on above: Performed By: #### 2 791501 #### [facility] (DEFAULT) [address] [place] [address] Hemoglobin (Bld) [Mass/Vol] 9.4 g/dL Low 11.3-15.9 [facility] Comment on above: Performed By: #### 2 666822 #### [facility] (DEFAULT) [address] [place] [address] 25336 Man Diff? Auto Invalid Interpretation Code [facility] Comment on above: Performed By: #### 2 [id number] #### [facility] (DEFAULT) [address] [place] [address] 24210 MCH (RBC) [Entitic mass] 25 pg Normal 24-34 [facility] Comment on above: Performed By: #### 2 913704 #### [facility] (DEFAULT) [address] [place] [address] 43631 MCHC (RBC) [Mass/Vol] 33 g/dL Normal 26-37 [facility] Comment on above: Performed By: #### 2 888728 #### [facility] (DEFAULT) [address] [place] [address] 38930 MCV (RBC) [Entitic vol] 76 fL Low 81-100 [facility] Comment on above: Performed By: #### 2 816959 #### [facility] (DEFAULT) [address] [place] [address] 62145 Platelet 183 x10 Normal 138-427 [facility] Comment on above: Performed By: #### 2 344337 #### [facility] (DEFAULT) [address] [place] [address] 13090 Platelet mean volume (Bld) [Entitic vol] 8.0 fL Normal 6.3-10.2 [facility] Comment on above: Performed By: #### 2 155078 #### [facility] (DEFAULT) [address] [place] [address] 05849 RBC 3.70 x10 Normal 3.70-5.30 [facility] Comment on above: Performed By: #### 2 870223 #### [facility] (DEFAULT) [address] [place] [address] 29692 WBC 10.3 x10 Normal 3.5-10.5 [facility] Comment on above: Performed By: #### 2 791267 #### [facility] (DEFAULT) [address] [place] [address] 17011 Erythrocyte distribution width (RBC) [Ratio] 16.5 % High 11.5-15.0 [facility] Comment on above: Performed By: #### 1 [id number], 1711572, 41373417, 2494149, 6615114123, 4223582674 #### [facility] (DEFAULT) [address] [place] [address] Hematocrit (Bld) [Volume fraction] 32.0 % Low 33.7-40.4 [facility] Comment on above: Performed By: #### 1 [id number], 0822260, 22603566, 9954553, 2140400783, 6163982774 #### [facility] (DEFAULT) [address] [place] [address] Hemoglobin (Bld) [Mass/Vol] 10.2 g/dL Low 11.3-15.9 [facility] Comment on above: Performed By: #### 1 174549812, 5504358, 69779813, 8229817, 1242496129, 2376559554 #### [facility] (DEFAULT) [address] [place] [address] Man Diff? Auto Invalid Interpretation Code [facility] Comment on above: Performed By: #### 1 [id number], 4396733, 72642379, 5208478, 6486463003, 6885657798 #### [facility] (DEFAULT) [address] [place] [address] MCH (RBC) [Entitic mass] 24 pg Normal 24-34 [facility] Comment on above: Performed By: #### 1 [id number], 6981628, 99683278, 8545168, 3171340897, 4640441937 #### [facility] (DEFAULT) [address] [place] [address] MCHC (RBC) [Mass/Vol] 32 g/dL Normal 26-37 [facility] Comment on above: Performed By: #### 1 513206705, 3976427, 70045649, 3337488, 1378247334, 2608127223 #### [facility] (DEFAULT) [address] [place] [address] MCV (RBC) [Entitic vol] 77 fL Low 81-100 [facility] Comment on above: Performed By: #### 1 031895510, 9320900, 97226262, 1819343, 6548408782, 0094787719 #### [facility] (DEFAULT) [address] [place] [address] Platelet 197 x10 Normal 138-427 [facility] Comment on above: Performed By: #### 1 185635236, 4128698, 19009711, 3810648, 9223619232, 6946592500 #### [facility] (DEFAULT) [address] [place] [address] Platelet mean volume (Bld) [Entitic vol] 7.9 fL Normal 6.3-10.2 [facility] Comment on above: Performed By: #### 1 672092921, 5980002, 33104272, 1935349, 9131945533, 6972533736 #### [facility] (DEFAULT) [address] [place] [address] RBC 4.16 x10 Normal 3.70-5.30 [facility] Comment on above: Performed By: #### 1 [id number], 8966194, 29513946, 6843521, 8333922190, 1613568357 #### [facility] (DEFAULT) [address] [place] [address] WBC 12.0 x10 High 3.5-10.5 [facility] Comment on above: Performed By: #### 1 638694799, 2648551, 72174614, 9944144, 9708172283, 5613015730 #### [facility] (DEFAULT) [address] [place] [address] 07445 CMP Standardon 12-02-2023 eGFR Non AA >60 Invalid Interpretation Code [facility] Comment on above: Performed By: #### 1 130430061, 2508101, 00028849, 6951666, 4220096547, 1505566747 ####[facility] (DEFAULT)[address] [place] [address] 55330 eGFR AA >60 Invalid Interpretation Code [facility] Comment on above: Performed By: #### 1 [id number], 4674686, 53970648, 0391612, 7940138642, 3781678960 ####[facility] (DEFAULT)[address] [place] [address] Albumin [Mass/Vol] 3.7 g/dL Normal 3.5-5.0 [facility] Comment on above: Performed By: #### 1 503573273, 4942068, 15653157, 0106925, 1693419427, 7633814228 ####[facility] (DEFAULT)[address] [place] [address] Albumin/Globulin [Mass ratio] 1.0 {ratio} Low 1.4-2.6 [facility] Comment on above: Performed By: #### 1 796370723, 0900911, 81977522, 3429200, 4011466397, 7967737925 ####[facility] (DEFAULT)[address] [place] [address] Alk Phos 48 IU/L Normal 32-91 [facility] Comment on above: Performed By: #### 1 039940046, 4244417, 63782066, 5136276, 2799987357, 7634858827 ####[facility] (DEFAULT)[address] [place] [address] ALT [Catalytic activity/Vol] 12.0 U/L Low 14.0-54.0 [facility] Comment on above: Performed By: #### 1 234362052, 9210232, 74989595, 8185175, 3872681635, 0034751251 ####[facility] (DEFAULT)[address] [place] [address] 17692 Anion gap [Moles/Vol] 9.5 mmol/L Normal 5.0-19.0 [facility] Comment on above: Performed By: #### 1 414908272, 5506769, 42298672, 6990133, 8015908599, 4962363136 ####[facility] (DEFAULT)[address] [place] [address] 22646 AST [Catalytic activity/Vol] 13 U/L Low 15-41 [facility] Comment on above: Performed By: #### 1 744162575, 6327868, 35789733, 0462989, 6638705790, 7885217733 ####[facility] (DEFAULT)[address] [place] [address] 33668 Bili Total 0.7 mg/dL Normal 0.3-1.2 [facility] Comment on above: Performed By: #### 1 302949593, 3674471, 86924677, 5959123, 7660926993, 3599076021 ####[facility] (DEFAULT)[address] [place] [address] 94744 Calcium [Mass/Vol] 8.4 mg/dL Low 8.9-10.3 [facility] Comment on above: Performed By: #### 1 442934387, 1409853, 79384456, 4135557, 6471251778, 5685507591 ####[facility] (DEFAULT)[address] [place] [address] 13938 Chloride [Moles/Vol] 104 mmol/L Normal 101-111 [facility] Comment on above: Performed By: #### 1 883209911, 5808201, 26150945, 7656740, 4365713204, 3059749767 ####[facility] (DEFAULT)[address] [place] [address] 69604 CO2 [Moles/Vol] 25 mmol/L Normal 21-32 [facility] Comment on above: Performed By: #### 1 364337206, 7038968, 96038737, 4582146, 0759895477, 6568892303 ####[facility] (DEFAULT)[address] [place] [address] 07113 Creatinine [Mass/Vol] 0.73 mg/dL Normal 0.60-1.30 [facility] Comment on above: Performed By: #### 1 134292556, 2594160, 82499727, 2043443, 7598527944, 4513089124 ####[facility] (DEFAULT)[address] [place] [address] 58805 Globulin (S) [Mass/Vol] 3.5 g/dL Normal 1.5-4.3 [facility] Comment on above: Performed By: #### 1 943647521, 5327210, 00779704, 2338439, 8658181685, 0383698639 ####[facility] (DEFAULT)[address] [place] [address] 19153 Glucose [Mass/Vol] 110.0 mg/dL Normal 74.0-118.0 [facility] Comment on above: Performed By: #### 1 033681806, 8006369, 21666745, 4080640, 2444760887, 6381375166 ####[facility] (DEFAULT)[address] [place] [address] Osmolality 269 mOsm/L Invalid Interpretation Code [facility] Comment on above: Performed By: #### 1 [id number], 8626117, 90189603, 5155847, 0230873336, 7442343543 ####[facility] (DEFAULT)[address] [place] [address] 67423 Potassium [Moles/Vol] 3.5 mmol/L Low 3.6-5.1 [facility] Comment on above: Performed By: #### 1 153465610, 3169151, 52388030, 1335674, 6438345716, 6406653679 ####[facility] (DEFAULT)[address] [place] [address] 16578 Protein [Mass/Vol] 7.2 g/dL Normal 6.5-8.1 [facility] Comment on above: Performed By: #### 1 450503984, 7893161, 91876808, 2200322, 8002040481, 5155166793 ####[facility] (DEFAULT)[address] [place] [address] 94413 Sodium [Moles/Vol] 135.0 mmol/L Low 136.0-144.0 [facility] Comment on above: Performed By: #### 1 [id number], 8336090, 12569656, 7061011, 5304615701, 7171557830 ####[facility] (DEFAULT)[address] [place] [address] 32516 Urea nitrogen [Mass/Vol] 8 mg/dL Normal 8-26 [facility] Comment on above: Performed By: #### 1 474668682, 9923597, 19045710, 7906820, 1115162346, 5600297183 ####[facility] (DEFAULT)[address] [place] [address] Urea nitrogen/Creatinine [Mass ratio] 10.9 mg/mg Normal 4.6-16.2 [facility] Comment on above: Performed By: #### 1 547446296, 3858004, 48389660, 3949930, 6142848012, 7174234426 ####[facility] (DEFAULT)[address] [place] [address] CT Abdomen/Pelvis w/o Contra ston 12-02-2023 CT Abdomen/Pelvis w/o Contrast EXAMINATION:CT Abdomen/Pelvis w/o Contrast INDICATION:Abdominal Pain COMPARISON:07/23/2023 TECHNIQUE:Multiple thin section transaxial slices were acquired through the abdomen and pelvis without intravenous contrast. Coronal and sagittal reconstructed images were reviewed. Oral contrastWas not administered. FINDINGS: LOWER CHEST: Mild dependent changes are present in the left lower lobe. LIVER: Mild dependent changes are present in the left lower lobe. GALLBLADDER AND BILIARY SYSTEM: No obvious ductal dilation. No calcified stones. SPLEEN: The spleen is unremarkable. PANCREAS: The pancreas is unremarkable. ADRENAL GLANDS: The adrenal glands are unremarkable. KIDNEYS AND URETERS: There is asymmetric fat stranding associated with the right kidney. There is mild right-sided pelvocaliectasis. There is periureteral fat stranding. No definitive obstructing urologic calcifications are present. The imaging findings in the right urologic system may be secondary to a recently expelled calculus for an underlying infectious process. There is no left hydronephrosis. No obstructing urologic calcifications are present in the left ureter.No obstructing urologic calcifications are present. VASCULATURE: Vascularity is unremarkable. PERITONEUM/RETROPERIT ONEUM: No free air or free fluid is present. LYMPH NODES: There are mildly enlarged lymph nodes in the right retroperitoneum which may be reactive. GASTROINTESTINAL TRACT: The bowel is normal in caliber.No acute inflammatory process is associated with the bowel.The appendix is visualized and is not inflamed. BLADDER: The urinary bladder is unremarkable. REPRODUCTIVE SYSTEM: Reproductive system is unremarkable. BODY WALL: There is a tiny fat-containing umbilical hernia. BONES: There is an intramedullary dennis in the proximal right femur. IMPRESSION: Acute inflammatory changes surrounding the right kidney and right ureter. Mild pelvocaliectasis of the right renal collecting system without an obstructing urologic calcification. This could be secondary to a recently expelled urologic calcification versus underlying infectious process involving the right urologic system. Correlation with urinalysis is recommended. Final Dictated by: Daniella Ambrocio MD Dictated DT/TM: 12/02/23 1:09 Signed (Electronic Signature): Daniella Ambrocio MD 12/02/23 1:18 am Technologist: CH[facility] Discharge Noteon 12-02-2023 Discharge Note 0222-Pt taken to floor per wheelchair. [Electronically Signed on: 12/02/2023 02:22 EDT] Meseret Boone RN [Verified on: 12/02/2023 02:22 EDT] Meseret Boone RN [facility] ED Clinical Summaryon 2023 ED Clinical Summary [facility] - Emergency Department [address] [place] [address] ED Clinical Summary PERSON INFORMATION Name: ANA SAUCEDA Age: 23 Years Sex: FEMALE : 2000 MRN: Acct#: Visit Reason: Back pain; Flank pain; ACUTE PYELONEPHRITIS Arrival: 12/01/2023 23:07:34 Discharge: LOS: 000 03:16 Check In: 12/01/2023 23:07:34 Checkout:12/02/2023 02:23:24 Address: [address] [place] [address] PCP: Joseph Vanegas MD PROVIDER INFORMATION Provider Role Assigned Unassigned Meseret Boone RN ED Nurse 12/01/2023 23:08:00 Main Worrell DO ED Provider 12/01/2023 23:35:30 VITALS INFORMATION Vital Sign Triage Latest Temperature Tympanic Temperature Temporal Artery Pulse Rate 124 bpm 91 bpm O2 Sat 99 % 99 % Respiratory Rate 16 br/min 16 br/min Blood Pressure /86 mmHg /86 mmHg MEDICAL INFORMATION Medications Given: Medication Dose Route Sodium Chloride 0.9% intravenous solution 1,000 mL 1000 mL Initial Volume 1000 mL/hr IV Left Antecubital Fossa acetaminophen 1000 mg Oral ketorolac 15 mg IV Push ondansetron 4 mg IV Push cefTRIAXone 1 gm IV Piggyback ketorolac 15 mg IV Push morphine (Morphine IV push) 2 mg IV Push ondansetron 4 mg IV Push Allergy Information: No Known Medication Allergies PHYSICIAN DOCUMENTATION Patient: ANA SAUCEDA Age: 23 years Sex: FEMALE : 2000 Associated Diagnoses: Acute pyelonephritis Author: Main Worrell DO Basic Information Additional information: Chief Complaint from Nursing Triage Note : Chief Complaint 12/01/2023 23:18 EDT Chief Complaint PT PRESENTS TO ER WITH COMPLAINTS OF RIGHT LOWER BACK/FLANK PAIN THAT SUDDENLY INCREASED LAST NIGHT. PT HAD A FEVER AND VOMITING SINCE. . History of Present Illness 23-year-old female to the emergency department chief complaint of right flank pain radiating into her right lower abdomen with feeling fevered and chilled with nausea and vomiting. Patient states she noticed some mild discomfort in her right flank off and on over the last 2 weeks. Last night woke up at approximately 3 PM with worsening pain fever nausea vomiting. Has thrown up a total of 3 times. Patient states urinary frequency but has not noticed any blood or dysuria. No history of similar episodes. No radicular symptoms. No cough congestion or URI symptoms Review of Systems Constitutional symptoms: Fever, chills. Skin symptoms: Negative except as documented in HPI. Eye symptoms: Negative except as documented in HPI. ENMT symptoms: Negative except as documented in HPI. Respiratory symptoms: Negative except as documented in HPI. Cardiovascular symptoms: Negative except as documented in HPI. Gastrointestinal symptoms: Abdominal pain, nausea, vomiting, no diarrhea, no constipation. Genitourinary symptoms: No dysuria, no hematuria. Musculoskeletal symptoms: Back pain. Neurologic symptoms: Negative except as documented in HPI. Health Status Allergies: Allergic Reactions (Selected) No Known Medication Allergies. Medications: (Selected) Inpatient Medications Ordered Sodium Chloride 0.9% intravenous solution 1,000 mL: 1,000 mL/hr, IV ketorolac: 15 mg = 1 mL, IV Push, Once Prescriptions Prescribed levothyroxine 50 mcg (0.05 mg) oral tablet: 1 tab(s), Oral, Daily, 90 tab(s), 2 Refill(s). Past Medical/ Family/ Social History Medical history: Resolved Acne, mild (99953622): Resolved. Submental lymphadenopathy (632611): Resolved. (310240632): Resolved. Chlamydia infection during (097640819): Resolved.. Surgical history: Fracture of femoral condyle ([id number]). Comments: 08/09/2022 15:00 EDT - Sruthi Poole [employer] dennis placed. Family history: Diabetes mellitus Grandparent Hypertension Father . Social history: Social & Psychosocial Habits Alcohol 09/22/2023 Alcohol Use: Current Frequency: 1-2 times per week 12/01/2023 Alcohol Use: Current Frequency: 1-2 times per week Substance Use 07/23/2023 Substance use: Never 12/01/2023 Substance use: Never Tobacco 08/09/2022 Smoking tobacco use: Current everyday tobacco Number used per day: < 1 ppd 09/22/2023 Smoking tobacco use: Former tobacco user 12/01/2023 Smoking tobacco use: Former tobacco user Electronic Cigarette/Vaping 09/22/2023 Electronic Cigarette Use: Use, within last 90 days Type: Nicotine infused Use per Day: 51+ Inhales/day 12/01/2023 Electronic Cigarette Use: Use, within last 90 days Type: Nicotine infused . Problem list: Active Problems (4) COVID-19 ruled out Hypothyroidism Lightheadedness . Physical Examination Vital Signs Vital Signs 12/01/2023 23:18 EDT Temperature Oral 37.2 DegC Peripheral Pulse Rate 124 bpm HI Respiratory Rate 16 br/min Systolic Blood Pressure 137 mmHg Diastolic Blood Pressure 86 mmHg SpO2 99 % Oxygen Therapy Room air . Measurements 12/01/2023 23:18 EDT Height 173 cm (more content not included)... Normal [facility] ED Note - Physicianon 2023 ED Note - Physician Patient: ANA SAUCEDA Age: 23 years Sex: FEMALE : 2000 Associated Diagnoses: Acute pyelonephritis Author: Main Worrell DO Basic Information Additional information: Chief Complaint from Nursing Triage Note : Chief Complaint 12/01/2023 23:18 EDT Chief Complaint PT PRESENTS TO ER WITH COMPLAINTS OF RIGHT LOWER BACK/FLANK PAIN THAT SUDDENLY INCREASED LAST NIGHT. PT HAD A FEVER AND VOMITING SINCE. . History of Present Illness 23-year-old female to the emergency department chief complaint of right flank pain radiating into her right lower abdomen with feeling fevered and chilled with nausea and vomiting. Patient states she noticed some mild discomfort in her right flank off and on over the last 2 weeks. Last night woke up at approximately 3 PM with worsening pain fever nausea vomiting. Has thrown up a total of 3 times. Patient states urinary frequency but has not noticed any blood or dysuria. No history of similar episodes. No radicular symptoms. No cough congestion or URI symptoms Review of Systems Constitutional symptoms: Fever, chills. Skin symptoms: Negative except as documented in HPI. Eye symptoms: Negative except as documented in HPI. ENMT symptoms: Negative except as documented in HPI. Respiratory symptoms: Negative except as documented in HPI. Cardiovascular symptoms: Negative except as documented in HPI. Gastrointestinal symptoms: Abdominal pain, nausea, vomiting, no diarrhea, no constipation. Genitourinary symptoms: No dysuria, no hematuria. Musculoskeletal symptoms: Back pain. Neurologic symptoms: Negative except as documented in HPI. Health Status Allergies: Allergic Reactions (Selected) No Known Medication Allergies. Medications: (Selected) Inpatient Medications Ordered Sodium Chloride 0.9% intravenous solution 1,000 mL: 1,000 mL/hr, IV ketorolac: 15 mg = 1 mL, IV Push, Once Prescriptions Prescribed levothyroxine 50 mcg (0.05 mg) oral tablet: 1 tab(s), Oral, Daily, 90 tab(s), 2 Refill(s). Past Medical/ Family/ Social History Medical history: Resolved Acne, mild (28344093): Resolved. Submental lymphadenopathy (457258): Resolved. (949027663): Resolved. Chlamydia infection during (408557363): Resolved.. Surgical history: Fracture of femoral condyle ([id number]). Comments: 08/09/2022 15:00 EDT - Sruthi Poole [employer]ACH dennis placed. Family history: Diabetes mellitus Grandparent Hypertension Father . Social history: Social & Psychosocial Habits Alcohol 09/22/2023 Alcohol Use: Current Frequency: 1-2 times per week 12/01/2023 Alcohol Use: Current Frequency: 1-2 times per week Substance Use 07/23/2023 Substance use: Never 12/01/2023 Substance use: Never Tobacco 08/09/2022 Smoking tobacco use: Current everyday tobacco Number used per day: < 1 ppd 09/22/2023 Smoking tobacco use: Former tobacco user 12/01/2023 Smoking tobacco use: Former tobacco user Electronic Cigarette/Vaping 09/22/2023 Electronic Cigarette Use: Use, within last 90 days Type: Nicotine infused Use per Day: 51+ Inhales/day 12/01/2023 Electronic Cigarette Use: Use, within last 90 days Type: Nicotine infused . Problem list: Active Problems (4) COVID-19 ruled out Hypothyroidism Lightheadedness . Physical Examination Vital Signs Vital Signs 12/01/2023 23:18 EDT Temperature Oral 37.2 DegC Peripheral Pulse Rate 124 bpm HI Respiratory Rate 16 br/min Systolic Blood Pressure 137 mmHg Diastolic Blood Pressure 86 mmHg SpO2 99 % Oxygen Therapy Room air . Measurements 12/01/2023 23:18 EDT Height 173 cm Weight 98.4 kg Weight Dosing 98.400 kg Body Mass Index Measured 32.88 kg/m2 . General: Alert, no acute distress, Patient appears to not feel well.. Skin: Warm, dry. Head: Normocephalic, atraumatic. Neck: Supple. Eye: Pupils are equal, round and reactive to light, normal conjunctiva. Ears, nose, mouth and throat: Oral mucosa moist. Cardiovascular: Regular S1-S2. Initial heart rate in the 120s. Respiratory: Lungs are clear to auscultation, respirations are non-labored. Gastrointestinal: Bowel sounds positive x 4. Abdomen soft nondistended. Patient with a right lower quadrant tenderness to palpation. No guarding rebound or rigidity. Genitourinary: Right-sided CVA tenderness to palpation.. Back: As above. Neurological: Alert and oriented to person, place, time, and situation, normal speech observed. Lymphatics: No lymphadenopathy. Psychiatric: Cooperative. Medical Decision Making Differential Diagnosis: Cervicitis, cystitis, urinary tract infection, pyelonephritis, hematuria, enuresis, renal colic, hydronephrosis, abdominal pain, pelvic pain, pelvic inflammatory disease, , venereal disease, Appendicitis. Results review: Lab results : Lab Flowsheet 12/01/2023 23:59 EDT Sodium Level 135.0 mmol/L LOW Potassium Level 3.5 mmol/L LOW Chloride Level 104 mmol/L CO2 2 (more content not included)... [facility] ED Note-Nursingon 12-02-2023 ED Note-Nursing Patient admitted to the floor, hospitalist to review cultures [facility] ED Note-Nursing 0218-Pt given dose o f Morphine 2mg and zofran for pain at a [address] Worrell order. [facility] ED Note-Nursing 0020-Pt taken to CT scan per wheelchair. [facility] ED Note-Nursing 0145-Pt given med of Toradol as ordered [facility] ED Note-Nursing 0040-IV inserted x 1 attempt. Pt tolerated well. Pt given meds as ordered. [facility] ED Note-Nursing 0036-Pt returned fro m CT scan [facility] ED Patient Education Noteon 12-02-2023 ED Patient Education Note Education Materials [facility] ED Patient Summaryon 024 ED Patient Summary [facility] - Emergency Department [address] [place], [place] [id number] PATIENT DISCHARGE INSTRUCTIONS Patient Information Name: ANA SAUCEDA Age: 23 Years Date of : 2000 Reason For Visit: Back pain; Flank pain; ACUTE PYELONEPHRITIS Arrival Time: 12/01/2023 23:07:34 Primary Care Physician: Joseph Vanegas MD Attending Physician: Eloy He MD Comment: Visit Diagnosis: Diagnoses This Visit Acute pyelonephritis (N10) Back pain ([id number]) Flank pain ([id number]) The Pharmacy at [facility] is open Friday through Friday from 9A to 6P and Friday and Friday from 9A to 5P Prescription Information: If you have been given a prescription for narcotics, seek immediate medical attention if you have any difficulty breathing or any sudden status changes such as confusion and sleepiness. If you or anyone you know is experiencing suicidal thoughts, mental health, alcohol and/or drug addiction problems; contact the [facility] 02/12 Crisis Hotline -Text 6HZZU uw [phone]. If you received any narcotics, sedation, or any other medication that causes drowsiness for the next 24 hours, unless otherwise directed: ? Do not drive a car. ? Do not operate machinery such as power tools, lawn mowers, drills, sewing machines, or stoves ? Avoid alcoholic beverages and drugs for allergies, nerves, or sleep ? Do not make important personal or business decisions or sign any legal documents Medication Information: The exam and treatment you received today in the [facility] Emergency Department were for an urgent problem and are not intended as complete care. It is important for you to follow up with a doctor, nurse practitioner, or physician?s data assistant for ongoing care. If your symptoms become worse or you do not improve as expected and you are unable to reach your usual health care provider, you should return to the Emergency Department, we are available 24 hours a day. For those patients who have received Radiology results, the interpretation of your X-ray as given to you by our Emergency Department physician is only a preliminary report. The Radiologist will review your films and if there is a change in the diagnosis you will be notified by phone. Please make sure you have provided a working phone number so we can reach you if necessary. In the event that you had a lab culture while you were a patient in the Emergency Department, you will be notified by phone if there is a need to change your antibiotic. Please make sure you have provided a working phone number so we can reach you if necessary. [facility] Emergency Department has provided you with a complete list of medications post discharge. Please inform your filenet p8 developer/provider of your visit and for further instruction on these medications. Any specific questions regarding your chronic medications and dosages should be discussed with your primary care physician(s) and/or pharmacist. Medications to Continue That Have Not Changed Other Medications levothyroxine (levothyroxine 50 mcg (0.05 mg) oral tablet) 1 tab(s) Oral (given by mouth) every day. Refills: 2. Visit Information Allergies: Substance Reaction Symptoms Type Comments No Known Medication Allergies Drug Vital Signs: Vitals and Measurements this Visit (last charted value for your 12/01/2023 visit) Vital Signs This Visit Temperature Oral: 37.2 DegC Peripheral Pulse Rate: 91 bpm Respiratory Rate: 16 br/min Systolic Blood Pressure: 127 mmHg Diastolic Blood Pressure: 77 mmHg SpO2: 99 % Oxygen Therapy: Room air Measurements This Visit Height/Length Measured: 173 cm Weight Measured: 98.4 kg Weight Dosin.400 kg Body Mass Index: 32.88 kg/m2 Problems List: Problem Onset Comments COVID-19 ruled out Hypothyroidism Lightheadedness Patient Education Viruses or Bacteria What?s got you sick? Antibiotics only treat bacterial infections. Viral illnesses cannot be treated with antibiotics. When an antibiotic is not prescribed, ask your healthcare professional for tips on how to relieve symptoms and feel better. Usual Cause Illness Viruses Bacteria Antibiotic Needed Cold/Runny Nose ? NO Bronchitis/Chest Cold (in otherwise healthy children and adults) ? NO Whooping Cough ? Yes Flu ? NO Strep Throat ? Yes Sore Throat (except strep) ? NO Fluid in the middle ear (otitis media with effusion) ? NO Urinary Tract Infection ? Yes Antibiotics Aren?t Always the Answer www.cdc.gov/getsmart GET SMART Know When Antibiotics Work U.S. Department of Health and Human Services Centers for Disease Control and Prevention January 2014 Normal [facility] Extra Blueon 12-02-2023 Tube Collected Yes Invalid Interpretation Code [facility] Comment on above: Performed By: #### 1 [id number], [id number], [id number], [id number], [id number], [id number] #### [facility] (DEFAULT) [address] [place] [address] Lactic Acidon 12-02-2023 Lactic Acid 10.1 mg/dL Normal 4.5-19.8 [facility] Comment on above: Order Comment: Place d by Discern Expert Performed By: #### 2 [id number] #### [facility] (DEFAULT) [address] [place] [address] Lactic Acid 20.6 mg/dL High 4.5-19.8 [facility] Comment on above: Performed By: #### 2 [id number] #### [facility] (DEFAULT) [address] [place] [address] Lipaseon 12-02-2023 Lipase Level 25.0 IU/L Normal 22.0-51.0 [facility] Comment on above: Performed By: #### 1 [id number], 6717151, 52613387, 9818583, [id number], [id number] ####[facility] (DEFAULT)[address] [place] [address] Pharmacy Noteon 12-02-2023 Pharmacy Note I have personally reviewed the patient's current home medication list including, prescription medications, OTC products, vitamins and supplements. Home medications reviewed upon admission as follows: Active Medications levothyroxine: 1 tab(s), Oral, Daily, 90 tab(s), 2 Refill(s), Refills: 2 Status of Medication History: Complete Source of Information: Patient Other Comments: [Electronically Signed on: 12/02/2023 09:06 EDT] Yonas Cespedes PharmD [Verified on: 12/02/2023 09:06 EDT] Yonas Cespedes PharmD [facility] Test Urine 1on U Preg Negative [facility] Comment on above: Performed By: #### 1 [id number], 6155442, 09647205, 4431681, [id number], [id number] #### [facility] (DEFAULT) [address] [place] [address] U Preg Internal Control Pass [facility] Comment on above: Performed By: #### 1 [id number], 7616518, 86225005, 8828902, [id number], [id number] #### [facility] (DEFAULT) [address] [place] [address] Telemetry Stripson 4 Telemetry Strips [id number] 2 [id number]#1.00 OTGTIFF [facility] UA Zumfc2wm 12-02-2023 UA Amorph. Few [facility] Comment on above: Order Comment: Urina lysis Microscopic order added on by SeeOn Expert Rules system. Performed By: #### 1 [id number], 4295236, 35993639, 2528461, [id number], [id number] #### [facility] (DEFAULT) [address] [place] [address] UA Bacteria Trace [facility] Comment on above: Order Comment: Urina lysis Microscopic order added on by SeeOn Expert Rules system. Performed By: #### 1 [id number], 9483685, 24250943, 5877837, [id number], [id number] #### [facility] (DEFAULT) [address] [place] [address] UA Mucous Trace [facility] Comment on above: Order Comment: Urina lysis Microscopic order added on by SeeOn Expert Rules system. Performed By: #### 1 [id number], 9768331, 77000816, 7548230, [id number], [id number] #### [facility] (DEFAULT) [address] [place] [address] UA RBC None Seen [facility] Comment on above: Order Comment: Urina lysis Microscopic order added on by SeeOn Expert Rules system. Performed By: #### 1 [id number], 2710589, 02318661, 9418450, [id number], [id number] #### [facility] (DEFAULT) [address] [place] [address] UA Squam Epi Few [facility] Comment on above: Order Comment: Urina lysis Microscopic order added on by SeeOn Expert Rules system. Performed By: #### 1 [id number], 5932485, 57290921, 5808397, [id number], [id number] #### [facility] (DEFAULT) [address] [place] [address] UA WBC 15-20 [facility] Comment on above: Order Comment: Urina lysis Microscopic order added on by SeeOn Expert Rules system. Performed By: #### 1 [id number], 4257461, 56552505, 2098619, [id number], [id number] #### [facility] (DEFAULT) [address] [place] [address] UA w Culture if Ind Standard on 12-02-2023 Breakpoint UA [facility] Comment on above: Performed By: #### 1 [id number], 5135111, 95966299, 0248398, [id number], [id number] #### [facility] (DEFAULT) [address] [place] [address] Color (U) Yellow [facility] Comment on above: Performed By: #### 1 [id number], 3115714, 37998532, 8758192, [id number], [id number] #### [facility] (DEFAULT) [address] [place] [address] Culture? Indicated Invalid Interpretation Code [facility] Comment on above: Result Comment: Resu lt created by rule GL_MAGR_ADD_UA_CULT Performed By: #### 1 [id number], 2683809, 02114352, 5373375, [id number], [id number] #### [facility] (DEFAULT) [address] [place] [address] Glucose (U) [Mass/Vol] Negative Normal [facility] Comment on above: Performed By: #### 1 [id number], 7007329, 55098287, 7243710, 3023649023, [id number] #### [facility] (DEFAULT) [address] [place] [address] Ketones Ql (U) Negative Normal [facility] Comment on above: Performed By: #### 1 [id number], 1662693, 37573222, 8040353, 8316758369, [id number] #### [facility] (DEFAULT) [address] [place] [address] Micro? Not Indicated Invalid Interpretation Code [facility] Comment on above: Result Comment: Resu lt created by rule GL_MAGR_ADD_UA_MICRO Result created by rule GL_MAGR_ADD_UA_MICRO Performed By: #### 1 [id number], 5678823, 26223167, 0205323, 9476365068, [id number] #### [facility] (DEFAULT) [address] [place] [address] UA Bilirubin Negative Normal [facility] Comment on above: Performed By: #### 1 958641509, 9924423, 90881590, 3015001, [id number], [id number] #### [facility] (DEFAULT) [address] [place] [address] UA Blood SMALL Abnormal NEGATIVE [facility] Comment on above: Performed By: #### 1 [id number], 4079020, 34134909, 5002045, 0158532827, [id number] #### [facility] (DEFAULT) [address] [place] [address] UA Clarity SL CLOUDY Abnormal CLEAR [facility] Comment on above: Performed By: #### 1 [id number], 1756972, 72360287, 4239448, 4832194392, [id number] #### [facility] (DEFAULT) [address] [place] [address] UA Leuk Est MODERATE Abnormal NEGATIVE [facility] Comment on above: Performed By: #### 1 829796819, 0935861, 69441154, 4287144, 7641777317, [id number] #### [facility] (DEFAULT) [address] [place] [address] UA Nitrite Negative Normal NEGATIVE [facility] Comment on above: Performed By: #### 1 005363907, 9539018, 98360841, 1697084, 6301582469, [id number] #### [facility] (DEFAULT) [address] [place] [address] UA pH 8.0 Normal 5-8 [facility] Comment on above: Performed By: #### 1 [id number], 6188357, 34830921, 5835413, 1280817442, 3470848319 #### [facility] (DEFAULT) [address] [place] [address] UA Protein 30 Abnormal NEGATIVE [facility] Comment on above: Performed By: #### 1 [id number], 0475244, 00350552, 7293672, 1294187372, [id number] #### [facility] (DEFAULT) [address] [place] [address] UA Spec Grav 1.015 Normal 1.001-1.035 [facility] Comment on above: Performed By: #### 1 478128793, 0713428, 64734957, 2531296, 5862647102, 4984344550 #### [facility] (DEFAULT) [address] [place] [address] UA Urobilinogen 0.2 mg/dL Normal 0.2-1.0 [facility] Comment on above: Performed By: #### 1 [id number], 7815624, 16720217, 9566905, 6633563843, [id number] #### [facility] (DEFAULT) [address] [place] [address] Urine Source Clean Catch Normal [facility] Comment on above: Performed By: #### 1 [id number], 6517364, 85735200, 4564607, 4477287263, [id number] #### [facility] (DEFAULT) [address] [place], [place] [address] Admission Noteon 12-01-2023 Admission Note 2315-PT BROUGHT BACK TO RM 7 FOR LOW RIGHT BACK /FLANK PAIN. PT STATES PAIN IS A 10. PT IS ALERT AND ORIENTED X 3. PT DENIES CHEST AIN, SOB. PT STATES PAIN INCREASED LAST NIGHT. SKIN IS WARM, AND DRY. VITALS OBTAINED. TRIAGE COMPLETED. [Electronically Signed on: 12/02/2023 00:32 EDT] Meseret Boone RN [Verified on: 12/02/2023 00:32 EDT] Meseret Boone RN Normal [facility] CMP Standardon 11-27-2023 eGFR Non AA >60 Invalid Interpretation Code [facility] Comment on above: Performed By: #### 2 [id number], [id number], 8823999 ####[facility] (DEFAULT)[address] [place] [address] eGFR AA >60 Invalid Interpretation Code [facility] Comment on above: Performed By: #### 2 602454, [id number], 7678437 ####[facility] (DEFAULT)[address] [place] [address]1506 Albumin [Mass/Vol] 4.2 g/dL Normal 3.5-5.0 [facility] Comment on above: Performed By: #### 2 674980, [id number], 6828006 ####[facility] (DEFAULT)[address] [place] [address] Alk Phos 54 IU/L Normal 32-91 [facility] Comment on above: Performed By: #### 2 505095, 3632488851, 0100600 ####[facility] (DEFAULT)[address] [place] [address] 76952 ALT [Catalytic activity/Vol] 16.0 U/L Normal 14.0-54.0 [facility] Comment on above: Performed By: #### 2 963827, [id number], 6820395 ####[facility] (DEFAULT)[address] [place] [address] 97688 AST [Catalytic activity/Vol] 16 U/L Normal 15-41 [facility] Comment on above: Performed By: #### 2 717633, [id number], 2958064 ####[facility] (DEFAULT)[address] [place] [address] 79444 Bili Total 0.7 mg/dL Normal 0.3-1.2 [facility] Comment on above: Performed By: #### 2 727382, [id number], 0821828 ####[facility] (DEFAULT)[address] [place] [address] 36730 Calcium [Mass/Vol] 8.4 mg/dL Low 8.9-10.3 [facility] Comment on above: Performed By: #### 2 056930, [id number], 0251943 ####[facility] (DEFAULT)[address] [place] [address] 91969 Chloride [Moles/Vol] 105 mmol/L Normal 101-111 [facility] Comment on above: Performed By: #### 2 712479, [id number], 1241952 ####[facility] (DEFAULT)[address] [place] [address] 89508 CO2 [Moles/Vol] 26 mmol/L Normal 21-32 [facility] Comment on above: Performed By: #### 2 998759, [id number], 2034982 ####[facility] (DEFAULT)[address] [place] [address]29 Creatinine [Mass/Vol] 0.80 mg/dL Normal 0.60-1.30 [facility] Comment on above: Performed By: #### 2 362488, [id number], 7726357 ####[facility] (DEFAULT)[address] [place] [address] 47656 Glucose [Mass/Vol] 107.0 mg/dL Normal 74.0-118.0 [facility] Comment on above: Performed By: #### 2 319406, [id number], 1128297 ####[facility] (DEFAULT)[address] [place] [address] 86572 Potassium [Moles/Vol] 3.4 mmol/L Low 3.6-5.1 [facility] Comment on above: Performed By: #### 2 506481, 5570782980, 6126402 ####[facility] (DEFAULT)[address] [place] [address] 72761 Protein [Mass/Vol] 8.0 g/dL Normal 6.5-8.1 [facility] Comment on above: Performed By: #### 2 489564, 1367105881, 4655533 ####[facility] (DEFAULT)[address] [place] [address] 16070 Sodium [Moles/Vol] 135.0 mmol/L Low 136.0-144.0 [facility] Comment on above: Performed By: #### 2 274654, 0889885808, 6324452 ####[facility] (DEFAULT)[address] [place] [address] 75047 Urea nitrogen [Mass/Vol] 6 mg/dL Low 8-26 [facility] Comment on above: Performed By: #### 2 355034, [id number], 1013539 ####[facility] (DEFAULT)[address] [place] [address] 03213 Albumin/Globulin [Mass ratio] 1.1 {ratio} Low 1.4-2.6 [facility] Comment on above: Performed By: #### 2 271819, [id number], 8491850 ####[facility] (DEFAULT)[address] [place] [address]16 Anion gap [Moles/Vol] 7.4 mmol/L Normal 5.0-19.0 [facility] Comment on above: Performed By: #### 2 527230, [id number], 1576207 ####[facility] (DEFAULT)[address] [place] [address] 19720 Globulin (S) [Mass/Vol] 3.8 g/dL Normal 1.5-4.3 [facility] Comment on above: Performed By: #### 2 030440, [id number], 4611881 ####[facility] (DEFAULT)[address] [place] [address] Osmolality 268 mOsm/L Invalid Interpretation Code [facility] Comment on above: Performed By: #### 2 259013, [id number], 2754518 ####[facility] (DEFAULT)[address] [place] [address] Urea nitrogen/Creatinine [Mass ratio] 7.5 mg/mg Normal 4.6-16.2 [facility] Comment on above: Performed By: #### 2 010592, [id number], 1834800 ####[facility] (DEFAULT)[address] [place] [address]73 Free T4on 11-27-2023 Free T4 [Mass/Vol] 0.91 ng/dL Normal 0.61-1.12 [facility] Comment on above: Performed By: #### 2 258864, [id number], 0128435 ####[facility] (DEFAULT)[address] [place] [address] Office/Clinic Noteon 024 Office/Clinic Note Patient: ANA SAUCEDA Age: 23 years Sex: FEMALE : 2000 Associated Diagnoses: Hypothyroidism; Neuropathy of leg Author: Joseph Vanegas MD A History of Present Illness 23-year-old female presents today with complaints of numbness and weakness of her legs over the last couple months. It is intermittent. It has occasionally occurred after sitting for long periods of time and then when she gets up she is unable to support herself. She has fallen. Denies any numbness and tingling as if her legs were asleep. She also noted some numbness and tingling on her face in the past. She did not go to the emergency room. She did call back in September complaining of weakness of her legs that was intermittent. She has not had any episodes in over a month. She is also complaining of difficulty with weight loss. She does have a history of hypothyroidism. She is on levothyroxine is been over 2 months since her last blood work was checked. Review of Systems Constitutional: Weakness, No chills, No sweats, No fatigue. Respiratory: Negative. Cardiovascular: Negative. Neurologic: Negative except as documented in history of present illness. Health Status Allergies: Allergic Reactions (Selected) No Known Medication Allergies, Allergies (1) Active Severity Reaction No Known Medication Allergies None Documented Current medications: (Selected) Prescriptions Prescribed levothyroxine 50 mcg (0.05 mg) oral tablet: 1 tab(s), Oral, Daily, 90 tab(s), 2 Refill(s), Home Medications (1) Active levothyroxine 50 mcg (0.05 mg) oral tablet 1 tab(s), Oral, Daily Problem list (past medical history): Active Problems (4) COVID-19 ruled out Hypothyroidism Lightheadedness Physical Examination VS/Measurements Vital Signs 11/27/2023 15:07 EDT Peripheral Pulse Rate 105 bpm HI Pulse Site Pulse Oximetry Systolic Blood Pressure 136 mmHg Diastolic Blood Pressure 92 mmHg HI BP Site Right arm SpO2 99 % , Measurements from flowsheet : Measurements 11/27/2023 15:07 EDT Height 175.26 cm Height/Length Measured (inches) 69 in Weight 98.97 kg Weight Measured (lbs) 218.191 lb Weight Dosing 98.970 kg Body Mass Index 32.22 kg/m2 Pearl Body Weight Calculated 66.2 kg BSA Measured 2.2 m2 General: Alert and oriented, No acute distress. Respiratory: Lungs are clear to auscultation, Respirations are non-labored, Breath sounds are equal. Cardiovascular: Normal rate, Regular rhythm, No murmur, Good pulses equal in all extremities. Musculoskeletal: Normal range of motion, Normal strength, No tenderness, Normal gait. Neurologic: Alert, Oriented, Normal sensory, Normal motor function, No focal deficits, Cranial Nerves II-XII are grossly intact, Normal deep tendon reflexes. Cognition and Speech: Speech clear and coherent. Psychiatric: Appropriate mood & affect. Impression and Plan Diagnosis Hypothyroidism (TEV66-SY E03.9). Plan: Will check patient's TSH and free T4 also CMP.. Orders Orders Evaluation and Management: 37642 Office visit - established pt, Level 3 (Order): 11/27/2023 14:59 EDT, Qty: 1, Hypothyroidism - Neuropathy of leg. Diagnosis Neuropathy of leg (KXZ89-AP G57.90). Course: Unsure of etiology. Wonder if it is positional. Again we will check thyroid make sure it is not metabolic first.. [Electronically Signed on: 11/27/2023 15:40 EDT] Joseph Vanegas MD [Verified on: 11/27/2023 15:40 EDT] Joseph Vanegas MD Normal [facility] TSHon 11-27-2023 TSH Qn 8.99 m[IU]/L High 0.45-5.33 [facility] Comment on above: Performed By: #### 2 170265, [id number], [id number] ####[facility] (DEFAULT)[address] [place] [address] Coding Summaryon 10-01-2023 Coding Summary HTMLBase 64 KfzusdjqPHc4pQo+PGhlY WQ+VW0UUCBlX65faGSwwO 8nV7ZTMJtVAujpMFPGBCv TNjKojeOiRQ5rdIIyGNSd IC8+IH7kKAEoAzfpqMBbf 1A8pBQ3B71cbl9sZXfjfC M0FCFmIpDpygvcd3eazKm 6IDcuNmluOyBt KYJwaN68RAB1lX11Nx61x KGhpTQac4daiQn5SrMbMY EwRBR3cShcAUobl3TwFGW tW74qeVQjp0P8 AJQxhBtueDQjBxFpqDS4u X1gXRxjmdrqv1vybbleIm i6kc93yDPkx2Q1wRX8R0S obkP5WLSynDYi FoaciPDDhD7plmlva7gpx xrvMsLxYOFdZUz4QNz9LZ FumCvdKjMeFJ23OSP4CDC jwjCfT7YzJFVv gJeeQqU3k9T6Gl5BK4USA mybQ5TVCHMGHNasxUL+PC 48pj99C8CdEytyEgl3ZAA oOWB6oQG3zH8k IDDtIPerk2P8cTA9P8Gwx cChkl1ik9wkNJBwXJwvK0 8iiPClt4T6JJIkjEV6DEC cgMmxSyHftQ43 Oyc+YRDkuYgqg0AiEemzf 1air5dxwZr8BpivUQFlie QjvGdjYIN5o7IlHi8lTFS piJE8jXJ1iD5w HrTmYhX2MQklG245MbYyk FDvAqgdL57pG5EomLX+PH XvXpl5BWVaaLzwBO7mN2D hZGRpbmctbGVm pFsjXW9qITJsashwNOHqc R2fCIZxD8a6UvAhImN0VM uwE4RaHKIxiblhKm50aE5 tSpBmKuK8QCtf O7OzlrS2GADwfYEcBFbdJ BL7S99wq0O1MNKaKLZpBW N4eSF9eF3eeGwtqiqsjTB mdDsgdmVydGlj UKjpGRzaV826GKFycVspL kNvZGluZyBEYXRlOiAgMD UvMjIvMjAyNDwvdGQ+PHR oYOD5kUbdHJHr eANxSJerGh6iqIfwlYyvV Q9eHIAevhfnWCNqoT2cHF BhwKVksTuuPX1yPDYbdxc ot605LgIdGUC4 IINavVScE0KnxN6rQrBtW AFvOTVkT2NpjUVqPUlwZ4 12SJcoSuX0PPYqoeBhU1O sLWFsaWduOiB0 k3I6Xx2Xc7PusiduS8Ozs TFxExCnRcweUTg6G6XlXn wvdHI+NJ35VXBwJR50VAz 4ELX8rPnhPEku JKKmY0MmqE8jFbVqJCRvB GRkOyc+PHRhYmxlIHdpZH RoPScxMDAlJyBzdHlsZT0 jEj5lGBAiRPEq bShzgHOoNhVnp5caVOGtV DbeTM5ypDnkC2WosRD0OV Odk1s7Vo55B43wO0KtsKC +BZFurJV1lBJ6 lQ3qJlHhRzB6CPymP479N dCjkARaAagkm1ast9zeoU o0ZaC9ENMtfrCjgRdrOVX 5c2NoMg00L87l IHdpZHRoPSIxNSUiIHZhb Lsksk2stS1cNh5+PGNvbC V4mHI9zV4hWyTdMbN2XLk kU655MrQrdJPk Gyfap3jkm3notPf7KcGyH ZPixmXddWycASM2g7UeKt 76Q1RjrUwbn6ErKle8xc6 0sQVmz3G3lGD3 O3AgUSKjqohdeGWfiTylF O0aEONagxuvKXOrpX7mYU FvZ7x1OnEjIgK4IQeuO2N aqoR9XBTzjZXi ASQxrSSNuF3bcsxee9ele yllJkBlUZDxQDx7XBh7YY CzvGlwIuIgEZZ4IdW3ARY 6lINxfU6ejPdv qtswbV9bCeh+XCY9wHTkw EWOMI8nXsrauEQ+PHRkIH R4xMpdMMyxBXUntF0wXIQ cI2j4PeEcGbA6 JFldG0IuxpQ7JEYqvKXxI QBogFENnB5mgoogl9wzld lsEyTjPRNqUWt9MSn8PAN saWduOiBsZWZ0 CrN0YOD6qUVkmT7yrTrfg wuzjT0qUpn+QmlydGggRG F6SRt3V9BvDle8ZMCifMu gUA5aiPPaERhh Gj9gjWvllIsqQX0lMRUge xkbm035PgOvd9neEEUtbA UmRGroGBT4T91cw3T1HNG pSHYrZCW8xOU3 kO1zfRamewxiqHNdnUuog cNawBkeSRipYUhgY981OX MfaCorYqVwOWp4C9McJty 9HSPpbMydKS7n wBQsLPswTw4mrLepvSgvH O2iLSQjebtum431SpLtl6 jjRRBykNCyBUzoOGW4Q75 ad6U5EHNeJGZe CHL8kWE1mC6xtDesljbrb GVmdDsgdmVydGljYWwtYW thV639VSYzsHgcSiBuoNy 0U1VmUtp9VLJz kKipKF5wiVOqMZctKv9az NfznJnaWL5hPTUblarsq2 89DfRxv9xbJZEnaEPjOCi xMCF4U06xz0H9 NFNtZTOeQFX5wNB0lV2an GlnbjogbGVmdDsgdmVydG cjOWamFOcsP055MAEekLu nPlBhdGllbnQg KHoyTJj8E1UyVzsobRM+P B42VNQvLZ45kZCvaXPss3 mwxLf6WeWlLBUyHUF6iAg jXGegk5HwMKJj X89ohLUiw7L7RLJofFncp MJeUdLduRW5eM4xAUvuvc wvk0xmrasgDwckp6jegp4 8iW23M93oJDok ZHRoPSIzMCUiIHZhbGlnb c8scA7tYa4+MNVhmFQ5qG N3cV2oUUVnZgJ3PRdvJ54 9InRvcCIvPjxj w7exi4apwPx1TwU5ITLdt jDmnDlvYWS3y7AkDd59D5 9sIHdpZHRoPSIyMCUiIHZ nfBueyz2gvP7k Ii8+JMOokDB4lRZ9pB1nL lMsBlQ2OTynY922EmRpyL QoUlbkH01wC1JbdYG+PHR iMce8SVQpoPnc TQ4wgJNuMMgzZg2uQWX1P dCjAzMeTSdcG8VwGLZpzh mbcujtxAR4SHTpHUHbtO1 0Yp7etEmpKDSo rIEBuY1dcnpba6hdzrsuQ gYjFTWuLXn5VEs3WFDxeH asDiNlTPC7OoM4ZHB0wLT suS6tpHdvgvop gW1vA7VrIYAvxrxdNf93p A1kHrUbOgT3LYxvRur+RF VORkVFLCBNSVJBTkRBIEx FRTwvdGQ+PHRk NOX1rPkzLApfDJYbkX6mB JMlY2h5QiUiJfE1ZFfnJ3 CmSTNaegqcWb20fJ7dKuD aWvR1MWglN7Vy tpE2IGTzgIAaOPhjEBW1G 60sd4W4QTHvQNOcKDC5gN Q7nI9luEzvwbdisSQkiOg gdmVydGljYWwt FKouR671TEHfdFyeQcSnM bF2BpChPAI6V0HoAzb2WU LfiXitFE7scPBjWQxbEh0 gzKtzeJlxHL6x IWRgptekFTVgjP5qTUKcw ZQrhQinZI2wVGZonzsza0 03ZjOkVCA3IPUwwDJdQ5C xoK0iXxDxIEQg NWVaX8IvoLYxVWuhY052I MbxGiK3BNKmunDlJ0KzLU JgmYsyQhV7m1S7Nu8oDPL ZZWFyczwvdGQ+ BNTnAYK2cJilBCctDTIpp Q7dTPXoL4g8DpEiAuD5FA wkT3TeSSXzxdmnPv29pD2 gIfSgOyL3WAdb T1LhgqL7GWWkbASeLVjaQ KF2D78ir4B2QBZfTVOlFS M2fUG1fP8fuCylqfutrSJ mdDsgdmVydGlj DEjkJTzsY115OUXerHvqE kZFTUFMRTwvdGQ+PHRkIH R1jAtbTZupPIEooN1jDSE dD6c4XrHxQxR8 ZXwxZ8FcWTVugjayEr07n L7jErKyHtY3KOzjL0Tida F0YZZzsFGuJGvxDLB4T15 by1I1OPLkJTLo ZQB0lEQ0iM3lrJcokrlkq GVmdDsgdmVydGljYWwtYW ujY746VWBjnItoYz1MNK0 4ZD93N8EzSzjj dGFibGU+PHRhYmxlIHdpZ HRoPScxMDAlJyBzdHlsZT 7oOq5cZEAqWLYqaRbtaCJ jQxLpj2cyWSKe OWkzDD6jrWjjL4AigZS7S BBto1o8Sv66P38gG0FhtA A+GBOuoXB1cYT7tY2fRmQ kMjI1DXzyE906 VmZipCGgRqnfb6wpd0htr Fm6HwWkWAJsnuBbeJaxGR V8c5DsOr89U42eJCicBHN oPSIyMCUiIHZh uQudub8myT1iYo2+PGNvb XE1rXB9jK6yVfGfRjM2TH maX512WpBxbRJqBteiF41 vY6KkqNE+PHRy Zpj6VRMwsLutLM3maXBtI DkyVx1zDDO5BgTbMqUeFB dfY1JeHZPvkcecpwyegNE 9JJNyAOKyoF34 Gc9ivWxmXx7eUHXrZTE8H YHzkFKkN4FjmC0lXeRiYK LwVRGkF1GtoMFhXKktH82 8MLkiNpO9BPCo opMkC3DjEGIxvIyiBwB7q 8C8Bs4ZyQvuePMvKJ5kZm NkGHw0R0CvSny2BGVqsHa iOW8faDGvSTmm Yo3biXausAmwJW8dWMJmx qjeq460IeGej3eyPROqcR GeZGpnWNW5F45gb6J2FLM pDCSuVME7yHE5 vK7fnEpxmhxtxCFzgJobh dGnhWqsBSgqTPnnG287KA LlqXoyMcZRKch4E1OvQbt 8ZCYxfHvzQY8z iPZlDWmeSl2jzXbhlCqyU M1kCMXksubyh280RfZnc4 edICQyrJClGUkpUYY4F89 qt5J9GGCbUREv LND0wUV5cD3fpYoiaomfl GVmdDsgdmVydGljYWwtYW qpU470BWHzjKxcOz5QPti 9L3LqRkk1SGGj iItcKW3tlXXgFMyjOf1fq EowrGlwPZ3gXEYwgipxi0 60NaSgd8bpGBEwtDMaBSk mIWL0L50tl9F2 BQJjNAOvTRS7mMG2jH3yd GlnbjogbGVmdDsgdmVydG xxZOnhZArwS685XTLzzPc nPlBheWVyOjwv dGQ+YF43lw12G5QrRraqF pu8NRCjPYE0oEJ1bE0jPX OwKRwyl4W1mQD2B5PoilA gwz4xi8quYTFb ZTo (more content not included)... Normal [facility] C Throaton 09-24-2023 C Throat Ordered by Discern. Normal throat herve isolated No pathogens isolated Normal [facility] Comment on above: Performed By: #### 1 [id number] #### [facility] (DEFAULT) [address] [place] [address] ED Clinical Summaryon 2023 ED Clinical Summary [facility] ? Urgent Care [address] [place] [address] [id number] Clinical Summary PERSON INFORMATION Name: ANA SAUCEDA Age: 23 Years Sex: FEMALE : 2000 MRN: Acct#: Visit Reason: UC - Sore Throat; UC - Fever; FEVER, THROAT SWELLING Arrival: 09/22/2023 18:51:32 Discharge: 09/22/2023 20:07:00 LOS: 000 01:16 Check In: 09/22/2023 18:51:32 Checkout: 09/22/2023 20:07:00 Address: [address] [place] [address] PCP: Joseph Vanegas MD PROVIDER INFORMATION Provider Role Assigned Unassigned Scott CROCKETT, Daniella ED Nurse 09/22/2023 19:02:37 Essence Davis PA-C ED PA 09/22/2023 19:04:56 VITALS INFORMATION Vital Sign Triage Latest Temperature Tympanic Temperature Temporal Artery Pulse Rate O2 Sat 97 % 97 % Respiratory Rate Blood Pressure /80 mmHg /80 mmHg MEDICAL INFORMATION Medications Given: Allergy Information: No Known Medication Allergies PHYSICIAN DOCUMENTATION DISCHARGE INFORMATION: Discharge Disposition: Home Discharge Location: Home PATIENT EDUCATION INFORMATION Instructions: Otitis Media, Adult; Lymphadenopathy; Sore Throat; Antibiotic Medicine, Adult; Probiotics Follow-Up: With: Address: When: Joseph Vanegas MD [address] [place] [address] DIAGNOSIS: 1:Left otitis media; 2:Cervical lymphadenopathy Patient Understands: Yes - Patient/family/caregi migue verbalizes understanding of instructions given Comment: Normal [facility] ED Patient Summaryon 024 ED Patient Summary [facility] ? Urgent Care [address] [place] [address] PATIENT DISCHARGE INSTRUCTIONS Patient Information Name: ANA SAUCEDA Age: 23 Years Date of : 2000 Reason For Visit: UC - Sore Throat; UC - Fever; FEVER, THROAT SWELLING Arrival Time: 09/22/2023 18:51:32 Primary Care Physician: Joseph Vanegas MD Attending Physician: Essence Davis PA-C Comment: Patient Education With: Address: When: Joseph Vanegas MD [address] [place] [address] [phone] Otitis Media, Adult Otitis media occurs when there is inflammation and fluid in the middle ear with signs and symptoms of an acute infection. The middle ear is a part of the ear that contains bones for hearing as well as air that helps send sounds to the brain. When infected fluid builds up in this space, it causes pressure and can lead to an ear infection. The eustachian tube connects the middle ear to the back of the nose (nasopharynx) and normally allows air into the middle ear. If the eustachian tube becomes blocked, fluid can build up and become infected. What are the causes? This condition is caused by a blockage in the eustachian tube. This can be caused by mucus or by swelling of the tube. Problems that can cause a blockage include: ? A cold or other upper respiratory infection. ? Allergies. ? An irritant, such as tobacco smoke. ? Enlarged adenoids. The adenoids are areas of soft tissue located high in the back of the throat, behind the nose and the roof of the mouth. They are part of the body's defense system (immune system). ? A mass in the nasopharynx. ? Damage to the ear caused by pressure changes (barotrauma). What increases the risk? You are more likely to develop this condition if you: ? Smoke or are exposed to tobacco smoke. ? Have an opening in the roof of your mouth (cleft palate). ? Have gastroesophageal reflux. ? Have an immune system disorder. What are the signs or symptoms? Symptoms of this condition include: ? Ear pain. ? Fever. ? Decreased hearing. ? Tiredness (lethargy). ? Fluid leaking from the ear, if the eardrum is ruptured or has burst. ? Ringing in the ear. How is this diagnosed? This condition is diagnosed with a physical exam. During the exam, your health care provider will use an instrument called an otoscope to look in your ear and check for redness, swelling, and fluid. He or she will also ask about your symptoms. Your health care provider may also order tests, such as: ? A pneumatic otoscopy. This is a test to check the movement of the eardrum. It is done by squeezing a small amount of air into the ear. ? A tympanogram. This is a test that shows how well the eardrum moves in response to air pressure in the ear canal. It provides a graph for your health care provider to review. How is this treated? This condition can go away on its own within 3?5 days. But if the condition is caused by a bacterial infection and does not go away on its own, or if it keeps coming back, your health care provider may: ? Prescribe antibiotic medicine to treat the infection. ? Prescribe or recommend medicines to control pain. Follow these instructions at home: ? Take kklz-dga-tsumpve and prescription medicines only as told by your health care provider. ? If you were prescribed an antibiotic medicine, take it as told by your health care provider. Do not stop taking the antibiotic even if you start to feel better. ? Keep all follow-up visits. This is important. Contact a health care provider if: ? You have bleeding from your nose. ? There is a lump on your neck. ? You are not feeling better in 5 days. ? You feel worse instead of better. Get help right away if: ? You have severe pain that is not controlled with medicine. ? You have swelling, redness, or pain around your ear. ? You have stiffness in your neck. ? A part of your face is not moving (paralyzed). ? The bone behind your ear (mastoid bone) is tender when you touch it. ? You develop a severe headache. Summary ? Otitis media is redness, soreness, and swelling of the middle ear, usually resulting in pain and decreased hearing. ? This condition can go away on its own within 3?5 days. ? If the problem does not go away in 3?5 days, your health care provider may give you medicines to treat the infection. ? If you were prescribed an antibiotic medicine, take it as told by your health care provider. ? Follow all instructions that were given to you by your health care provider. This information is not intended to replace advice given to you by your health care provider. Make sure you discuss any questions you have with your health care provider. Document Revised: 08/06/2021 Document Reviewed: 08/06/2021 [employer] Patient Education ? 2022 [employer] Lymphadenopathy (I (more content not included)... [facility] Strep Aon 09-22-2023 Strep procedure control Pass [facility] Comment on above: Performed By: #### 1 [id number] #### [facility] (DEFAULT) [address] [place] [address] Streptococcus A Negative Normal Negative [facility] Comment on above: Performed By: #### 1 [id number] #### [facility] (DEFAULT) [address] [place] [address] BMPon 01-07-2023 Anion gap [Moles/Vol] 13 mmol/L 9 - 17 mmol/L [facility] Calcium [Mass/Vol] 8.9 mg/dL 8.6 - 10. 4 mg/dL [facility] Chloride [Moles/Vol] 106 mmol/L 98 - 107 mmol/L [facility] CO2 [Moles/Vol] 21 mmol/L 20 - 31 mmol/L [facility] Creatinine [Mass/Vol] 0.5 mg/dL 0.5 - 0.9 mg/dL [facility] GFR/1.73 sq M.predicted MDRD (S/P/Bld) [Vol rate/Area] - PINF [facility] Comment on above: These results are not intended for use in patients <18 years of age. eGFR results are calculated without a race factor using the 2020 CKD-EPI equation. Careful clinical correlation is recommended, particularly when comparing to results calculated using previous equations. The CKD-EPI equation is less accurate in patients with extremes of muscle mass, extra-renal metabolism of creatine, excessive creatine ingestion, or following therapy that affects renal tubular secretion. Glucose [Mass/Vol] 87 mg/dL 70 - 99 mg/dL [facility] Potassium [Moles/Vol] 3.6 mmol/L Low 3.7 - 5.3 mmol/L [facility] Sodium [Moles/Vol] 140 mmol/L 135 - 144 mmol/L [facility] Urea nitrogen [Mass/Vol] 4 mg/dL Low 6 - 20 mg/dL [facility] CBC with Auto Differentialon 01-07-2023 Basophils (Bld) [#/Vol] 0.00 10*3/uL [facility] Basophils/100 WBC (Bld) 0 % 0 - 2 % [facility] Eosinophils (Bld) [#/Vol] 0.08 10*3/uL [facility] Eosinophils/100 WBC (Bld) 1 % 1 - 4 % [facility] Erythrocyte distribution width (RBC) [Ratio] 13.2 % 11.8 - 14.4 % [facility] Hematocrit (Bld) [Volume fraction] 36.9 % 36.3 - 47.1 % [facility] Hemoglobin (Bld) [Mass/Vol] 11.6 g/dL Low 11.9 - 15.1 g/dL [facility] Immature granulocytes (Bld) [#/Vol] 0.08 10*3/uL [facility] Immature granulocytes/100 WBC (Bld) 1 % High 0 [facility] Interpretation and review of laboratory results Abnormal [facility] Lymphocytes/100 WBC (Bld) 6 % Low 25 - 45 % [facility] Lymphocytes/100 WBC (Bld) 0.50 % Low [facility] MCH (RBC) [Entitic mass] 27.2 pg 25.2 - 33.5 pg [facility] MCHC (RBC) [Mass/Vol] 31.4 g/dL 28.4 - 34.8 g/dL [facility] MCV (RBC) [Entitic vol] 86.4 fL 82.6 - 102.9 fL [facility] Monocytes/100 WBC (Bld) 7 % 2 - 8 % [facility] Monocytes/100 WBC (Bld) 0.59 % [facility] Morphology Gadiel (Bld) [Interp] Normal [facility] Neutrophils/100 WBC (Bld) 85 % High 34 - 64 % [facility] Nucleated RBC/100 WBC (Bld) [Ratio] 0.0 % 0.0 per 100 WBC [facility] Platelet mean volume (Bld) [Entitic vol] 11.0 fL 8.1 - 13.5 fL [facility] Platelets (Bld) [#/Vol] 139 10*3/uL [facility] RBC (Bld) [#/Vol] 4.27 10*6/uL 3.95 - 5.1 1 m/uL [facility] Segmented neutrophils/100 WBC (Bld) 7.15 % [facility] WBC other (Bld) [#/Vol] 8.4 [facility] COVID-19, Rapidon 01-07-2023 Interpretation and review of laboratory results Abnormal [facility] SARS-CoV-2 (COVID-19) RdRp gene ELEONORA+probe Ql (Resp) Detected Abnormal Not Detected [facility] Comment on above: Rapid NAAT: The specimen is POSITIVE for SARS-Cov-2, the novel coronavirus associated with COVID-19. This test has been authorized by the FDA under an Emergency Use Authorization (EUA) for use by authorized laboratories. The ID NOW COVID-19 assay is designed to detect the virus that causes COVID-19 in patients with signs and symptoms of infection who are suspected of COVID-19. An individual without symptoms of COVID-19 and who is not shedding SARS-CoV-2 virus would expect to have a negative (not detected) result in this assay. Fact sheet for Healthcare Providers: https://www.fda.gov/media/299432/download Fact sheet for Patients: https://www.fda.gov/media/745414/download Methodology: Isothermal Nucleic Acid Amplification Results reported to the appropriate Health Department Specimen Description .NASOPHARYNGEAL SWAB [facility] Hepatic Function Panelon Albumin [Mass/Vol] 3.4 g/dL Low 3.5 - 5.2 g/dL [facility] Albumin/Globulin [Mass ratio] 1.0 {ratio} 1.0 - 2.5 [facility] ALP [Catalytic activity/Vol] 132 U/L High 35 - 104 U/L [facility] ALT [Catalytic activity/Vol] 12 U/L 5 - 33 U/L [facility] AST [Catalytic activity/Vol] 18 U/L NINF - 32 U/L [facility] Bilirubin [Mass/Vol] 0.2 mg/dL Low 0.3 - 1.2 mg/dL [facility] Bilirubin.direct [Mass/Vol] mg/dL NINF - 0.3 mg/dL [facility] Bilirubin.indirect [Mass/Vol] Can not be calculated 0.0 - 1.0 mg/dL [facility] Protein [Mass/Vol] 6.7 g/dL 6.4 - 8.3 g/dL [facility] Lactic Acidon 01-07-2023 Lactic Acid, Whole Blood 2.0 mmol/L 0.7 - 2.1 mmol/L [facility] Magnesiumon 01-07-2023 Magnesium [Mass/Vol] 1.6 mg/dL 1.6 - 2.6 mg/dL [facility] Microscopic Urinalysison Bacteria LM Ql (Urine sed) FEW Abnormal None [facility] Epithelial cells LM.HPF (Urine sed) [#/Area] 5 TO 10 [facility] Interpretation and review of laboratory results Abnormal [facility] RBC LM.HPF (Urine sed) [#/Area] TOO NUMEROUS TO COUNT [facility] WBC LM.HPF (Urine sed) [#/Area] 10 TO 20 [facility] No Panel Informationon 01-07 Interpretation and review of laboratory results Abnormal [facility] Protime-INRon 01-07-2023 INR Coag (PPP) [Relative time] 0.9 {INR} [facility] Comment on above: Therapeutic Range: Moderate Anticoagulant Intensity: INR = 2.0-3.0 High Anticoagulant Intensity: INR = 2.5-3.5 PT Coag (PPP) [Time] 12.3 s [facility] RAPID INFLUENZA A/B ANTIGENS on 01-07-2023 FLUAV Ag Ql (Unsp spec) Negative NEGATIVE [facility] Comment on above: for Influenza A Anti gen FLUBV Ag Ql (Unsp spec) Negative NEGATIVE [facility] Comment on above: for Influenza B Anti gen. [facility] TSH with Reflexon 01-07-2023 TSH Qn 2.76 m[IU]/L [facility] Urinalysis with Reflex to Cu ltureon 01-07-2023 Bilirubin Ql (U) Negative NEGATIVE [facility] [employer] Clarity (U) SLIGHTLY CLOUDY Abnormal Clear [facility] Color (U) Yellow Yellow [facility] Glucose Test strip (U) [Mass/Vol] Negative NEGATIVE mg/dL [facility] Hemoglobin Auto test strip Ql (U) LARGE Abnormal NEGATIVE [facility] Interpretation and review of laboratory results Abnormal [facility] Ketones (U) [Mass/Vol] Negative NEGATIVE mg/dL [facility] Leukocyte esterase Test strip Ql (U) SMALL Abnormal NEGATIVE [facility] Nitrite Ql (U) Negative NEGATIVE [facility] pH (U) 6.0 [pH] 5.0 - 8.0 [facility] Protein (U) [Mass/Vol] TRACE Abnormal NEGATIVE mg/dL [facility] Specific gravity (U) [Rel density] 1.010 1.005 - 1.030 [facility] Urobilinogen Qn (U) Normal 0.0 - 1. 0 EU/dL [facility] XR CHEST PORTABLEon 01-08-20 23 Unremarkable portabl e chest radiograph. [facility] RIS CONSOLIDATED EXAMINATION: ONE XRAY VIEW OF THE CHEST 01/07/2023 4:11 pm COMPARISON: 10/12/2016 HISTORY: ORDERING SYSTEM PROVIDED HISTORY: ro pna TECHNOLOGIST PROVIDED HISTORY: ro pna FINDINGS: The cardial-pericardial silhouette is unremarkable in appearance. The lungs are clear. No pneumothorax is found. No free air is seen. No acute bony abnormality. [facility] RIS CONSOLIDATED David Inman M D - 01/07/2023 EXAMINATION: ONE XRAY VIEW OF THE CHEST 01/07/2023 4:11 pm COMPARISON: 10/12/2016 HISTORY: ORDERING SYSTEM PROVIDED HISTORY: ro pna TECHNOLOGIST PROVIDED HISTORY: ro pna FINDINGS: The cardial-pericardial silhouette is unremarkable in appearance. The lungs are clear. No pneumothorax is found. No free air is seen. No acute bony abnormality. IMPRESSION: Unremarkable portable chest radiograph. [facility] Radiology Study observation (narrative) [facility] XR CHEST PORTABLEOrdered By: David Inman on 01-07-2023 [facility] [employer] Work Phone: US PREG INCOMPLETE ANATOMYon 10-09-2022 US PREG INCOMPLETE ANATOMY EXAMINATION: US PREG INCOMPLETE ANATOMY HISTORY: screening [...] authenticated by: CARMEL YODER Date: 2022-10-09 15:19 Normal [facility] US PREG ANATOMY SINGLEon US PREG ANATOMY SINGLE EXAMINATION: US PREG ANATOMY SINGLE HISTORY: anatomy study COMPARISON: No relevant comparison available. TECHNIQUE: Transabdominal sonographic examination was performed for obstetrical and evaluation. FINDINGS: Number: 1 Heart Rate: 130.0 bpm H.B. /min Amniotic Fluid Volume: subjectively normal Placental Location: posterior, grade 0, placenta 8.6 cm from the os Cervix Length: 3.1 cm, closed Normally visualized anatomy: Cerebellum, choroid plexus, cisterna magna, lateral cerebral ventricles, orbits, midline falx, hard palate, stomach, kidneys, bladder, umbilical cord insertion into the abdomen, three-vessel cord, cervical spine, thoracic spine, lumbar spine, sacral spine, right upper extremity, left upper extremity, right lower extremity, left lower extremity Suboptimally visualized anatomy: four-chamber heart, RVOT, LVOT BIOMETRY: BPD: 4.4 cm 19w2d 3% HC: 16.8 cm 18w4d < 2% AC: 15.8 cm 21w0d, 40% FL: 3.14cm 19w6d, 8% EFW:341.5 grams; 12 oz, 60% by ultrasound FL/AC: 0.2 FL/BPD: 0.7 HC/AC: 1.1 GESTATIONAL AGE: Age by EDC: 21w0d VENKAT by EDC: 01/22/23 Age by current US: 20w0d VENKAT by current US: 01/29/23 IMPRESSION: Suboptimal visualization of heart, rvot, lvot Otherwise normal anatomy scan *Reference: [employer] Practice Guideline for the performance of Obstetric Ultrasound Examinations, February 09, 2007. Electronically authenticated by: JOSEPH LIZAMA Date: 2022-09-11 17:06 Normal [facility] US PREG CERVICAL LENGTHon US PREG CERVICAL LENGTH EXAMINATION: US PREG CERVICAL LENGTH HISTORY: anatomy study COMPARISON: No relevant comparison available. FINDINGS: Closed cervix measuring 3.3 cm in length IMPRESSION: Closed cervix measuring 3.3 cm Electronically authenticated by: JOSEPH LIZAMA Date: 2022-09-11 16:52 Normal [facility] AFP MATERNAL FOR SPINA BIFID Aon 09-02-2022 AFP MoM 0.73 Normal [facility] Comment on above: Performed By: #### A FPMAT #### [facility] [address] [place] [address] Dr. Genny Neal AFP Value 30.2 ng/mL Normal [facility] Comment on above: Performed By: #### A FPMAT #### [facility] [address] [address] [address] Genny Neal AFP, Serum for Spina Bifida Report Normal [facility] Comment on above: Performed By: #### A FPMAT #### [facility] [address] [address] [address] Genny Neal Comment Comment Normal [facility] Comment on above: Result Comment: Gabe Menchaca, Ph.D., [facility] Director . References: Available Upon Request. . Multiples Of Median Cutoffs For AFP Elevations [place] 2.5 Black 2.8 IDD 2.0 Twins 4.5 Abbreviation Definitions IDD - Insulin Dep Diabetes OSBR - Open Spina Bifida Risk . For further inquiries contact [facility] at [phone]. . This test was developed and its performance characteristics determined by [employer]. It has not been cleared or approved by the Food and Drug Administration. Performed By: #### A FPMAT #### [facility] [address] [place] [address] Dr. Genny Neal Gest Age Collection Date 18.7 weeks Normal [facility] Comment on above: Performed By: #### A FPMAT #### [facility] [address] [place] [address] Dr. Genny Neal Gestat, Age Based on Ultrasound Normal [facility] Comment on above: Result Comment: 10:5 on 07/01/2022 Recalculations are not recommended when gestational dating by LMP and ultrasound are within 10 days. Performed By: #### A FPMAT #### [facility] [address] [place] [address] Dr. Genny Neal Insulin Dep Diabetes No Normal [facility] Comment on above: Performed By: #### A FPMAT #### [facility] [address] [place] [address] Dr. Genny Neal Interpretation Comment Normal [facility] Comment on above: Result Comment: Inte rpretation: Screen Negative . This result is screen negative for OSB. The AFP MoM calculated is based on the gestational age provided. MS-AFP can identify up to 80% of open neural tube defects. Closed neural tube defects and some open defects may not be detected by this test. This test does not screen for Down Syndrome or Trisomy 18. If screening for Down Syndrome or Trisomy 18 is desired, contact [facility] to discuss available options. The [employer] recommends amniocentesis be offered to women age 35 and older. Performed By: #### A FPMAT #### [facility] [address] [place] [address] Dr. Genny Neal [age] Normal [facility] Comment on above: Performed By: #### A FPMAT #### [facility] [address] [place] [address] Dr. Genny Neal Multiple Gestation No Normal [facility] Comment on above: Performed By: #### A FPMAT #### [facility] [address] [place] [address] Dr. Genny Neal OSBR Risk 1 [place] [id number] Normal [facility] Comment on above: Performed By: #### A FPMAT #### [facility] Laboratory [address] [place] [address] Dr. Genny Neal PDF . Normal [facility] Comment on above: Performed By: #### A FPMAT #### [facility] [address] [place] [address] Dr. Genny Neal Race Normal [facility] Comment on above: Performed By: #### A FPMAT #### [facility] [address] [place] [address] Dr. Genny Neal Test Results: Negative Normal [facility] Comment on above: Performed By: #### A FPMAT #### [facility] [address] [place] [address] Dr. Genny Neal HEP B SURFACE ANTIGEN SCREEN on 07-02-2022 HBsAg Screen Negative Normal Negative [facility] Comment on above: Performed By: #### H BSANS #### [facility] [address] [place] [address] Dr. Genny Neal HEPATITIS C VIRUS AB W/ REFL EX QUANTon 07-02-2022 HCV AB Non-Reactive Normal Non Reactive [facility] Comment on above: Performed By: #### H CVPCRR #### [facility] [address] [place] [address] Dr. Genny Neal Interpretation: Comment Normal [facility] Comment on above: Result Comment: Not infected with HCV unless early or acute infection is suspected (which may be delayed in an immunocompromised individual), or other evidence exists to indicate HCV infection. Performed By: #### H CVPCRR #### [facility] [address] [place] [address] Dr. Genny Neal HIV 1 AND 2 WITH REFLEXon HIV Screen 4th Generation wRfx Non-Reactive Normal Non Reactive [facility] Comment on above: Result Comment: HIV Negative HIV-1/HIV-2 antibodies and HIV-1 p24 antigen were NOT detected. There is no laboratory evidence of HIV infection. Performed By: #### H IV12 #### [facility] [address] [place] [address] Dr. Genny Neal RPR QUANTon 07-02-2022 Rapid Plasma Reagin, Quant Non-Reactive Normal NonRea<1:1 [facility] Comment on above: Result Comment: Plea se Note: This test does not meet current guidelines for screening and diagnosis of syphilis. This test is intended for following treatment response in patients being treated for syphilis infection. To screen for syphilis infection, a reflex cascade that includes both RPR and a treponema-specific assay should be utilized, such as Treponema pallidum (Syphilis) Screening [place] (744690) or Rapid Plasma Reagin (RPR) Test With Reflex to Quantitative RPR and Confirmatory Treponema pallidum Antibodies (076236). Performed By: #### R PRQ #### [facility] [address] [place] [address] Dr. Genny Neal RUBELLA AB IGGon 07-02-2022 Rubella Antibodies, IgG 1.65 index Normal Immune >0.99 [facility] Comment on above: Result Comment: Non- immune <0.90 Equivocal 0.90 - 0.99 Immune >0.99 Performed By: #### R UBIGG #### [facility] [address] [place] [address] Dr. Genny Neal US PREG TVon 07-02-2022 US PREG TV EXAMINATION: US PREG TV HISTORY: Routine care COMPARISON: No relevant comparison available. FINDINGS: GESTATIONAL SAC: Present and normal appearing. YOLK SAC: Present and normal appearing. POLE: Present and normal appearing. CARDIAC: Present. UTERUS: Normal size and appearance. OVARIES: Right: Normal. Left: Not seen CERVIX: 3.8 cm in length and closed. CUL-DE-SAC: Normal. OTHER: None. AGE BY LMP: 10 weeks 5 days VENKAT BY LMP: 01/22/2023 AGE BY US CRL: 9 weeks 6 days VENKAT BY US CRL: 01/28/2023 IMPRESSION: 1. Single live intrauterine . Electronically authenticated by: CARMEL YODER Date: 2022-07-02 17:09 Normal [facility] BOX TEST SENT OUTon 07-01-19 23 SENT TO REF LAB 07/01/2022 Normal [facility] Comment on above: Performed By: #### B OX #### [facility] [address] [place] [address] Dr. Genny Neal CBC AUTO DIFFon 07-01-2022 BASO # 0.0 103/ul Normal 0.0-0.1 [facility] Comment on above: Performed By: #### D RUGRPD #### [facility] [address] [address] [address] Genny Neal Basophils/100 WBC (Bld) 0.3 % Normal 0.2-2.0 [facility] Comment on above: Performed By: #### D RUGRPD #### [facility] [address] [place] [address] Dr. Genny Neal EO # 0.2 103/ul Normal 0.0-0.7 [facility] Comment on above: Performed By: #### D RUGRPD #### [facility] [address] [place] [address] Dr. Genny Neal Eosinophils/100 WBC (Bld) 2.5 % Normal 0.9-7.0 [facility] Comment on above: Performed By: #### D RUGRPD #### [facility] [address] [place] [address] Dr. Genny Neal Erythrocyte distribution width (RBC) [Ratio] 14.9 % Normal 11.0-15.0 [facility] Comment on above: Performed By: #### D RUGRPD #### [facility] [address] [place] [address] Dr. Genny Neal Hematocrit (Bld) [Volume fraction] 38.4 % Normal 36.0-48.0 [facility] Comment on above: Performed By: #### D RUGRPD #### [facility] [address] [place] [address] Dr. Genny Neal Hemoglobin (Bld) [Mass/Vol] 13.1 g/dL Normal 12.0-16.0 [facility] Comment on above: Performed By: #### D RUGRPD #### [facility] [address] [place] [address] Dr. Genny Neal IG # 0.04 10e3/ul Critically high 0.00-0.03 [facility] Comment on above: Performed By: #### D RUGRPD #### [facility] [address] [place] [address] Dr. Genny Neal IG % 0.4 % Normal 0.0-0.5 [facility] Comment on above: Performed By: #### D RUGRPD #### [facility] [address] [address] [address] Genny Neal LYMPH # 2.1 103/ul Normal 1.2-3.8 [facility] Comment on above: Performed By: #### D RUGRPD #### [facility] [address] [address] [address] Genny Neal Lymphocytes/100 WBC (Bld) 21.8 % Normal 20.5-60.0 [facility] Comment on above: Performed By: #### D RUGRPD #### [facility] [address] [address] [address] Genny Neal MANUAL DIFF REQ NO Normal [facility] Comment on above: Performed By: #### D RUGRPD #### [facility] [address] [address] [address] Genny Neal MCH (RBC) [Entitic mass] 29.3 pg Normal 26.7-34.0 [facility] Comment on above: Performed By: #### D RUGRPD #### [facility] [address] [address] [address] Genny Neal MCHC (RBC) [Mass/Vol] 34.1 g/dL Normal 29.9-35.2 [facility] Comment on above: Performed By: #### D RUGRPD #### [facility] [address] [address] [address] Genny Neal MCV (RBC) [Entitic vol] 85.9 fL Normal 81.0-99.0 [facility] Comment on above: Performed By: #### D RUGRPD #### [facility] [address] [address] [address] Genny Neal MONO # 0.7 103/ul Normal 0.3-0.8 [facility] Comment on above: Performed By: #### D RUGRPD #### [facility] [address] [address] [address] Genny Neal Monocytes/100 WBC (Bld) 6.7 % Normal 1.7-12.0 [facility] Comment on above: Performed By: #### D RUGRPD #### [facility] [address] [place] [address] Dr. Genny Neal NEUT # 6.7 103/ul Critically high 1.4-6.5 [facility] Comment on above: Performed By: #### D RUGRPD #### [facility] [address] [place] [address] Dr. Genny Neal Neutrophils/100 WBC (Bld) 68.3 % Normal 43.0-75.0 [facility] Comment on above: Performed By: #### D RUGRPD #### [facility] [address] [place] [address] Dr. Genny Neal Platelet mean volume (Bld) [Entitic vol] 10.0 fL Normal 9.5-13.5 [facility] Comment on above: Performed By: #### D RUGRPD #### [facility] [address] [place] [address] Dr. Genny Neal PLT 226 103/ul Normal 150-450 [facility] Comment on above: Performed By: #### D RUGRPD #### [facility] [address] [place] [address] Dr. Genny Neal RBC 4.47 106/ul Normal 4.20-5.40 [facility] Comment on above: Performed By: #### D RUGRPD #### [facility] [address] [place] [address] Dr. Genny Neal WBC 9.7 103/ul Normal 4.0-11.0 [facility] Comment on above: Performed By: #### D RUGRPD #### [facility] [address] [place] [address] Dr. Genny Neal CULTURE URINEon 07-01-2022 CULTURE URINE Culture Observations : HEAVY GROWTH OF MIXED GENITAL HERVE. NO POTENTIAL PATHOGENS SEEN. Culture Observations: PLEASE RESUBMIT CLEAN CATCH MID-STREAM URINE IF CLINICALLY INDICATED. Normal [facility] Comment on above: Performed By: #### D RUGRPD #### [facility] [address] [place] [address] Dr. Genny Neal DRUG SCREEN RAPID (URINE)on 07-01-2022 AMP Negative Normal NEGATIVE [facility] Comment on above: Performed By: #### D RUGRPD #### [facility] [address] [place] [address] Dr. Genny Neal BAR Negative Normal NEGATIVE [facility] Comment on above: Performed By: #### D RUGRPD #### [facility] [address] [place] [address] Dr. Genny Neal BUP Negative Normal NEGATIVE [facility] Comment on above: Performed By: #### D RUGRPD #### [facility] [address] [place] [address] Dr. Genny Neal BZO Negative Normal NEGATIVE [facility] Comment on above: Performed By: #### D RUGRPD #### [facility] [address] [place] [address] Dr. Genny Neal ANA Negative Normal NEGATIVE [facility] Comment on above: Performed By: #### D RUGRPD #### [facility] [address] [place] [address] Dr. Genny Neal CUT-OFFS SEE BELOW Normal [facility] Comment on above: Result Comment: AMP (Amphetamine): 500ng/mL, BAR (Barbituates): 200 ng/mL, BZO (Benzodiazepines): 150 ng/mL, BUP (Buprenorphine): 10 ng/mL, ANA (Cocaine): 150 ng/mL, mAMP (Methamphetamine): 500 ng/mL, MTD (Methadone): 200 ng/mL, OPI (Opiates): 100 ng/mL, OXY (Oxycodone): 100 ng/mL, PCP (Phencyclidine): 25 ng/mL, PPX (Propoxyphene): 300 ng/mL, THC (Cannabinoids): 50 ng/mL, TCA (Trycyclic Antidepressants): 300 ng/mL Performed By: #### D RUGRPD #### [facility] [address] [place] [address] Dr. Genny Neal DRUG CUT HEADER DRUG CLASS TEST SYSTEM CUT-OFF CONCENTRATIONS ARE FOLLOWS: Normal [facility] Comment on above: Performed By: #### D RUGRPD #### [facility] [address] [address] [address] Genny Neal mAMP Negative Normal NEGATIVE [facility] Comment on above: Performed By: #### D RUGRPD #### [facility] [address] [address] [address] Genny Neal MTD Negative Normal NEGATIVE [facility] Comment on above: Performed By: #### D RUGRPD #### [facility] [address] [address] [address] Genny Neal OPI Negative Normal NEGATIVE [facility] Comment on above: Performed By: #### D RUGRPD #### [facility] [address] [place] [address] Dr. Genny Neal OXY Negative Normal NEGATIVE [facility] Comment on above: Performed By: #### D RUGRPD #### [facility] [address] [place] [address] Dr. Genny Neal PCP Negative Normal NEGATIVE [facility] Comment on above: Performed By: #### D RUGRPD #### [facility] [address] [address] [address] Genny Neal PPX Negative Normal NEGATIVE [facility] Comment on above: Performed By: #### D RUGRPD #### [facility] [address] [place] [address] Dr. Genny Neal TCA Negative Normal NEGATIVE [facility] Comment on above: Performed By: #### D RUGRPD #### [facility] [address] [address] [address] Genny Neal THC Negative Normal NEGATIVE [facility] Comment on above: Performed By: #### D RUGRPD #### [facility] [address] [place] [address] Dr. Genny Neal GLYCOHEMOGLOBIN A1Con 2022 ADA RECOMMENDATION SEE BELOW Normal [facility] Comment on above: Result Comment: ADA RECOMMENDED LIMIT 4.0 - 6.0 ADA THERAPEUTIC TARGET < 7.0 ACTION SUGGESTED > 7.0 Performed By: #### A 1C #### [facility] [address] [place], [place] [address] Dr. Genny Neal Glucose [Mass/Vol] 94 mg/dL Normal [facility] Comment on above: Performed By: #### A 1C #### [facility] [address] [place], [place] [address] Dr. Genny Neal HbA1c (Bld) [Mass fraction] 4.9 % Normal 4.5-6.2 [facility] Comment on above: Performed By: #### A 1C #### [facility] [address] [place], [place] [address] Dr. Genny Neal TYPE AND SCREENon 07-01-2022 TYPE AND SCREEN Negative Normal [facility] Comment on above: Performed By: #### D RUGRPD #### [facility] [address] [place], [place] [address] Dr. Genny Neal Coding Summary.on 09-08-2019 Coding Summary. CODING DATE: 09/08/2019 FINAL [facility] [place] STATUS: Home (Routine DC) PAYOR: Medicaid EAPG DESCRIPTION 0425 LEVEL I OTHER MISCELLANEOUS ANCILLARY PROCEDURES 0400 LEVEL I CHEMISTRY TESTS ADMIT DX: REASON FOR VISIT DX: Z36.9 Encounter for screening, unspecified FINAL DX: PRINCIPAL: O09.92 Supervision of high risk , unspecified, second trimester SECONDARY: PYMT PROC EAPG STAT DESCRIPTION DOCTOR NAME DATE NOTE: The code number assigned matches the documented diagnosis and / or procedure in the patient's chart. However, the narrative phrase printed from the coding software may appear abbreviated, or result in slightly different terminology. Coded By: Maria Esther Monique Date Saved: 09/08/2019 10:50 am Normal [facility] AFP Maternalon 09-03-2019 AFP [Mass/Vol] 35.0 ng/mL [facility] Comment on above: Performed By: #### 1 [id number] #### [facility] [address] [place] [address] AFP adjusted [MoM] 1.06 [facility] Comment on above: Performed By: #### 1 [id number] #### [facility] [address] [place] [address] AFP Comment Comment [facility] Comment on above: Result Comment: Ismael Hurtado, Ph.D., [facility] Principal Genetics Lay Out Drafter References: Available Upon Request. Multiples Of Median Cutoffs For AFP Elevations [place] 2.5 Black 2.8 IDD 2.0 Twins 4.5 Abbreviation Definitions IDD - Insulin Dep Diabetes OSBR - Open Spina Bifida Risk For further inquiries contact [facility] at [phone]. Performed at: [facility] [address] [facility], [place] [id number] MD Kathia Harrison Performed By: #### 1 [id number] #### [facility] [address] [place] [address] AFP interpretation [Interp] Negative [facility] Comment on above: Performed By: #### 1 [id number] #### [facility] [address] [place] [address] AFP interpretation Gadiel [Interp] Comment [facility] Comment on above: Result Comment: Inte rpretation: Screen Negative This result is screen negative for OSB. The AFP MoM calculated is based on the gestational age provided. MS-AFP can identify up to 80% of open neural tube defects. Closed neural tube defects and some open defects may not be detected by this test. This test does not screen for Down Syndrome or Trisomy 18. If screening for Down Syndrome or Trisomy 18 is desired, contact [facility] to discuss available options. The [employer] recommends amniocentesis be offered to women age 35 and older. Performed By: #### 1 [id number] #### [facility] [address] [place] [address] AFP Maternal Report [facility] Comment on above: Performed By: #### 1 [id number] #### [facility] [address] [place] [address] Gestational Age 17.0 week(s) [facility] Comment on above: Performed By: #### 1 [id number] #### [facility] [address] [place] [address] INSULIN DEPENDENT DIABETES MELLITUS:PRTHR:PT: No [facility] Comment on above: Performed By: #### 1 [id number] #### [facility] [address] [place] [address] Maternal Age 17.9 [facility] Comment on above: Performed By: #### 1 [id number] #### [facility] [address] [place] [address] Mult of Median No [facility] Comment on above: Performed By: #### 1 [id number] #### [facility] [address] [place] [address] NEURAL TUBE DEFECT RISK:LIKELIHOOD:PT: 78899 [facility] Comment on above: Performed By: #### 1 [id number] #### [facility] [address] [place] [address] Race [facility] Comment on above: Performed By: #### 1 [id number] #### [facility] [address] [place] [address] Week Gest Ultrasound [facility] Comment on above: Result Comment: 17.0 on 08/31/2019 Recalculations are not recommended when gestational dating by LMP and ultrasound are within 10 days. Performed By: #### 1 [id number] #### [facility] [address] [place] [address] Vital Signs Date Time Vital Sign Value Performing Clinician Facility 10-18-2024 11:20-0400 Body mass index (BMI) [Ratio] 34.13 kg/m2 Terri RUSSELL Work Phone: [facility] 10-18-2024 11:20-0400 Body weight 104.83 kg Terri RUSSELL Work Phone: [facility] 10-18-2024 11:20-0400 Diastolic blood pressure 82 mm[Hg] Terri RUSSELL Work Phone: [facility] 10-18-2024 11:20-0400 Systolic blood pressure 120 mm[Hg] Terri RUSSELL Work Phone: [facility] 09-20-2024 11:41-0400 Body mass index (BMI) [Ratio] 33.88 kg/m2 Mitchell Zeinab DO Work Phone: [facility] 09-20-2024 11:41-0400 Body weight 104.06 kg Mitchell Zeinab DO Work Phone: [facility] 09-20-2024 11:41-0400 Diastolic blood pressure 74 mm[Hg] Mitchell Zeinab DO Work Phone: [facility] 09-20-2024 11:41-0400 Systolic blood pressure 114 mm[Hg] Mitchell Zeinab DO Work Phone: [facility] 08-30-2024 09:35-0400 Body mass index (BMI) [Ratio] 34.56 kg/m2 Mitchell Zeinab DO Work Phone: [facility] 08-30-2024 09:35-0400 Body weight 106.14 kg Mitchell Zeinab DO Work Phone: [facility] 08-30-2024 09:35-0400 Diastolic blood pressure 80 mm[Hg] Mitchell Zeinab DO Work Phone: [facility] 08-30-2024 09:35-0400 Systolic blood pressure 130 mm[Hg] Mitchell Zeinab DO Work Phone: [facility] 06-10-2024 13:35-0500 Body height 175.3 cm Peyton Murrell MD Work Phone: [facility] 06-10-2024 13:35-0500 Body mass index (BMI) [Ratio] 32.78 kg/m2 Peyton Murrell MD Work Phone: [facility] 06-10-2024 13:35-0500 Body weight 100.7 kg Peyton Murrell MD Work Phone: [facility] 06-10-2024 13:35-0500 Diastolic blood pressure 80 mm[Hg] Peyton Murrell MD Work Phone: [facility] 06-10-2024 13:35-0500 Heart rate 88 /min Peyton Murrell MD Work Phone: [facility] 06-10-2024 13:35-0500 Systolic blood pressure 118 mm[Hg] Peyton Murrell MD Work Phone: [facility] 03-24-2024 14:33-0500 Body height 175.3 cm Mitchell Zeinab DO Work Phone: [facility] 03-24-2024 14:33-0500 Body mass index (BMI) [Ratio] 32.9 kg/m2 Mitchell Zeinab DO Work Phone: [facility] 03-24-2024 14:33-0500 Body weight 101.06 kg Mitchell Zeinab DO Work Phone: [facility] 03-24-2024 14:33-0500 Diastolic blood pressure 78 mm[Hg] Mitchell Zeinab DO Work Phone: [facility] 03-24-2024 14:33-0500 Systolic blood pressure 116 mm[Hg] Mitchell Zeinab DO Work Phone: [facility] 02-24-2024 13:58-0400 Body mass index (BMI) [Ratio] 32.46 kg/m2 Mitchell Zeinab DO Work Phone: [facility] 02-24-2024 13:58-0400 Body weight 99.7 kg Mitchlel Zeinab DO Work Phone: [facility] 02-24-2024 13:58-0400 Diastolic blood pressure 74 mm[Hg] Mitchell Zeinab DO Work Phone: [facility] 02-24-2024 13:58-0400 Systolic blood pressure 112 mm[Hg] Mitchell Zeinab DO Work Phone: [facility] 01-07-2023 18:15-0400 Diastolic blood pressure 82 mm[Hg] Cl Holden MD Work Phone: [facility] 01-07-2023 18:15-0400 Heart rate 112 /min Cl Holden MD Work Phone: [facility] 01-07-2023 18:15-0400 Respiratory rate 20 /min Cl Holden MD [facility] 01-07-2023 18:15-0400 SaO2% (BldA) [Mass fraction] 100 % Cl Holden MD Work Phone: [facility] 01-07-2023 18:15-0400 Systolic blood pressure 133 mm[Hg] Cl Holden MD Work Phone: [facility] 01-07-2023 15:40-0400 Body height 175.3 cm Cl Holden MD [facility] 01-07-2023 15:40-0400 Body mass index (BMI) [Ratio] 32.34 kg/m2 Cl Holden MD [facility] 01-07-2023 15:40-0400 Body temperature 99.81 [degF] Cl Holden MD [facility] 01-07-2023 15:40-0400 Body weight 99.34 kg Cl Holden MD Work Phone: [facility] 09-02-2022 18:07-0400 Body weight 90.[address] MITCHELL ARRIOLA . [facility] Comment on above: Performed By: #### AFPMAT #### [facility] [address] [place], [place] [address] Dr. Genny Neal 09-03-2019 15:10-0400 Body weight 81.648 kg [facility] Comment on above: Performed By: #### [id number] #### [facility] [address] [place] [id number] Encounters Encounter Date Encounter Type Care Provider Facility Start: 10-18-2024 End: 10-18-2024 Bamboo flowsheet Terri RUSSELL Work Phone: [facility] Start: 10-18-2024 End: 10-20-2024 Bamboo flowsheet Terri RUSSELL Work Phone: [facility] Start: 10-18-2024 End: 10-20-2024 Clinisync Result Encounter Terri RUSSELL Work Phone: [facility] External Department Unsolicited Start: 10-18-2024 End: 10-18-2024 Patient encounter procedure Terri RUSSELL Work Phone: [facility] Healthcare Work Phone: Start: 10-18-2024 End: 10-18-2024 Periodic preventive med est patient 18-39 yrs Terri RUSSELL Work Phone: [facility] Comment on above: Well woman exam with routine gynecological exam; Follow-up encounter involving medication; Yeast infection; Encounter for routine checking of intrauterine contraceptive device (IUD); Menorrhagia with irregular cycle Start: 10-18-2024 End: 10-18-2024 ambulatory TERRI GALLARDO Not Available Start: 09-20-2024 End: 09-20-2024 Bamboo flowsheet Mitchell Ezinab DO Work Phone: [facility] Start: 09-20-2024 End: 09-20-2024 Bamboo flowsheet Mitchell Zeinab DO Work Phone: [facility] Start: 09-20-2024 End: 09-20-2024 Office outpatient visit 15 minutes Mitchell Zeinab DO Work Phone: [facility] Comment on above: Follow-up encounter involving medication Start: 09-20-2024 End: 09-20-2024 ambulatory MITCHELL ZEINAB Not Available Start: 09-08-2024 Emergency department patient visit Joseph Vanegas Facility:[facility] Start: 08-30-2024 End: 08-30-2024 Bamboo flowsheet Mitchell Zeinab DO Work Phone: [facility] Start: 08-30-2024 End: 08-31-2024 Bamboo flowsheet Mitchell Zeinab DO Work Phone: [facility] Start: 08-30-2024 End: 08-31-2024 External Result Encounter Mitchell Arriola DO Work Phone: [facility] External Department Unsolicited Start: 08-30-2024 End: 08-30-2024 ambulatory MITCHELL ARRIOLA Not Available Start: 08-30-2024 End: 08-30-2024 Office outpatient visit 15 minutes Mitchell Arriola DO Work Phone: [facility] Comment on above: Vaginal cyst; Exposure to STD; Sinus tachycardia; Infected sebaceous gland; Insulin resistance; Bacterial vaginosis Start: 08-23-2024 Emergency department patient visit Nik Guilherme Facility:[facility] Start: 08-18-2024 End: 08-18-2024 ambulatory Nik Guilherme Facility: [facility] IC Start: 08-10-2024 End: 08-10-2024 ambulatory Nik Guilherme Facility: [facility] Start: 06-25-2024 ambulatory [facility] Start: 06-23-2024 End: 06-23-2024 ambulatory [facility] Facility:[facility] Start: 06-10-2024 End: 06-10-2024 ambulatory [facility] Start: 06-10-2024 End: 06-10-2024 Office outpatient new 30 minutes Peyton Murrell MD Work Phone: [facility] Comment on above: Intermittent palpita tions (Primary Dx); Precordial pain Start: 06-09-2024 End: 06-09-2024 Telephone encounter Susie Rivas MA [facility] Start: 05-05-2024 End: 05-05-2024 Emergency department patient visit Joseph Vanegas Facility:[facility] Start: 05-02-2024 Emergency department patient visit Joseph Vanegas Facility:[facility] Start: 04-05-2024 End: 04-05-2024 ambulatory Joseph Vanegas Facility:[facility] Start: 04-05-2024 End: 04-05-2024 ambulatory Joseph Vanegas Facility: [facility] Start: 03-24-2024 End: 03-24-2024 Bamboo flowsheet Mitchell Zeinab DO Work Phone: [facility] Start: 03-24-2024 End: 03-24-2024 Bamboo flowsheet Mitchell Zeinab DO Work Phone: [facility] Start: 03-24-2024 End: 03-24-2024 Office outpatient visit 15 minutes Mitchell Zeinab DO Work Phone: [facility] Comment on above: Encounter for weight management; Urinary tract infection without hematuria, site unspecified Start: 03-24-2024 End: 03-24-2024 ambulatory MITCHELL ZEINAB Not Available Start: 03-14-2024 End: 03-15-2024 Emergency department patient visit Nik Guilherme Facility:[facility] Start: 02-24-2024 End: 02-24-2024 Patient encounter procedure Mitchell Zeinab DO Work Phone: [facility] Comment on above: Encounter for IUD in sertion; Insulin resistance Start: 02-24-2024 End: 02-24-2024 ambulatory MITCHELL ZEINAB Not Available Start: 01-26-2024 End: 01-26-2024 ambulatory Joseph Thurston Guilherme Facility:[facility] Start: 01-07-2024 End: 01-07-2024 Emergency department patient visit Nik Guilherme Facility:[facility] Start: 12-12-2023 End: 12-12-2023 ambulatory Nik Guilherme Facility:[facility] Start: 12-01-2023 End: 12-04-2023 Evaluation and management of inpatient Nik Guilherme Facility:[facility] Start: 11-27-2023 End: 11-27-2023 ambulatory Joseph Thurston Guilherme Facility:[facility] Start: 11-03-2023 End: 11-03-2023 ambulatory MITCHELL ZEINAB Not Available Start: 10-20-2023 ambulatory Joseph Vanegas Facility: [facility] Start: 09-22-2023 End: 09-22-2023 ambulatory Joseph Thurston Guilherme Facility:[facility] Start: 01-07-2023 End: 01-07-2023 Emergency department patient visit Cl Holden MD Work Phone: [facility] Comment on above: COVID-19 (Primary Dx ) Start: 10-09-[address] MITCHELL ARRIOLA . Facili ty:[facility] Start: 09-11-2022 End: 09-12-[address] WILMER CURTIS . Facility:[facility] Start: 08-26-2022 End: 08-27-[address] WILMER CURTIS . Facility:[facility] Start: 07-01-2022 End: 07-02-[address] WILMER CURTIS . Facility:[facility] Start: 07-01-2022 End: 07-02-[address] WILMER CURTIS . Facility: Procedures Date Procedure Procedure Detail Performing Clinician Start: 10-18-2024 IGP,APTIMA HPV,AGE GDLN Terri RUSSELL Work Phone: Start: 08-30-2024 RECURRENT VAGINITIS (HTRX) Mitchell Zeinab DO Work Phone: Start: 08-30-2024 Urnls dip stick/tabl et rgnt non-auto w/o micrscp Mitchell Zeinab DO Work Phone: Start: 02-24-2024 Urine test visual color cmprsn meths Mitchell Zeinab DO Work Phone: Start: 02-24-2024 IUD INSERTION Mitchell Kat io DO Work Phone: Start: 01-07-2023 End: 01-07-2023 Iaadiadoo influenza Georgi Butt MD Work Phone: Start: 01-07-2023 COVID-19, RAPID Georgi ortiz MD Work Phone: Start: 01-07-2023 CULTURE, BLOOD 1 Georgi Butt MD Work Phone: Start: 01-07-2023 Radiologic exam ches t single view Georgi Butt MD Work Phone: Start: 01-07-2023 Urnls dip stick/tabl et rgnt auto w/o microscopy Georgi Butt MD Work Phone: Start: 01-07-2023 Basic metabolic pane l calcium total Georgi Butt MD Work Phone: Start: 01-07-2023 Hepatic function panel Georgi Butt MD Work Phone: Plan of Treatment Date Care Activity Detail Author Start: 06-12-2031 DTaP,Tdap and Td Vaccines (6 - Tdap) DTaP,Tdap and Td Vaccines (6 - Tdap) [facility] Start: 06-10-2025 Adult BMI Screening Adult BMI Screen ing [facility] Start: 01-10-2025 Influenza vaccination Influenz a Vaccine (Season Ended) [facility] Start: 12-22-2024 End: 12-22-2024 Patient encounter procedure 12/22/2024 9:00 AM EDT [facility] [address] [place] [phone] Peyton Murrell MD [address] [place] [address] [facility] Start: 10-18-2024 End: 04-19-2025 US Pelvis transvaginal US pelvis transvaginal Imaging Routine Encounter for routine checking of intrauterine contraceptive device (IUD) Menorrhagia with irregular cycle Expected: 10/18/2024, Expires: 04/19/2025 [facility] Comment on above: Expected: 10/18/2024 , Expires: 04/19/2025 Start: 10-18-2024 End: 10-18-2024 Patient encounter procedure 10/18/2024 11:00 AM EDT Office Visit [facility] [address] [phone] Terri Gallardo PA [address] [place] [address] [facility] Start: 09-20-2024 End: 09-20-2024 Patient encounter procedure [facility] Comment on above: Arrived Start: 06-10-2024 End: 06-10-2025 Echo complete W/O contrast Echo complete W/O contrast Echocardiography Routine Intermittent palpitations Precordial pain Expected: 06/10/2024, Expires: 06/10/2025 [facility] [employer] [facility] Comment on above: Expected: 06/10/2024 , Expires: 06/10/2025 Start: 06-10-2024 End: 06-10-2025 Event monitor Event monitor Cardiac Services Routine Intermittent palpitations Precordial pain Expected: 06/10/2024, Expires: 06/10/2025 [facility] Work Phone: Comment on above: Expected: 06/10/2024 , Expires: 06/10/2025 Start: 06-10-2024 End: 06-10-2024 Patient encounter procedure 06/10/2024 1:30 PM EST Office Visit [facility] [address] [place] [phone] Peyton Murrell MD [address] [place] [address] [facility] Start: 04-22-2024 End: 04-22-2024 Patient encounter procedure 04/22/2024 8:30 AM EST Office Visit [facility] [address] [facility] [phone] Terri Gallardo PA [address] [address] [place], [place] [phone] [facility] Start: 03-24-2024 End: 03-24-2024 Patient encounter procedure 03/24/2024 1:50 PM EST Office Visit [facility] [address] [place] [phone] Mitchell Arriola DO [address] [place], [place] [id number] [facility] Start: 01-11-2024 Influenza vaccination N [facility] Start: 2023 Screening for malignant neoplasm of cervix Pap Smear [facility] Start: 12-10-2022 Influenza vaccination Flu vaccine (# 1) [facility] Start: 2021 DTaP/Tdap/Td vaccine (1 - Tdap) DTaP/Tdap/Td vaccine (1 - Tdap) [facility] Start: 02-28-2020 Adult BMI Follow Up Plan Adult BMI Follow Up Plan [facility] Start: 02-28-2020 Adult BMI Screening Adult BMI Screen ing [facility] Start: 02-28-2020 Hepatitis C screening Hepatitis C sc reen [facility] Start: 2018 Screening for Chlamydia trachomatis Chlamydia/GC screen [facility] Start: 2017 HIV screening HIV screen [facility] Start: 2014 Depression Screen Depression Screen [facility] Start: 2014 Depression Screening Depression Scre ening [facility] Start: 2014 Tobacco Screening Tobacco Screening [facility] Start: 2013 HPV vaccine (1 - 2-dose series) HPV vaccine (1 - 2-dose series) [facility] Start: 2003 Varicella vaccine (1 of 2 - 2-dose childhood series) Varicella vaccine (1 of 2 - 2-dose childhood series) [facility] Start: 2002 COVID-19 Vaccine (#1) COVID-19 Vacci ne (#1) [facility] Blood Culture 1 Blood Culture 1 Microbiology Stat [employer] Label print 01/07/2023 4:41 PM EDT [facility] CHLAMYDIA TRACHOMATI S (GENITO/STI) CHLAMYDIA TRACHOMATIS (GENITO/STI) Lab Routine Exposure to STD Ordered: 08/30/2024 [facility] Comment on above: Ordered: 08/30/2024 End: 01-07-2023 Culture, Blood 2 Culture, Blood 2 Microbiology STAT One Time for 1 Occurrences starting 01/07/2023 until 01/07/2023 [facility] Comment on above: One Time for 1 Occur rences starting 01/07/2023 until 01/07/2023 End: 01-07-2023 Culture, Urine [facility] Work Phone: Comment on above: Once for 1 Occurrenc es starting 01/07/2023 until 01/07/2023 Cytology Cervical or vaginal smear or scraping study Pap Smear Pathology and Cytology Routine Well woman exam with routine gynecological exam Ordered: 10/18/2024 [facility] Work Phone: Comment on above: Ordered: 10/18/2024 Neisseria gonorrhoea e DNA [Presence] in Unspecified specimen by ELEONORA with probe detection Neisseria gonorrhea DNA probe, direct Lab Routine Exposure to STD Ordered: 08/30/2024 [facility] Comment on above: Ordered: 08/30/2024 SURESWAB(R) ADVANCED VAGINITIS PLUS, TMA SURESWAB(R) ADVANCED VAGINITIS PLUS, TMA Pathology and Cytology Routine Exposure to STD Ordered: 08/30/2024 [facility] Work Phone: Comment on above: Ordered: 08/30/2024 Payers Date Payer Category Payer Self-pay 2021 Medicaid (Managed Care) [employer] [id number] 2021 Medicaid [place] [employer] [id number] 2002 Unknown [id number] 2.16.840.1.642340.3.579.2. 593 2002 Unknown [id number] 2.16.840.1.561296.3.579.2. 593 2002 Unknown [id number] 2.16.840.1.142959.3.579.2. 593 2002 Unknown [id number] 2.16.840.1.300204.3.579.2. 593 2002 Unknown [id number] 2.16.840.1.627406.3.579.2. 593 2002 Unknown [id number] 2.16.840.1.058369.3.579.2. 1286 2002 Unknown [id number] 2.16.840.1.008359.3.579.2. 1286 2002 Unknown [id number] 2.16.840.1.351453.3.579.2. 718 2002 Unknown [id number] 2.16.840.1.785304.3.579.2. 718 2002 Unknown [id number] 2.16.840.1.407256.3.579.2. 718 2002 Unknown [id number] 2.16.840.1.416300.3.579.2. 718 2002 Unknown [id number] 2.16.840.1.459640.3.579.2. 718 2002 Unknown [id number] 2.16.840.1.393991.3.579.2. 718 2002 Unknown [id number] 2.16.840.1.778962.3.579.2. 718 2002 Unknown [id number] 2.16.840.1.089244.3.579.2. 718 2002 Unknown [id number] 2.16.840.1.259721.3.579.2. 718 2002 Unknown [id number] 2.16.840.1.982411.3.579.2. 718 2002 Unknown [id number] 2.16.840.1.770182.3.579.2. 718 2002 Unknown [id number] 2.16.840.1.155065.3.579.2. 718 2002 Unknown [id number] 2.16.840.1.695287.3.579.2. 718 2002 Unknown [id number] 2.16.840.1.745433.3.579.2. 718 2002 Unknown [id number] 2.16.840.1.891161.3.579.2. 718 2002 Unknown [id number] 2.16.840.1.775823.3.579.2. 718 2002 Unknown [id number] 2.16.840.1.403846.3.579.2. 718 2002 Unknown [id number] 2.16.840.1.175997.3.579.2. 718 2002 Unknown [id number] 2.16.840.1.113811.3.579.2. 1259 2002 Unknown [id number] 2.16.840.1.103779.3.579.2. 1259 2002 Unknown [id number] 2.16.840.1.116620.3.579.2. 1259 2002 Unknown [id number] 2.16.840.1.254126.3.579.2. 1259 2002 Unknown [id number] 2.16.840.1.873330.3.579.2. 1259 2002 Unknown [id number] 2.16.840.1.939858.3.579.2. 1259 1959 Unknown [id number] Unknown [id number] 2.16.840.1.912438.3.579.2. 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) [facility] Start: 2002 Sex Assigned At Not on file [facility] Start: 11-29-2022 End: 06-10-2024 Tobacco smoking status NHIS Ex-smoker [facility] History of tobacco use Current smoker [facility] History of tobacco use Cigarette Smoker [facility] Start: 11-29-2022 End: 06-10-2024 Tobacco use and exposure Smokeless tobacco non-user [facility] Start: 02-24-2024 End: 10-18-2024 Alcoholic beverage intake Lifetime non-drinker (finding) [facility] Start: 04-11-2023 End: 11-03-2023 History of Social function [facility] Start: 04-11-2023 End: 11-03-2023 Tobacco use panel [facility] Tobacco smoking stat [facility] Tobacco smoking consumption unknown [facility] Childcare Unknown [facility] Start: 12-15-2014 Sex Female (finding) [facility] Start: 06-10-2024 Alcoholic beverage intake Current drinker of alcohol (finding) [facility] Medical Equipment Procedure Code Equipment Code Equipment Origin al Text Equipment Identifier Dates Screw Lk W/ T25 Stardrive 4.0x48mm [id number] Start: 10-12-2016 Clinical Notes 01-07-2023 to 10-18-2024 YVONNE Gregg - 10/18/2024 11:00 AM Sarah Ernst LPN - 09/20/2024 11:10 AM Sarah Ernst LPN - 08/30/2024 9:20 AM Jefferson Murrell MD - 06/10/2024 1:30 PM ESTDischarge Instructions Note Date & Type Note Facility 10-18-2024 History of Presen t illness Narrative Reason for Appointment: Patient ID: Ana Sauceda [...] Problems Son Mekhi No Known Problems Son Central Cancer Other Grandmother SURGICAL HISTORY Past Surgical [...] nursing note reviewed. Exam conducted with a core cleaner present. Vitals: Estimated body mass index is 34.13 kg/m as calculated from the following: Height as [...] have heavy bleeding with her IUD, discussed taking an oral BC but she would like to continue without oral medication at this time. We will do ultrasound to check IUD placement. Patient did have waxing recently and we will order medication for yeast infection. Follow Up: Patient is to return in one year for annual unless needed otherwise. Documented by Devora Jean LPN on behalf of: YVONNE Gregg documented in this encounter [facility] 09-20-2024 History of Presen t illness Narrative Reason for Appointment: Patient ID: Ana Sauceda is a 24 y.o. female who presents for Follow-up Patient presents today for Consult appointment. MEDICATIONS Current Outpatient Medications Medication Instructions Levonorgestrel (Mirena, 52 MG,) 20 MCG/DAY intrauterine device Intrauterine levothyroxine (SYNTHROID, LEVOXYL) 100 mcg, Oral, Daily before breakfast metFORMIN XR (GLUCOPHAGE-XR) 500 mg, Oral, Daily with evening meal, Do not crush, chew, or split. metFORMIN XR (GLUCOPHAGE-XR) 500 mg, Oral, Daily with evening meal, Do not crush, chew, or split. metFORMIN XR (GLUCOPHAGE-XR) 1,000 mg, Oral, Daily with evening meal, Do not crush, chew, or split. ALLERGIES No Known Allergies PROBLEMS Active Ambulatory Problems Diagnosis Date Noted Generalized anxiety disorder ([facility]) 10/09/2022 Panic disorder ([facility]) 10/09/2022 Hypothyroid ([facility]) 10/09/2022 Resolved Ambulatory Problems Diagnosis Date Noted No Resolved Ambulatory Problems Past Medical History: Diagnosis Date BMI 29.0-29.9,adult ALLI (generalized anxiety disorder) ([facility]) Hypothyroidism ([facility]) Panic disorder without agoraphobia ([facility]) HISTORY PAST MEDICAL HISTORY SOCIAL HISTORY Past Medical History: Diagnosis Date BMI 29.0-29.9,adult ALLI (generalized anxiety disorder) ([facility]) Hypothyroidism ([facility] Panic disorder without agoraphobia ([facility]) Social History Tobacco Use Smoking status: Former Types: Cigarettes Smokeless tobacco: Never Substance Use Topics Alcohol use: Never Drug use: Never FAMILY HISTORY Family History Problem Relation Name Age of Onset Alcohol abuse Father No Known Problems Son Mekhi No Known Problems Son Central Cancer Other Grandmother SURGICAL HISTORY Past Surgical [...] Constitutional: Appearance: Normal appearance. She is well-developed. Cardiovascular: Rate and Rhythm: Normal rate and regular rhythm. Pulmonary: Effort: Pulmonary effort is normal. Breath sounds: Normal breath sounds. Abdominal: General: Bowel sounds are normal. There is no distension. Palpations: Abdomen is soft. Tenderness: There is no abdominal tenderness. There is no guarding or rebound. Musculoskeletal: General: No swelling. Normal range of motion. Right lower leg: No edema. Left lower leg: No edema. Neurological: Mental Status: She is alert and oriented to person, place, and time. Skin: General: Skin is warm and dry. Psychiatric: Mood and Affect: Mood normal. Behavior: Behavior normal. Vitals and nursing note reviewed. Exam conducted with a core cleaner present. Vitals: Estimated body mass index is 33.88 kg/m as calculated from the following: Height as of 24: 5' 9 . Weight as of this encounter: 229 lb 6.4 oz. BP: 114/74 No LMP recorded (lmp unknown). Patient has had an implant. ASSESSMENT & PLAN ICD-10-CM 1. Follow-up encounter involving medication Z79.899 metFORMIN XR (Glucophage-XR) 500 MG 24 hr tablet Patient presents today to follow up Metformin. Patient desires to have increased to 1,000 mg and is doing well on medication. Patient will reach out to office if refills when needed. Patient to ensure annual appointment is scheduled prior to leaving office. Documented by Valarie Ernst LPN... on behalf of: Terri Gallardo PA-C documented in this encounter [facility] 09-08-2024 Note Education Materials Dermatology Sunburn, Adult Sunburn is damage to the skin that is caused by too much exposure to ultraviolet (UV) rays. Repeated, prolonged sun exposure causes signs of early skin aging, such as wrinkles and sun spots. It also increases the risk of skin cancer. What are the causes? Sunburn is caused by getting too much UV radiation from the sun, sunlamps, or tanning beds. What increases the risk? The following factors may make you more likely to develop this condition: ? Having light-colored skin (fair complexion), skin with many freckles or moles, or skin that tends to burn instead of long. ? Having fair or red hair. ? Having blue or green eyes. Other factors include: ? Living in an area with strong sun exposure. ? Having a family history of sensitivity to the sun or a family history of skin cancer. ? Having a body defense system (immune system) that does not work properly because of certain diseases (such as lupus) or certain drugs. ? Taking certain medicines that cause you to be sensitive to sunlight (have photosensitivity). What are the signs or symptoms? Symptoms of this condition include: ? Red or pink skin. ? Soreness and swelling of the skin in the affected areas. ? Pain. ? Blisters. ? Peeling skin. If the sunburn is severe, you may also have a headache, fever, nausea, dizziness, or fatigue. How is this diagnosed? This condition is diagnosed with a medical history and physical exam. How is this treated? Mild or moderate sunburns can often be managed with self-care strategies, including: ? Cool baths or cool, wet cloths (cool compresses). ? Moisturizer or aloe for pain relief. ? Oxtl-vzo-uczvwhq pain relievers. ? Drinking extra water to replace lost fluids and to prevent dehydration. A severe sunburn may require: ? Antibiotic medicines if there is an associated infection. ? IV fluids. Follow these instructions at home: Medicines ? Take or apply trcu-zyf-wdslkxn and prescription medicines only as told by your health care provider. ? If you were prescribed an antibiotic medicine, use it as told by your health care provider. Do not stop using the antibiotic even if your condition improves. General instructions ? Avoid further exposure to the sun. Protect sunburned skin by wearing clothing that covers the injured skin. ? Do not put ice on your sunburn. This can cause further damage. Try taking a cool bath or applying a cool compress to your skin. This may help with pain. ? Drink enough fluid to keep your urine pale yellow. ? Try applying aloe vera or a moisturizer that has soy in it to your sunburn. This may help. Do not apply aloe vera or moisturizer with soy if your sunburn has blisters. ? Do not break any blisters that you may have. ? Keep all follow-up visits. This is important. How is this prevented? ? Try to avoid the sun between 10 a.m. and 4 p.m. The sun is strongest during those hours. ? Apply sunscreen 15?30 minutes before you will be out in the sun. ? Apply a sunscreen with an SPF of 30 or higher. Consider using an SPF of 30 or higher if you will be exposed to the sun for prolonged periods of time. Use a sunscreen that protects against all of the sun's rays (broad-spectrum) and is water-resistant. ? Reapply sunscreen: ? About every 2 hours during sun exposure. ? More often when sweating a lot while out in the sun. ? After getting wet from swimming or playing in water. ? When you are outside, wear long sleeves, a hat, and sunglasses that block UV light. ? Talk with your health care provider about medicines, herbs, and foods that can make you more sensitive to light. Avoid these, if possible. ? Do not use tanning beds. Contact a health care provider if: ? You have a fever or chills. ? Your symptoms do not improve with treatment. ? Your pain is not controlled with medicine. ? Your burn becomes more painful or swollen. ? You develop open blisters. Get help right away if: ? You are dizzy or you pass out. ? You have a severe headache or you feel confused. ? You vomit or have diarrhea. ? You develop severe blistering. ? You have pus or fluid coming from the blisters. These symptoms may represent a serious problem that is an emergency. Do not wait to see if the symptoms will go away. Get medical help right away. Call your local emergency services (911 in the [place] Do not drive yourself to the hospital. Summary ? Sunburn is caused by getting too much ultraviolet (UV) radiation from the sun, sunlamps, or tanning beds. ? People with light-colored skin (fair complexion) have an increased risk of sunburn. ? Mild or moderate sunburns can often be managed with self-care strategies, including cool baths or cool cloths (compresses). ? To help prevent sunburn, apply sunscreen 15?30 minutes or more before you will be exposed to the sun. This information is not intended to (more content not included)... [facility] 08-30-2024 History of Presen t illness Narrative Reason for Appointment: Patient ID: Ana Sauceda is a 24 y.o. female who presents for Bartholin's Cyst (Pt present today to check vaginal cyst she has had for a month now. Pt states she has some pain/discomfort w/the cyst. Pt would also want to get checked for std's due to unprotected sex w/a partner. ) Patient presents today for Consult appointment. MEDICATIONS Current Outpatient Medications Medication Instructions Levonorgestrel (Mirena, 52 MG,) 20 MCG/DAY intrauterine device Intrauterine levothyroxine (SYNTHROID, LEVOXYL) 100 mcg, Oral, Daily before breakfast metFORMIN XR (GLUCOPHAGE-XR) 500 mg, Oral, Daily with evening meal, Do not crush, chew, or split. metFORMIN XR (GLUCOPHAGE-XR) 500 mg, Oral, Daily with evening meal, Do not crush, chew, or split. ALLERGIES No Known Allergies PROBLEMS Active Ambulatory Problems Diagnosis Date Noted Generalized anxiety disorder ([facility]) 10/09/2022 Panic disorder ([facility]) 10/09/2022 Hypothyroid ([facility]) 10/09/2022 Resolved Ambulatory Problems Diagnosis Date Noted No Resolved Ambulatory Problems Past Medical History: Diagnosis Date BMI 29.0-29.9,adult ALLI (generalized anxiety disorder) ([facility]) Hypothyroidism ([facility]/HCC) Panic disorder without agoraphobia ([facility]/HCC) HISTORY PAST MEDICAL HISTORY SOCIAL HISTORY Past Medical History: Diagnosis Date BMI 29.0-29.9,adult ALLI (generalized anxiety disorder) ([facility]) Hypothyroidism ([facility]) Panic disorder without agoraphobia ([facility]) Social History Tobacco Use Smoking status: Former Types: Cigarettes Smokeless tobacco: Never Substance Use Topics Alcohol use: Never Drug use: Never FAMILY HISTORY Family History Problem Relation Name Age of Onset Alcohol abuse Father No Known Problems Son Mekhi No Known Problems Son Leonardo Cancer Other Grandmother SURGICAL HISTORY Past Surgical History: Procedure Laterality Date FEMUR SURGERY Right 10/12/2016 REVIEW OF SYSTEMS Review of Systems: Review of Systems OBJECTIVE Objective: OBGyn Exam Vitals: Estimated body mass index is 34.56 kg/m as calculated from the following: Height as of 03/24/24: 5' 9 . Weight as of this encounter: 234 lb. BP: 130/80 No LMP recorded (lmp unknown). Patient has had an implant. ASSESSMENT & PLAN ICD-10-CM 1. Vaginal cyst N89.8 2. Exposure to STD Z20.2 POCT urinalysis dipstick manually resulted SURESWAB(R) ADVANCED VAGINITIS PLUS, TMA CHLAMYDIA TRACHOMATIS (GENITO/STI) Neisseria gonorrhea DNA probe, direct 3. Sinus tachycardia R00.0 4. Infected sebaceous gland L73.8 right labia 5. Insulin resistance E88.819 metFORMIN XR (Glucophage-XR) 500 MG 24 hr tablet Patient desires to have STD testing and I&D of sebaceous cyst on inner right labia. Patient gave verbal consent for I&D and tolerated procedure well. Discussed weight management with patient and she is NOT able to take Adipex due to Sinus Tachycardia. Patient to restart Metformin and return to clinic in 4 weeks to discuss weight management and possible GLP medication. PVU and will then discuss increasing Metformin at that time to 1,000mg. RTC 4 weeks. Documented by Valarie Ernst LPN on behalf of: Mitchell Arriola DO documented in this encounter [facility] 08-23-2024 Note Education Materials Infectious Disease Cellulitis, Adult Cellulitis is a skin infection. The infected area is often warm, red, swollen, and sore. It occurs most often on the legs, feet, and toes, but can happen on any part of the body. This condition can be life-threatening without treatment. It is very important to get treated right away. What are the causes? This condition is caused by bacteria. The bacteria enter through a break in the skin, such as: ? A cut. ? A burn. ? A bug bite. ? An animal bite. ? An open sore. ? A crack. What increases the risk? ? Having a weak body's defense system (immune system). ? Being older than 60 years old. ? Having a blood sugar problem (diabetes). ? Having a long-term liver disease (cirrhosis) or kidney disease. ? Being very overweight (obese). ? Having a skin problem, such as: ? An itchy rash. ? A rash caused by a fungus. ? A rash with blisters. ? Slow movement of blood in the veins (venous stasis). ? Fluid buildup below the skin (edema). This condition is more likely to occur in people who: ? Have open cuts, bethea, bites, or scrapes on the skin. ? Have been treated with high-energy rays (radiation). ? Use IV drugs. What are the signs or symptoms? ? Skin that: ? Looks red or purple, or slightly darker than your usual skin color. ? Has streaks. ? Has spots. ? Is swollen. ? Is sore or painful when you touch it. ? Is warm. ? A fever. ? Chills. ? Blisters. ? Tiredness (fatigue). How is this treated? ? Medicines to treat infections or allergies. ? Rest. ? Placing cold or warm cloths on the skin. ? Staying in the hospital, if the condition is very bad. You may need medicines through an IV. Follow these instructions at home: Medicines ? Take gxgb-uar-qawruqf and prescription medicines only as told by your doctor. ? If you were prescribed antibiotics, take them as told by your doctor. Do not stop using them even if you start to feel better. General instructions ? Drink enough fluid to keep your pee (urine) pale yellow. ? Do not touch or rub the infected area. ? Raise (elevate) the infected area above the level of your heart while you are sitting or lying down. ? Return to your normal activities when your doctor says that it is safe. ? Place cold or warm cloths on the area as told by your doctor. ? Keep all follow-up visits. Your doctor will need to make sure that a more serious infection is not developing. Contact a doctor if: ? You have a fever. ? You do not start to get better after 1?2 days of treatment. ? Your bone or joint under the infected area starts to hurt after the skin has healed. ? Your infection comes back in the same area or another area. Signs of this may include: ? You have a swollen bump in the area. ? Your red area gets larger, turns dark in color, or hurts more. ? You have more fluid coming from the wound. ? Pus or a bad smell develops in your infected area. ? You have more pain. ? You feel sick and have muscle aches and weakness. ? You develop vomiting or watery poop that will not go away. Get help right away if: ? You see red streaks coming from the area. ? You notice the skin turns purple or black and falls off. These symptoms may be an emergency. Get help right away. Call 911. ? Do not wait to see if the symptoms will go away. ? Do not drive yourself to the hospital. This information is not intended to replace advice given to you by your health care provider. Make sure you discuss any questions you have with your health care provider. Document Revised: 12/24/2022 Document Reviewed: 12/24/2022 [employer] Patient Education ? 2023 [employer]. [facility] 06-10-2024 History of Presen t illness Narrative Ana Sauceda Date of visit: 06/10/2024 Date of : 2000 Age: 24 y.o. There is no problem list on file for this patient. No Known Allergies Current Outpatient Medications Medication Sig Dispense Refill levothyroxine (SYNTHROID, LEVOTHROID) 50 MCG tablet Take 2 tablets (100 mcg total) by mouth in the morning. methenamine (HIPREX) 1 gram tablet Take 1 tablet (1 g total) by mouth in the morning and 1 tablet (1 g total) in the evening. Take with meals. No current facility-administered medications for this visit. Chief Complaint Patient presents with New Patient Rapid Heart Rate ER [facility]/ Vs Shortness of Breath History of Present Illness 24-year-old female who is seeing me for the 1st time in consultation for sinus tachycardia. She reports history of recurrent UTIs and now has been referred to urology. She has had couple admissions to the ER EKG was noted to have sinus tachycardia with no other abnormality. She does report episodes of palpitations, shortness of breath and sometimes chest getting super tight. She does have prior history of syncope. She reports placement of a monitors in 2021 was okay. I do not have results of that event monitor. She has also been diagnosed with hypothyroidism on medications. She says at home 1 time she had a heart rate of 200 beats per minute on the Apple watch. No recent syncope. No lower extremity edema. She is not she has an IUD in place No past medical history on file. No data recorded No data recorded No data recorded No past surgical history on file. No family history on file. Social History Socioeconomic History Marital status: Unknown Spouse name: Not on file Number of children: Not on file Years of education: Not on file Highest education level: Not on file Occupational History Not on file Tobacco Use Smoking status: Not on file Smokeless tobacco: Not on file Substance and Sexual Activity Alcohol use: Not on file Drug use: Not on file Sexual activity: Not on file Other Topics Concern Not on file Social History Narrative Not on file Social Drivers of Health Financial Resource Strain: Not on file Food Insecurity: Not on file Transportation Needs: Not on file Physical Activity: Not on file Stress: Not on file Social Connections: Not on file Interpersonal Safety: Not on file Housing Instability: Not on file Review of Systems Review of Systems Constitutional: Negative for chills, fever and malaise/fatigue. HENT: Negative for hearing loss, hoarse voice and nosebleeds. Eyes: Negative for blurred vision, double vision and redness. Respiratory: Positive for shortness of breath. Negative for sleep disturbances due to breathing. Endocrine: Negative for cold intolerance and heat intolerance. Hematologic/Lymphatic: Negative for bleeding problem. Does not bruise/bleed easily. Skin: Negative for color change, flushing, itching and nail changes. Musculoskeletal: Negative for falls, joint pain, joint swelling and myalgias. Gastrointestinal: Negative for heartburn, hematochezia and melena. Genitourinary: Negative for dysuria, frequency and hematuria. Neurological: Positive for dizziness and light-headedness. Negative for focal weakness, loss of balance and weakness. Psychiatric/Behavioral: Negative for altered mental status and memory loss. CARDIOVASCULAR: Please review HPI. Physical Examination General appearance: Alert, oriented and cooperative. In no acute distress. Skin: Warm and dry to touch. Head: Normocephalic, without obvious abnormality, atraumatic. Ears, Nose, Mouth, Throat: Throat clear without erythema or exudate. Dentition intact. Eyes: Conjunctivae unremarkable, EOM intact. Neck: No JVD, No carotid bruit. Neck supple, trachea midline. Respiratory: Clear to auscultation bilaterally, no use of accessory muscles. Cardiovascular: RRR with normal S1 and S2 with no murmurs. Gastrointestinal: Soft, non-tender. Bowel sounds normal. Musculoskeletal: No peripheral edema. Neurologic: Oriented to time, person and place, affect appropriate. No focal/major motor defects noted. Psychiatric: Appropriate mood, memory and judgement. VITAL SIGNS: BP 118/80 Pulse 88 Ht 175.3 cm (5' 9 ) Wt 100.7 kg (222 lb) BMI 32.78 kg/m Orders Placed or Reconciled This Encounter Medications levothyroxine (SYNTHROID, LEVOTHROID) 50 MCG tablet Sig: Take 2 tablets (100 mcg total) by mouth in the morning. methenamine (HIPREX) 1 gram tablet Sig: Take 1 tablet (1 g total) by mouth in the morning and 1 tablet (1 g total) in the evening. Take with meals. There are no discontinued medications. IMPRESSIONS/PLAN Sinus tachycardia Episodes of chest pain and shortness of breath Recurrent UTI Hypothyroidism EKG showed sinus tachycardia most recent EKG in ER showed a heart rate of 137. No pre-excitation on EKG. Recommended echo and an event monitor for 7 days. Discussed cardiac testing with patient she agrees with the plan discussed lifestyle modification including increasing hydration. Discussed sinus tachycardia could be response to infection with stress. No medications needed. Follow-up on cardiac testing. If cardiac testing is unremarkable will see her back in 6 months TODAYS ORDERS No orders of the defined types were placed in this encounter. FOLLOW UP No follow-ups on file. PCP: No primary care provider on file. Referring Physician: No referring provider defined for this encounter. [facility] Miscellaneous Notes Called patient to remind them to bring their most current copy of their medication list with them to their appt. No answer, Mailbox full, unable to leave message. DARIUS documented in this encounter [facility] 06-09-2024 Telephone encounter Note Called patient to remind them to bring their most current copy of their medication list with them to their appt. No answer, Mailbox full, unable to leave message. [facility] Note Education Materials Gastroenterology Abdominal Pain, Adult Use Tylenol or ibuprofen as needed for the pain. Follow-up with your primary care physician to review this emergency department visit. Return to the emergency department any worsening symptoms. Many things can cause belly (abdominal) pain. In most cases, belly pain is not a serious problem and can be watched and treated at home. But in some cases, it can be serious. Your doctor will try to find the cause of your belly pain. Follow these instructions at home: Medicines ? Take rzzg-jbr-arkunzv and prescription medicines only as told by your doctor. ? Do not take medicines that help you poop (laxatives) unless told by your doctor. General instructions ? Watch your belly pain for any changes. Tell your doctor if the pain gets worse. ? Drink enough fluid to keep your pee (urine) pale yellow. Contact a doctor if: ? Your belly pain changes or gets worse. ? You have very bad cramping or bloating in your belly. ? You vomit. ? Your pain gets worse with meals, after eating, or with certain foods. ? You have trouble pooping or have watery poop for more than 2?3 days. ? You are not hungry, or you lose weight without trying. ? You have signs of not getting enough fluid or water (dehydration). These may include: ? Dark pee, very little pee, or no pee. ? Cracked lips or dry mouth. ? Feeling sleepy or weak. ? You have pain when you pee or poop. ? Your belly pain wakes you up at night. ? You have blood in your pee. ? You have a fever. Get help right away if: ? You cannot stop vomiting. ? Your pain is only in one part of your belly, like on the right side. ? You have bloody or black poop, or poop that looks like tar. ? You have trouble breathing. ? You have chest pain. These symptoms may be an emergency. Get help right away. Call 911. ? Do not wait to see if the symptoms will go away. ? Do not drive yourself to the hospital. This information is not intended to replace advice given to you by your health care provider. Make sure you discuss any questions you have with your health care provider. Document Revised: 02/12/2023 Document Reviewed: 02/12/2023 [employer] Patient Education ? 2023 [employer]. [facility] 03-24-2024 History of Presen t illness Narrative Reason for Appointment: Patient ID: Ana Sauceda is a 24 y.o. female who presents for Discuss Adipex and string check Patient presents today for String Check Follow Up appointment. MEDICATIONS Current Outpatient Medications Medication Instructions cephalexin (KEFLEX) 500 mg, Oral, 3 times daily Levonorgestrel (Mirena, 52 MG,) 20 MCG/DAY intrauterine device Intrauterine levothyroxine (SYNTHROID, LEVOXYL) 100 mcg, Oral, Daily before breakfast metFORMIN XR (GLUCOPHAGE-XR) 500 mg, Oral, Daily with evening meal, Do not crush, chew, or split. ALLERGIES No Known Allergies PROBLEMS Active Ambulatory Problems Diagnosis Date Noted Generalized anxiety disorder ([facility]/HCC) 10/09/2022 Panic disorder ([facility]CC) 10/09/2022 Hypothyroid ([facility]CC) 10/09/2022 Resolved Ambulatory Problems Diagnosis Date Noted No Resolved Ambulatory Problems Past Medical History: Diagnosis Date BMI 29.0-29.9,adult ALLI (generalized anxiety disorder) (CMS/HCC) Hypothyroidism (CMS/HCC) Panic disorder without agoraphobia (CMS/HCC) HISTORY PAST MEDICAL HISTORY SOCIAL HISTORY Past Medical History: Diagnosis Date BMI 29.0-29.9,adult ALLI (generalized anxiety disorder) (CMS/HCC) Hypothyroidism ([facility]/HCC) Panic disorder without agoraphobia (CMS/HCC) Social History Tobacco Use Smoking status: Former Types: Cigarettes Smokeless tobacco: Never Substance Use Topics Alcohol use: Never Drug use: Never FAMILY HISTORY Family History Problem Relation Name Age of Onset Alcohol abuse Father No Known Problems Son Mekhi No Known Problems Son Leonardo Cancer Other Grandmother SURGICAL HISTORY Past Surgical History: Procedure Laterality Date FEMUR SURGERY Right 10/12/2016 REVIEW OF SYSTEMS Review of Systems: Review of Systems Constitutional: Negative. HENT: Negative. Eyes: Negative. Respiratory: Negative. Cardiovascular: Negative. Gastrointestinal: Negative. Genitourinary: Positive for dysuria, flank pain and vaginal bleeding. Skin: Negative. Neurological: Negative. All other systems reviewed and are negative. Hematological: Negative. Endocrine: Negative. Allergic/Immunologic: Negative. OBJECTIVE Objective: Physical Exam Constitutional: Appearance: Normal appearance. She is well-developed. Genitourinary: Vulva normal. Cardiovascular: Rate and Rhythm: Normal rate and regular rhythm. Pulmonary: Effort: Pulmonary effort is normal. Breath sounds: Normal breath sounds. Abdominal: General: Bowel sounds are normal. There is no distension. Palpations: Abdomen is soft. Tenderness: There is no abdominal tenderness. There is no guarding or rebound. Musculoskeletal: General: No swelling. Normal range of motion. Right lower leg: No edema. Left lower leg: No edema. Neurological: Mental Status: She is alert and oriented to person, place, and time. Skin: General: Skin is warm and dry. Psychiatric: Mood and Affect: Mood normal. Behavior: Behavior normal. Vitals and nursing note reviewed. Exam conducted with a core cleaner present. Vitals: Estimated body mass index is 32.9 kg/m as calculated from the following: Height as of this encounter: 5' 9 . Weight as of this encounter: 222 lb 12.8 oz. BP: 116/78 No LMP recorded. ASSESSMENT & PLAN ICD-10-CM 1. Encounter for weight management Z76.89 2. Urinary tract infection without hematuria, site unspecified N39.0 cephalexin (Keflex) 500 MG capsule IUD String Check: Patient is doing well but has some complaints of bleeding and cramping following IUD placement. Patient presents today for IUD string check. Strings were visualized and are noted to be intact. Patient presents today for initial Adipex prescription. The importance of keeping a food journal, proper nutrition/diet, and exercise regimen while taking Adipex has been discussed. Patient verbalized understanding and signed consents to initiate (Adipex) medication therapy. Patient was given a printed prescription signed by provider to take to their local pharmacy. Follow Up: Patient is to return to the office in 1 month for further evaluation to assess patient progress. Weight and blood pressure will need to be captured in order for patient to receive 2nd prescription. Follow Up: Patient is to return to the office for annual exam unless needed otherwise. Documented by Meredith Tripathi LPN on behalf of: Mitchell Arriola DO documented in this encounter [facility] 03-17-2024 Note [id number] Note Education Materials Gastroenterology Hypokalemia Hypokalemia means that the amount of potassium in the blood is lower than normal. Potassium is a mineral (electrolyte) that helps regulate the amount of fluid in the body. It also stimulates muscle tightening (contraction) and helps nerves work properly. Normally, most of the body's potassium is inside cells, and only a very small amount is in the blood. Because the amount in the blood is so small, minor changes to potassium levels in the blood can be life-threatening. What are the causes? This condition may be caused by: ? Antibiotic medicine. ? Diarrhea or vomiting. Taking too much of a medicine that helps you have a bowel movement (laxative) can cause diarrhea and lead to hypokalemia. ? Chronic kidney disease (CKD). ? Medicines that help the body get rid of excess fluid (diuretics). ? Eating disorders, such as anorexia or bulimia. ? Low magnesium levels in the body. ? Sweating a lot. What are the signs or symptoms? Symptoms of this condition include: ? Weakness. ? Constipation. ? Fatigue. ? Muscle cramps. ? Mental confusion. ? Skipped heartbeats or irregular heartbeat (palpitations). ? Tingling or numbness. How is this diagnosed? This condition is diagnosed with a blood test. How is this treated? This condition may be treated by: ? Taking potassium supplements. ? Adjusting the medicines that you take. ? Eating more foods that contain a lot of potassium. If your potassium level is very low, you may need to get potassium through an IV and be monitored in the hospital. Follow these instructions at home: Eating and drinking ? Eat a healthy diet. A healthy diet includes fresh fruits and vegetables, whole grains, healthy fats, and lean proteins. ? If told, eat more foods that contain a lot of potassium. These include: ? Nuts, such as peanuts and pistachios. ? Seeds, such as sunflower seeds and pumpkin seeds. ? Peas, lentils, and godinez beans. ? Whole grain and bran cereals and breads. ? Fresh fruits and vegetables, such as apricots, avocado, bananas, cantaloupe, kiwi, oranges, tomatoes, asparagus, and potatoes. ? Juices, such as orange, tomato, and prune. ? Lean meats, including fish. ? Milk and milk products, such as yogurt. General instructions ? Take hmui-vvr-ofxesro and prescription medicines only as told by your health care provider. This includes vitamins, natural food products, and supplements. ? Keep all follow-up visits. This is important. Contact a health care provider if: ? You have weakness that gets worse. ? You feel your heart pounding or racing. ? You vomit. ? You have diarrhea. ? You have diabetes and you have trouble keeping your blood sugar in your target range. Get help right away if: ? You have chest pain. ? You have shortness of breath. ? You have vomiting or diarrhea that lasts for more than 2 days. ? You faint. These symptoms may be an emergency. Get help right away. Call 911. ? Do not wait to see if the symptoms will go away. ? Do not drive yourself to the hospital. Summary ? Hypokalemia means that the amount of potassium in the blood is lower than normal. ? This condition is diagnosed with a blood test. ? Hypokalemia may be treated by taking potassium supplements, adjusting the medicines that you take, or eating more foods that are high in potassium. ? If your potassium level is very low, you may need to get potassium through an IV and be monitored in the hospital. This information is not intended to replace advice given to you by your health care provider. Make sure you discuss any questions you have with your health care provider. Document Revised: 01/10/2022 Document Reviewed: 01/10/2022 [employer] Patient Education ? 2023 [employer]. Hematology Anemia Anemia is a condition in which there are not enough red blood cells or hemoglobin in the blood. Hemoglobin is a substance in red blood cells that carries oxygen. When you do not have enough red blood cells or hemoglobin (are anemic), your body cannot get enough oxygen, and your organs may not work properly. As a result, you may feel very tired or have other problems. What are the causes? Common causes of anemia include: ? Excessive bleeding. Anemia can be caused by excessive bleeding inside or outside the body, including bleeding from the intestines or from heavy menstrual periods in females. ? Poor nutrition. ? Long-lasting (chronic) kidney, thyroid, and liver disease. ? Bone marrow disorders, spleen problems, and blood disorders. ? Cancer and treatments for cancer. ? Human immunodeficiency virus (HIV) and acquired immunodeficiency syndrome (AIDS). ? Infections, medicines, and autoimmune disorders that destroy red blood cells. What are the signs or symptoms? Symptoms of this condition include: ? Minor weakness. ? Dizziness. ? Headache, or difficult (more content not included)... [facility] 02-24-2024 History of Presen t illness Narrative Associated Order(s): IUD Insertion Post-Procedure Diagnose(s): Encounter for IUD insertion Reason for Appointment: Patient ID: Ana Sauceda is a 23 y.o. female who presents for Mirena insertion Patient presents today for a IUD Insertion appointment. MEDICATIONS Current Outpatient Medications Medication Instructions levothyroxine (Synthroid, Levoxyl) 50 MCG tablet Every 24 hours ALLERGIES No Known Allergies SURGICAL HISTORY Past Surgical History: Procedure Laterality [...] appearance. She is well-developed. Genitourinary: Vulva normal. Cardiovascular: Rate and Rhythm: Normal rate and regular rhythm. Pulmonary: Effort: Pulmonary effort is normal. Breath sounds: Normal breath sounds. Abdominal: General: Bowel sounds are normal. There is no distension. Palpations: Abdomen is soft. Tenderness: There is no abdominal tenderness. There is no guarding or rebound. Musculoskeletal: General: No swelling. Normal range of motion. Right lower leg: No edema. Left lower leg: No edema. Neurological: Mental Status: She is alert and oriented to person, place, and time. Skin: General: Skin is warm and dry. Psychiatric: Mood and Affect: Mood normal. Behavior: Behavior normal. Vitals and nursing note reviewed. Exam conducted with a core cleaner present. Vitals: Estimated body mass index is 32.05 kg/m as calculated from the following: Height as of 11/03/23: 5' 9 . Weight as of 11/03/23: 217 lb. BP: No LMP recorded. ASSESSMENT & PLAN Assessment/Plan Encounter Diagnosis: ICD-10-CM 1. Encounter for IUD insertion Z30.430 IUD Insertion Performed by: Mitchell Arriola DO Authorized by: Mitchell Arriola DO Procedure: IUD insertion Consent obtained by patient, parent, or legal power of civil litigation attorney - including discussion of procedure risks and benefits, patient questions answered, and patient education provided: yes risk: reasonably certain the patient is not Date/Time of Insertion: 02/24/2024 2:30 PM Immediately prior to procedure a time out was called: no Pelvic exam performed: no Speculum placed in vagina: yes Cervix cleaned and prepped: yes Tenaculum/Allis/Ring Forceps applied to cervix: yes Anesthesia used: no IUD inserted without complications: yes OSM: 52 mg Levonorgestrel 20 MCG/DAY Patient tolerated procedure well: yes Inserted with ultrasound guidance: no Intended removal date: 5 years Insertion comments: IUD Insertion: Patient presents today for an IUD Insertion. Patient is having a Mirena placed and written consent was obtained. Patient was placed in the dorsal lithotomy position with feet in stirrups. A sterile speculum ws placed into the vagina and the cervix was visualized. Cervix was cleansed with betadine and the anterior lip was grasped with ring forceps. Uterus was then gently sounded. New IUD device was gently advanced through the endocervix, toward te uterine fundus. The IUD was then deployed as device was gently removed from the uterus. The IUD strings were cut to the length from external os. All instruments were removed from the vagina. Post-procedure instructions given. All of patients questions were answered and she expressed understanding. Advised to call interim with any questions or concerns. Follow Up: Patient is to return to the office in 4 weeks for a string check. Documented by Meredith Tripathi LPN on behalf of: Mitchell Arriola DO documented in this encounter [facility] 01-07-2024 Note Education Materials Nephrology Pyelonephritis, Adult Pyelonephritis is an infection that occurs in the kidney. The kidneys are the organs that filter the blood and move waste from the bloodstream to the urine. Urine passes out of the kidneys through tubes called ureters and goes into the bladder. There are two main types of this condition: ? Acute pyelonephritis. These are infections that come on quickly and without any warning. ? Chronic pyelonephritis. These infections last for a long time. In most cases, the infection clears up with treatment. In more severe cases, an infection can spread to the bloodstream or lead to other problems with the kidneys. What are the causes? This condition is often caused by bacteria. The bacteria may travel: ? From the bladder up to the kidney. This may happen after you have a bladder infection (cystitis) or urinary tract infection (UTI). ? From the bloodstream to the kidney. What increases the risk? You are more likely to develop this condition if: ? You are female. Your risk is even higher if you are . ? You are older. ? You have: ? Diabetes. ? Prostatitis. This is inflammation of the prostate gland. ? Kidney stones or bladder stones. ? Problems with your kidneys or ureters. ? Cancer. ? Spinal cord injury or nerve damage around the bladder. ? You have a soft tube (catheter) placed in your bladder. ? You are sexually active and use spermicides. ? You have or have had a UTI. What are the signs or symptoms? Symptoms of this condition include: ? An urge to urinate that is strong or does not go away. You may also urinate more often than normal. ? A burning or stinging feeling when you urinate. ? Pain. This may be in your abdomen, back, side, or groin. ? Fever or chills. ? Nausea or vomiting. ? Urine that is bloody, dark, cloudy, or smells bad. How is this diagnosed? This condition may be diagnosed based on your medical history and a physical exam. You may also have tests, such as: ? Urine tests. ? Blood tests. ? Imaging tests of the kidneys. These may include an ultrasound or CT scan. How is this treated? Treatment for this condition depends on the severity of the infection. ? If the infection is mild and found early, you may be given antibiotics to take by mouth. You will need to drink lots of fluids. ? If the infection is more severe, you may need to stay in the hospital and receive antibiotics through an IV. You may also get fluids through an IV. After you leave the hospital, you may need to take antibiotics by mouth. Other treatments may be needed. These will depend on the cause of the infection. Follow these instructions at home: Eating and drinking ? Drink enough fluid to keep your urine pale yellow. ? Avoid caffeine, tea, and carbonated drinks. These can irritate the bladder. General instructions ? Take sfnu-ery-tkpswii and prescription medicines as told by your health care provider. Finish your antibiotics even if you start to feel better. ? Urinate often. Avoid holding in urine for long periods of time. ? Urinate before and after sex. ? If you are female, cleanse from front to back after a bowel movement. Use each tissue only once. ? Keep all follow-up visits. Your health care provider will want to make sure your infection is gone. Contact a health care provider if: ? Your symptoms do not get better after 2 days of treatment. ? Your symptoms get worse. ? You have a fever or chills. ? You cannot take your antibiotics. Get help right away if: ? You vomit each time that you eat or drink. ? You have severe pain in your back or side. ? You are very weak, or you faint. This information is not intended to replace advice given to you by your health care provider. Make sure you discuss any questions you have with your health care provider. Document Revised: 11/18/2022 Document Reviewed: 11/18/2022 [employer] Patient Education ? 2023 [employer]. Obstetrics and Gynecology Urinary Tract Infection, Adult A urinary tract infection (UTI) is an infection of any part of the urinary tract. The urinary tract includes the kidneys, ureters, bladder, and urethra. These organs make, store, and get rid of urine in the body. An upper UTI affects the ureters and kidneys. A lower UTI affects the bladder and urethra. What are the causes? Most urinary tract infections are caused by bacteria in your genital area around your urethra, where urine leaves your body. These bacteria grow and cause inflammation of your urinary tract. What increases the risk? You are more likely to develop this condition if: ? You have a urinary catheter that stays in place. ? You are not able to control when you urinate or have a bowel movement (incontinence). ? You are female and you: ? Use a spermicide or diaphragm for control. ? Have low estrogen levels. ? Are . ? You (more content not included)... [facility] 12-05-2023 Note [id number] [facility] 12-04-2023 Note Education Materials Nephrology Pyelonephritis, Adult Pyelonephritis is an infection in the kidney. The kidneys are the parts of the body that help clean the blood. They move waste out of the blood and into the pee (urine). This infection can happen fast, or it can last for a long time. In most cases, it clears up with treatment and does not cause other problems. What are the causes? This infection may be caused by germs (bacteria). The germs may go: ? From your bladder up into your kidney. This may happen after you have a bladder infection. ? From your blood into your kidney. What increases the risk? You are more likely to get this condition if: ? You are . ? You are older. ? You have: ? Diabetes. ? Prostatitis. This is irritation and swelling of the prostate gland. ? Kidney stones or bladder stones. ? Other problems with your kidney or the parts of your body that carry pee from the kidneys to the bladder (ureters). ? Cancer. ? You have a soft tube called a catheter in your bladder. ? You are sexually active. ? You use a medicine that kills sperm (spermicide). This may be used to prevent . ? You have had a urinary tract infection (UTI) before. What are the signs or symptoms? ? Peeing often. ? Feeling the need to pee right away. ? A burning or stinging feeling when you pee. ? Pain in your belly, back, or side. ? Fever or chills. ? Vomiting or feeling like you may vomit. ? Dark pee or blood in your pee. How is this treated? ? You may be given antibiotics to take. ? You will need to drink lots of fluids. ? If the infection is bad, you may need to stay in the hospital. You may be given antibiotics and fluids through an IV. ? In some cases, other treatments may be needed. Follow these instructions at home: Eating and drinking ? Drink enough fluid to keep your pee pale yellow. ? Avoid caffeine, tea, and drinks that are bubbly (carbonated). General instructions ? Take hcwd-ssp-fheddic and prescription medicines as told by your doctor. Finish your antibiotics even if you start to feel better. ? Pee (urinate) often. Do not hold in your pee for long periods of time. ? Pee before and after you have sex. ? If you are female, wipe from front to back after you poop (have a bowel movement). Use each tissue only once. ? Keep all follow-up visits. Your doctor will want to make sure that you are getting better. Contact a doctor if: ? You do not feel better after 2 days. ? Your symptoms get worse. ? You have a fever or chills. ? You cannot take your medicine. Get help right away if: ? You vomit each time that you eat or drink. ? You have very bad pain in your back or side. ? You are very weak, or you faint. This information is not intended to replace advice given to you by your health care provider. Make sure you discuss any questions you have with your health care provider. Document Revised: 11/18/2022 Document Reviewed: 11/18/2022 [employer] Patient Education ? 2022 [employer]. [facility] 12-04-[address] [facility] Clinical Discharge Summary PERSON INFORMATION Name ANA SAUCEDA Age 23 Years 2000 Sex FEMALE Language Tanzanian PCP Guilherme BERNSTEIN, Joseph Thurston Marital Status Single Med Service Med/Surg Acct# Arrival 12/01/2023 23:07:34 Visit Reason Back pain; Flank pain; ACUTE PYELONEPHRITIS Acuity LOS 002 09:05 Address: [address] [place] [id number] Comment: PROVIDER INFORMATION VITALS INFORMATION Vital Sign Triage Latest Temp Oral 37.2 DegC 36.6 DegC Temp Temporal Temp Intravascular Temp Axillary 38.5 DegC 37.6 DegC Temp Rectal 02 Sat 99 % 98 % Respiratory Rate 16 br/min 18 br/min Peripheral Pulse Rate 124 bpm 92 bpm Apical Heart Rate Blood Pressure 137 mmHg / 86 mmHg 131 mmHg / 90 mmHg Comment: MEDICAL INFORMATION Allergy Info: No Known Medication Allergies Medication List: New Medications [facility] [id number], [address], [place] [id number], [phone] levoFLOXacin (levoFLOXacin 750 mg oral tablet) 1 tab(s) Oral (given by mouth) every 24 hours. for 7 Days. Refills: 0. naproxen (naproxen sodium 550 mg oral tablet) 1 tab(s) Oral (given by mouth) Every 12 hours scheduled time as needed as needed for pain. Refills: 0. Printed Prescriptions acetaminophen-oxycodone (Percocet 5 mg-325 mg oral tablet) 1 tab(s) Oral (given by mouth) every 8 hours. as needed as needed for pain. Refills: 0. Medications to Continue That Have Not Changed Other Medications levothyroxine (levothyroxine 50 mcg (0.05 mg) oral tablet) 1 tab(s) Oral (given by mouth) every day. Refills: 2. Comment: Lab and Radiology Results Laboratory or Other Results This Visit (last charted value for your 12/01/2023 visit) Hematology 12/04/2023 6:36 AM Hct: 30.3 % -- Normal range between ( 33.7 and 40.4 ) Hgb: 9.8 gm/dL -- Normal range between ( 11.3 and 15.9 ) MCH: 25 pg -- Normal range between ( 24 and 34 ) MCHC: 32 gm/dL -- Normal range between ( 26 and 37 ) MCV: 77 fL -- Normal range between ( 81 and 100 ) MPV: 8.4 fL -- Normal range between ( 6.3 and 10.2 ) Platelet: 213 x103/mcL -- Normal range between ( 138 and 427 ) RBC: 3.94 x106/mcL -- Normal range between ( 3.70 and 5.30 ) RDW: 16.2 % -- Normal range between ( 11.5 and 15.0 ) WBC: 7.8 x103/mcL -- Normal range between ( 3.5 and 10.5 ) Auto Eos %: 4.4 % -- Normal range between ( 0.9 and 4.0 ) Auto Lymph %: 22 % -- Normal range between ( 14 and 48 ) Auto Neut %: 60 % -- Normal range between ( 44 and 88 ) Eos Abs#: 0.3 x103/mcL -- Normal range between ( 0.0 and 0.4 ) Lymph Abs#: 1.7 x103/mcL -- Normal range between ( 1.3 and 2.9 ) [place] Abs#: 1.0 x103/mcL -- Normal range between ( 0.0 and 0.8 ) Auto Baso %: 0.9 % -- Normal range between ( 0.2 and 2.0 ) Auto [place] %: 13 % -- Normal range between ( 1 and 12 ) Baso Abs#: 0.1 x103/mcL -- Normal range between ( 0.0 and 0.2 ) Neut Abs#: 4.7 x103/mcL -- Normal range between ( 1.5 and 9.2 ) Urinalysis 12/01/2023 11:48 PM UA Bacteria: Trace UA Blood: SMALL UA Color: Yellow UA Glucose: NEGATIVE UA Ketones: NEGATIVE UA Leuk Est: MODERATE UA Mucous: Trace UA Nitrite: NEGATIVE UA Protein: 30 UA RBC: None Seen UA Squam Epi: Few UA Urobilinogen: 0.2 mg/dL -- Normal range between ( 0.2 and 1.0 ) UA WBC: 15-20 UA pH: 8.0 -- Normal range between ( 5 and 8 ) UA Spec Grav: 1.015 -- Normal range between ( 1.001 and 1.035 ) UA Clarity: SL CLOUDY Micro?: Not Indicated Culture?: Indicated UA Bilirubin: NEGATIVE Urine Source: Clean Catch UA Amorph.: Few Chemistry 12/04/2023 6:36 AM Creatinine Level: 0.65 mg/dL -- Normal range between ( 0.60 and 1.30 ) BUN: 7 mg/dL -- Normal range between ( 8 and 26 ) Chloride Level: 107 mmol/L -- Normal range between ( 101 and 111 ) CO2: 25 mmol/L -- Normal range between ( 21 and 32 ) Glucose Level: 101.0 mg/dL -- Normal range between ( 74.0 and 118.0 ) Osmolality: 272 mOsm/L Potassium Level: 4.2 mmol/L -- Normal range between ( 3.6 and 5.1 ) Sodium Level: 137.0 mmol/L -- Normal range between ( 136.0 and 144.0 ) Anion Gap: 9.2 mmol/L -- Normal range between ( 5.0 and 19.0 ) Calcium Level: 8.5 mg/dL -- Normal range between ( 8.9 and 10.3 ) BUN/Creat Ratio: 10.7 -- Normal range between ( 4.6 and 16.2 ) eGFR AA: >60 mL/min/1.73m2 eGFR Non AA: >60 mL/min/1.73m2 12/02/2023 3:17 PM Lactic Acid: 10.1 mg/dL -- Normal range between ( 4.5 and 19.8 ) 12/01/2023 11:59 PM Albumin Level: 3.7 gm/dL -- Normal range between ( 3.5 and 5.0 ) Alk Phos: 48 IU/L -- Normal range between ( 32 and 91 ) Bili Total: 0.7 mg/dL -- Normal range between ( 0.3 and 1.2 ) Lipase Level: 25.0 IU/L -- Normal range between ( 22.0 and 51.0 ) Protein Total: 7.2 gm/dL -- Normal range between ( 6.5 and 8.1 ) ALT/SGPT: 12.0 IU/L -- Normal range between ( 14.0 and 54.0 ) AST/SGOT: 13 IU/L -- Normal range between ( 15 and 41 ) Globulin: 3.5 gm/dL -- Normal range between ( 1.5 and 4.3 ) (more content not included)... [facility] 11-21-2023 Note Entered by Bertrand Rodriguez LPN on November 21, 2023 07:36:59 EDT From: Terri Rodriguez LPN To: [facility] [id number] Sent: 11/21/2023 07:36:59 EDT Subject: Medication Management Submitted: Complete:levothyroxine (levothyroxine 50 mcg (0.05 mg) oral tablet) Signed by Terri Rodriguez LPN 11/21/2023 07:36:00 EDT Approved with modifications: levothyroxine (LEVOTHYROXINE 50 MCG TABLET) TAKE ONE TABLET BY MOUTH DAILY Qty: 90 tab(s) Days Supply: 90 Refills: 2 Substitutions Allowed Route To Pharmacy - [facility] [id number] Signed by Terri Rodriguez LPN From: [facility] [id number] To: Joseph Vanegas MD Sent: November 20, 2023 2:56:21 PM CDT Subject: Medication Management Due: November 21, 2023 12:13:26 AM CDT On Hold Pending Signature Drug: levothyroxine (levothyroxine 50 mcg (0.05 mg) oral tablet), TAKE ONE TABLET BY MOUTH DAILY Quantity: 30 tab(s) Days Supply: 0 Refills: 2 Substitutions Allowed Notes from Pharmacy: Dispensed Drug: levothyroxine (levothyroxine 50 mcg (0.05 mg) oral tablet), TAKE ONE TABLET BY MOUTH DAILY Quantity: 90 tab(s) Days Supply: 90 Refills: 0 Substitutions Allowed Notes from Pharmacy: [facility] 09-22-2023 Note Patient Education Ma terials Follows: Antibiotic Medicine, Adult Antibiotic medicines are used to treat infections caused by bacteria. These medicines do not work for illnesses caused by viruses. Antibiotics work by killing the bacteria that are making you sick, but they can also have serious side effects. Antibiotics must be used safely and only when needed. When do I need to take antibiotics? You may need antibiotics for: ? A urinary tract infection (UTI). ? Strep throat. ? Bacterial sinus infection. ? Meningitis. ? Serious lung infections. Your health care provider may start you on antibiotics while you are waiting for test results. Tests may include a culture of the throat, urine, blood, or mucus. Your health care provider may change or stop your antibiotic depending on your test results. When are antibiotics not needed? You do not need antibiotics for most common illnesses. These illnesses may be caused by a virus, not by bacteria. You do not need antibiotics for: ? The common cold. ? The flu (influenza). ? Sore throat. ? Discolored mucus. ? Bronchitis. Antibiotics are not always needed for all infections caused by bacteria. Many of these infections clear up on their own. Do not take antibiotics when they are not needed. How long should I take my antibiotic? You must take the entire amount prescribed to you. Take your antibiotics as told by your health care provider. Do not stop taking your antibiotics even if you start to feel better. If you stop taking them too soon: ? You may feel sick again. ? Your infection may get harder to treat. Each course of antibiotics needs a different length of time to work. The length of time may vary from a few days to a few weeks. What if I miss a dose? Try not to miss any doses of medicine. If you miss a dose, call your health care provider or pharmacist for help. Sometimes, it is okay to take the missed dose as soon as possible. Do not take double or extra doses. What are the risks of taking antibiotics? Antibiotics can cause: ? Allergic reactions. ? Nausea. ? Yeast infections. ? Liver problems. Antibiotics can also cause an infection called Clostridioides difficile (C. difficile or C. diff), which causes severe diarrhea. This infection happens when the antibiotics kill the healthy bacteria in your intestines. This allows C. diff to grow. C. diff needs to be treated right away. Let your health care provider know if: ? You have diarrhea while taking an antibiotic. ? You have diarrhea after you stop taking an antibiotic. C. diff infection can start weeks after stopping the antibiotic. Taking an antibiotic also puts you at risk for getting sick in the future with bacteria that do not respond to medicine (antibiotic-resistant infection). Antibiotics can cause bacteria to change so that if the antibiotic is taken again, the medicine cannot kill the bacteria. These infections can be more serious because they are hard, or sometimes impossible, to treat. Do antibiotics affect control? control pills may not work while you are taking antibiotics. If you are taking control pills: ? Keep taking them as usual. ? Use a second form of control, such as a condom, to avoid unwanted . Do this for as long as told by your health care provider. What else should I know about taking antibiotics? ? Take antibiotics exactly as told. ? Take the correct amount of medicine at the same time each day. ? Ask your health care provider: ? How long to wait between doses. ? If you should take your antibiotic with food or water. ? If you should avoid certain foods, drinks, or medicines while taking your antibiotics. ? If you need to watch for any side effects. ? Use only the antibiotics prescribed to you by your health care provider. Do not use antibiotics prescribed for someone else. ? Drink a large glass of water when taking your antibiotics unless told otherwise. Drink enough fluid to keep your urine pale yellow. ? Ask your pharmacist for a dosage syringe, cup, or spoon that correctly measures your antibiotics. ? Ask your pharmacist or health care provider how to safely get rid of leftover medicine. Follow these instructions at home: ? Take your antibiotics as told by your health care provider. Do not stop taking your antibiotics even if you start to feel better. ? Return to your normal activities as told by your health care provider. Ask your health care provider what activities are safe for you. Contact a health care provider if: ? Your symptoms get worse. ? You have new joint pain or muscle aches that begin after starting your antibiotic. ? You have side effects from your antibiotic, such as: ? Stomach pain. ? Diarrhea. ? Nausea. ? White patches in your mouth or throat. Get help right away if: ? You have signs of a severe allergic reaction to antibiotics. If you have (more content not included)... [facility] 01-07-2023 Hospital Discharg e instructions Georgi Butt MD - 01/07/2023 6:30 PM EDT You were seen Emergency Department due to fevers and chills. Your testing revealed COVID-19. We have attached isolation instructions on how to help care for yourself. If you develop any worsening condition, difficulty breathing, persistent nausea, vomiting, diarrhea, or any other urgent health concerns please do not hesitate to return to the emergency department. The following attachments cannot be sent through Care Everywhere.Coronavirus Disease (COVID-19): Exposure: Quick List (Tanzanian)Coronavirus Disease (COVID-19): General Info (Tanzanian)Coronavirus Disease (COVID-19): Caring for Yourself: Quick List (Tanzanian)Coronavirus Disease (COVID-19): Isolation (Tanzanian)documented in this encounter [facility] Evaluation note Diagnosis COVID-19- Primary [facility] encounter [facility] Diagnosis Encounter for IUD insertion Insertion of intrauterine contraceptive device Insulin resistance Other abnormal glucose [facility] Diagnosis Encounter for weight management Urinary tract infection without hematuria, site unspecified [facility]* Diagnosis Intermittent palpitations- Primary Precordial pain [facility] Diagnosis Vaginal cyst Other specified noninflammatory disorder of vagina Exposure to STD Sinus tachycardia Other specified cardiac dysrhythmias Infected sebaceous gland Insulin resistance Other abnormal glucose Bacterial vaginosis Unspecified vaginitis and vulvovaginitis [facility]* Diagnosis Follow-up encounter involving medication [facility] Diagnosis Well woman exam with routine gynecological exam Routine gynecological examination Follow-up encounter involving medication Yeast infection Encounter for routine checking of intrauterine contraceptive device (IUD) Menorrhagia with irregular cycle documented in this encounter [facility] HealthcareInstructionsNot on filedocumented in this encounterProMedica [facility] SystemInstructionsNot on filedocumented in this encounterProSelect [facility] Summary Purpose Family History No Family History Records FoundNo Family History Records FoundNo Family History Records FoundNo Family History Records FoundNo Family History Records FoundNo Family History Records Found Advance Directives Latest Code Status on File Code Status Date Activated Date Inactivated Comments Full Code 10/12/2016 3:24 AM 10/14/2016 9:38 PM Additional Source Comments INFORMATION SOURCE (unrecogn ized section and content) DATE CREATED AUTHOR 09/08/2019 [facility] DATE CREATED AUTHOR AUTHOR'S ORGANIZ ATION 10/20/2022 [facility] DATE CREATED AUTHOR AUTHOR'S ORGANIZ ATION 05/24/2024 [facility] DATE CREATED AUTHOR AUTHOR'S ORGANIZ ATION 06/30/2024 [facility] DATE CREATED AUTHOR AUTHOR'S ORGANIZ ATION 09/17/2024 [facility] DATE CREATED AUTHOR AUTHOR'S ORGANIZ ATION 10/19/2024 [facility] EPIC Reason for Visit (unrecogniz ed section and content) Reason Comments Cough Fever Breast Pain Pharyngitis Post-op Problem Reason Comments Mirena insertion Reason Comments Discuss Adipex string check Reason Comments New Patient Rapid Heart Rate ER [facility] Shortness of Breath Reason Comments Bartholin's Cyst Pt present today to check vaginal cyst she has had for a month now. Pt states she has some pain/discomfort w/the cyst. Pt would also want to get checked for std's due to unprotected sex w/a partner. Reason Comments Follow-up Reason Comments [facility] Visit Ordered Prescriptions (unrec ognized section and content) Prescription Sig Dispensed Refills Start Date End Da te ondansetron (ZOFRAN-ODT) 4 MG disintegrating tablet Take 1 tablet by mouth 3 times daily as needed for Nausea or Vomiting 12 tablet 0 01/07/2023 Menthol (CEPACOL SORE THROAT) 5.4 MG LOZG Take 1 lozenge by mouth every 4 hours as needed (sore throat) 30 lozenge 0 01/07/2023 acetaminophen (TYLENOL) 325 MG tablet Take 1 tablet by mouth every 6 hours as needed for Pain 80 tablet 0 01/07/2023 Scheduled Active and Recently Administ ered Medications (unrecognized section and content) Medication Order 01/05/2023 01/06/2023 01/07/2023 acetaminophen (TYLENOL) tablet 1,000 mg (COMPLETED) 1,000 mg, Oral, ONCE, 1 dose, On Fri01/07/23 at 1600 1602 (Given - Provid er: Ana Espinosa RN) magnesium oxide (MAG-OX) tablet 400 mg (COMPLETED) 400 mg, Oral, ONCE, 1 dose, On Fri01/07/23 at 1830 1847 (Given - Provid er: Kaity Melvin RN) potassium bicarb-citric acid (EFFER-K) effervescent tablet 40 mEq (COMPLETED) 40 mEq, Oral, ONCE, 1 dose, On Fri01/07/23 at 1830, Do not chew or crush. Dissolve flavored tablets completely in 3 to 4 ounces of cold water; unflavored tablets may be dissolved in 3 to 4 ounces of cold juice. Patient to sip slowly over a 5 to 10 minute period. May further dilute if GI adverse effects occur. 184 (Given - Provid er: Kaity Melvin RN) sodium chloride 0.9 % bolus 1,986 mL (COMPLETED) 1,986 mL (30 mL/kg 66.2 kg Pearl weight), IntraVENous, at 1,986 mL/hr, Administer over 1 Hours, ONCE, On Fri01/07/23 at 1615, For 1 dose 1653 (New Bag - Prov ider: Radha Douglas LPN)1740 (Stopped - Provider: Ana Espinosa RN) Care Teams (unrecognized sec tion and content) Registration Rep Relationship Specialty Start Date End Date Joseph Vanegas MD [address] [place] [address] PCP - General Pediatrics 10/09/22 Terri Gallardo PA [address] [place] [address] [place] [address] PCP - [facility] 11/10/23 Registration Rep Relationship Specialty Start Date End Date Joseph Vanegas MD [address] [place] [address] PCP - General Pediatrics 10/09/22 Terri Gallardo PA [address] [place] [address] [place] [phone] PCP - [facility] 11/10/23 Registration Rep Relationship Specialty Start Date End Date Joseph Vanegas MD [address] [place], [place] [phone] PCP - General Pediatrics 10/09/22 Terri Gallardo PA [address] [place] [address] [place] [address] PCP - [facility] 11/10/2304/10 Registration Rep Relationship Specialty Start Date End Date Joseph Vanegas MD [address] [place], [place] [phone] PCP - General Pediatrics 10/09/22 Terri Gallardo PA [address] [place] [address] Dr [place] [phone] PCP - [facility] 11/10/2304/10 Registration Rep Relationship Specialty Start Date End Date Joseph Vanegas MD [address] [place] [address] PCP - General Pediatrics 10/09/22 Terri Gallardo PA [address] [place], [place] [address]aminata [place] [phone] PCP - [facility] 11/10/2304/10 Registration Rep Relationship Specialty Start Date End Date Joseph Vanegas MD [address] [place] [address] PCP - General Pediatrics 10/09/22 Terri Gallardo PA [address] [place] [address] [place] [address] PCP - [facility] 11/10/2304/10 Registration Rep Relationship Specialty Start Date End Date Joseph Vanegas MD [address] [place] [address] PCP - General Pediatrics 10/09/22 Terri Gallardo PA [address] [place] [address] [place] [address] PCP - [facility] 11/10/2304/10 Registration Rep Relationship Specialty Start Date End Date Joseph Vanegas MD [address] [place] [address] PCP - General Pediatrics 10/09/22 Terri Gallardo PA [address] [place] [address] [place] [address] PCP - [facility] 11/10/2304/10 Registration Rep Relationship Specialty Start Date End Date Joseph Vanegas MD [address] [place] [address] PCP - General Pediatrics 10/09/22 Terri Gallardo PA [address] [place] [address] [place] [address] [facility] 11/10/2304/10 FOR RECORDS PERTAINING TO PATIENTS WHO ARE OR HAVE BEEN ENROLLED IN A CHEMICAL DEPENDENCY/SUBSTANCEABUSE PROGRAM, SOME INFORMATION MAY BE OMITTED. This clinical summary was aggregated from multiple sources. Caution should be exercised in using it in the provision of clinical care. This summary normalizes information from multiple sources, and as a consequence, information in this document may materially change the coding, format and clinical context of patient data. In addition, data may be omitted in some cases. CLINICAL DECISIONS SHOULD BE BASED ON THE PRIMARY CLINICAL RECORDS. [facility] [employer] provides no warranty or guarantee of the accuracy or completeness of information in this document.
--- OUTSIDE RECORDS SUMMARY | 2024-10-22 20:01 | XMS_ITS | Encounter Summary ---
Author Organization [facility] Address [address] [place] [address] Care Team Providers Care Creative Specialist Name Role Phone Kaleb Vanegas MD Primary Care Provider [phone] Terri Gallardo Unavailable Encounter Details Date Type Department Care Team (Late st Contact Info) Description 11/04/2023 Abstract [facility] [address] [facility] [place] [address] Mitchell Arriola DO [address] [facility] [address] Jarod Matos, [facility]11 Social History Tobacco Use Types Packs/Day Years [...] on filedocumented in this encounter Care Teams Creative Specialist Relationship Specialty Start Date End Date Kaleb Vanegas MD [address] [place] [address] PCP - General Pediatrics 10/09/22 Terri Gallardo PA [address] [address] [facility] 11/10/2304/10 documented as of this encounter
--- OUTSIDE RECORDS SUMMARY | 2024-10-22 20:01 | XMS_ITS | Encounter Summary ---
Author Organization [facility] Address [address] [place] [address] Care Team Providers Care Charge Master Coordinator Name Role Phone Kaleb Vanegas MD Primary Care Provider [phone] Terri Gallardo Unavailable Encounter Details Date Type Department Care Team (Late st Contact Info) Description 10/18/2024 Bamboo flowsheet [facility] OB [address] [facility] [place] [address] Terri Gallardo PA [address] [place] [address] Dr [place], [facility]11 Social History Tobacco Use Types Packs/Day [...] on filedocumented in this encounter Care Teams Charge Master Coordinator Relationship Specialty Start Date End Date Kaleb Vanegas MD [address] [place] [address] PCP - General Pediatrics 10/09/22 Terri Gallardo PA [address] [facility] [address] [place], [facility]11 [facility] 11/10/2304/10 documented as of this encounter
--- OUTSIDE RECORDS SUMMARY | 2024-10-22 20:01 | XMS_ITS | Encounter Summary ---
Author Organization [facility] Address [address] [place] [address] Care Team Providers Care Bottom Steep Tender Name Role Phone Kaleb Vanegas MD Primary Care Provider [phone] Terri Gallardo Unavailable Encounter Details Date Type Department Care Team (Late st Contact Info) Description 07/16/2023 Clinisync Result Encounter [facility] External Department Unsolicited Mitchell Arriola DO [address] [place] [address] Jarod [place], [place] [phone] Social History Tobacco Use Types Packs/Day Years [...] EST Narrative 07/16/2023 9:51 AM EST The [address] [address] Mammography Report Signed Patient: SIMON SAUCEDA MR#: [id number] : 2000 Acct:[id number] Age/Sex: 23 / F ADM Date: 07/16/23 Loc: MAMMO Attending Dr: Mitchell Arriola D.O. Ordering Physician: Mitchell Arriola D.O. Results: Date of Service: 07/16/23 Follow Up: Procedure(s): MM tomosynthesis diagnostic BI Accession Number(s): [id number] cc: Mitchell Arriola D.O. Patient Name: SIMON SAUCEDA MR#: [id number] : 2000 Exam Date: 07/16/2023 Ordering Doctor: [...] Treatments None Family Cancers None LOCATION: [facility] BREAST COMPOSITION: Heterogeneously dense,which may obscure [...] M.D. Signed By: 07/16/23 0951 DD/ TD/TT: Cota: Procedure Note Radiology, Radiologist, - 07/16/2023 [place] [address] Mammography Report Signed Patient: SIMON SAUCEDA LMR#: [id number] : 2000Acct:[id number] Age/Sex: 23 FADM Date: 07/16/23 Loc: MAMMO Attending Dr: Mitchell Arriola D.O. Ordering Physician: Mitchell Arriola D.O.Results: Date of Service: 07/16/23Follow Up: Procedure(s): MM tomosynthesis diagnostic BI Accession Number(s): [id number] cc: Mitchell Arriola D.O. Patient Name: SIMON SAUCEDA MR#: [id number] : 2000 Exam Date: 07/16/2023 Ordering Doctor: [...] Treatments None Family Cancers None LOCATION: [facility] BREAST COMPOSITION: Heterogeneously dense,which may obscure [...] Kaleb Flowers M.D. Signed By:07/16/2351 DD/ TD/TT: Cota: Mitchell Arriola DO [facility] Final Result documented in this encounter Visit Diagnoses Not on filedocumented in this encounter Care Teams Bottom Steep Tender Relationship Specialty Start Date End Date Kaleb Vanegas MD [address] [place] [address] PCP - General Pediatrics 10/09/22 Terri Gallardo PA [address] [place] [address] [place] [address] PCP - [facility] 11/10/2304/10 documented as of this encounter
--- OUTSIDE RECORDS SUMMARY | 2024-10-22 20:01 | XMS_ITS | Patient Health Record ---
Author Organization [facility] [employer] Address [address] [place] [address] Care Team Providers Care Pizza Delivery Driver Name Role Phone Devonte Marco Primary Care Provider [facility] [phone] Reason For Referral No Information Medications Medication [...] Insured Coverage Start Date Coverage End Date [facility] [employer] [facility] [employer] ed 22. [address] CLAIMS DEPT [facility] [place] [address] [id number] SIMON RAMOS Self - patient is the insured 2 zMEDICAID CFC after [place]-ter med 22 [address] [place] [address] [id number] SIMON RAMOS Self - patient is the insured 2 zDENTAL [place]-ter med 22 [address] [address] [place] [address] [id number] SIMON RAMOS Self - patient is the insured 2 zDental MEDICAID CFC after [place]-ter med [address] [place] [address] [id number] SIMON RAMOS Self - patient is the insured 2
--- OUTSIDE RECORDS SUMMARY | 2024-10-22 20:02 | XMS_ITS | Encounter Summary ---
Author Organization [facility] Address [address] [place] [address] Care Team Providers Care Farmworker Poultry Name Role Phone Kaleb Vanegas MD Primary Care Provider [phone] Terri Gallardo Unavailable Encounter Details Date Type Department Care Team (Late st Contact Info) Description 10/18/2024 Clinisync Result Encounter [facility] External Department Unsolicited Terri Gallardo PA [address] [place] [address] [place] [address] Social History Tobacco Use Types Packs/Day Years [...] HPV,AGE GDLN Routine 10/18/2024 11:14 AM EDT documented in this encounter Results * IGP,APTIMA HPV,AGE GDLN (10/18/2024 11:14 AM EDT) AGE GDLN ACOG TESTING Note . [facility] Comment: TESTS RESULT FLAG UNITS REF RANGE LAB Clinician Provided Cytology Information Source.............Cervix;Endocervix No. of containers..01 ThinPrep Vial Age Pete Lucio... FLAG LEGEND: L-Low Normal,H-High Normal,LL-Alert Low,HH-Alert High <-Panic Low,>-Panic High,A-Abnormal,AA-Critical Abnormal Performed at: 01 =G [facility] [address] Vonnie Hermosillo MD, IGP, RFX APTIMA HPV ASCU Note . [facility] Comment: TESTS RESULT FLAG UNITS REF RANGE LAB DIAGNOSIS: 02 NEGATIVE FOR INTRAEPITHELIAL LESION OR MALIGNANCY. Specimen adequacy: 02 Satisfactory for evaluation. No endocervical component is identified. Performed by: 02 Teddy Grady Crystal Inspector ([facility]) . 02 Note: Note 02 The [...] <-Panic Low,>-Panic High,A-Abnormal,AA-Critical Abnormal Performed at: [address] [phone] Vonnie Hermosillo MD, Performed at: = - [facility] [id number] Automobile Service Station Manager: Vonnie Hermosillo MD, Phone: [phone] Performed at: [address] [id number] Automobile Service Station Manager: Vonnie Hermosillo MD, Phone: [phone] 10/18/2024 11:1 4 AM EDT 10/18/2024 12:31 PM EDT Narrative [facility] - 10/20/2024 2:09 PM EDT BRUSH-SPATULA CERVIX ENDOCERVIX us Terri RUSSELL LAB BLOOD ORDERABLES Final [facility] documented in this encounter Visit Diagnoses Not on filedocumented in this encounter Care Teams Farmworker Poultry Relationship Specialty Start Date End Date Kaleb Vanegas MD [address] [place] [address] PCP - General Pediatrics 10/09/22 Terri Gallardo PA [address] [place] [address] [place] [address] [facility] 11/10/2304/10 documented as of this encounter
--- OUTSIDE RECORDS SUMMARY | 2024-10-22 20:02 | XMS_ITS | Encounter Summary ---
Author Organization [facility] Address [id number] [address] [place] [address] Care Team Providers Care Superintendent Stations Name Role Phone Unavailable Primary Care Provider Unavailabl e Encounter Details Date Type Department Care Team (Late Contact Info) Description 07/01/2024 Orders Only [facility] [address] [place] [phone] Susie Rivas MA Intermittent palpitations; Precordial pain [...] AM EDT Office Visit [facility] [address] [place] [phone] Ronaldo Murrell MD [address] [place] [address] documented as of this encounter Procedures Procedure [...]
--- OUTSIDE RECORDS SUMMARY | 2024-10-22 20:02 | XMS_ITS | Patient Health Record ---
Author Organization [facility] Address [address] [place] [address] Care Team Providers Care Jeweler Apprentice Name Role Phone Homer Ho MD Primary Care Provider UnavailAlexander Wood [phone] Allergies No Known Allergies Reason For Referral [...] Encounters Encounter Location Date Provider Diagnosis Urology [facility] [address] [place] [address] 05/26/2024 Alexander Rogers Recurrent UTI N39.0 Assessments [...] Date [place] MED[place] [address] [place] [address] [id number] Ana Sauceda Self - patient is the insured Medical (General) History Medical History History ICD Code Hypothyroidism sinus tachycardia recurrent UTI Surgical History Surgery Date(Month/Year) right femur dennis and screws
--- OUTSIDE RECORDS SUMMARY | 2024-10-22 20:02 | XMS_ITS | Encounter Summary ---
Author Organization [facility] Address [id number] [address] [place] [address] Care Team Providers Care Chief Cloth Finishing Range Operator Name Role Phone Unavailable Primary Care Provider Unavailabl e Encounter Details Date Type Department Care Team ([facility] Contact Info) Description 06/11/2024 Orders Only [facility] [address] [place] [phone] External, Scanning Provider Social History Tobacco Use [...] AM EDT Office Visit [facility] [address] [place] [phone] Ronaldo Murrell MD [address] [place] [address] documented as of this encounter Procedures Procedure Name Priority Date/Time Associated Diagnosis Comments MULTIPLE LABS Routine 05/05/2024 12:59 PM EST ECG 12-LEAD Routine 05/02/2024 1:01 PM EST MULTIPLE LABS Routine 05/02/2024 1:00 PM EST ECG 12-LEAD Routine 03/14/2024 1:01 PM EST documented in this encounter Results * Multiple labs (05/05/2024 12:59 PM EST) us Scanning Provider External [place] [facility] Final Result Performing Organization Address [facility] de Phone Number MANUALLY TRANSCRIBED RESULTS * ECG 12 lead (05/02/2024 1:01 PM EST) us Scanning Provider External ECG ORDERABLES Final Result Performing Organization Address [facility] Phone Number MANUALLY TRANSCRIBED RESULTS * Multiple labs (05/02/2024 1:00 PM EST) us Scanning Provider External [place] [facility] Final Result Performing Organization Address [facility] de Phone Number MANUALLY TRANSCRIBED RESULTS * ECG 12 lead (03/14/2024 1:01 PM EST) us Scanning Provider External ECG ORDERABLES Final Result Performing Organization Address [facility] de Phone Number MANUALLY TRANSCRIBED RESULTS documented in this encounter Visit Diagnoses Not on filedocumented in this encounter
--- OUTSIDE RECORDS SUMMARY | 2024-10-22 20:02 | XMS_ITS | Clinical Summary ---
Author Organization [employer] tem Address [id number] [address] [place] [address] Care Team Providers Care Gliding Pilot Instructor Name Role Phone Unavailable Primary Care Provider [...] EDT Office Visit [facility] [address] [place] [address] Ronaldo Murrell MD [address] [place] [address] Health Maintenance Due Date Last Done Comments Depression Screening 2014 Tobacco Screening 2014 Adult BMI Follow Up Plan 02/28/2020 Pap Smear 2023 Influenza Vaccine 01/10/2025 Adult BMI Screening 06/10/2025 06/10/2024 DTaP,Tdap and Td Vaccines (6 - Tdap) 06/12/2031 06/12/2021, 04/02/2004, 2002, Additional history exists Medical Devices Not on file Insurance [place] MED[place]
--- OUTSIDE RECORDS SUMMARY | 2024-10-22 20:02 | XMS_ITS | Encounter Summary ---
Author Organization [facility] Address [address] [place] [address] Care Team Providers Care Marketing Assistant Name Role Phone Kaleb Vanegas MD Primary Care Provider [phone] Terri Gallardo Unavailable Encounter Details Date Type Department Care Team (Late st Contact Info) Description 12/18/2022 Abstract [facility] BCP OB [address] [facility] [place] [address] Terri Gallardo PA [address] [facility] [address] [place], [facility] Social History Tobacco Use Types Packs/Day Years [...] on filedocumented in this encounter Care Teams Marketing Assistant Relationship Specialty Start Date End Date Kaleb Vanegas MD [address] [place] [address] PCP - General Pediatrics 10/09/22 Terri Gallardo PA [address] [facility] [place] [address] [facility] 11/10/2304/10 documented as of this encounter
--- OUTSIDE RECORDS SUMMARY | 2024-10-22 20:02 | XMS_ITS | Encounter Summary ---
Author Organization [facility] tem Address [id number] [address] [place] [address] Care Team Providers Care Wafer Production Lead Worker Name Role Phone Unavailable Primary Care Provider Unavailabl e Encounter Details Date Type Department Care Team (Late Contact Info) Description 06/24/2024 Orders Only [facility] [address] [place] [phone] Susie Rivas MA Intermittent palpitations; Precordial pain [...] AM EDT Office Visit [facility] [address] [place] [phone] Ronaldo Murrell MD [address] [place] [address] documented as of this encounter Procedures Procedure [...]
--- OUTSIDE RECORDS SUMMARY | 2024-10-22 20:02 | XMS_ITS | Encounter Summary ---
Author Organization [facility] Address [address] [place] [address] Care Team Providers Care School Director Name Role Phone Kaleb Vanegas MD Primary Care Provider [phone] Terri Gallardo Unavailable Encounter Details Date Type Department Care Team (Late st Contact Info) Description 01/07/2023 Abstract [facility] B[facility] OB [address] [place] [address] Devora Jean LPN [address] [facility] [id number] Social History Tobacco Use Types Packs/Day Years [...] on filedocumented in this encounter Care Teams School Director Relationship Specialty Start Date End Date Kaleb Vanegas MD [address] [place] [address] PCP - General Pediatrics 10/09/22 Terri Gallardo PA [address] [employer] [place] [address] [facility] 11/10/2304/10 documented as of this encounter
== END 2024-10-22 19:59 | disposition home or self-care (01) ==
PROVIDERS: PCP Family Medicine; Visit Provider Physician Assistant
DX: N92.1 Excessive and frequent menstruation with irregular cycle (principal); Z30.431 Encounter for routine checking of intrauterine contraceptive device
CPT/HCPCS: 76830

== ENCOUNTER 2025-04-12 03:50 | Emergency (ER) | payer OTHER, SELFPAY ==
--- OUTSIDE RECORDS SUMMARY | 2025-03-31 09:30 | XMS_ITS | Encounter Summary ---
Author Organization [facility] Address [address] [place] [address] Care Team Providers Care Product Tester Fiberglass Name Role Phone Kaleb Vanegas MD Primary Care Provider [phone] Encounter Details DateTypeDepartmentCare Team (Latest Contact Info)Xzncslcyprw73/20/2025 9:30 AM ESTAncillary Procedure [facility] [address] [place] [address] [place] [address] Encounter for intrauterine device placement Social History Tobacco UseTypesPacks/DayYears UsedDateSmoking Tobacco: FormerCigarettes Smokeless Tobacco: NeverAlcohol UseStandard Drinks/WeekCommentsNever0 (1 standard drink = 0.6 oz pure alcohol)CommentsNoSex and Gender InformationValueDate RecordedSex Assigned at BirthNot on fileLegal SexFemale 07/24/2022 10:53 PM EDTGender IdentityNot on fileSexual OrientationNot on file documented as of this encounter Plan of Treatment Not on file documented as of this encounter Procedures Procedure NamePriorityDate/TimeAssociated DiagnosisCommentsUS PELVIS GWJOJCSOWFRFUwbnuar44/20/2025 10:13 AM EST Encounter for intrauterine device placement documented in this encounter Results * US pelvis transvaginal (03/31/2025 10:13 AM EST)Anatomical RegionLaterality ModalityPelvisUltrasoundSpecimen (Source)Anatomical Location / Laterality Collection Method / VolumeCollection TimeReceived Time03/31/2025 2:50 PM EST Impressions 03/31/2025 3:16 PM EST Appropriately positioned intrauterine device. TRANSCRIBED BY: ? ELECTRONICALLY SIGNED BY: Mendel Akers MD Narrative 03/31/2025 3:16 PM EST FINDINGS: Uterus ? 9.8 x 4.6 x 7.1cm Endometrium ??7mm Right Ovary ?1.9 x 1.0 x 1.5 cm Left Ovary ?not seen Normal uterine orientation and morphology. ??Appropriate intrauterine device. No abnormal fluid collections. ?? Normal right ovary. ??Left ovary not visualized. No adnexal mass or pelvic fluid. Procedure Note Mendel Akers MD - 03/31/2025 FINDINGS: Uterus 9.8 x 4.6 x 7.1cm Endometrium 7mm Right Ovary 1.9 x 1.0 x 1.5 cm Left Ovary not seen Normal uterine orientation and morphology. Appropriate intrauterinedevice. No abnormal fluid collections. Normal right ovary. Left ovary not visualized. No adnexal mass or pelvicfluid. IMPRESSION: Appropriately positioned intrauterine device. TRANSCRIBED BY: ELECTRONICALLY SIGNED BY: Mendel Akers MD Authorizing ProviderResult TypeResult StatusAmy [facility] PROCEDURESFinal Result documented in this encounter Visit Diagnoses Diagnosis Encounter for intrauterine device placement Insertion of intrauterine contraceptive device documented in this encounter Care Teams Team MemberRelationshipSpecialtyStart DateEnd Date Kaleb Vanegas MD [address] [place] [id number] PCP - GeneralPediatrics10/09/22documented as of this encounter
--- OUTSIDE RECORDS SUMMARY | 2025-03-31 10:10 | XMS_ITS | Encounter Summary ---
Author Organization [facility] Address [address] [place] [address] Care Team Providers Care C Architect Name Role Phone Kaleb Vanegas MD Primary Care Provider Reason for Visit * ReasonCommentsResults Encounter Details DateTypeDepartmentCare Team (Latest Contact Info)Kztxsvatnex87/20/2025 10:10 AM ESTOffice Visit [facility] [address] [facility] [place] [address] Mitchell Arriola DO [address] [facility] [address] [place] [id number] Yeast infection (Primary Dx); Vaginal cyst; Intrauterine contraceptive device threads lost, subsequent encounter Social History Tobacco UseTypesPacks/DayYears UsedDateSmoking Tobacco: FormerCigarettes Smokeless Tobacco: NeverAlcohol UseStandard Drinks/WeekCommentsNever0 (1 standard drink = 0.6 oz pure alcohol)CommentsNoSex and Gender InformationValueDate RecordedSex Assigned at BirthNot on fileLegal SexFemale 07/24/2022 10:53 PM EDTGender IdentityNot on fileSexual OrientationNot on file documented as of this encounter Last Filed Vital Signs Vital SignReadingTime TakenCommentsBlood Adxeroki798/7003/31/2025 10:25 AM EST Pulse--Temperature--Respiratory Rate--Oxygen Saturation--Inhaled Oxygen Concentration--Vlngfn852 kg (233 lb)03/31/2025 10:25 AM ESTHeight--Body Mass Index34.4111 8:45 AM ESTdocumented in this encounter Progress Notes * YVONNE Gregg - 03/31/2025 10:10 AM EST Images from the original note were not included. Reason for Appointment: Patient ID: Ana Sauceda is a 25 y.o. female who presents for Results Patient presents today for Acute Visit. MEDICATIONS Current Outpatient Medications Medication Instructions Levonorgestrel (Mirena, 52 MG,) 20 MCG/DAY intrauterine device by Intrauterine route levothyroxine (SYNTHROID, LEVOXYL) 100 mcg, Daily before breakfast metFORMIN XR (GLUCOPHAGE-XR) 1,000 mg, Oral, Daily with evening meal, Do not crush, chew, or split. ALLERGIES No Known Allergies PROBLEMS Active Ambulatory Problems Diagnosis Date Noted Generalized anxiety disorder 10/09/2022 Panic disorder 10/09/2022 Hypothyroid 10/09/2022 Resolved Ambulatory Problems Diagnosis Date Noted No Resolved Ambulatory Problems Past Medical History: Diagnosis Date BMI 29.0-29.9,adult ALLI (generalized anxiety disorder) Hypothyroidism Panic disorder without agoraphobia Sinus tachycardia HISTORY PAST MEDICAL HISTORY SOCIAL HISTORY Past Medical History: Diagnosis Date BMI 29.0-29.9,adult ALLI (generalized anxiety disorder) Hypothyroidism Panic disorder without agoraphobia Sinus tachycardia Social History Tobacco Use Smoking status: Former Types: Cigarettes Smokeless tobacco: Never Substance Use Topics Alcohol use: Never Drug use: Never FAMILY HISTORY Family History Problem Relation Name Age of Onset Alcohol abuse Father No Known Problems Son Mekhi No Known Problems Son [place] Cancer Other Grandmother SURGICAL HISTORY Past Surgical [...] Exam Constitutional: Appearance: Normal appearance. She is normal weight. Genitourinary: Genitourinary Comments: Small area of erthema HENT: Head: Normocephalic. Cardiovascular: Rate and Rhythm: Normal rate. Pulses: Normal pulses. Pulmonary: Effort: Pulmonary effort is normal. Breath sounds: Normal breath sounds. Abdominal: Palpations: Abdomen is soft. Musculoskeletal: General: Normal range of motion. Neurological: General: No focal deficit present. Mental Status: She is alert and oriented to person, place, and time. Psychiatric: Mood and Affect: Mood normal. Behavior: Behavior normal. Thought Content: Thought content normal. Judgment: Judgment normal. Vitals and nursing note reviewed. Vitals: Estimated body mass index is 34.41 kg/m?? as calculated from the following: Height as of 03/22/25: 5' 9 . Weight as of this encounter: 233 lb. BP: 110/70 No LMP recorded. (Menstrual status: IUD). Assessment/Plan ICD-10-CM 1. Yeast infection B37.9 2. Vaginal cyst N89.8 3. Intrauterine contraceptive device threads lost, subsequent encounter T83.32XD Assessment/Plan Patient will follow up as needed diflucan sent to pharmacy Documented by YVONNE Gregg on behalf of: Mitchell Arriola DO documented in this encounter Plan of Treatment Not on file documented as of this encounter Visit Diagnoses Diagnosis Yeast infection- Primary Vaginal cyst Other specified noninflammatory disorder of vagina Intrauterine contraceptive device threads lost, subsequent encounter documented in this encounter Care Teams Team MemberRelationshipSpecialtyStart DateEnd Date Kaleb Vanegas MD [address] [place] [address] PCP - GeneralPediatrics10/09/22documented as of this encounter
[2025-04-12] VITALS (19 sets, daily range): BP systolic 100–134; BP diastolic 56–94; PULSE 76–97; TEMP 36.5–37; O2SAT 97–100; BMI 34.4
--- OUTSIDE RECORDS SUMMARY | 2025-04-12 03:57 | XMS_ITS | Clinical Summary ---
Author Organization [facility] Address [address] [place] [address] Care Team Providers Care Raised Printer Name Role Phone Kaleb Vanegas MD Primary Care Provider [phone] Allergies No known active allergies Medications MedicationSigDispense QuantityRefillsLast FilledStart DateEnd DateStatus levothyroxine (Synthroid, Levoxyl) 50 MCG tablet Take 100 mcg by mouth in the morning. Take before meals.Active Levonorgestrel (Mirena, 52 MG,) 20 MCG/DAY intrauterine device by Intrauterine route02/24/2024ctive metFORMIN XR (Glucophage-XR) 500 MG 24 hr tablet Indications:Follow-up encounter involving medicationTake 2 tablets (1,000 mg) by mouth in the evening. Take with meals Do not crush, chew, or split. 30 tablet 11010/18/228058/6Active cephalexin (Keflex) 500 MG capsule Indications:Vaginal cyst,Skin infectionTake 1 capsule (500 mg) by mouth in the morning and 1 capsule (500 mg) before bedtime. Do all this for 5 days. 10 capsule /Expired fluconazole (Diflucan) 150 MG tablet Indications:Yeast infectionTake 1 tablet (150 mg) by mouth 1 (one) time for 1 dose This is a 1 time dose, take single tablet by mouth. 2 tablet Expired Active Problems ProblemNoted DateDiagnosed DateGeneralized anxiety vcgrewvx18/31/2023anic umbtdewr36/31/9973Tzgtmppcdbm52/31/2023 Encounters DateTypeDepartmentCare DykrPojwoeaicuw66/20/2025 10:10 AM ESTOffice Visit [facility] [address] [place] [address] Mitchell Arriola DO Yeast infection (Primary Dx); Vaginal cyst; Intrauterine contraceptive device threads lost, subsequent gvsmatlcg07/20/2025 9:30 AM ESTAncillary Procedure [facility] [address] [place] [address] Encounter for intrauterine device ouytgsmgd77/11/2025 9:00 AM ESTOffice Visit [facility] [address] [place] [address] Terri Gallardo PA Vaginal cyst; Missed menses; Nausea; Encounter for intrauterine device placement; Skin cdaznibqg83/11/2025amboo flowsheet [facility] [address] [place] [address] Terri Gallardo PA from Last 3 Months Family History Medical HistoryRelationNameCommentsAlcohol abuseFatherCancerOtherGrandmotherNo Known ProblemsSon 1ColtonNo Known ProblemsSon 2WestonRelationNameStatusComments FatherAliveOtherGrandmotherSon 1ColtonAliveSon 2WestonAlive Social History Tobacco UseTypesPacks/DayYears UsedDateSmoking Tobacco: FormerCigarettes Smokeless Tobacco: Never Tobacco Cessation:Counseling Given: Not Answered Alcohol UseStandard Drinks/WeekCommentsNever0 (1 standard drink = 0.6 oz pure alcohol)CommentsNoSex and Gender InformationValueDate RecordedSex Assigned at BirthNot on fileLegal QbdGnjmzf27/15/2023 10:53 PM EDTGender IdentityNot on fileSexual OrientationNot on file Last Filed Vital Signs Vital SignReadingTime TakenCommentsBlood Snlicuel027/7003/31/2025 10:25 AM EST Pulse--Temperature--Respiratory Rate--Oxygen Saturation--Inhaled Oxygen Concentration--Javikf517 kg (233 lb)03/31/2025 10:25 AM VHLVezhbp030.3 cm (5' 9 )03/22/2025 8:45 AM ESTBody Mass Index34.41105/22/2024 8:45 AM EST Plan of Treatment Not on file Procedures Procedure NamePriorityDate/TimeAssociated DiagnosisCommentsUS PELVIS CNDVYHIVNLNYLmbkorj99/20/2025 10:13 AM EST Encounter for intrauterine device placement POCT , ZGHMTUvodreg48/11/2025 8:59 AM EST Missed menses Nausea from Last 3 Months Results * US pelvis transvaginal (03/31/2025 10:13 [...] Mendel Akers MD Authorizing ProviderResult TypeResult StatusAmy [facility] PROCEDURESFinal Result * POCT , urine manually resulted (03/22/2025 8:59 AM EST)ComponentValue Ref RangeTest MethodAnalysis TimePerformed AtPathologist SignaturePreg Test, UrNegativeNegativeSpecimen (Source)Anatomical Location / LateralityCollection Method / VolumeCollection TimeReceived GxqnZhbsp52/11/2025 8:59 AM EST Narrative Authorizing ProviderResult TypeResult StatusAmy Sami PAPOINT OF CARE TEST ENTER/EDIT ORDERABLESFinal Result from Last 3 Months Insurance Care Teams Team MemberRelationshipSpecialtyStart DateEnd Date Kaleb Vanegas MD [address] [place] [id number] PCP - GeneralPediatrics10/09/22
--- OUTSIDE RECORDS SUMMARY | 2025-04-12 03:57 | XMS_ITS | Clinical Summary ---
Author Organization [employer] [facility] Address [id number] [place] [address] Care Team Providers Care Cathode Ray Tube Assembler Name Role Phone Unavailable Primary Care Provider Unavailabl e Allergies No known active allergies Medications MedicationSigDispense QuantityRefillsLast FilledStart DateEnd DateStatus levothyroxine (SYNTHROID, LEVOTHROID) 50 MCG tablet Take 2 tablets (100 mcg total) by mouth in the morning.3Active methenamine (HIPREX) 1 gram tablet Take 1 tablet (1 g total) by mouth in the morning and 1 tablet (1 g total) in the evening. Take with meals.5Active Active Problems No known active problems Social History Tobacco UseTypesPacks/DayYears UsedDateSmoking Tobacco: FormerCigarettes Smokeless Tobacco: Never Tobacco Cessation:Counseling Given: Not Answered Alcohol UseStandard Drinks/WeekCommentsYes0 (1 standard drink = 0.6 oz pure alcohol)ChildcareAnswerDate LnrptxzzVertazhycYnlpgro66/12/2019EmploymentAnswer Date PwyfsgmzCxrhuqnoetOlwnnwu51/12/2019Hunger ScreeningAnswerDate Recorded Within the past 12 months we worried whether our food would run out before we got money to buy more.Never True06/10/2024Within the past 12 months the food we bought just didn't last and we didn't have money to get more.Never True 06/10/2024CommentsUnknownSex and Gender InformationValueDate RecordedSex Assigned at BirthNot on fileLegal RsnVghlvr71/06/2015 11:59 AM EDTGender IdentityNot on fileSexual OrientationNot on file Last Filed Vital Signs Vital SignReadingTime TakenCommentsBlood Lawjvooy249/8001 1:35 PM EST Bakuo561906/10/2024 1:35 PM ESTTemperature--Respiratory Rate--Oxygen Saturation-- Inhaled Oxygen Concentration--Vbemoy903.7 kg (222 lb)06/10/2024 1:35 PM EST Ebhcoi211.3 cm (5' 9 )06/10/2024 1:35 PM ESTBody Mass Index32.78006/10/2024 1:35 PM EST Plan of Treatment Health MaintenanceDue DateLast DoneCommentsDepression Jkixmtldr11/19/2014Tobacco Ggblzbmwi68/19/2014Adult BMI Follow Up Plan02/28/2020Pap Smear2023 Influenza Eznuzzb9501/10/2025dult BMI Hxwjhtpui11DTaP,Tdap and Td Vaccines (6 - Tdap)/05/2021, 04/02/2004, 2002, Additional history exists Medical Devices Not on file Insurance
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
--- OUTSIDE RECORDS SUMMARY | 2025-04-12 03:58 | XMS_ITS | CCD ---
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 #### 17470566, 9287045861, 2856147294, 2112862, 2668627203, 0136103791, 3633104 #### [facility] (DEFAULT) [address] [place] [address] 36502FDLO (RBC) [Mass/Vol]34 g/gFJptzxk17-40[facility] Comment on above:Performed By: #### 32730025, 0142310537, 9359674177, 0144480, 9240490896, 5879254210, 2687446 #### [facility] (DEFAULT) [address] [place] [address] 24658TSS (RBC) [Entitic vol]82 sKBaiwwz89-953Hjaqhmyp Hospital Comment on above:Performed By: #### 03759693, 5341321730, 8609725975, 1696101, 0350853871, 8215253859, 7028962 #### [facility] (DEFAULT) [address] [place] [address] 97942Drunzyyz258 a36Uzfotq678-767Xawonpyi HospitalComment on above:Performed By: #### 36523255, 1989406217, 2972241190, 7641481, 7237528132, 2806330666, 1134679 #### [facility] (DEFAULT) [address] [place] [address] 52161Gouomuwr mean volume (Bld) [Entitic vol]7.9 fLNormal 6.3-10.2[facility] HospitalComment on above:Performed By: #### 77902240, 2007812779, 2299402682, 4430428, 1523983125, 9369752208, 6164500 #### [facility] (DEFAULT) [address] [place] [address] 09410EBP0.44 b53Omnqzq1.70-5.30[facility] HospitalComment on above:Performed By: #### 04183044, 9221178703, 2448920971, 5512703, 3665362455, 8675222939, 1278728 #### [facility] (DEFAULT) [address] [place] [address] 82467BMG26.9 v58Xygy5.5-10.5[facility] HospitalComment on above: Performed By: #### 60244415, 3314177133, 4343833458, 1645858, 9775661990, 8981091288, 2967827 #### [facility] (DEFAULT) [address] [place] [address] 92401WUAWF/Flu/RSV (GeneXpert)on 98-06-3211Dgh A (GXpert COVFLURSV)NegativeNormalNegTrinity Health System East Campus HospitalComment on above:Performed By: #### [id number], 7582813970 ####[facility] (DEFAULT)[address] [place] [address] 12042Yoh B (GXpert COVFLURSV)NegativeNormalNegativeMercy Health [facility] Hospital Hospital Comment on above:Performed By: #### 7514405951, 9658309547 ####[facility] (DEFAULT)[address] [place] [address] 43282TQD (GXpert COVFLURSV)Negative NormalNegTrinity Health System East Campus HospitalComment on above:Performed By: #### [id number], 7875708715 ####[facility] (DEFAULT)[address] [place], [place] [address]KHQG-HlK-3 (COVID-19) RNA ELEONORA+probe Ql (Unsp spec)NegativeNormalNegative [facility] HospitalComment on above:Result Comment: Performed by PCR methodology. Performed By: #### [id number], 8330392229 ####[facility] (DEFAULT)[address] [place], [place] [address]TE Abdomen/Pelvis w/ Contraston 08-97-5361TO Abdomen/Pelvis w/ ContrastCT ABDOMEN/PELVIS WITH IV CONTRAST. INDICATION: Flank pain COMPARISON: CT abdomen and pelvis with contrast 07/23/[address] abdomen pelvis without contrast 05/02/2024 TECHNIQUE: Contiguous axial images were obtained from the lung bases to the pelvic floor following the intravenous administration of iodinated contrast material. Coronal and sagittal reformations were obtained. FINDINGS: LOWER LUNGS: Hypoventilatory changes LIVER/BILIARY TREE: No enhancing mass. No intrahepatic ductal dilatation. GALLBLADDER: Unremarkable. SPLEEN: Unremarkable. PANCREAS: Unremarkable. STOMACH AND DUODENUM: Unremarkable. ADRENALS: Unremarkable. KIDNEYS AND URETERS: No hydronephrosis or obstructive nephrolithiasis. Right kidney perinephric fat stranding with patchy areas of cortical hypoenhancement seen in the superior pole the right kidney. BLADDER: No bladder calculi or bladder wall thickening. REPRODUCTIVE: T-shaped intrauterine device BOWEL AND MESENTERY: No small or large bowel dilation/obstruction. APPENDIX: Normal appendix. PERITONEAL CAVITY: No free fluid. No evidence of pneumoperitoneum VASCULATURE: Unremarkable. LYMPH NODES: No mesenteric or retroperitoneal lymphadenopathy by CT criteria. ABDOMINAL WALL: Unremarkable. MUSCULOSKELETAL: No acute osseous abnormality. Right femur surgical hardware. IMPRESSION: 1. Acute right pyelonephritis Final Dictated by: Taco Maria DO Dictated DT/TM: 01/13/25 7:50 Signed (Electronic Signature): Taco Maria DO 01/13/25 7:55 pm Technologist: [facility]YSt. [facility] HospitalED Note-Nursingon 55-23-3826KM Note-NursingPatient arrives with c/o headache, fever, right flank pain, nausea and vomiting for 3 days. States she last took Tylenol this am. She had an US 1 month ago for a IUD migration but has not heard of her results yet. Alert and oriented X4. Ambulates to room 5. Placed on cardiac catheterization technologist/continuous pulse ox/BP. oRegency Hospital CompanyExtra Blueon 81-59-4548Kjbj CollectedYesInvalid Interpretation Code [facility] HospitalComment on above:Performed By: #### 60881461, 3556958574, 2388643790, 7742744, 8745782431, 0712744407, 9846805 #### [facility] (DEFAULT) [address] [place] [address] 95148Dxyelxi Function Panel Standardon 31-43-2833Igkpxvh [Mass/Vol]3.5 g/dLNormal3.5-5.0[facility] HospitalComment on above:Performed By: #### 08247370, 3349389794, 1792193815, 2931551, 5286211536, 4821222981, 6115436 #### [facility] (DEFAULT) [address] [place] [address] 24931Roq Phos37 IU/WSegjla80-12Dfcvxbve HospitalComment on above:Performed By: #### 52663118, 8307161880, 8622253334, 3026944, 4732379734, 7096889753, 9276229 #### [facility] (DEFAULT) [address] [place] [address] 89563LIJ [Catalytic activity/Vol]12.0 U/LLow14.0-54.0[facility] HospitalComment on above:Performed By: #### 07307277, 1429865050, 1154420393, 0830356, 8299296424, 4705344978, 9833218 #### [facility] (DEFAULT) [address] [place] [address] 15620GWX [Catalytic activity/Vol]9 U/HYtq43-02Cvtpgrui Hospital Comment on above:Performed By: #### 75780448, 1586414971, 4906671222, 9743413, 4226044561, 2932771767, 3617107 #### [facility] (DEFAULT) [address] [place] [address] 73507Pffe Direct0.10 mg/dLNormal0.10-0.50MaAs[facility] Comment on above:Performed By: #### 61055829, 6947216768, 1902200734, 3977847, 3147183099, 5590138455, 4362082 #### [facility] (DEFAULT) [address] [place] [address] 29225Xmvk Total0.4 mg/dLNormal0.3-1.2MLakeHealth TriPoint Medical CenterComment on above:Performed By: #### 62631748, 6337402301, 5941600761, 1313043, 3453310177, 4186225924, 4439983 #### [facility] (DEFAULT) [address] [place] [address] 76531Jpjuxnw [Mass/Vol]7.5 g/dLNormal6.5-8.1MLakeHealth TriPoint [facility] Center Comment on above:Performed By: #### 64263171, 9436344820, 5713457452, 8689431, 0718701478, 2863692303, 1500647 #### [facility] (DEFAULT) [address] [place] [address] 42471Ykkwbpx/Globulin [Mass ratio]0.8 {ratio}Low1.4-2.6MLakeHealth TriPoint Medical CenterComment on above:Performed By: #### 50488994, 9319558726, 9127331459, 5626558, 7296694606, 2605174948, 2202574 #### [facility] (DEFAULT) [address] [place] [address] 55543Sdyq Indirect0.3 mg/dLNormal0.2-0.8MaAs[facility] Comment on above:Performed By: #### 83416043, 2224239704, 4670196271, 2874889, 5598907207, 2285942224, 2525439 #### [facility] (DEFAULT) [address] [place] [address] 65047Blnkrcco (S) [Mass/Vol]4.0 g/dLNormal1.5-4.3Magr[facility] hospital HospitalComment on above:Performed By: #### 16353035, 6136663428, 2443447147, 2807688, 2404766226, 6686835715, 8987211 #### [facility] (DEFAULT) [address] [place] [address] 96898Bltseb Acidon 93-38-1102Bdjigp Acid5.0 mg/dLNormal4.5-19.8 [facility] HospitalComment on above:Performed By: #### 09031973, 3164983381, 6074968378, 1630554, 4071778782, 7636880154, 7972305 #### [facility] (DEFAULT) [address] [place] [address] 99938Onyewzxy 16-77-1393Rkqlgr Level27.0 IU/RJdczku66.0-51.0 [facility] HospitalComment on above:Performed By: #### 04925552, 2158210762, 1556344879, 7932901, 3948284089, 4442897466, 1473035 #### [facility] (DEFAULT) [address] [place] [address] 74220Otqutumfc Test Urine 1on 01-13-2025U PregNegativeNormal [facility] HospitalComment on above:Performed By: #### [id number] ####[facility] (DEFAULT)[address] [place] [address] 66910T Preg Internal Control PassNormalMercy Health Tiffin Hospital HospitalComment on above:Performed By: #### [id number] ####[facility] (DEFAULT)[address] [place] [address] 17630IY Standardon 28-05-2902Ymdjvulqrs UANormalMercy Health T[facility] Hospital HospitalComment on above:Performed By: #### [id number] ####[facility] (DEFAULT)[address] [place] [address] 55848Nznld (U)YellowNormalMercy Health [facility] Hospital HospitalComment on above:Performed By: #### [id number] ####[facility] (DEFAULT)[address] [place] [address] 18296Dsocyes (U) [Mass/Vol]NegativeNormalMagruder HospitalComment on above:Performed By: #### [id number] ####[facility] (DEFAULT)[address] [place] [address] 44660Lylktvw Ql (U)NegativeNormal [facility] HospitalComment on above:Performed By: #### [id number] ####[facility] (DEFAULT)[address] [place] [address] 18028KW BilirubinNegative NormalMagruder HospitalComment on above:Performed By: #### [id number] ####[facility] (DEFAULT)[address] [place] [address] 63800EA Blood NegativeNormalNEGATIVEMagruder HospitalComment on above:Performed By: #### [id number] ####[facility] (DEFAULT)[address] [place] [address] 11034TM ClarityCLEARNormalCLEARMagruder HospitalComment on above:Performed By: #### [id number] ####[facility] (DEFAULT)[address] [place] [address] 33607PO Leuk EstNegativeNormalNEGATIVEMagruder HospitalComment on above: Performed By: #### [id number] ####[facility] (DEFAULT)[address] [place] [address] 04996BU NitriteNegativeNormalNEGATIVEWigruder Hospital Comment on above:Performed By: #### [id number] ####[facility] (DEFAULT)[address] [place] [address] 67144TO pH6.1Tjydsu5-6Ojtobchc HospitalComment on above:Performed By: #### [id number] ####[facility] (DEFAULT)[address] [place] [address] 63126TK ProteinTRACEAbnormalNEGATIVE [facility] HospitalComment on above:Performed By: #### [id number] ####[facility] (DEFAULT)[address] [place] [address] 21636AC Spec Grav<=1.005 Normal1.001-1.035[facility] HospitalComment on above:Performed By: #### [id number] ####[facility] (DEFAULT)[address] [place], [place] [address]HE Urobilinogen0.2 mg/dLNormal0.2-1.0[facility] HospitalComment on above:Performed By: #### [id number] ####[facility] (DEFAULT)[address] [place] [address] 42626Mwrlg SourceClean CatchFayette County Memorial Hospital HospitalComment on above: Performed By: #### [id number] ####[facility] (DEFAULT)[address] [place] [address] 79112VR Chest 1 View Frontalon 50-04-6784IW Chest 1 View FrontalPORTABLE CHEST X-RAY INDICATION: chest pain COMPARISON: PA and lateral chest radiograph 06/24/2023 TECHNIQUE: Single AP portable chest radiograph. FINDINGS: Cardiomediastinal silhouette is within normal limits. No focal consolidation. No pleural effusion. No pneumothorax. No acute displaced fractures identified. IMPRESSION: 1. No acute findings. Final Dictated by: Taco Maria DO Dictated DT/TM: 01/13/25 8:01 Signed (Electronic Signature): Taco Maria DO 01/13/25 8:01 pm Technologist: [facility] HospitalOutsthompson [facility] [place] Recordson 61-69-1296Qjgnbah [id number]#1.00OTGTIFFVan Wert County HospitalUS PELVIS TRANSVAGINALon 78-81-6255[place] [address] Ultrasound Report Signed Patient: ANA SAUCEDA MR#: [id number] : 2000 Acct:[id number] Age/Sex: 24 / F ADM Date: 10/22/24 Loc: US Attending Dr: Terri Gallardo Ordering Physician: Terri Gallardo Date of Service: 10/22/24 Procedure(s): US pelvis transvaginal Accession Number(s): [id number] cc: Terri Gallardo; JOSEPH ORTIZ [place] [id number] Patient Name: ANA SAUCEDA MRN: [id number] date: 2000 Sex: F Assigned Patient Location: US Current Patient Location: Accession/Order Number: [id number] Exam Date: 10/23/2024 10:34 Report Date: 10/23/2024 10:36 At the request of: TERRI GALLARDO Procedure: US pelvis transvaginal Transabdominal and transvaginal pelvic ultrasound HISTORY: Assessment of IUD placement Uterus is anteverted. Uterus measures 8.3 x 4.4 x 6.3 cm. IUD identified in the endometrium in adequate position. The endometrium has a total combined thickness of 3 mm. Right ovary measures 2.3 x 2.5 x 2.0 cm. The left ovary not visualized. Multiple right ovarian follicles present. No adnexal mass. No free fluid. US/US pelvis transvaginal IMPRESSION: Adequate position of IUD. Impression dictated by: Reuben Brown M.D. 10/23/2024 10:36 AM Dictation Location: [place] [address] Electronically authenticated by: [id number] Y Date: 10/23/2024 10:36 Dictated By: Reuben Brown D.O. Signed By: 10/23/24 1039 DD/ 1036 TD/TT: Transport Assistant:TBHRadiology, Radiologist, MD - 10/23/2024 [place] [address] Ultrasound Report Signed Patient: ANA SAUCEDA MR#: [id number] : 2000 Acct:[id number] Age/Sex: 24 / F ADM Date: 10/22/24 Loc: US Attending Dr: Terri Gallardo Ordering Physician: Terri Gallardo Date of Service: 10/22/24 Procedure(s): US pelvis transvaginal Accession Number(s): [id number] cc: JOSEPH Werner [address] [address] Patient Name: ANA SAUCEDA MRN: [id number] date: 2000 Sex: F Assigned Patient Location: US Current Patient Location: Accession/Order Number: [id number] Exam Date: 10/23/2024 10:34 Report Date: 10/23/2024 10:36 At the request of: TERRI GALLARDO Procedure: US pelvis transvaginal Transabdominal and transvaginal pelvic ultrasound HISTORY: Assessment of IUD placement Uterus is anteverted. Uterus measures 8.3 x 4.4 x 6.3 cm. IUD identified in the endometrium in adequate position. The endometrium has a total combined thickness of 3 mm. Right ovary measures 2.3 x 2.5 x 2.0 cm. The left ovary not visualized. Multiple right ovarian follicles present. No adnexal mass. No free fluid. US/US pelvis transvaginal IMPRESSION: Adequate position of IUD. Impression dictated by: Reuben Brown M.D. 10/23/2024 10:36 AM Dictation Location: [employer] Electronically authenticated by: [id number] Y Date: 10/23/2024 10:36 Dictated By: Reuben Brown D.O. Signed By: 10/23/24 1039 DD/ 1036 TD/TT: Transport Assistant: [facility] HealthcareRadiology Study observation (narrative)NOM HealthcareUS PELVIS TRANSVAGINALOrdered By: Radiologist Radiology on 46-11-6469[facility] Work Phone: IGP,APTIMA HPV,AGE GDLNon 60-31-4339JIH GDLN ACOG TESTINGNote.[facility] HealthcareComment on above:TESTS RESULT FLAG UNITS REF RANGE LAB Clinician Provided Cytology Information Source.............Cervix;Endocervix No. of containers..01 ThinPrep Vial Age Pete Lucio... FLAG LEGEND: L-Low Normal,H-High Normal,LL-Alert Low,HH-Alert High <-Panic Low,>-Panic High,A-Abnormal,AA-Critical Abnormal Performed at: 01 =G [facility] [address] [place] [address] Vonnie Hermosillo MD, IGP, RFX APTIMA HPV ASCUNote.NOMS HealthcareComment on above:TESTS RESULT FLAG UNITS REF RANGE LAB DIAGNOSIS: 02 NEGATIVE FOR INTRAEPITHELIAL LESION OR MALIGNANCY. Specimen adequacy: 02 Satisfactory for evaluation. No endocervical component is identified. Performed by: 02 Teddy Grady, Electrician Marine ([facility]) . 02 Note: Note 02 The Pap [...] <-Panic Low,>-Panic High,A-Abnormal,AA-Critical Abnormal Performed at: [address] [address] Vonnie Hermosillo MD, Performed at: =G - [facility] [id number] Golf Superintendent: Vonnie Hermosillo MD, Phone: [phone] Performed at: - [facility] [id number] Golf Superintendent: Vonnie Hermosillo MD, Phone: [phone] [facility] CERVIX ENDOCERVIX CLINISYNCNOOH HealthcareCoding Summaryon 14-01-9772Dfmbkz SummaryMCKAY-DEE HOSPITAL CENTERBase 64 RzxrqicpVSc1fKo+PGhlYWQ+UM1FLROdT14nsIMoiC1qC0CEWCiKRvsnUXHSUHhOPbUrjbOpIT4bxVGj ZXJu [file] Y29 (more content not included)...[facility].Auto Diff 1on 97-74-9401Smsj [place] %7 %Normal1-12[facility] HospitalComment on above:Performed By: #### 2977677, 0348575426, 3350127531, 2240557926, 97682078, 9659348 ####[facility] ([facility])[address] [place] [address] 61562Yenc Abs# 0.0 r59Jxolof6.0-0.2MLakeHealth TriPoint Medical CenterComment on above:Performed By: #### 8513753, 5422467073, 2637876500, 1202421395, 43118204, 1918943 ####[facility] (DEFAULT)[address] [place] [address] 76605Cwyhdderi/100 WBC (Bld) 0.3 %Normal0.2-2.0[facility] HospitalComment on above:Performed By: #### 2053395, 8032355724, 0369817287, 2717442036, 40666767, 9663089 ####[facility] (DEFAULT)[address] [place] [address] 98667Zei Abs#0.2 p02Nizfdp0.0-0.4 [facility] HospitalComment on above:Performed By: #### 7405681, 6234285904, 7881159593, 1610054605, 85742771, 9324450 ####[facility] (DEFAULT)[address] [place] [address] 64199Wpysyvgrxft/100 WBC (Bld)1.9 %Normal0.9-4.0 [facility] HospitalComment on above:Performed By: #### 6224275, 2805995997, 3167037675, 1372616993, 05498920, 0706615 ####[facility] (DEFAULT)[address] [place] [address] 12157Ebqtl Abs#1.7 u69Vqtazf4.3-2.9[facility] HospitalComment on above:Performed By: #### 7508811, 6644296977, 5119834683, 4596328452, 37180944, 0315980 ####[facility] (DEFAULT)[address] [place] [address] 81098Uweazjuqiwf/100 WBC (Bld)19 %Qnrowg56-44Zgkytcdj HospitalComment on above:Performed By: #### 4470093, 3170437791, 4502742583, 5210912195, 82541571, 3980213 ####[facility] (DEFAULT)[address] [place] [address] 56751Jscw Abs#0.7 l68Dgivds1.0-0.8[facility] Hospital Comment on above:Performed By: #### 6053199, 2805012931, 8607679628, 2945926424, 83042694, 7181098 ####[facility] (DEFAULT)[address] [place] [address] 15455Nwcq Abs#6.4 k28Urtvmw5.5-9.2[facility] hospital HospitalComment on above: Performed By: #### 5125144, 9776357614, 3208272888, 0601575246, 79768917, 6489895 ####[facility] (DEFAULT)[address] [place] [address] 27004 Neutrophils/100 WBC (Bld)71 %Atabkb03-94Dwramqmo HospitalComment on above: Performed By: #### 7283863, 7028448665, 0165528681, 4332686143, 17032142, 3931938 ####[facility] (DEFAULT)[address] [place] [address] 25628 CBC w/ Auto Diffon 03-12-2363Nfylakbwauw distribution width (RBC) [Ratio]17.6 % High11.5-15.0[facility] HospitalComment on above:Performed By: #### 3631958, 0417651863, 9286554187, 0023626012, 75554046, 2800496 ####[facility] (DEFAULT)[address] [place] [address] 54232Cbgxeohzla (Bld) [Volume fraction]41.4 %High33.7-40.4[facility] HospitalComment on above:Performed By: #### 1259865, 6391522696, 3499337495, 3730425292, 55309053, 7698952 ####[facility] (DEFAULT)[address] [place] [address] 26087Wrhndlfbqs (Bld) [Mass/Vol]13.4 g/kVBzpxff39.3-15.9[facility] HospitalComment on above:Performed By: #### 8534068, 3689819147, 8203168099, 1613794831, 67465417, 7085988 ####[facility] (DEFAULT)[address] [place], [place] [address]Man Diff? AutoInvalid Interpretation CodeMercy Health Tiffin Hospital HospitalComment on above:Performed By: #### 3870345, 8889303320, 9927685656, 5847074533, 70017098, 3017222 ####[facility] (DEFAULT)[address] [place] [address] (RBC) [Entitic mass]26 jdTbjfgd39-29Fvlhkrze HospitalComment on above:Performed By: #### 6437111, 3303270376, 7528315368, 5997920034, 93398424, 8404967 ####[facility] (DEFAULT)[address] [place], [place] [address]HC (RBC) [Mass/Vol]32 g/sRVrfdvn03-58Ualxwsev HospitalComment on above:Performed By: #### 6765558, 6467408710, 7784549078, 1549723948, 49135984, 6486246 ####[facility] (DEFAULT)[address] [place] [address] 96784YEY (RBC) [Entitic vol]80 fLLow 81-100[facility] HospitalComment on above:Performed By: #### 4293592, 4824685161, 5857505465, 6688714120, 34277315, 0805592 ####[facility] (DEFAULT)[address] [place] [address] 17297Bnikocfy802 x11Joqzcy384-689Jsmhuhqy Hospital Comment on above:Performed By: #### [id number], [id number], [id number], [id number], [id number], [id number] ####[facility] (DEFAULT)[address] [place] [address] [id number] mean volume (Bld) [Entitic vol]8.1 fLNormal6.3-10.2M[facility] HospitalComment on above:Performed By: #### [id number], [id number], [id number], [id number], [id number], [id number] ####[facility] (DEFAULT)[address] [place] [address] 96745BGW1.19 d28Siifkx8.70-5.30[facility] HospitalComment on above:Performed By: #### [id number], [id number], [id number], [id number], [id number], [id number] ####[facility] (DEFAULT)[address] [place] [address] 18675PTY5.0 r80Catymy1.5-10.5[facility] HospitalComment on above:Performed By: #### [id number], [id number], [id number], [id number], [id number], [id number] ####[facility] (DEFAULT)[address] [place] [address] [id number] Standardon 83-11-9681dNCG Non AA>60Invalid Interpretation CodeMercy Health [facility] HospitalComment on above:Performed By: #### [id number], [id number], [id number], [id number], [id number], [id number] ####[facility] (DEFAULT)[address] [place] [address] [id number] eGFR AA>60Invalid Interpretation CodeMercy Health Tiffin Hospital HospitalComment on above:Performed By: #### [id number], [id number], [id number], [id number], [id number], [id number] ####[facility] (DEFAULT)[address] [place] [address] 80827Ouwgpxm [Mass/Vol]4.3 g/dLNormal3.5-5.0[facility] HospitalComment on above:Performed By: #### [id number], [id number], [id number], [id number], 06572684, 8215739 ####[facility] (DEFAULT)[address] [place] [address] 89946Ngnkkbc/Globulin [Mass ratio]1.0 {ratio}Low1.4-2.6[facility] HospitalComment on above:Performed By: #### 3369785, [id number], [id number], 1240691167, 72228942, 3289104 ####[facility] (DEFAULT)[address] [place] [address] 19873Apl Phos40 IU/LNormal 32-91[facility] HospitalComment on above:Performed By: #### 6660501, [id number], [id number], 3124624457, 76400255, 9790247 ####[facility] (DEFAULT)[address] [place] [address] 43326QXM [Catalytic activity/Vol]17.0 U/LNormal 14.0-54.0[facility] HospitalComment on above:Performed By: #### [id number], [id number], 4039254895, 8639652624, 12838132, 5837477 ####[facility] (DEFAULT)[address] [place] [address] 55284Syimk gap [Moles/Vol]13.8 mmol/L Normal5.0-19.0[facility] HospitalComment on above:Performed By: #### 2879977, [id number], 4184194294, 6755742147, 83138309, 2153461 ####[facility] (DEFAULT)[address] [place] [address] 35450LVQ [Catalytic activity/Vol]13 U/CJny79-70Vvmomdzv HospitalComment on above:Performed By: #### [id number], [id number], 7310803072, 8082000075, 42851333, 7415201 ####[facility] (DEFAULT)[address] [place] [address] 75863Jlwk Total0.2 mg/dLLow0.3-1.2 [facility] HospitalComment on above:Performed By: #### [id number], [id number], 3522253199, 8092376343, 64814495, 8009058 ####[facility] (DEFAULT)[address] [place] [address] 24701Fvptfqr [Mass/Vol]9.4 mg/dLNormal8.9-10.3 [facility] HospitalComment on above:Performed By: #### 4474415, [id number], 4960685600, 3133254828, 97844679, 4817438 ####[facility] (DEFAULT)[address] [place] [address] 24646Yvqrzzmm [Moles/Vol]104 mmol/KIadqhu213-091 [facility] HospitalComment on above:Performed By: #### 1709238, [id number], 6997795778, 5510782313, 23282555, 0112480 ####[facility] (DEFAULT)[address] [place] [address] 54417JF4 [Moles/Vol]25 mmol/TTosuoe11-20Inoroifs HospitalComment on above:Performed By: #### 2469379, [id number], 7272677541, 4737084731, 96231228, 4108580 ####[facility] (DEFAULT)[address] [place] [address] 24134Zkbkelnzwy [Mass/Vol]0.73 mg/dLNormal0.60-1.30 [facility] HospitalComment on above:Performed By: #### 1963714, [id number], 2021463914, 5713636065, 96328492, 4723740 ####[facility] (DEFAULT)[address] [place] [address] 08206Qlewwgah (S) [Mass/Vol]4.0 g/dLNormal1.5-4.3 [facility] HospitalComment on above:Performed By: #### 6870302, 1382191096, 7709491029, 3492250386, 03254878, 4130737 ####[facility] (DEFAULT)[address] [place] [address] 47323Mepvomo [Mass/Vol]107.0 mg/bSZdvcqy12.0-118.0 [facility] HospitalComment on above:Performed By: #### 0571086, [id number], 9386229960, 7992740424, 84153150, 6981883 ####[facility] (DEFAULT)[address] [place] [address] 83018Rebtwhszti020 mOsm/LInvalid Interpretation CodeMercy Health Tiffin Hospital HospitalComment on above:Performed By: #### [id number], [id number], 7970688844, 0744299712, 98799348, 2506748 ####[facility] (DEFAULT)[address] [place] [address] 66475Ntfotmqdw [Moles/Vol]3.8 mmol/LNormal3.6-5.1 [facility] HospitalComment on above:Performed By: #### 7996716, 7616172035, 9832469100, 7861007049, 39432378, 9300203 ####[facility] (DEFAULT)[address] [place] [address] 73761Qynnmlx [Mass/Vol]8.3 g/dLHigh6.5-8.1M[facility] HospitalComment on above:Performed By: #### 5403605, 1957707465, 5638416249, 3840517045, 07241374, 9960657 ####[facility] (DEFAULT)[address] [place] [address] 53919Hgvpjs [Moles/Vol]139.0 mmol/MUtjgdz531.0-144.0 [facility] HospitalComment on above:Performed By: #### [id number], [id number], 3421671817, 7990752779, 18867598, 2405825 ####[facility] (DEFAULT)[address] [place] [address] 73520Kvyu nitrogen [Mass/Vol]8 mg/dLNormal8-26 [facility] HospitalComment on above:Performed By: #### 6060879, 3153696609, 4197673930, 3970650478, 50895401, 2918349 ####[facility] (DEFAULT)[address] [place] [address] 90886Swcf nitrogen/Creatinine [Mass ratio]10.9 mg/mgNormal4.6-16.2M[facility] HospitalComment on above:Performed By: #### 4431799, 9695267576, 6114011528, 2842353170, 48150653, 2926373 ####[facility] (DEFAULT)[address] [place] [address] 64803US Note-Nursingon 05-38-4919FE Note-NursingPt ambulatory back to ED RM 8 C/O sun burnt, headache, dizziness, and nausea that started two days ago. Pt has vomited a several episodes the past two days. pt stated yessenia increased my fluid and tried liquid iv pt skin is red/ pink no blisters. Pt denies any abdominal pain or fever or chills. Pt is A/OX4 call light within reach ormal [facility] HospitalExtra Blueon 28-56-3628Xekz CollectedYesInvalid Interpretation [facility] HospitalComment on above:Performed By: #### 6494827, [id number], 4183766081, 4265476538, 68466944, 4688145 ####[facility] (DEFAULT)[address] [place] [address] 52561iZX Quantitativeon 22-43-8343hAE Quantitative <0.0Ukgjjr2.0-0.6MLakeHealth TriPoint Medical CenterComment on above:Result Comment: Post- Menopausal Reference Range is: 0.1-11.6 mIU/mLPerformed By: #### 6015216, 4680711306, 7362299946, 9232933535, 48457874, 0319207 ####[facility] (DEFAULT)[address] [place] [address] 95123LUOEBXMXM VAGINITIS (HTRX)on 85-03-3564GQTSQSVPL NUGIKRR87.654AbnormalNOMS HealthcareATOPOBIUM VAGINAE DetectedAbnormalNOMS HealthcareBVAB 2,3 (BACTERIAL VAGINOSIS ASSOCIATED BACTERIA 2, 3); MOBILUNCUS SPP24.289AbnormalNOMS HealthcareBVAB 2,3 (BACTERIAL VAGINOSIS ASSOCIATED BACTERIA 2, 3); MOBILUNCUS SPPDetectedAbnormalNOMS HealthcareCANDIDA ALBICANS, PARAPSILOSIS, VIWEAVRTTT1RLTR HealthcareCANDIDA ALBICANS, PARAPSILOSIS, TROPICALISNot detectedNOMS HealthcareCANDIDA XARKQQTV4EPTM HealthcareCANDIDA GLABRATANot detectedNOMS HealthcareCANDIDA NEZAPZ9JFQL HealthcareCANDIDA KRUSEINot detectedNOMS HealthcareCHLAMYDIA XLNUWMUHJRC6ZKTZ HealthcareCHLAMYDIA TRACHOMATISNot detectedNOMS HealthcareERMB, C; MEFA19.208 AbnormalNOMS HealthcareERMB, C; MEFADetectedAbnormalNOMS HealthcareGARDNERELLA YAPIVTRMQ63.731AbnormalNOMS HealthcareGARDNERELLA VAGINALISDetectedAbnormalNOMS HealthcareInterpretation and review of laboratory resultsAbnormalNOMS Healthcare MEGASPHAERA (TYPES 1, 2)0NOMS HealthcareMEGASPHAERA (TYPES 1, 2)Not detectedNOMS HealthcareMYCOPLASMA VZGHJUPNQX3DGWD HealthcareMYCOPLASMA GENITALIUMNot detected NOMS HealthcareNEISSERIA XCHSSADRQWM3YINX HealthcareNEISSERIA GONORRHOEAENot detectedNOMS HealthcareTET B, TET M18.046AbnormalNOMS HealthcareTET B, TET M DetectedAbnormalNOMS HealthcareTRICHOMONAS VVFPRTBDQ3LVAW HealthcareTRICHOMONAS VAGINALISNot detectedNOMS HealthcareNOMS HealthcareUrinalysis macro (dipstick) panel (U)on 49-02-0567Gezmdltki, UANegativeNegative - 4(70) +++ mg/dLNOMS HealthcareBlood, UANegativeNegative - 50 Matthew/mcLNOMS HealthcareClarity, UAClear NOMS HealthcareColor, UAYellowNOMS HealthcareGlucose, UANegativeNegative - 2000(110) ++++ mg/dLNOMS HealthcareInterpretation and review of laboratory resultsNormalNOMS HealthcareKetones, UANegativeNegative - 160(16) ++++ mg/dLNOMS HealthcareLeukocytes, UAPositiveNegative - 500+++ Rosa/mcLNOMS HealthcareNitrite, UANegativeNegative - PositiveNOMS HealthcarepH, UA65 - 9NOMS HealthcareProtein, UANegativeNegative - 2000(20) ++++ mg/dLNOMS HealthcareSpec Grav, UA1.021 - 1.03 NOMS HealthcareUrobilinogen, UA0.20.2 - 12 mg/dLNOMS HealthcareNOMS Healthcare Coding Summaryon 35-66-0525Rkiedc SummaryMLBase 64 HreanlfzQLv6lCj+PGhlYWQ+ZH7SOSGdM38ncHVgnK7dV8TGVPbVXaasLHBNYHlYQjCznaCxML0jqPCm ZXJu [file] Y29 (more content not included)...[facility] HospitalOutside Recordson 74-61-2097Aljugxy [id number]#1.00OTGTIFF [facility] HospitalCoding Summaryon 68-48-2553Clcknq SummaryHTMLBase 64 OnfannhrGUi5xOl+PGhlYWQ+DL7VOHOsA98gwZMqtU8jY3FCXBzXRyxeHWLEOKwQWwObdxLgNF3pxHWy ZXJu [file] ZTo (more content not included)...[facility] HospitalEvent Monitoron 29-64-9531Gqkoq [id number]#1.00OTGTIFF [facility] HospitalUS Echocardiogram Completeon 78-25-8094DV Echocardiogram Complete APPROVED REPORT EXAM: Comprehensive 2D, Doppler, and color-flow Echocardiogram BSA: 2.14 m2BP: 138/82 mmHg Rhythm: NSR Indications: Palpitations:Precordial pain Past Med. Hx: Hypothyroid, Anxiety, ? [...] Junction1.89 cm F: 2.3 - 2.9 LV Ejys164.62 g LVOT Diameter 2.09 cm IVC1.99 (<= 2.1cm) M-Mode Dimensions Aortic Root2.99 cm F: < 3.8MV EPSS0.68 ( < 0.7 cm) Aortic Cusp Exc2.30 (1.5 - 2.6 cm)TAPSE 2.2 (>1.7) Left Atrium3.59 cm F: 2.7 - 3.8 LV Volume - Method of Disks (Castellanos's) Single Plane 2D LV VolumesBiplane 2D LV Volumes LV EDV C2R219.7 mLLV EDV BP113.81 mL F: 46 - 106 LV ESV A4C43.5 mLLV ESV BP42.3 mL LVEF(%) A4C60.0 %LVEF(%) BP62.87 % F: 54 - 74 LV EDV S3E844.4 mLLV EDV BP Index53.18 mL/m2 F: 29 - 61 LV ESV A2C39.3 mLSV (BP)71.55 mL LVEF(%) A2C65.7 %SV (BP) Index33.37 mL/m2 CO BP5.5 L/min Left Atrium Volume Systole (Method of Disks) Single Plane 4 CH 44.83 mLBiplane LA Bahqnm84.53 mL Single Plane 2 CH44.38 mLLA ESV Index22.21 mL/m2 Right Atrium Area Systole RA Systolic Area A4C15.61 cm2RA Systolic Vol A4C41.40 mL Aortic Valve AoV Peak Velocity1.27 m/sLVOT Peak Velocity0.90 m/s AO Mean Velocity0.85 m/sLVOT Mean Velocity0.56 m/s AO Peak PG6.46 mmHgLVOT Peak PG3.26 mmHg AO Mean PG3.25 mmHgLVOT Mean PG1.53 mmHg AO V2 VTI23.41 cmLVOT V1 VTI19.27 cm NEETA (Vmax)2.45 rm2VRZB Area 3.44 cm2 NEETA (VTI)2.84 cm2SV (LVOT) 66.37 mL Indexed NEETA (VTI)1.32 cm2/m2 Mitral Valve MV E Max Velocity0.66 m/sMV PHT56.08 ms MV A Max Velocity0.45 m/sMVA (PHT)3.92 cm2 E/A Ratio1.5 MV Decel. Ambd871.38 ms TDI Med e' Wyjtagtg10.61 cm/sMV E / Medial e' 5.69 Lat e' Rtlntvfq03.60 cm/sMV E / Lateral e' 3.76 TV S'14.67 cm/s Pulmonary Valve PV Peak Velocity0.97 m/sPV Peak PG3.78 mmHg LA End Diastolic Cody.41.97 m/s PV Mean PG2.09 mmHg Tricuspid Valve TR Peak Velocity1.56 m/sRAP Estimate3.00 mmHg TR Peak PG9.79 qwKtNUHW31.79 mmHg Final Signed (Electronic Signature): Home Caro MD 06/24/24 12:06 p Technologist: [facility] HospitalProvider Orderson 19-84-3607Uueflyma [id number]#1.00[facility] CenterProvider [id number]#1.00OTACMC Healthcare System GlenbeighCoding Summaryon 95-27-6931Ggewms SummaryHTMLBase 64 CbkjvvwzAPk0bBy+PGhlYWQ+XA9ECLZqR70vnOSijA1gR3LSTUlFOzjkUQMVNAwMBxTlztZdVO9bcYId ZXJu [file] Y29 (more content not included)...[facility] Bloodon 05-07-2024 BloodNo growth at 5 DaysNoRegency Hospital CompanyComment on above:Performed By: #### [id number], [id number], [id number], 1184042, 2187666904, [id number], 9792828 #### [facility] (DEFAULT) [address] [place] [address] 42790Ekmsbxg Recordson 23-51-6415Ywxuemw Records [id number]#1.00OTGTIFFVan Wert County HospitalBlood Cultureon 69-37-3286Vrcgmaje identified Cx Nom (Bld)NO GROWTH 5 DAYS PERFORMED BY: [place] [address] PATHOLOGIST PRE OWNED SALES CONSULTANT RYAN ZUNIGA M.D.NormalThe [facility] Physician GroupComment on above: Performed By: #### LACTIC, CBC, CMP, CUBLD #### [facility] [address] [place] [address] USAComplete Blood Count Auto Diffon 02-28-3798Orjjsktxg (Bld) [#/Vol]0.0 10*3/uLNormal0.0-0.2The [facility] Physician GroupComment on above: Result Comment: PERFORMED BY: [address] [address] PATHOLOGIST PRE OWNED SALES CONSULTANT RYAN ZUNIGA M.D.Performed By: #### LACTIC, CBC, CMP, CUBLD #### [place] [address] USABasophils/100 WBC (Bld)0.4 %Normal.The [facility] Physician GroupComment on above:Performed By: #### LACTIC, CBC, CMP, CUBLD #### [place] [address] USAEosinophils (Bld) [#/Vol]0.0 10*3/uLNormal0.0-0.45The [facility] Physician GroupComment on above:Performed By: #### LACTIC, CBC, CMP, CUBLD #### [place] [address] USAEosinophils/100 WBC (Bld)0.4 %Normal.The [facility] Physician GroupComment on above:Performed By: #### LACTIC, CBC, CMP, CUBLD #### [place] [address] USAErythrocyte distribution width (RBC) [Ratio]17.1 %High 11.9-15.3The [facility] Physician GroupComment on above:Performed By: #### LACTIC, CBC, CMP, CUBLD #### [place] [address] USAHematocrit (Bld) [Volume fraction]30.2 %Low34.0-46.4The [facility] Physician GroupComment on above:Performed By: #### LACTIC, CBC, CMP, CUBLD #### [place] [address] USAHemoglobin (Bld) [Mass/Vol]9.6 g/dLLow11.8-15.4The [facility] Physician GroupComment on above:Performed By: #### LACTIC, CBC, CMP, CUBLD #### [place] [address] USALymphocytes (Bld) [#/Vol]1.1 10*3/uLNormal1.00-4.8The [facility] Physician GroupComment on above:Performed By: #### LACTIC, CBC, CMP, CUBLD #### [place] [address] USALymphocytes/100 WBC (Bld)10.3 %Normal.The [facility] Physician GroupComment on above:Performed By: #### LACTIC, CBC, CMP, CUBLD #### [place] [address] USAH (RBC) [Entitic mass]23.0 pgLow24.7-34.3The [facility] Physician GroupComment on above:Performed By: #### LACTIC, CBC, CMP, CUBLD #### [place] [address] USAV (RBC) [Entitic vol]72.1 tUKol14-805Vzh [facility] Physician GroupComment on above:Performed By: #### LACTIC, CBC, CMP, CUBLD #### [place] [address] USAMean Corpuscular HGB Conc31.9 g/dLLow32.0-35.0The [facility] Physician GroupComment on above:Performed By: #### LACTIC, CBC, CMP, CUBLD #### [place] [address] USAMonocytes (Bld) [#/Vol]1.5 10*3/uLHigh0.0-0.8The [facility] Physician GroupComment on above:Performed By: #### LACTIC, CBC, CMP, CUBLD #### [place] [address] USAMonocytes/100 WBC (Bld)23.61 %High0.00-20.00The [facility] Physician GroupComment on above:Result Comment: For adults in ED, MDW > 20.0 may be associated with a higher risk of sepsis during the first 12 hrs of hospital admissionPerformed By: #### LACTIC, CBC, CMP, CUBLD #### [place] [address] USAMonocytes/100 WBC (Bld)14.1 %Normal.The [facility] Physician GroupComment on above:Performed By: #### LACTIC, CBC, CMP, CUBLD #### [place] [address] USANeutrophils (Bld) [#/Vol]8.0 10*3/uLHigh1.8-7.7The [facility] Physician GroupComment on above:Performed By: #### LACTIC, CBC, CMP, CUBLD #### [place] [address] USANeutrophils/100 WBC (Bld)74.8 %Normal.The [facility] Physician GroupComment on above:Performed By: #### LACTIC, CBC, CMP, CUBLD #### [place] [address] USANRBC%0.0 /100{WBC}Normal0-0.5The [facility] Physician Group Comment on above:Performed By: #### LACTIC, CBC, CMP, CUBLD #### [place] [address] USAPlatelet mean volume (Bld) [Entitic vol]8.2 fLNormal 6.3-10.7The [facility] Physician GroupComment on above:Performed By: #### LACTIC, CBC, CMP, CUBLD #### [place] [address] USAPlatelets (Bld) [#/Vol]216 10*3/cWWrnofs014-466Csy [facility] Physician GroupComment on above:Performed By: #### LACTIC, CBC, CMP, CUBLD #### [place] [address] USARBC (Bld) [#/Vol]4.20 10*6/uLNormal3.60-5.00The [facility] Physician GroupComment on above:Performed By: #### LACTIC, CBC, CMP, CUBLD #### [place] [address] USAWBC (Bld) [#/Vol]10.7 10*3/uLNormal3.8-11.6The [facility] Physician GroupComment on above:Performed By: #### LACTIC, CBC, CMP, CUBLD #### [facility] [address] [place] [address] USAComprehensive Metabolic Panelon 16-60-7450Jlhfgtq [Mass/Vol]4.0 g/dLNormal3.5-5.7The [facility] Physician GroupComment on above: Performed By: #### LACTIC, CBC, CMP, CUBLD #### [facility] [address] [place] [address] USAAlbumin/Globulin [Mass ratio]1.2 {ratio}NormalThe [facility] Physician GroupComment on above:Performed By: #### LACTIC, CBC, CMP, CUBLD #### [facility] [address] [place] [address] USAALP [Catalytic activity/Vol]41 U/CBtsmab87-265Wkn [facility] Physician GroupComment on above:Performed By: #### LACTIC, CBC, CMP, CUBLD #### [facility] [address] [place] [address] USAALT [Catalytic activity/Vol]9 U/LNormal7-52The [facility] Physician GroupComment on above:Performed By: #### LACTIC, CBC, CMP, CUBLD #### [facility] [address] [place] [address] USAAnion gap [Moles/Vol]12.3 mmol/LNormal6.0-15.0The [facility] Physician GroupComment on above:Performed By: #### LACTIC, CBC, CMP, CUBLD #### [place] [address] USAAST [Catalytic activity/Vol]9 U/GCka86-28Dhg [facility] Physician GroupComment on above:Performed By: #### LACTIC, CBC, CMP, CUBLD #### [facility] [address] [place] [address] USABilirubin [Mass/Vol]0.5 mg/dLNormal0.3-1.0The [facility] Physician GroupComment on above:Performed By: #### LACTIC, CBC, CMP, CUBLD #### [facility] [address] [place] [address] USACalcium [Mass/Vol]8.5 mg/dLLow8.6-10.3The [facility] Physician GroupComment on above:Performed By: #### LACTIC, CBC, CMP, CUBLD #### [place] [address] USAChloride [Moles/Vol]104 mmol/WFhrzmf55-665Gkp [facility] Physician GroupComment on above:Performed By: #### LACTIC, CBC, CMP, CUBLD #### [place] [address] USACO2 [Moles/Vol]24.1 mmol/RDurlla65.0-31.0The [facility] Physician GroupComment on above:Performed By: #### LACTIC, CBC, CMP, CUBLD #### [place] [address] USACreatinine [Mass/Vol]0.71 mg/dLNormal0.60-1.20The [facility] Physician GroupComment on above:Performed By: #### LACTIC, CBC, CMP, CUBLD #### [place] [address] USACreatinine Clr Calc Prgvqpfu647.12NoFormerly [facility], [facility] Physician GroupComment on above:Result Comment: PERFORMED BY: [place] [address] PATHOLOGIST [employer] OWNED SALES CONSULTANT RYAN ZUNIGA M.D.Performed By: #### LACTIC, CBC, CMP, CUBLD #### [place] [address] USAGFR/1.73 sq M.predicted MDRD (S/P/Bld) [Vol rate/Area] mL/min/{1.73_m2}NormalThe [facility] Physician GroupComment on above:Performed By: #### LACTIC, CBC, CMP, CUBLD #### [place] [address] USAGlobulin (S) [Mass/Vol]3.3 g/dLNoFormerly [facility] Physician [facility] Of MeridianComment on above:Performed By: #### LACTIC, CBC, CMP, CUBLD #### [place] [address] USAGlucose [Mass/Vol]102 mg/pVVgig00-281Lqd [facility] Physician GroupComment on above:Result Comment: Random Glucose Reference Range is dependent on time and content of last meal. Glucose of more than 200 mg/dL in a nonstressed, ambulatory subject supports the diagnosis of Diabetes Mellitus. ADA recommended reference rangePerformed By: #### LACTIC, CBC, CMP, CUBLD #### [place] [address] USAPotassium [Moles/Vol]3.4 mmol/LLow3.5-5.1The [facility] Physician GroupComment on above:Performed By: #### LACTIC, CBC, CMP, CUBLD #### [place] [address] USAProtein [Mass/Vol]7.3 g/dLNormal6.4-8.9The [facility] Physician GroupComment on above:Performed By: #### LACTIC, CBC, CMP, CUBLD #### [place] [address] USASodium [Moles/Vol]137 mmol/KSqdxik410-543Xnl [facility] Physician GroupComment on above:Performed By: #### LACTIC, CBC, CMP, CUBLD #### [place] [address] USAUrea nitrogen [Mass/Vol]7 mg/dLNormal7-25The [facility] Physician GroupComment on above:Performed By: #### LACTIC, CBC, CMP, CUBLD #### [place] [address] USADipstick and Microscopicon 85-86-4971Dkaeokozyq (U)Cloudy Critically abnormalClearThe [facility] Physician GroupComment on above:Order Comment: Name Collection Type:: Clean-Voided MidstreamPerformed By: #### RADHA KAPLANUAPLUS #### [place] [address] USABacteria,Urine2+HighNone SeenThe [facility] Physician Group Comment on above:Order Comment: Name Collection Type:: Clean-Voided Midstream Performed By: #### RADHA KAPLANUAPLUS #### [facility] [address] [place] [address] USABilirubin,UrineNegativeNormalNegativeHca [facility] Er Physician GroupComment on above:Order Comment: Name Collection Type:: Clean- Voided MidstreamPerformed By: #### CUU, ADDONUAPLUS #### [place] [address] USAColor (U)YellowNormalYellowHca [facility] Er Physician Group Comment on above:Order Comment: Name Collection Type:: Clean-Voided Midstream Performed By: #### CUU, ADDONUAPLUS #### [place] [address] USAGlucose Ql (U)NormalNormalNormalThMinidoka Memorial Hospital Physician GroupComment on above:Order Comment: Name Collection Type:: Clean-Voided MidstreamPerformed By: #### CUU, ADDONUAPLUS #### [place] [address] USAHyaline Casts,UrineNoneNormal0-8The [facility] Physician GroupComment on above:Order Comment: Name Collection Type:: Clean-Voided MidstreamPerformed By: #### CUU, ADDONUAPLUS #### [place] [address] USAKetones Ql (U)NegativeNormalNegativeHca [facility] Er Physician GroupComment on above:Order Comment: Name Collection Type:: Clean- Voided MidstreamPerformed By: #### CUU, ADDONUAPLUS #### [place] [address] USALeukocyte esterase Test strip Ql (U)4+HighNegativeHca [facility] Er Physician GroupComment on above:Order Comment: Name Collection Type:: Clean-Voided MidstreamPerformed By: #### CUU, ADDONUAPLUS #### [place] [address] USAMucus,UrineRareNormalThe [facility] Physician GroupComment on above:Order Comment: Name Collection Type:: Clean-Voided MidstreamResult Comment: PERFORMED BY: [place] [address] PATHOLOGIST [employer] RYAN ZUNIGA M.D.Performed By: #### CUU, ADDONUAPLUS #### [place] [address] USANitrite,UrinePositiveHighNegativeThe [facility] Physician GroupComment on above:Order Comment: Name Collection Type:: Clean-Voided MidstreamPerformed By: #### CUU, ADDONUAPLUS #### [place] [address] USAOccult Blood,Urine2+HighNegativeThe [facility] Physician GroupComment on above:Order Comment: Name Collection Type:: Clean-Voided MidstreamResult Comment: PERFORMED BY: [place] [address] PATHOLOGIST [employer] CONSULTANT RYAN ZUNIGA M.D.Performed By: #### CUU, ADDONUAPLUS #### [place] [address] USApH (U)7.0 [pH]Normal5.0-9.0[facility] Comment on above:Order Comment: Name Collection Type:: Clean-Voided Midstream Performed By: #### CUU, ADDONUAPLUS #### [place] [address] USAProtein (U) [Mass/Vol]20 mg/dLHighNegativeThe [facility] Physician GroupComment on above:Order Comment: Name Collection Type:: Clean- Voided MidstreamPerformed By: #### CUU, ADDONUAPLUS #### [place] [address] USARBC,Urine5 [HPF]High0-4[facility] Comment on above:Order Comment: Name Collection Type:: Clean-Voided Midstream Performed By: #### CUU, ADDONUAPLUS #### [place] [address] USASpecificy [place],Urine1.933Exoybl5.001-1.030[facility] GroupComment on above:Order Comment: Name Collection Type:: Clean- Voided MidstreamPerformed By: #### CUU, ADDONUAPLUS #### [place] [address] USASquamous Epithelial Cell,Urine20 [HPF]High0-2[facility] GroupComment on above:Order Comment: Name Collection Type:: Clean- Voided MidstreamPerformed By: #### CUU, ADDONUAPLUS #### [place] [address] USAUrobilinogen,UrineNormalNormalNormalThe [facility] GroupComment on above:Order Comment: Name Collection Type:: Clean- Voided MidstreamPerformed By: #### CUU, ADDONUAPLUS #### [place] [address] USAWBC CLUMP, UrineManyHighNone SeenThe [facility] Physician GroupComment on above:Order Comment: Name Collection Type:: Clean-Voided MidstreamPerformed By: #### CUU, ADDONUAPLUS #### [place] [address] USAWBC,UrineInnumerableHigh0-4[facility] Comment on above:Order Comment: Name Collection Type:: Clean-Voided Midstream Performed By: #### CUU, ADDONUAPLUS #### [place] [address] USALactic Acidon 40-43-7551Sfhamri [Moles/Vol]0.6 mmol/L Normal0.5-2.2[facility] GroupComment on above:Result Comment: PERFORMED BY: [place] [address] PATHOLOGIST PRE OWNED SALES CONSULTANT RYAN ZUNIGA M.D.Performed By: #### LACTIC, CBC, CMP, CUBLD #### [place] [address] USAUrine Cultureon 61-52-3672Mbwbbfjx identified Cx Nom (U) ORGANISM: Escherichia coli (O:ESCCOL) [place] Count >100,000 Aerobic WILIAN Charge (NMIC56) SUSCEPTIBILITY ORGANISM: O:ESCCOL ANTIBIOTIC INTERPRETATION WILIAN Amikacin S <16 Amoxacillin/K Clavulanate S <8 Ampicillin S <8 Ampicillin/Sulbactam S <4 Aztreonam S <4 Cefazolin S <2 Cefepime S <2 Ceftazidime S <1 Ceftazidime/Avibactam S <4 Ceftolozane/Tazobactam S <2 Ceftriaxone S <1 Cefuroxime S <4 Ciprofloxacin S <0.25 Ertapenem S <0.5 Gentamicin S <2 Levofloxacin S <0.5 Meropenem S <1 Meropenem/Vaborbactam S <2 Nitrofurantoin S <32 Piperacillin/Tazobactam S <8 Tetracycline S <4 Tigecycline S <2 Tobramycin S <2 Trimethoprim/Sulfamethoxazole R >2 S = SUSCEPTIBLE I = [...] RESISTANT TO ALL B-LACTAM DRUGS. PERFORMED BY: [place] [address] [place] [address] PATHOLOGIST PRE OWNED SALES CONSULTANT RYAN ZUNIGA M.D.[facility] Physician GroupComment on above: Performed By: #### THANIA KAPLAN #### [facility] [address]QC SARS-CoV-2 (COVID-19)/Flu/RSV (GeneXpert)on 05-03-2024 Internal ControlMercy Health Willard HospitalComment on above:Order Comment: Ordered by Discern.[GL_[email or web address]_QC]Performed By: #### [id number], [id number], 3129154857, 5125307, 5663507362, 2222936350, 4610681 #### [facility] (DEFAULT) [address] [place] [address] 02412RYYST/Flu/RSV (GeneXpert)on 72-68-5522Uli A (GXpert COVFLURSV)NegativeNormalNegativeMercy Health Tiffin Hospital HospitalComment on above:Performed By: #### [id number], 7861514374, 1595980921, 5982864, 2633201395, 7138220061, 5867001 #### [facility] (DEFAULT) [address] [place] [address] 98507Ldl B (GXpert COVFLURSV)NegativeNormalNegativeMercy Health Tiffin Hospital HospitalComment on above:Performed By: #### [id number], 4300743278, 1232411742, 7527235, 4860145993, 7383411031, 7231821 #### [facility] (DEFAULT) [address] [place] [address] 00614GAQ (GXpert COVFLURSV)NegativeNormalNegativeMercy Health Tiffin Hospital HospitalComment on above:Performed By: #### 17460648, 8521989076, 4731667517, 8556594, 2488089987, 8759619293, 0909693 #### [facility] (DEFAULT) [address] [place] [address] 48791FULN-WxG-7 (COVID-19) RNA ELEONORA+probe Ql (Unsp spec)Negative NormalNegativeMercy Health Tiffin Hospital HospitalComment on above:Result Comment: Performed by PCR methodology.Performed By: #### [id number], 7762276504, 9195293456, 3263309, 0099720865, 7294165850, 2420575 #### [facility] (DEFAULT) [address] [place] [address] 53013AR Clinical Summaryon [id number] Clinical Summary [facility] - Emergency Department [address] [place] [address] ED Clinical Summary PERSON INFORMATION Name: ANA SAUCEDA Age: 24 Years Sex: FEMALE : 2000 MRN: Acct#: Visit Reason: Flank pain; L FLANK PAIN Arrival: 05/02/2024 22:14:00 Discharge: 05/03/2024 01:28:00 LOS: 000 03:14 Check In: 05/02/2024 22:14:00 Checkout:05/03/2024 01:28:00 Address: [address] [place] [address] PCP: Joseph Ortiz MD PROVIDER INFORMATION Provider Role Assigned Unassigned Alejandro Alonzo MD ED Provider 05/02/2024 22:14:31 Betsy Richardson RN ED Nurse 05/02/2024 22:32:03 Sara Okeefe VIDEO GAME TECHNICIAN Nurse 05/02/2024 22:51:55 VITALS INFORMATION Vital Sign [...] PATIENT EDUCATION INFORMATION Instructions: Abdominal Pain, Adult, Vupd-cm-Ycox Follow-Up: With: Address: When: Joseph Ortiz MD [address] [place] [address] Within 3 to 5 days DIAGNOSIS: 1:Left flank pain Patient Understands: Yes - Patient/family/caregiver verbalizes understanding of instructions given Comment:[facility] Summary [id number] Patient Summary [facility] - Emergency Department [address] [place] [address] PATIENT DISCHARGE INSTRUCTIONS Patient Information Name: ANA SAUCEDA Age: 24 Years Date of : 2000 Reason For Visit: Flank pain; L FLANK PAIN Arrival Time: 05/02/2024 22:14:00 Primary Care Physician: Joseph Ortiz MD Attending Physician: Alejandro Alonzo MD Comment: Visit Diagnosis: Diagnoses This Visit Flank pain ([id number]) Left flank pain (R10.9) The [facility]acy at [facility] is open Friday through Friday from 9A to 6P and Friday and Friday from 9A to 5P Prescription Information: If you have been given a prescription for narcotics, seek immediate medical attention if you have any difficulty breathing or any sudden status changes such as confusion andsleepiness. If you or anyone you know is experiencing suicidal thoughts, mental health, alcohol and/or drug addiction problems; contact the [facility] 02/12 Crisis Hotline -Kdcm 1BRJD nt [phone]. If you received any narcotics, sedation, or [...] any legal documents With: Address: When: Joseph Ortiz MD [address] [place] [address] Within 3 to 5 days Medication Information: The exam and treatment you received today in the [facility] Emergency Department were for an urgent problem and are not intended as complete care. It is important for you to follow up with a doctor, nurse practitioner, or physician?s budget assistant for ongoing care. If your symptoms become worse or you donot improve as expected and you are unable [...] so we can reach you if necessary. [facility] Emergency Department has provided you with a complete list of medications post discharge. Please inform your ux design lead/provider of your visit and for further instruction [...] and can be watched (more content not included)...NormalMccullough-Hyde Memorial Hospital.Auto Diff 1on 42-44-7000Dpcm [place] %2 %Normal1-12[facility] Comment on above:Performed By: #### [id number], [id number], 6731674113, 8152999, 1957628101, 1517512688, 8281537 #### [facility] (DEFAULT) [address] [place] [address] 68425Vxvx Abs#0.0 b91Htxjox4.0-0.2M[facility] HospitalComment on above:Performed By: #### 71999346, 8097967617, 8590938380, 2669827, 0945115018, 3978791157, 7294032 #### [facility] (DEFAULT) [address] [place] [address] 82982Ypnnbpiqp/100 WBC (Bld)0.4 %Normal0.2-2.0[facility] Comment on above:Performed By: #### 77482372, 8758758633, 4357400311, 4496997, 7315529894, 8384782520, 6242124 #### [facility] (DEFAULT) [address] [place] [address] 56785Tht Abs#0.1 k09Jdvauw5.0-0.4[facility] HospitalComment on above:Performed By: #### 59901273, 8488659498, 9535717741, 6440874, 0480769570, 7694369641, 3599287 #### [facility] (DEFAULT) [address] [place] [address] 26032Ldxgyfvmthp/100 WBC (Bld)0.7 %Low0.9-4.0[facility] Comment on above:Performed By: #### 37937104, 2781532558, 7413837695, 6350508, 4606853657, 1339817963, 7801332 #### [facility] (DEFAULT) [address] [place] [address] 70441Rvzjs Abs#1.0 t32Yqd6.3-2.9[facility] HospitalComment on above:Performed By: #### 86233342, 5777793949, 2152331991, 6132688, 8688617474, 5362842687, 3893723 #### [facility] (DEFAULT) [address] [place] [address] 20838Zfzytrbonah/100 WBC (Bld)10 %Rsd29-23YdbndazoMccullough-Hyde Memorial Hospital Comment on above:Performed By: #### 46245037, 8357832590, 1650576026, 5457020, 4892390056, 5762607599, 1806612 #### [facility] (DEFAULT) [address] [place] [address] 90224Zjpv Abs#0.2 j07Blsxua8.0-0.8[facility] HospitalComment on above:Performed By: #### 37377520, 8128839530, 6168905034, 4528468, 9293833417, 6772779520, 0687691 #### [facility] (DEFAULT) [address] [place] [address] 86356Ogqw Abs#8.4 x02Lvodog0.5-9.2M[facility] HospitalComment on above:Performed By: #### 65104181, 9819847533, 3742267064, 1523424, 2355638536, 3875424231, 7177868 #### [facility] (DEFAULT) [address] [place] [address] 89444Ijosondzvnb/100 WBC (Bld)86 %Sfjosf73-99Axxnsvvd Hospital Comment on above:Performed By: #### 75849277, 6279976647, 6626649763, 1866534, 7624870567, 0685146571, 5275283 #### [facility] (DEFAULT) [address] [place] [address] 90976PUY w/ Auto Diffon 43-87-3101Xqfnrkmfizw distribution width (RBC) [Ratio]17.5 %High11.5-15.0[facility] HospitalComment on above: Performed By: #### 11129930, 3513747948, 7743476538, 8535922, 5370193965, 7060710059, 3549856 #### [facility] (DEFAULT) [address] [place], [place] [address]Hematocrit (Bld) [Volume fraction]33.0 %Low33.7-40.4 [facility] HospitalComment on above:Performed By: #### 62289010, 0556354862, 0995892810, 0080182, 1731935710, 3923748738, 5005577 #### [facility] (DEFAULT) [address] [place], [place] [address]Hemoglobin (Bld) [Mass/Vol]10.5 g/dLLow11.3-15.9[facility] HospitalComment on above:Performed By: #### 17516735, 6189746807, 6419882116, 3865555, 3248495744, 6596027480, 2309519 #### [facility] (DEFAULT) [address] [place], [place] [address]Man Diff?AutoInvalid Interpretation CodeMccullough-Hyde Memorial Hospital Comment on above:Performed By: #### 10785487, 6001233530, 1100977969, 6291162, 7928245516, 8476190177, 3047495 #### [facility] (DEFAULT) [address] [place] [address] 26725YMS (RBC) [Entitic mass]24 xmUyinxm80-61Ylrvwbcb Hospital Comment on above:Performed By: #### 15324120, 1916291724, 9718569261, 5770915, 2129387584, 7372649883, 5597688 #### [facility] (DEFAULT) [address] [place] [address] 60249YAPS (RBC) [Mass/Vol]32 g/gJLjmxqt08-69Vvthnvjq Hospital Comment on above:Performed By: #### 09286467, 3150734692, 3195627426, 1905686, 8955642387, 1864255844, 9248481 #### [facility] (DEFAULT) [address] [place] [address] 70638AHO (RBC) [Entitic vol]74 oOEac37-709Izfifiqp Hospital Comment on above:Performed By: #### 44465504, 8164832334, 7215124550, 1904504, 9082334404, 2046299439, 2340403 #### [facility] (DEFAULT) [address] [place] [address] 40799Vtqlrbyh897 g12Xbsxqg592-964Gqosaefg HospitalComment on above:Performed By: #### 52786050, 1141196964, 8369369439, 8008653, 9610644739, 9086261923, 8035265 #### [facility] (DEFAULT) [address] [place] [address] 15453Ojndbnjc mean volume (Bld) [Entitic vol]7.7 fLNormal 6.3-10.2M[facility] HospitalComment on above:Performed By: #### 50862059, 1199121071, 0711113037, 1010098, 1020225350, 8581683906, 1181163 #### [facility] (DEFAULT) [address] [place] [address] 97076KAO8.46 j70Cyrtpg1.70-5.30[facility] HospitalComment on above:Performed By: #### 83210485, 5701983023, 2678904634, 2513679, 7607246662, 2841768836, 0651086 #### [facility] (DEFAULT) [address] [place] [address] 78691QUF1.7 t14Plyrnk3.5-10.5[facility] HospitalComment on above: Performed By: #### 93285539, 3556809314, 5664462460, 8523987, 1993793354, 5116996629, 6389611 #### [facility] (DEFAULT) [address] [place] [address] 40249DJA Standardon 41-91-9262hMXX Non AA>60Invalid Interpretation CodeMercy Health Tiffin Hospital HospitalComment on above:Performed By: #### 50351629, 9086830640, 5592400983, 3098063, 8585875982, 6151000923, 0087107 #### [facility] (DEFAULT) [address] [place] [address] 74490oBJM AA>60Invalid Interpretation CodeMccullough-Hyde Memorial Hospital Comment on above:Performed By: #### 59778516, 0205537832, 0242701189, 6010157, 0422085297, 6351528817, 6978274 #### [facility] (DEFAULT) [address] [place] [address] 04841Oggfnyu [Mass/Vol]3.9 g/dLNormal3.5-5.0[facility] Comment on above:Performed By: #### 19211618, 2798674264, 6637751282, 1614951, 3890008319, 0254423178, 9751250 #### [facility] (DEFAULT) [address] [place] [address] 06092Dkfvwgf/Globulin [Mass ratio]1.0 {ratio}Low1.4-2.6MLakeHealth TriPoint Medical CenterComment on above:Performed By: #### 76544588, 0174773892, 2757296196, 4334501, 2188048621, 1067625761, 2297949 #### [facility] (DEFAULT) [address] [place] [address] 30317Ppd Phos51 IU/RIequfk76-82Yqgfejqe HospitalComment on above:Performed By: #### 51442271, 8662059128, 3267317528, 2264584, 0324383161, 1248811355, 7461829 #### [facility] (DEFAULT) [address] [place] [address] 08338ZRM [Catalytic activity/Vol]15.0 U/IGroevn36.0-54.0 [facility] HospitalComment on above:Performed By: #### 69338776, 0359457658, 4049799654, 3091706, 9123489881, 6150075908, 3995818 #### [facility] (DEFAULT) [address] [place] [address] 96213Qmvsv gap [Moles/Vol]10.2 mmol/LNormal5.0-19.0[facility] HospitalComment on above:Performed By: #### 27805565, 4885672236, 8735577445, 1039386, 6874090791, 3618618199, 9782573 #### [facility] (DEFAULT) [address] [place] [address] 55521HZU [Catalytic activity/Vol]20 U/UQcpngx25-85Tuiavjnw HospitalComment on above:Performed By: #### 35127580, 8129893761, 8811498171, 5218117, 4301135899, 1115296989, 4912075 #### [facility] (DEFAULT) [address] [place] [address] 57059Sgux Total0.4 mg/dLNormal0.3-1.2MLakeHealth TriPoint Medical CenterComment on above:Performed By: #### 74514302, 0078904809, 8632113884, 4663696, 2345309253, 7461100034, 8280842 #### [facility] (DEFAULT) [address] [place] [address] 53029Qtfxppp [Mass/Vol]8.4 mg/dLLow8.9-10.3MLakeHealth TriPoint Medical Center Comment on above:Performed By: #### 65824188, 5984574948, 1402298277, 0018900, 5819317205, 1179120446, 4773101 #### [facility] ([facility] [address] [place] [address] 46567Oesszoqx [Moles/Vol]103 mmol/PBxrtps277-338Fdionwuy HospitalComment on above:Performed By: #### 68188894, 0208616731, 9738965546, 1074985, 5379885202, 4928325949, 9291221 #### [facility] (DEFAULT) [address] [place] [address] 16703LA2 [Moles/Vol]23 mmol/JXaaguo53-98Btnrekwf Hospital Comment on above:Performed By: #### 59596485, 4485708143, 9437382355, 1163168, 5477441089, 4838794785, 7303364 #### [facility] (DEFAULT[facility] [address] [place] [address] 75879Hukgvttekd [Mass/Vol]0.72 mg/dLNormal0.60-1.30[facility] HospitalComment on above:Performed By: #### 56191010, 5753920021, 2915216842, 3472327, 7769039670, 2651650766, 4813639 #### [facility] (DEFAULT) [address] [place] [address] 51247Lqosnoms (S) [Mass/Vol]3.9 g/dLNormal1.5-4.3M[facility] HospitalComment on above:Performed By: #### 32204274, 7823490824, 7718243572, 2491384, 4984329860, 2902131748, 6155664 #### [facility] (DEFAULT) [address] [place] [address] 72144Nbehszr [Mass/Vol]101.0 mg/uBKacsgy00.0-118.0[facility] HospitalComment on above:Performed By: #### 57652778, 9381722032, 6922569075, 6653356, 2949199676, 0021775894, 4266486 #### [facility] (DEFAULT) [address] [place] [address] 82809Iuuefyvuoh403 mOsm/LInvalid Interpretation CodeMccullough-Hyde Memorial HospitalComment on above:Performed By: #### 36506778, 5623476557, 9087037291, 2369520, 3577028362, 8901774664, 1255308 #### [facility] (DEFAULT) [address] [place] [address] 94694Ajbseiaek [Moles/Vol]3.2 mmol/LLow3.6-5.1MLakeHealth TriPoint Medical Center Comment on above:Performed By: #### 54858953, 1217046401, 0764259142, 2922435, 2905034577, 3487686226, 8574981 #### [facility] (DEFAULT) [address] [place] [address] 58624Wvnrtzo [Mass/Vol]7.8 g/dLNormal6.5-8.1MLakeHealth TriPoint [facility] Center Comment on above:Performed By: #### 74140422, 1586393903, 5779357250, 6951193, 1205133040, 9566063524, 9616807 #### [facility] (DEFAULT) [address] [place] [address] 22231Pftozz [Moles/Vol]133.0 mmol/RSqo748.0-144.0[facility] HospitalComment on above:Performed By: #### 53848374, 3208057558, 4460515003, 0104817, 1991050432, 3476291627, 9719619 #### [facility] (DEFAULT) [address] [place] [address] 05371Xtnz nitrogen [Mass/Vol]12 mg/dLNormal8-26[facility] HospitalComment on above:Performed By: #### 30226773, 5942050010, 3752738941, 5658138, 3959661508, 3353790646, 8062851 #### [facility] (DEFAULT) [address] [place] [address] 40012Igne nitrogen/Creatinine [Mass ratio]16.6 mg/mgHigh 4.6-16.2M[facility] HospitalComment on above:Performed By: #### 61671780, 8625642817, 7650907545, 8517359, 6446168051, 7393524274, 1336078 #### [facility] (DEFAULT) [address] [place] [address] 42502AA Abdomen/Pelvis w/o Contraston 28-82-3355VN Abdomen/Pelvis w/o ContrastEXAMINATION: CT Abdomen/Pelvis w/o Contrast, 05/02/2024 10:18 PM [...] Faustino Haynes MD 05/03/24 1:02 am Technologist: [facility] HospitalExin[facility] Greenon 63-54-0331Furf CollectedYes Invalid Interpretation [facility] HospitalComment on above:Performed By: #### 13934251, 4485830150, 9651533038, 0170663, 6313995436, 9116667387, 5711519 #### [facility] (DEFAULT) [address] [place] [address] 17104Hckdlbtyh Test Urine 1on 05-02-2024U PregNegativeNormal [facility] HospitalComment on above:Performed By: #### [id number] ####[facility] (DEFAULT)[address] [place] [address] 35916V Preg Internal Control PassNoRegency Hospital CompanyComment on above:Performed By: #### [id number] ####[facility] (DEFAULT)[address] [place] [address] 60904DQ Micro1 on 74-66-5094YL BacteriaTraceNoRegency Hospital CompanyComment on above:Order Comment: Urinalysis Microscopic order added on by Reverbeo Expert Rules system. Performed By: #### [id number], [id number] ####[facility] (DEFAULT)[address] [place] [address] 94781VB MucousTraceNormFulton County Health CenterComment on above:Order Comment: Urinalysis Microscopic order added on by Reverbeo Expert Rules system.Performed By: #### [id number], [id number] ####[facility] (DEFAULT)[address] [place] [address] 77581JS RBC0-2NormalMccullough-[facility] Comment on above:Order Comment: Urinalysis Microscopic order added on by Reverbeo Expert Rules system.Performed By: #### [id number], [id number] ####[facility] (DEFAULT)[address] [place] [address] 74334CL Squam EpiFewNormZanesville City HospitalComment on above:Order Comment: Urinalysis Microscopic order added on by Reverbeo Expert Rules system.Performed By: #### [id number], [id number] ####[facility] (DEFAULT)[address] [place] [address] 44958XE WBC0-2 [facility] HospitalComment on above:Order Comment: Urinalysis Microscopic order added on by Reverbeo Expert Rules system.Performed By: #### [id number], [id number] ####[facility] (DEFAULT)[address] [place] [address] 94802 UA w Culture if Ind Standardon 58-03-1707Ywuvdeblww UAVan Wert County HospitalComment on above:Performed By: #### [id number], [id number] ####[facility] (DEFAULT)[address] [place] [address] 39295Rolta (U)YellowNoFlower HospitalComment on above:Performed By: #### [id number], [id number] ####[facility] (DEFAULT)[address] [place] [address] 33423Gxyqlso? Not IndicatedInvalid Interpretation [facility] HospitalComment on above:Result Comment: Result created by rule GL_MAGR_ADD_UA_CULT Result created by rule GL_MAGR_ADD_UA_CULTPerformed By: #### [id number], [id number] ####[facility] (DEFAULT)[address] [place] [address] 92938Chnmgsu (U) [Mass/Vol]Negative NormalWigrgenesis hospital HospitalComment on above:Performed By: #### [id number], [id number] ####[facility] (DEFAULT)[address] [place] [address] [id number] Ql (U)NegativeNormalMercy Health Tiffin Hospital HospitalComment on above:Performed By: #### [id number], [id number] ####[facility] (DEFAULT)[address] [place] [address] [id number]?IndicatedInvalid Interpretation [facility] Comment on above:Result Comment: Result created by rule GL_MAGR_ADD_UA_MICRO Performed By: #### [id number], [id number] ####[facility] (DEFAULT)[address] [place] [address] [id number] BilirubinNegativeNoRegency Hospital Company Comment on above:Performed By: #### [id number], [id number] ####[facility] (DEFAULT)[address] [place] [address] [id number] BloodSMALLAbnormnhNEGATIVE [facility] HospitalComment on above:Performed By: #### [id number], [id number] ####[facility] (DEFAULT)[address] [place] [address] [id number] Clarity CLEARNormalCLEARMercy Health Tiffin Hospital HospitalComment on above:Performed By: #### [id number], [id number] ####[facility] (DEFAULT)[address] [place] [address] [id number] UA Leuk EstSMALLAbnormalNEGOur Lady of Mercy Hospital - Anderson HospitalComment on above:Performed By: #### [id number], [id number] ####[facility] [facility] (DEFAULT)[address] [place] [address] [id number] NitriteNegativeNormalNEGOur Lady of Mercy Hospital - Anderson HospitalComment on above:Performed By: #### [id number], [id number] ####[facility] (DEFAULT)[address] [place] [address] 08984FN pH5.8Lwqipa7-8Fdpzkzlz HospitalComment on above:Performed By: #### [id number], [id number] ####[facility] (DEFAULT)[address] [place] [address] 23594QP ProteinNegativeNormalNEGATIVE [facility] HospitalComment on above:Performed By: #### [id number], [id number] ####[facility] (DEFAULT)[address] [place] [address] 97239QP Spec Grav1.083Xoawkt2.001-1.035Mabrecksville va / [facility]ille hospital HospitalComment on above:Performed By: #### [id number], [id number] ####[facility] (DEFAULT)[address] [place] [address] 92189EJ Urobilinogen0.2 mg/dLNormal0.2-1.0[facility] HospitalComment on above:Performed By: #### [id number], [id number] ####[facility] (DEFAULT)[address] [place] [address] 31385Lpxfz SourceClean CatchNormal [facility] HospitalComment on above:Performed By: #### [id number], [id number] ####[facility] (DEFAULT)[address] [place] [address] 73178PXC Notificationon [id number] Notification From: Maria Esther Hernandez ([facility] [place] ([facility])) To: Joseph Ortiz MD; Sent: 04/13/2024 12:43:49 EST Subject: tachycardia Caller Name: ANA SAUCEDA; Caller Number: Germán , M I called the patient with lab results. She wanted me to tell you that she has been trying to go to the gym and work out. She said when she is on the treadmill for just a few minutes her heart rate isup to almost 200 and she becomes faint and has mild chest pains. She spoke to you about this at herappointment and you wanted to check her thyroid and her thyroid is normal. What do you recommend? Pl ease advise. From: Joseph Ortiz MD To: Guilherme Basurto ([facility]); Sent: 04/14/2024 07:53:02 EST Subject: RE: tachycardia Caller Name: ANA SAUCEDA; Caller Number: Germán , Bobby would recommend referral to cardio to eval. Spoke with patient, she does agree with referral to [employer] From: Courtney Reyes LPN ([facility] [place] ([facility]ID)) To: Joseph Ortiz MD; Sent: 04/14/2024 11:06:30 EST Subject: FW: tachycardia Caller Name: ANA SAUCEDA; Caller Number: Germán , Bobby Submitted: Order:Referral Ambulatory MAGR Details: Cardiology, tachycardia, [facility], External Referral, 04/14/2024 11:26 EST Signed by Joseph Ortiz MD 04/14/2024 11:26:00 [facility] CenterComain line health/[facility] hospitals Summaryon 42-99-2238Mpwgky SummaryMLBase 64 WibooditNVq4yEq+PGhlYWQ+AE5LBDLxK63vbFTteQ3mT4ZFQXsAJzknAAJNIPcJFqYjyeBkTF7ttBBx ZXJu [file] ZTo (more content not included)...[facility] HospitalP Standardon 52-83-1050cQYJ Non AA>60Invalid Interpretation [facility] HospitalComment on above:Performed By: #### [id number], [id number], [id number] ####[facility] (DEFAULT)[address], [place] [address]aPRN AA>60Invalid Interpretation CodeMercy Health Tiffin Hospital HospitalComment on above:Performed By: #### [id number], [id number], [id number] ####[facility] (DEFAULT)[address] [place] [address] 81165Zuqhi gap [Moles/Vol]13.4 mmol/LNormal5.0-19.0[facility] HospitalComment on above:Performed By: #### [id number], [id number], [id number] ####[facility] (DEFAULT)[address] [place] [address] 07339Ddhrrpr [Mass/Vol]8.7 mg/dLLow 8.9-10.3Mlake county memorial hospital - west HospitalComment on above:Performed By: #### [id number], [id number], [id number] ####[facility] (DEFAULT)[address] [place] [address] 51888Ysxelglj [Moles/Vol]104 mmol/UDelwdc588-157M[facility] Hospital Comment on above:Performed By: #### [id number], [id number], [id number] ####[facility] (DEFAULT)[address] [place] [address] 08724AU0 [Moles/Vol]22 mmol/ZHjixfr15-77Bosdclun HospitalComment on above:Performed By: #### [id number], [id number], [id number] ####[facility] (DEFAULT)[address] [place] [address] 74546Krgkrqolxh [Mass/Vol]0.61 mg/dLNormal0.60-1.30[facility] Hospital Comment on above:Performed By: #### [id number], [id number], [id number] ####[facility] (DEFAULT)[address] [place] [address] 78354Xyxldpb [Mass/Vol]81.0 mg/aOVejrfi21.0-118.0[facility] HospitalComment on above:Performed By: #### [id number], [id number], [id number] ####[facility] (DEFAULT)[address] [place] [address] 26669Rwksbygjzy366 mOsm/LInvalid Interpretation Code [facility] HospitalComment on above:Performed By: #### [id number], [id number], [id number] ####[facility] (DEFAULT)[address] [place] [address] 57554Kvqbvnaxc [Moles/Vol]3.4 mmol/LLow3.6-5.1Mlake county memorial hospital - west HospitalComment on above: Performed By: #### [id number], [id number], [id number] ####[facility] (DEFAULT)[address] [place] [address] 31228Huzckf [Moles/Vol]136.0 mmol/L Avvmpy739.0-144.0[facility] HospitalComment on above:Performed By: #### [id number], [id number], [id number] ####[facility] (DEFAULT)[address] [place] [address] 90950Qupq nitrogen [Mass/Vol]10 mg/dLNormal8-26[facility] Hospital Comment on above:Performed By: #### [id number], [id number], [id number] ####[facility] (DEFAULT)[address] [place] [address] 62042Pvhh nitrogen/Creatinine [Mass ratio]16.3 mg/mgHigh4.6-16.2Mlake county memorial hospital [facility] west HospitalComment on above:Performed By: #### [id number], [id number], [id number] ####[facility] (DEFAULT)[address] [place] [address] 05738Xvbm Profileon 41-79-4519Mort [Mass/Vol]21.0 ug/dLLow28.0-170.0[facility] HospitalComment on above:Performed By: #### [id number], [id number], [id number] ####[facility] (DEFAULT)[address] [place] [address] 64612Cjnl Sat5 %Qzh48-28Ajivhcje HospitalComment on above:Performed By: #### [id number], [id number], [id number] ####[facility] (DEFAULT)[address] [place], [place] [address]BJMG480 mcg/cNVcvd651-629Qtcohydl HospitalComment on above:Performed By: #### [id number], [id number], [id number] ####[facility] (DEFAULT)[address] [place], [place] [address]Wrzinxskucm [Mass/Vol]309.8 mg/eVBbdhmj116.0-382.0[facility] HospitalComment on above:Performed By: #### [id number], [id number], [id number] ####[facility] (DEFAULT)[address] [place] [address] Office/Clinic Noteon 32-26-6182Yiktcf/Clinic NotePatient: ANA SAUCEDA Age: 24 years Sex: FEMALE : 2000 Associated Diagnoses: Hypokalemia; Iron deficiency anemia; Hypothyroidism; Recurrent UTI Author: Joseph Ortiz MD A History of Present Illness 24-year-old [...] was also found to be anemic with aMCV of about 78. Iron levels were not checked. She was also hypokalemic. She does have a history ofhypothyroidism and is due to have her thyroid [...] 98.610 kg Body Mass Index 32.2 kg/m2 [place] Body Weight Calculated 65.965 kg BSA Measured [...] all extremities. Impression and Plan Diagnosis Hypokalemia (EUR31-MP E87.6). Plan: Will repeat potassium level.. Orders Orders Evaluation and Management: [id number] Office visit - established pt, Level 4 (Order): 04/05/2024 14:56 EST, Qty: 1, Recurrent UTI -Hypokalemia - Hypothyroidism - Iron deficiency anemia. Diagnosis Iron deficiency anemia (OAM26-QJ D50.9). Course: Will check iron profile. Will start her on iron supplement 325 mg daily. Discussed possibility of dark stool also constipation with iron supplement.. Diagnosis Hypothyroidism (BTR47-LT E03.9). Course: She is due to have her thyroid rechecked since adjusting her medication previously.. Diagnosis Recurrent UTI (HWE77-GY N39.0). Course: Will refer to urology for potential evaluation of recurrent urinary tract infection and history of Juan A. Prep she needs imaging study looking for stricture of the ureter.. Orders Orders Referral: Referral Ambulatory MAGR (Order): Urology, recurrent uti/ pyelo right, Alexander Rogers MD, ExternalReferral, 04/05/2024 15:38 EST, Recurrent UTI. [Electronically Signed on: 04/05/2024 15:39 EST] Joseph Ortiz MD [Verified on: 04/05/2024 15:39 EST] Joseph Ortiz MD [facility] w/ Reflex to FT4on 68-70-5231RZN Qn 1.72 m[IU]/LNormal0.45-5.33[facility] HospitalComment on above:Performed By: #### [id number], [id number], [id number] ####[facility] (DEFAULT)[address] [place], [place] [address]Vasojy Summaryon 60-99-7922Ysrqab SummaryMLBase 64 JwrpzjjoFOi5nWm+PGhlYWQ+TO6XNXVbV68nkRWquT9mB5EFHNbKGgmvVBTNHXaWUjUvndXuBV2ohYSh ZXJu [file] Y29 (more content not included)...[facility] ( test) Ql (U)on 30-97-1090Ufptzxqqulkasr and review of laboratory resultsNormalNOMS HealthcarePreg Test, UrNegativeNOMS HealthcareNOMS HealthcareIUD Insertionon 30-84-4290EuwixMeredith Tripathi LPN 02/25/2024 10:11 AM IUD Insertion Performed by: Mitchell Arriola DO Authorized by: Mitchell Arriola DO Procedure: IUD insertion Consent obtained by patient, parent, or legal power of channel process supervisor - including discussion of procedure risks and [...] office in 4 weeks for a string check.[facility] TOMOSYNTHESIS DIAGNOSTIC BIon 66-33-9696[place]bh[place], [place] [address] Mammography Report Signed Patient: ANA SAUCEDA MR#: [id number] : 2000 Acct:[id number] Age/Sex: 23 / F ADM Date: 07/16/23 Loc: MAMMO Attending Dr: Mitchell Arriola D.O. Ordering Physician: Mitchell Arriola D.O. Results: Date of Service: 07/16/23 Follow Up: Procedure(s): MM tomosynthesis diagnostic BI Accession Number(s): [id number] cc: Mitchell Arriola D.O. Patient Name: ANA SAUCEDA MR#: [id number] : 2000 Exam Date: 07/16/2023 Ordering Doctor: [...] Treatments None Family Cancers None LOCATION: [facility] BREAST COMPOSITION: Heterogeneously dense,which may obscure [...] PALPABLE LUMP SHOULD BE BIOPSIED. Dictated by: Joseph Flowers MD on 07/16/2023 at 09:46 Approved by: Joseph Flowers MD on 07/16/2023 at 09:50 Dictated By: Joseph Flowers M.D. Signed By: 07/16/23 0951 DD/ 0950 TD/TT: Transport Assistant:TBHRadiology, RadiologistMD - 07/16/2023 [place] [address] Mammography Report Signed Patient: ANA SAUCEDA MR#: [id number] : 2000 Acct:[id number] Age/Sex: 23 / F ADM Date: 07/16/23 Loc: MAMMO Attending Dr: Mitchell Arriola D.O. Ordering Physician: Mitchell Arriola D.O. Results: Date of Service: 07/16/23 Follow Up: Procedure(s): MM tomosynthesis diagnostic BI Accession Number(s): [id number] cc: Mitchell Arriola D.O. Patient Name: ANA SAUCEDA MR#: [id number] : 2000 Exam Date: 07/16/2023 Ordering Doctor: [...] Treatments None Family Cancers None LOCATION: [facility] BREAST COMPOSITION: Heterogeneously dense,which may obscure [...] PALPABLE LUMP SHOULD BE BIOPSIED. Dictated by: Joseph Flowers MD on 07/16/2023 at 09:46 Approved by: Joseph Flowers MD on 07/16/2023 at 09:50 Dictated By: Joseph Flowers M.D. Signed By: 07/16/23 0951 DD/ TD/TT: Transport Assistant: MINA Rodriguez Panel InformationOrdered By: Radiologist Radiology on 63-71-8239MIYA [email or web address] Work Phone: No Panel Informationon 42-10-8876Sxiinpxnn Study observation (narrative)MINA AvalosUS BREAST BI LIMITEDon 91-55-4295Z[address] [address] Ultrasound Report Signed Patient: ANA SAUCEDA MR#: [id number] : 2000 Acct:[id number] Age/Sex: 23 / F ADM Date: 07/16/23 Loc: MAMMO Attending Dr: Mitchell Arriola D.O. Ordering Physician: Mitchell Arriola D.O. Date of Service: 07/16/23 Procedure(s): US breast BI limited Accession Number(s): [id number] cc: Mitchell Arriola D.O. Patient Name: ANA SAUCEDA MR#: [id number] : 2000 Exam Date: 07/16/2023 Ordering Doctor: [...] Treatments None Family Cancers None LOCATION: [facility] BREAST COMPOSITION: Heterogeneously dense,which may obscure [...] PALPABLE LUMP SHOULD BE BIOPSIED. Dictated by: Joseph Flowers MD on 07/16/2023 at 09:46 Approved by: Joseph Flowers MD on 07/16/2023 at 09:50 Dictated By: Joseph Flowers M.D. Signed By: 07/16/23 0951 DD/ 0950 TD/TT: Transport Assistant:TBHRadiology, RadiologistMD - 07/16/2023 [place] [address] Ultrasound Report Signed Patient: ANA SAUCEDA MR#: [id number] : 2000 Acct:[id number] Age/Sex: 23 / F ADM Date: 07/16/23 Loc: MAMMO Attending Dr: Mitchell Arriola D.O. Ordering Physician: Mitchell Arriola D.O. Date of Service: 07/16/23 Procedure(s): US breast BI limited Accession Number(s): [id number] cc: Mitchell Arriola D.O. Patient Name: ANA SAUCEDA MR#: [id number] : 2000 Exam Date: 07/16/2023 Ordering Doctor: [...] Treatments None Family Cancers None LOCATION: [facility] BREAST COMPOSITION: Heterogeneously dense,which may obscure [...] PALPABLE LUMP SHOULD BE BIOPSIED. Dictated by: Joseph Flowers MD on 07/16/2023 at 09:46 Approved by: Joseph Flowers MD on 07/16/2023 at 09:50 Dictated By: Joseph Flowers M.D. Signed By: 07/16/2351 DD/ TD/TT: Transport Assistant: MINA Michael 18-28-6341Hhobw gap [Moles/Vol]13 mmol/L9 - 17 mmol/LBON SECOURS MERCY HEALTHCalcium [Mass/Vol]8.9 mg/dL8.6 - 10.4 mg/dLBON SECOURS MERCY HEALTHChloride [Moles/Vol]106 mmol/L98 - 107 mmol/LBON SECOURS MERCY HEALTHCO2 [Moles/Vol]21 mmol/L20 - 31 mmol/LBON SECOURS [facility]ENTERY HEALTHCreatinine [Mass/Vol] 0.5 mg/dL0.5 - 0.9 mg/dLBON SECOURS MERCY HEALTHGFR/1.73 sq M.predicted MDRD (S/P/Bld) [Vol rate/Area]- PINFBON MERCY HEALTH WEST HOSPITALComment on above: These results are not intended [...] therapy that affects renal tubular secretion. Glucose [Mass/Vol]87 mg/dL70 - 99 mg/dLBON SECOURS MERCY HEALTHPotassium [Moles/Vol]3.6 mmol/LLow3.7 - 5.3 mmol/LBON SECOURS MERCY HEALTHSodium [Moles/Vol]140 mmol/L135 - 144 mmol/LBON SECOURS [facility] CENTERY HEALTHUrea nitrogen [Mass/Vol]4 mg/dLLow6 - 20 mg/dLBON SECOURS [facility]ENTERY HEALTHCBC with Auto Differentialon 68-88-9835Phoptcwyu (Bld) [#/Vol]0.00 10*3/uLBON SECOURS MERCY HEALTHBasophils/100 WBC (Bld)0 %0 - 2 %[facility] HEALTHEosinophils (Bld) [#/Vol]0.08 10*3/uLBON SECOURS MERCY HEALTHEosinophils/100 WBC (Bld)1 %1 - 4 % [facility] HEALTHErythrocyte distribution width (RBC) [Ratio]13.2 %11.8 - 14.4 %[facility] HEALTHHematocrit (Bld) [Volume fraction]36.9 %36.3 - 47.1 %[facility] HEALTHHemoglobin (Bld) [Mass/Vol]11.6 g/dLLow11.9 - 15.1 g/dLBON SECOURS MERCY HEALTHImmature granulocytes (Bld) [#/Vol]0.08 10*3/uLBON SECOURS MERCY HEALTHImmature granulocytes/100 WBC (Bld)1 %Tiha2FIX [facility] HOSPITALInterpretation and review of laboratory resultsAbnormalBON [facility] WEST HOSPITALLymphocytes/100 WBC (Bld)6 %Low25 - 45 %[facility] Lymphocytes/100 WBC (Bld)0.50 %LowBON [facility] RIT[facility] MEDICAL CENTERH (RBC) [Entitic mass]27.2 pg25.2 - 33.5 pgBON [facility]TMAN MEDICAL CENTERHC (RBC) [Mass/Vol]31.4 g/dL 28.4 - 34.8 g/dLBON SECMERCY HEALTH ST. JOSEPH WARREN HOSPITALV (RBC) [Entitic vol]86.4 fL82.6 - 102.9 fLCJW MEDICAL CENTERMonocytes/100 WBC (Bld)7 %2 - 8 %BON [facility] HOSPITALMonocytes/100 WBC (Bld)0.59 %BON [facility] HOSPITALMorphology Gadiel (Bld) [Interp]NormalBON [facility]ST HOSPITALNeutrophils/100 WBC (Bld)85 %High34 - 64 %BON [facility] HOSPITALNucleated RBC/100 WBC (Bld) [Ratio]0.0 %0.0 per 100 WBCBON [facility] WEST HOSPITALPlatelet mean volume (Bld) [Entitic vol]11.0 fL 8.1 - 13.5 fLBON SECOURS [facility] HEALTHPlatelets (Bld) [#/Vol]139 10*3/uLBON [facility] WEST HOSPITALRBC (Bld) [#/Vol]4.27 10*6/uL3.95 - 5.11 m/uLCJW MEDICAL CENTERSegmented neutrophils/100 WBC (Bld)7.15 %CJW MEDICAL CENTERWBC other (Bld) [#/Vol]8.4BON [facility]OSPITALCOVID-19, Rapidon 07-19-1880Urhucnpxlozwfl and review of laboratory resultsAbnormalCJW MEDICAL CENTERSARS-CoV-2 (COVID-19) RdRp gene ELEONORA+probe Ql (Resp)Detected AbnormalNot DetectedCJW MEDICAL CENTERComment on above: Rapid NAAT: The specimen is [...] this assay. Fact sheet for Healthcare Providers: https://www.fda.gov/media/633813/download Fact sheet for Patients: https://www.fda.gov/media/896058/download Methodology: Isothermal Nucleic Acid Amplification Results reported to the appropriate Health Department Specimen Description.NASOPHARYNGEAL SWABBON BLACK HILLS REHABILITATION HOSPITALHepatic Function Panelon 28-56-4314Nhdvwdp [Mass/Vol]3.4 g/dLLow3.5 - 5.2 g/dLBON [facility] HOSPITALAlbumin/Globulin [Mass ratio]1.0 {ratio}1.0 - 2.5BON [facility] HEALTH WEST HOSPITALALP [Catalytic activity/Vol]132 U/LHigh35 - 104 U/L BON [facility] HOSPITALALT [Catalytic activity/Vol]12 U/L5 - 33 U/LBON [facility] WEST HOSPITALAST [Catalytic activity/Vol]18 U/LNINF - 32 U/LBON [facility] WEST HOSPITALBilirubin [Mass/Vol]0.2 mg/dLLow0.3 - 1.2 mg/dLBON [facility] Bilirubin.direct [Mass/Vol]mg/dLNINF - 0.3 mg/dLBON [facility] Bilirubin.indirect [Mass/Vol]Can not be calculated0.0 - 1.0 mg/dLBON [facility] WEST HOSPITALProtein [Mass/Vol]6.7 g/dL6.4 - 8.3 g/dLBON [facility] Lactic Acidon 00-17-1022Xdonuo Acid, Whole Blood2.0 mmol/L0.7 - 2.1 mmol/LBON BLACK HILLS REHABILITATION HOSPITALMagnesiumon 39-46-4936Hrcigzjxu [Mass/Vol]1.6 mg/dL1.6 - 2.6 mg/dLBON [facility] WEST HOSPITALMicroscopic Urinalysis on 77-85-6772Gbdigndh LM Ql (Urine sed)FEWAbnormalNoneBON [facility] Epithelial cells LM.HPF (Urine sed) [#/Area]5 TO 10BON [facility] Interpretation and review of laboratory resultsAbnormalBON [facility] RBC LM.HPF (Urine sed) [#/Area]TOO NUMEROUS TO COUNTBON SECSCCI [facility]OSPITAL LIMAWBC LM.HPF (Urine sed) [#/Area]10 TO 20BON [facility] HEALTHNo Panel Informationon 11-73-1553Kyutjjctyjapqe and review of laboratory resultsAbnormalWELLMONT [facility] HEALTHProtime-INRon 66-85-7901BUN Coag (PPP) [Relative time]0.9 {INR}CJW MEDICAL CENTERComment on above: Therapeutic Range: Moderate Anticoagulant Intensity: INR = 2.0-3.0 High Anticoagulant Intensity: INR = 2.5-3.5 PT Coag (PPP) [Time]12.3 sBON SECOURS [facility] HEALTHRAPID INFLUENZA A/B ANTIGENSon 59-71-3355TLWIB Ag Ql (Unsp spec)NegativeNEGATIVEMEDICAL CENTER OF WESTERN MASSACHUSETTSCIBDO [facility] HOSPITALComment on above:for Influenza A AntigenFLUBV Ag Ql (Unsp spec)NegativeNEGATIVEMEDICAL CENTER OF WESTERN MASSACHUSETTSCIBDO [facility] HEALTHComment on above:for Influenza B Antigen.CJW MEDICAL CENTERTSH with Reflexon 86-79-9348XNE Qn2.76 m[IU]/L [facility] HEALTHUrinalysis with Reflex to Cultureon 68-21-3431Tzwhpvote Ql (U)NegativeNEGATIVEBON DIGN[facility] HOSPITALCIBDO [facility] MEDICAL CENTERJoystickers HEALTH Clarity (U)SLIGHTLY CLOUDYAbnormalClearBON SECCHRISTUS ST. [facility] HEALTHColor (U)Yellow YellowMEDICAL CENTER OF WESTERN MASSACHUSETTSCIBDO [facility] MEM[facility]IAL HOSPITALGlucose Test strip (U) [Mass/Vol]NegativeNEGATIVE mg/dLBON [facility] HOSPITALCIBDO [facility] MED[facility] CENTERJoystickers [facility] HOSPITALHemoglobin Auto test strip Ql (U)LARGEAbnormal NEGATIVEBON D[facility] HOSPITALCIBDO [facility] HEALTHInterpretation and review of laboratory results AbnormalBON [facility] HEALTHKetones (U) [Mass/Vol]NegativeNEGATIVE mg/dLBON [facility] HOSPITALLeukocyte esterase Test strip Ql (U)SMALLAbnormalNEGATIVEBON [facility] HEALTHNitrite Ql (U)NegativeNEGATIVEBON [facility] HEALTHpH (U)6.0 [pH]5.0 - 8.0B[facility] HEALTHProtein (U) [Mass/Vol]TRACEAbnormal NEGATIVE mg/dLBON [facility] HEALTHSpecific gravity (U) [Rel density]1.010 1.005 - 1.030CJW MEDICAL CENTERUrobilinogen Qn (U)Normal0.0 - 1.0 EU/dLBON [facility] HEALTHXR CHEST PORTABLEon 01-07-2023 Unremarkable portable chest radiograph. [facility] CONSOLIDATEDEXAMINATION: ONE XRAY VIEW OF THE CHEST 01/07/2023 4:11 pm COMPARISON: 10/12/2016 HISTORY: ORDERING SYSTEM PROVIDED HISTORY: ro pna TECHNOLOGIST PROVIDED HISTORY: ro pna FINDINGS: The cardial-pericardial silhouette is unremarkable in appearance. The lungs are clear. No pneumothorax is found. No free air is seen. No acute bony abnormality. [facility] David Dominguez MD - 01/07/2023 EXAMINATION: ONE XRAY VIEW OF THE CHEST 01/07/2023 4:11 pm COMPARISON: 10/12/2016 HISTORY: ORDERING SYSTEM PROVIDED HISTORY: ro pna TECHNOLOGIST PROVIDED HISTORY: ro pna FINDINGS: The cardial-pericardial silhouette is unremarkable in appearance. The lungs are clear. No pneumothorax is found. No free air is seen. No acute bony abnormality. IMPRESSION: Unremarkable portable chest radiograph. [facility] MEDICAL CENTERRadiology Study observation (narrative)[facility] MuxlimWESTERN RESERVE HOSPITALXR CHEST PORTABLEOrdered By: David Inman on 08-40-4234IUPCOMMUNITY HEALTH SYSTEMS Applimation Work Phone: us PREG INCOMPLETE ANATOMYon 09-56-6096XU PREG INCOMPLETE ANATOMYEXAMINATION: US PREG INCOMPLETE ANATOMY HISTORY: screening COMPARISON: [...] Electronically authenticated by: CARMEL YODER Date: 2022-10-09 15:19NoCleveland Clinic Mentor HospitalUS PREG ANATOMY SINGLEon 28-51-9030BG PREG ANATOMY SINGLE EXAMINATION: US PREG ANATOMY [...] February 09, 2007. Electronically authenticated by: JOSEPH FLOWERS Date: 2022-09-11 17:06NoCleveland Clinic Mentor HospitalUS PREG CERVICAL LENGTHon 70-95-1356LM PREG CERVICAL LENGTH EXAMINATION: US PREG CERVICAL LENGTH HISTORY: anatomy study COMPARISON: No relevant comparison available. FINDINGS: Closed cervix measuring 3.3 cm in length IMPRESSION: Closed cervix measuring 3.3 cm Electronically authenticated by: JOSEPH FLOWERS Date: 2022-09-11 16:52[facility] MATERNAL FOR SPINA BIFIDAon 50-86-0037JEW MoM0.73[facility]ome[facility] Memorial HospitalComment on above:Performed By: #### AFPMAT #### [facility] [address] [place] [address] Dr. Genny Dunne Value30.2 ng/mLNSamaritan HospitalComment on above: Performed By: #### AFPMAT #### [facility] [address] [place] [address] Dr. Genny Dunne, Serum for Spina BifidaReportHolmes County [facility]omerene [facility] Hospital Comment on above:Performed By: #### AFPMAT #### [facility] [address] [place] [address] Dr. Genny HernandezMercy Health West HospitalComment on above:Result Comment: Paula Menchaca, Ph.D., [facility] Director . References: Available Upon Request. . Multiples Of Median Cutoffs For AFP Elevations [place] 2.5 Black 2.8 IDD 2.0 Twins 4.5 Abbreviation Definitions IDD - Insulin Dep Diabetes OSBR - Open Spina Bifida Risk . For further inquiries contact [employer] at [phone]. . This test was developed and its performance characteristics determined by [employer]. It has not been cleared or approved by the Food and Drug Administration.Performed By: #### AFPMAT #### [facility] [address] [place] [address] Dr. Genny Reddy Age Collection Date18.7 weeksHolmes County [facility] Comment on above:Performed By: #### AFPMAT #### [facility] [address] [place] [address] Dr. Genny Reddyat, Age Based onUltrasRiverview Health InstituteComment on above:Result Comment: 10:5 on 07/01/2022 Recalculations are not recommended when gestational dating by LMP and ultrasound are within 10 days.Performed By: #### AFPMAT #### [facility] [address] [place] [address] Dr. Genny Boothe [facility] on above:Performed By: #### AFPMAT #### [facility] [address] [place] [address] Dr. Genny NealInterpretationUC West [facility] Hospital on above: Result Comment: Interpretation: Screen Negative . This result is screen [...] Customer Services to discuss available options. The [employer] recommends amniocentesis be offered to women age 35 and older.Performed By: #### AFPMAT #### [facility] [address] [place] [address] Dr. Genny NealMaternathierno Age at EDD[age] yrMer[facility] on above:Performed By: #### AFPMAT #### [facility] [address] [place] [address] Dr. Genny Dunaway [facility]Com[facility] on above: Performed By: #### AFPMAT #### [facility] [address] [place] [address] Dr. Genny NealOSBR Risk 1 [id number] County Joel Pomerene Memorial HospitalCominsight surgical hospital on above: Performed By: #### AFPMAT #### [facility] [address] [place] [address] Dr. Genny Puente.[facility] on above:Performed By: #### AFPMAT #### [facility] [address] [place] [address] Dr. Genny GomezOhioHealth Arthur G.H. Bing, MD, Cancer CenterCominsight surgical hospital on above: Performed By: #### AFPMAT #### [facility] [address] [place] [address] Dr. Genny NealTest Results:NegativeNoMercy Health [facility] on above: Performed By: #### AFPMAT #### [facility] [address] [place] [address] Dr. Genny Cortez B SURFACE ANTIGEN SCREENon 61-83-6930EJtFa ScreenNegative NormalNegativeThe [facility] on above:Performed By: #### HBSANS #### [facility] [address] [place] [address] Dr. Genny MoncadaPATITIS C VIRUS AB W/ REFLEX QUANTon 03-28-9827WUJ AB Non-ReactiveNormalNon ReactiveThe [facility] HospitalComins[facility] on above:Performed By: #### HCVPCRR #### [place] [address] [address] Genny NealInterpretation:CommentNoMercy Health [facility] Hospital on above:Result Comment: Not infected with HCV unless early or acute infection is suspected (which may be delayed in an immunocompromised individual), or other evidence exists to indicate HCV infection.Performed By: #### HCVPCRR #### [facility] [address] [place] [address] Dr. Genny NealHIV 1 AND 2 WITH REFLEXon 27-74-6987DYD Screen 4th Generation wRfxNon-ReactiveNormalNon ReactiveThe [facility] on above:Result Comment: HIV Negative HIV-1/HIV-2 antibodies and HIV-1 p24 antigen were NOT detected. There is no laboratory evidence of HIV infection.Performed By: #### HIV12 #### [facility] [address] [place] [address] Dr. Genny NealRPR QUANTon 98-69-9635Yaiic Plasma Reagin, QuantNon-Reactive NormalNonRea<1:1[facility] on above:Result Comment: Please Note: This test does not meet current guidelines for screening and diagnosis of syphilis. This test is intended for following treatment response in patients being treated for syphilis infection. To screen for syphilis infection, a reflex cascade that includes both RPR and a treponema-specific assay should be utilized, such as Treponema pallidum (Syphilis) Screening [place] (824382) or Rapid Plasma Reagin (RPR) Test With Reflex to Quantitative RPR and Confirmatory Treponema pallidum Antibodies (000717).Performed By: #### RPRQ #### [facility] [address] [place] [address] Dr. Genny Sarabia AB IGGon 69-69-2500Hvxokzq Antibodies, IgG1.65 index NormalImmune >0.99The [facility]y HospitalComment on above:Result Comment: Non- immune <0.90 Equivocal 0.90 - 0.99 Immune >0.99Performed By: #### RUBIGG #### [facility] [address] [place] [address] Dr. Genny Garcia PREG TVon 69-17-4187FU PREG TVEXAMINATION: US PREG TV HISTORY: Routine care COMPARISON: [...] Electronically authenticated by: CARMEL YODER Date: 2022-07-02 17:09[facility] HospitalBOX TEST SENT OUTon [id number] TO REF LAB07/01/2022Normal The [facility] HospitalComment on above:Performed By: #### BOX #### [facility] [address] [place] [address] Dr. Genny NealCBC AUTO DIFFon 32-42-2471YEHB #0.0 103/ulNormal0.0-0.1The [facility]y HospitalComment on above:Performed By: #### DRUGRPD #### [facility] [address] [address] [address] Genny NealBasophils/100 WBC (Bld)0.3 %Normal0.2-2.0[facility] Comment on above:Performed By: #### DRUGRPD #### [facility] [address] [place] [address] Dr. Genny Chapa #0.2 103/ulNormal0.0-0.7The [facility] HospitalComment on above: Performed By: #### DRUGRPD #### [facility] [address] [place] [address] Dr. Genny Vanessaosinophils/100 WBC (Bld)2.5 %Normal0.9-7.0[facility] Comment on above:Performed By: #### DRUGRPD #### [facility] [address] [place] [address] Dr. Genny Vanessarythrocyte distribution width (RBC) [Ratio]14.9 %Hhtzoa54.0-15.0 The [facility] HospitalComment on above:Performed By: #### DRUGRPD #### [facility] [address] [place] [address] Dr. Genny NealHematocrit (Bld) [Volume fraction]38.4 %Gfjcds11.0-48.0The [facility] HospitalComment on above:Performed By: #### DRUGRPD #### [facility] [address] [place] [address] Dr. Genny NealHemoglobin (Bld) [Mass/Vol]13.1 g/pEWuhqzf97.0-16.0The [facility] HospitalComment on above:Performed By: #### DRUGRPD #### [facility] [address] [place] [address] Dr. Genny Suh #0.04 10e3/ulCritically high0.00-0.03[facility] Comment on above:Performed By: #### DRUGRPD #### [facility] [address] [place] [address] Dr. Genny Suh %0.4 %Normal0.0-0.5The [facility] HospitalComment on above: Performed By: #### DRUGRPD #### [facility] [address] [place] [address] Dr. Genny Vigil #2.1 103/ulNormal1.2-3.8The [facility] HospitalComment on above:Performed By: #### DRUGRPD #### [facility] [address] [place] [address] Dr. Genny Frankhocytes/100 WBC (Bld)21.8 %Aonaim74.5-60.0The [facility] HospitalComment on above:Performed By: #### DRUGRPD #### [facility] [address] [place] [address] Dr. Genny Lai DIFF REQNONormalThe [facility] HospitalComment on above: Performed By: #### DRUGRPD #### [facility] [address] [place] [address] Dr. Genny Monzon (RBC) [Entitic mass]29.3 cwDmjlgz67.7-34.0The [facility] HospitalComment on above:Performed By: #### DRUGRPD #### [facility] [address] [place] [address] Dr. Genny Brennan (RBC) [Mass/Vol]34.1 g/vKKbtbsw56.9-35.2The [facility] HospitalCominsight surgical hospital on above:Performed By: #### DRUGRPD #### [facility] [address] [place] [address] Dr. Genny Holliday (RBC) [Entitic vol]85.9 lSCljozf92.0-99.0The [facility] HospitalComment on above:Performed By: #### DRUGRPD #### [facility] [address] [place] [address] Dr. Genny Tirado #0.7 103/ulNormal0.3-0.8The [facility] HospitalCominsight surgical hospital on above:Performed By: #### DRUGRPD #### [facility] [address] [place] [address] Dr. Yilan ChangMonocytes/100 WBC (Bld)6.7 %Normal1.7-12.0[facility] Comment on above:Performed By: #### DRUGRPD #### [facility] [address] [place] [address] Dr. Genny Jorge #6.7 103/ulCritically high1.4-6.5ThCleveland Clinic [facility] Comment on above:Performed By: #### DRUGRPD #### [facility] [address] [place] [address] Dr. Genny Henriquezutrophils/100 WBC (Bld)68.3 %Mogvry63.0-75.0The [facility] HospitalComment on above:Performed By: #### DRUGRPD #### [facility] [address] [place] [address] Dr. Genny NealPlatelet mean volume (Bld) [Entitic vol]10.0 fLNormal9.5-13.5The [facility] HospitalComment on above:Performed By: #### DRUGRPD #### [facility] [address] [place] [address] Dr. Genny NealPLT226 103/nsLbgojl918-803Jqp [facility] HospitalComment on above: Performed By: #### DRUGRPD #### [facility] [address] [place] [address] Dr. Genny NealRBC4.47 106/ulNormal4.20-5.40The [facility] HospitalComment on above:Performed By: #### DRUGRPD #### [facility] [address] [place] [address] Dr. Genny NealWBC9.7 103/ulNormal4.0-11.0The [facility] HospitalComment on above: Performed By: #### DRUGRPD #### [facility] [address] [place] [address] Dr. Genny NealCULTJENNIFER URINEon 36-75-6692CKTDIXV URINECulture Observations: HEAVY GROWTH OF MIXED GENITAL HERVE. NO POTENTIAL PATHOGENS SEEN. Culture Observations: PLEASE RESUBMIT CLEAN CATCH MID-STREAM URINE IF CLINICALLY INDICATED.NormalThe [facility]y HospitalComment on above:Performed By: #### DRUGRPD #### [facility] [address] [place] [address] Dr. Genny NealDRUG SCREEN RAPID (URINE)on 63-93-4154DXEHvhxkzolZxksijPEVFMRNS [facility] on above:Performed By: #### DRUGRPD #### [facility] [address] [place] [address] Dr. Genny NealBARNegativeNormalNEGKettering Health Dayton on above: Performed By: #### DRUGRPD #### [facility] [address] [place] [address] Dr. Genny NealBUPNegativeNormnhNEGKettering Health Dayton on above: Performed By: #### DRUGRPD #### [facility] [address] [place] [address] Dr. Genny NealBZONegativermnhNEGMercer County Community HospitalCominsight surgical hospital on above: Performed By: #### DRUGRPD #### [facility] [address] [place] [address] Dr. Genny NealCOCNegativeNormalNEGKettering Health Dayton on above: Performed By: #### DRUGRPD #### [facility] [address] [place] [address] Dr. Genny AndradeMetroHealth Parma Medical CenterComment on above: Result Comment: AMP (Amphetamine): 500ng/mL, BAR (Barbituates): 200 ng/mL, BZO (Benzodiazepines): 150 ng/mL, BUP (Buprenorphine): 10 ng/mL, ANA (Cocaine): 150 ng/mL, mAMP (Methamphetamine): 500 ng/mL, MTD (Methadone): 200 ng/mL, OPI (Opiates): 100 ng/mL, OXY (Oxycodone): 100 ng/mL, PCP (Phencyclidine): 25 ng/mL, PPX (Propoxyphene): 300 ng/mL, THC (Cannabinoids): 50 ng/mL, TCA (Trycyclic Antidepressants): 300 ng/mLPerformed By: #### DRUGRPD #### [facility] [address] [address] [address] Genny NealDRUG CUT HEADERDRUG CLASS TEST SYSTEM CUT-OFF CONCENTRATIONS ARE FOLLOWS:NormalThe [facility] HospitalComment on above:Performed By: #### DRUGRPD #### [facility] [address] [address] [address] Genny NealmAMPNegativeNormalNEGATIVEGood Samaritan HospitalComment on above: Performed By: #### DRUGRPD #### [facility] [address] [address] [address] Genny NealMTDNegativeNormalNEGATIVEGood Samaritan HospitalComment on above: Performed By: #### DRUGRPD #### [facility] [address] [address] [address] Genny CaldwellINegativeNormalNEGATIVEGood Samaritan HospitalComment on above: Performed By: #### DRUGRPD #### [facility] [address] [address] [address] Genny NealOXYNegativeNormalNEGATIVEGood Samaritan HospitalCominsight surgical hospital on above: Performed By: #### DRUGRPD #### [facility] [address] [address] [address] Genny NealPCPNegativeNormalNEGATIVEGood Samaritan HospitalComment on above: Performed By: #### DRUGRPD #### [facility] [address] [address] [address] Genny NealPPXNegativeNormalNEGATIVEGood Samaritan HospitalComment on above: Performed By: #### DRUGRPD #### [facility] [address] [address] [address] Genny NealTCANegativeNormalNEGATIVEGood Samaritan HospitalComment on above: Performed By: #### DRUGRPD #### [facility] [address] [address] [address] Genny NealTHCNegativeNormalNEGATIVEGood Samaritan HospitalComment on above: Performed By: #### DRUGRPD #### [facility] [address] [address] [address] Genny NealGLYCOHEMOGLOBIN A1Con 08-13-6118IXV RECOMMENDATIONSEE BELOWNormal The [facility] HospitalCominsight surgical hospital on above:Result Comment: ADA RECOMMENDED LIMIT 4.0 - 6.0 ADA THERAPEUTIC TARGET < 7.0 ACTION SUGGESTED > 7.0Performed By: #### A1C #### [facility] [address] [address] [address] Genny NealGlucose [Mass/Vol]94 mg/dLNoCleveland Clinic Mentor HospitalCominsight surgical hospital on above:Performed By: #### A1C #### [facility] [address] [address] [address] Genny NealHbA1c (Bld) [Mass fraction]4.9 %Normal4.5-6.2[facility]aritan HospitalCominsight surgical hospital on above:Performed By: #### A1C #### [facility] [address] [address] [address] Genny NealTYPE AND SCREENon 59-86-1535YKAX AND SCREENNegativeNormThe University of Toledo Medical CenterCominsight surgical hospital on above:Performed By: #### DRUGRPD #### [facility] [address] [address] [address] Genny NealCoding Summary.on 55-92-7282Gxnqrr Summary.CODING DATE: 09/08/2019 FINAL [facility] DSC STATUS: Home (Routine DC) PAYOR: Medicaid EAPG [...] Maria Esther Monique Date Saved: 09/08/2019 10:50 amNormalKindred Hospital DaytonAFP Maternalon 33-97-1766VGR [Mass/Vol]35.0 ng/mLKindred Hospital DaytonComment on above: Performed By: #### [id number] #### [facility] [address], [place] [address]MGD adjusted [MoM]1.06[facility] Hospital DaytonComment on above:Performed By: #### [id number] #### [facility] [address], [place] [address]JQK CommentCommentKindred Hospital DaytonComment on above: Result Comment: Luz Maria Hurtado, Ph.D., [facility] Principal Genetics Clinical Investigator References: Available Upon Request. Multiples Of Median Cutoffs For AFP Elevations [place] 2.5 Black 2.8 IDD 2.0 Twins 4.5 Abbreviation Definitions IDD - Insulin Dep Diabetes OSBR - Open Spina Bifida Risk For further inquiries contact [facility] at [phone]. Performed at: [facility] [address] [place], [place] [id number] MD Kathia Fernandezformed By: #### [id number] #### [facility] [address], [place] [address]GNC interpretation [Interp]NegativeKindred Hospital Dayton Comment on above:Performed By: #### [id number] #### [facility] [address], [place] [address]MDC interpretation Gadiel [Interp]CommentKindred Hospital DaytonComment on above:Result Comment: Interpretation: Screen Negative This result is screen negative [...] Customer Services to discuss available options. The [employer] [employer] recommends amniocentesis be offered to women age 35 and older.Performed By: #### [id number] #### [facility] [address], [place] [address]MZZ MaternalReportKindred Hospital DaytonComment on above: Performed By: #### [id number] #### [facility] [address], [place] [address]Ujrirsiozgm Age17.0 week(s)Kind[facility] Hospital DaytonComment on above:Performed By: #### [id number] #### [facility] [address] [place] [address]KZVENEJ DEPENDENT DIABETES MELLITUS:PRTHR:PT:NoKindred Hospital DaytonComment on above:Performed By: #### [id number] #### [facility] [address], [place] [address]Vxcnlepf Age17.9[facility] Hospital DaytonComment on above: Performed By: #### [id number] #### [facility] [address] [place] [address]Prmb of Upper Valley Medical CenterComment on above: Performed By: #### [id number] #### [facility] [address] [place] [address]QTNTFX TUBE DEFECT RISK:LIKELIHOOD:PT:80571ZknybzKindred Hospital DaytonComment on above:Performed By: #### [id number] #### [facility] [address] [place] [address]WdtkMbqytekwxRsmdvkKindred Hospital DaytonComment on above: Performed By: #### [id number] #### [facility] [address], [place] [address]Pcip GestUltrasoundKindred Hospital DaytonComment on above: Result Comment: 17.0 on 08/31/2019 Recalculations are not recommended when gestational dating by LMP and ultrasound are within 10 days.Performed By: #### [id number] #### [facility] [address] [place] [address] Vital Signs Date TimeVital SignValuePerforming HzbtorgjzRtwzvawm56-46-0644 08:45-0500Body .3 Daphney RUSSELL Work Phone: [facility]OMercy [facility], formerly St[facility] Medical CenterNmczcjcbpm69-86-3180 08:45-0500Body mass index (BMI) [Ratio]34.87 kg/m2Terri Gallardo PA Work Phone: [phone] [place], [place] [address]Nfqcuqsygf63-14-1069 08:45-0500Body lmlyye860.1 kgTerri Gallardo PA Work Phone: [phone]-[facility]9Liberty HospitalGvcaaxoona83-00-2800 08:45-0500Diastolic blood lbcnecgg30 mm[Hg]Terri Gallardo PA Work Phone: [phone] [place], [place] [address]Rvwsylnpnm13-77-5047 08:45-0500Systolic blood rjaolkmn733 mm[Hg]Terri Gallardo PA Work Phone: [phone] [place], [place] [address]Yqmnavixqn99-60-1079 11:20-0400Body mass index (BMI) [Ratio]34.13 kg/m2Amy Sami PA Work Phone: [phone] [place], [place] [address]Wzrrhoroes32-23-2638 11:20-0400Body oivzbg423.83 kgTerri Gallardo PA Work Phone: [phone] [place], [place] [address]Klnacnpnim94-73-6276 11:20-0400Diastolic blood sonlwspd81 mm[Hg]Terri Gallardo PA Work Phone: [phone] [place], [place] [address]Imqtjzdmkg44-94-5864 11:20-0400Systolic blood noxgmxsy248 mm[Hg]Terri Gallardo PA Work Phone: [phone] [place], [place] [address]Mmeqlfxyfm98-72-1174 11:41-0400Body mass index (BMI) [Ratio]33.88 kg/m4Rnonz Zeinab DO Work Phone: [phone] [place], [place] [address]Wbskfpquig10-07-7763 11:41-0400Body rtsmig451.06 kgCorey Zeinab DO Work Phone: [phone] [place], [place] [address]Fbshgqzolo57-55-8929 11:41-0400Diastolic blood jktdjyqk60 mm[Hg]Mitchell Zeinab DO Work Phone: [phone] [place], [place] [address]Vxytbtrfnq98-50-8628 11:41-0400Systolic blood qnkpkqes747 mm[Hg]Mitchell Zeinab DO Work Phone: [phone] [place], [place] [address]Fjbnersilm89-90-3366 09:35-0400Body mass index (BMI) [Ratio]34.56 kg/d9Naelt Zeinab DO Work Phone: Liberty HospitalKubupsqhup18-61-5217 09:35-0400Body dsfumi469.14 kgCorey Zeinab DO Work Phone: [phone]-[facility] CampusLiberty HospitalXrulixhcor35-18-1814 09:35-0400Diastolic blood mm[Hg]Mitchell Zeinab DO Work Phone: [phone]-[facility] CampusLiberty HospitalHsjaxccfdq52-75-6820 09:35-0400Systolic blood bsevfsht034 mm[Hg]Mitchell Zeinab DO Work Phone: [phone] [place], [place] [address]Wduduvzlbp40-52-2267 13:35-0500Body zetnaa612.3 cmPeyton Murrell MD Work Phone: [phone])[address]01-30-2025 13:35-0500Body mass index (BMI) [Ratio]32.78 kg/b5NbfmnoPeyton Murrell MD Work Phone: [phone])[address]01-30-2025 13:35-0500Body eoznsi859.7 kgPeyton Murrell MD Work Phone: [phone])[address]01-30-2025 13:35-0500Diastolic blood ttsspsny68 mm[Hg]Peyton Murrell MD Work Phone: [phone])[address]01-30-2025 13:35-0500Heart rate 88 /minPeyton Murrell MD Work Phone: [phone] [place], [place] [address]001-30-2025 13:35-0500Systolic blood urhuqlsa830 mm[Hg]Peyton Murrell MD Work Phone: [phone])[address]11-13-2024 14:33-0500Body jcsxka926.3 cmCorey Zeinab DO Work Phone: [phone] [place], [place] [address]Fhtkccjgfo15-96-2151 14:33-0500Body mass index (BMI) [Ratio]32.9 kg/a9Hbgja Zeinab DO Work Phone: [phone] [place], [place] [address]Phcxsidlwo49-88-9037 14:33-0500Body .06 kgCorenancy Dolano DO Work Phone: [phone] [place], [place] [address]Pytpdniusy35-65-0537 14:33-0500Diastolic blood gbieqmsu91 mm[Hg]Mitchell Zeinab DO Work Phone: [phone] [place], [place] [address]Sutliqmlbg60-72-2349 14:33-0500Systolic blood utjfhapr669 mm[Hg]Mitchell Dolano DO Work Phone: [phone])[facility] [place], [place] [address]Oidnmijjiq34-12-0569 13:58-0400Body mass index (BMI) [Ratio]32.46 kg/o3Rvsmw Zeinab DO Work Phone: [phone])[facility] [place], [place] [address]Yhyofsuqgl26-31-5607 13:58-0400Body hgvcej45.7 kg Mitchellnancy Dolano DO Work Phone: [phone])[facility] [place], [place] [address]Bfaiazybdu75-85-5120 13:58-0400Diastolic blood mdthylsu82 mm[Hg]Mitchell Dolano DO Work Phone: [phone])[facility] [place] [address]-15-2024 13:58-0400Systolic blood fvkvdugl316 mm[Hg]Mitchell Arriola DO Work Phone: [phone] [place], [place] [address]Dsfazpzaxy08-56-7336 18:15-0400Diastolic blood fscbjrio47 mm[Hg]Cl Holden MD Work Phone: [facility] HOSPITALAASILW73-25-5144 18:15-0400Heart xppf148 /minCl Holden MD Work Phone: [phone] HOSPITALLALJXL18-90-4755 18:15-0400 Respiratory rate20 /minCl Holden MD Work Phone: [phone] [address]BWZJZU53-41-4464 18:15-7491YnD1% (BldA) [Mass fraction]100 %Cl Holden MD Work Phone: [facility] [employer] HOSPITALBCXMYS68-78-5907 18:15-0400Systolic blood khazjqja292 mm[Hg]Cl Holden MD Work Phone: [facility]08-29-2023 15:40-0400Body .3 Elier Holden MD Work Phone: [facility]08-29-2023 15:40-0400Body mass index (BMI) [Ratio]32.34 kg/k0BsuwdqrywCl Holden MD Work Phone: [facility]08-29-2023 15:40-0400Body qnyshayocsl30.81 [degF]Cl Holden MD Work Phone: [facility]08-29-2023 15:40-0400Body rnjduw23.34 kgCl Holden MD Work Phone: [facility]04-24-2023 18:07-0400Body etsxwc99.72 kgDR MITCHELL ARRIOLA .The [facility] HospitalComment on above:Performed By: #### AFPMAT #### [facility] [address] [address] [address] Genny Neal04-24-2020 15:10-0400Body xzipmp96.648 kgKindred Hospital DaytonComment on above:Performed By: #### [id number] #### [facility] [address] [place] [address] Encounters Encounter DateEncounter TypeCare ProviderFacilityStart: 03-22-2025 End: 05-15-8828Zqgscd Johanna RUSSELL Work Phone: [facility]YNStart: 03-22-2025 End: 50-11-6958Dgfdve flowsCaitlin RUSSELL Work Phone: [facility]BGYNStart: 03-22-2025 End: 28-85-2244Yiutel outpatient visit 15 minutesTerri RUSSELL Work Phone: [facility] OBGYNComment on above:Vaginal cyst; Missed menses; Nausea; Encounter for intrauterine device placement; Skin infectionStart: 03-22-2025 End: 64-90-9010ypeieidcazMHF RKEYNot AvailableStart: 01-24-1284jfpofgpqxwXhhze A BodieFacility:[facility] HospitalStart: 02-09-2025 End: 55-79-1578xplkvvbmpyYrnci A BodieFacility:[facility] CLINICStart: 01-13-2025 Emergency department patient visitDavid A BodieFacility:[facility] HospitalStart: 10-23-2024 End: 14-52-5984Wrrekiotl Result EncounterAmy Sami RUSSELL Work Phone: noms External Department UnsolicitedStart: 10-23-2024 End: 99-40-7227Puftsqpyw Result EncounterTerri Sami RUSSELL Work Phone: noms External Department UnsolicitedStart: 10-18-2024 End: 69-44-2170Xrxzuo flowsheetTerri RUSSELL Work Phone: noms BCP OBStart: 10-18-2024 End: 85-13-0197Jvtowv flowsheetTerri RUSSELL Work Phone: [facility] BCP OBStart: 10-18-2024 End: 65-94-7588Lkkuaegki Result EncounterTerri Moycheng RUSSELL Work Phone: noms External Department UnsolicitedStart: 10-18-2024 End: 32-03-1443Puuddiz encounter procedureTerri Sami RUSSELL Work Phone: [facility] Work Phone: Start: 10-18-2024 End: 67-44-6353Szonudbm preventive med est patient 18-39 yrsTerri Sami RUSSELL Work Phone: noms BCP OBComment on above:Well woman exam with routine gynecological exam; Follow-up encounter involving medication; Yeast infection; Encounter for routine checking of intrauterine contraceptive device (IUD); Menorrhagia with irregular cycleStart: 10-18-2024 End: 68-26-0535djbkznvwacQZH RKCHENGNot AvailableStart: 09-20-2024 End: 00-59-1039Wvjfev flowsheetMitchell Arriola DO Work Phone: noms BCP OBStart: 09-20-2024 End: 08-54-2373Jejwvt flowsheetCorey Zeinab DO Work Phone: NOMS BCP OBStart: 09-20-2024 End: 13-37-7017Oceamy outpatient visit 15 minutesCorey Zeinab DO Work Phone: noms [facility] OBComment on above:Follow-up encounter involving medicationStart: 09-20-2024 End: 52-74-4593jhvpuxaevvZOAXY FAZIONot AvailableStart: 03-18-5339Qwkbfeidt department patient visitDavid A BodieFacility:[facility] HospitalStart: 08-30-2024 End: 93-56-6348Iwkcwf flowsheetCorey Zeinab DO Work Phone: NOON BCP OBStart: 08-30-2024 End: 36-80-0930Geyvpd flowsheetCorey Zeinab DO Work Phone: NOMS BCP OBStart: 08-30-2024 End: 43-33-6243Dkdwoixo Result EncounterCorey Zeinab DO Work Phone: noMS External Department UnsolicitedStart: 08-30-2024 End: 91-45-8491qhbubhzbinWKCYT FAZIONot AvailableStart: 08-30-2024 End: 38-75-8537Drlskb outpatient visit 15 minutesCorey Zeinab DO Work Phone: NOM[facility] OBComment on above:Vaginal cyst; Exposure to STD; Sinus tachycardia; Infected sebaceous gland; Insulin resistance; Bacterial vaginosisStart: 30-93-4052Nrufdvbfb department patient visitDavid A BodieFacility:[facility] Hospitaltart: 08-18-2024 End: 84-27-5930xbajbgnusxPbigg A BodieFacility:[facility] CLINICStart: 08-10-2024 End: 88-85-5020ksnsqozbfvBkwlf A BodieFacility:[facility] CLINICStart: 06-25-2024 [facility] PPGStart: 06-23-2024 End: 32-49-0625nuedowajqdVeilh A BodieFacility:[facility] HospitalStart: 06-10-2024 End: 95-02-8963anhkfnoynzLMUYFY A [facility] Ambulatory PPGStart: 06-10-2024 End: 85-47-4750Lzrfjf outpatient new 30 minutesMupetar Murrell MD Work Phone: [facility] CardiologyComment on above: Intermittent palpitations (Primary Dx); Precordial painStart: 06-09-2024 End: 26-80-7739Qkvjucfna encounterSusie Rivas [facility] CardiologyStart: 05-05-2024 End: 02-58-5457Uuvaovcfu department patient visitDavid A BodieFacility:[facility]art: 02-98-1836Uyjjpdztm department patient visitDavid A BodieFacility:[facility] HospitalStart: 04-05-2024 End: 95-86-6630qmwvbiqatdBaxbs A BodieFacility:[facility] HospitalStart: 04-05-2024 End: 25-35-6368xarqdvbtsyVowhd A BodieFacility:[facility] CLINICStart: 03-24-2024 End: 36-87-3896Kgijpo flowsheetCorey Zeinab DO Work Phone: noms BCP OBStart: 03-24-2024 End: 16-34-7026Pvepht flowsheetCorey Zeinab DO Work Phone: NOMG BCP OBStart: 03-24-2024 End: 45-32-5686Zvzoca outpatient visit 15 minutesCorey Zeinab DO Work Phone: noms BCP OBComment on above:Encounter for weight management; Urinary tract infection without hematuria, site unspecifiedStart: 03-24-2024 End: 78-52-4254givptargheMFTSI FAZIONot AvailableStart: 02-24-2024 End: 91-53-8768Ntymtrl encounter procedureCorey Zeianb DO Work Phone: noms BCP OBComment on above:Encounter for IUD insertion; Insulin resistanceStart: 07-16-2023 End: 75-12-8015Gqzfjblxq Result EncounterCorey Zeinab DO Work Phone: noms External Department UnsolicitedStart: 07-16-2023 End: 51-32-5535Ygnhpyngj Result EncounterCorey Zeinab DO Work Phone: noms External Department UnsolicitedStart: 01-07-2023 End: 25-98-4618Jzygemqku department patient visitAlexander Kurt Holden MD Work Phone: [facility] EDComment on above:COVID-19 (Primary Dx)Start: 01-80-5615pcxisbnluaVZ MITCHELL ARRIOLA .Facility:B0Corxm: 09-11-2022 End: 78-17-6580wwhbvctcdgAY WILMER CURTIS .Facility:C3Vpmoc: 08-26-2022 End: 80-02-9255yxtjvjuxipEA WILMER CURTIS .Facility:L8Buvst: 07-01-2022 End: 92-94-8662uydscttydjCG WILMER CURTIS .Facility:W4Nwvev: 07-01-2022 End: 29-45-4171yphjhztcelIO WILMER CURTIS .Facility: Procedures DateProcedureProcedure DetailPerforming ClinicianStart: 75-39-0251Acyfv test visual color cmprsn methsAmy Sami RUSSELL Work Phone: Start: 44-55-6123RS PELVIS TRANSVAGINALAmy Sami RUSSELL Work Phone: Start: 13-40-7073MXP,APTIMA HPV,AGE GDLNAmy Sami RUSSELL Work Phone: Start: 91-73-7856DQRBPLOAN VAGINITIS (HTRX)Mitchell Zeinab DO Work Phone: Start: 09-65-6758Gisbu dip stick/tablet rgnt non-auto w/o micrscpCorey Zeinab DO Work Phone: Start: 21-52-1537Lcvkh test visual color cmprsn methsCorey Zeinab DO Work Phone: Start: 11-89-8148MGZ INSERTIONCorey Zeinab DO Work Phone: Start: 30-53-8041SV TOMOSYNTHESIS DIAGNOSTIC BICorey Zeinab DO Work Phone: Start: 10-26-2655ZG BREAST BI LIMITEDCorey Zeinab DO Work Phone: Start: 01-07-2023 End: 77-05-8797Rswnkhrmo influenzaGeorgi Butt MD Work Phone: Start: 81-35-0075LMUYH-19, RAPIDGeorgi Butt MD Work Phone: Start: 97-74-7292UDMJIDB, BLOOD 1Kemal Filomena BERNSTEIN Work Phone: Start: 07-71-2125Xjtmwqbsff exam chest single view Georgi Butt MD Work Phone: Start: 24-77-0092Xfqqf dip stick/tablet rgnt auto w/o microscopyGeorgi Butt MD Work Phone: Start: 64-08-3298Yefps metabolic panel calcium total Georgi Butt MD Work Phone: Start: 50-64-9459Hjuvzuk function panelGeorgi Butt MD Work Phone: Plan of Treatment DateCare ActivityDetailAuthorStart: 86-86-5483NVdO,Tdap and Td Vaccines (6 - Tdap)DTaP,Tdap and Td Vaccines (6 - Tdap)[facility] SystemStart: 34-83-2828Dcnjf BMI ScreeningAdult BMI ScreeningProMedica Health SystemStart: 03-31-2025 End: 80-65-8156Fnitwhd encounter yqszcxbto66/20/2025 10:00 AM EST Office Visit [facility] [address] [place] [phone] Mitchell Arriola DO [address] [place] [address] [facility] Carlo OBGYNStart: 03-31-2025 End: 43-06-2922Kjzcejtqmoom / ancillary services laheszczir21/20/2025 9:30 AM EST Ancillary Procedure [facility] GOVEAN [address] [place] [phone] [facility] OBGYNStart: 03-22-2025 End: 26-95-0274VM Pelvis transvaginalUS pelvis transvaginal Imaging Routine Encounter for intrauterine device placement Expected: 03/22/2025, Expires: 09/19/2025[facility] Work Phone: comment on above:Expected: 03/22/2025, Expires: 09/19/2025Start: 03-22-2025 End: 13-29-3338Mqnuhrq encounter dpfcwckqy12/11/2025 9:00 AM EST Office Visit MINA CALZADA [address] [phone] Terri Gallardo PA [address] [place] [address] ArrivedNOMS Carlo OBGYNComment on above:ArrivedStart: 53-23-1223Sizgbbwpu vaccinationInfluenza Vaccine (Season Ended)[facility] HealthcareStart: 12-22-2024 End: 03-12-4553Wvusmrs encounter wbsntyolj59/13/2025 9:00 AM EDT Office Visit [facility] [address] [place] [phone] Peyton Murrell MD [address] [place] [address] [facility] CardiologyStart: 10-18-2024 End: 56-95-9116DO Pelvis transvaginalUS pelvis transvaginal Imaging Routine Encounter for routine checking of intrauterine contraceptivedevice (IUD) Menorrhagia with irregular cycle Expected: 10/18/2024, Expires: 04/19/2025NOOH HealthcareComment on above:Expected: 10/18/2024, Expires: 04/19/2025Start: 10-18-2024 End: 81-75-3500Zeonoak encounter cdibtevxo34/09/2025 11:00 AM EDT Office Visit [facility] [address] [place] [phone] Terri Gallardo PA [address] [place] [address] [facility] BCP OBStart: 09-20-2024 End: 54-67-4448Pqdyxjk encounter procedureNOMS BCP OBComment on above:Arrived Start: 06-10-2024 End: 94-18-7717Tcrp complete W/O contrastEcho complete W/O contrast Echocardiography Routine Intermittent palpitations Precordial pain Expected: 06/10/2024, Expires: 06/10/2025[facility] SystemComment on above:Expected: 06/10/2024, Expires: 06/10/2025Start: 06-10-2024 End: 45-05-6830Vchkb monitorEvent monitor Cardiac Services Routine Intermittent palpitations Precordial pain Expected: 06/10/2024, Expires: 06/10/2025[facility] Work Phone: Comment on above:Expected: 06/10/2024, Expires: 06/10/2025Start: 06-10-2024 End: 34-01-9366Txudjzv encounter gconbitkd45/30/2025 1:30 PM EST Office Visit [facility] [address] [place] [phone] Peyton Murrell MD [address] [place] [address] [facility] CardiologyStart: 04-22-2024 End: 48-44-7701Jpvltcv encounter ayxqucrws67/12/2024 8:30 AM EST Office Visit [facility] [address] [place] [phone] Terri Gallardo PA [address] [place], [place] [phone] [facility]OM[facility] BCP OBStart: 03-24-2024 End: 54-20-4530Qbexelz encounter ninrkphpy64/13/2024 1:50 PM EST Office Visit [facility] [address] [place] [phone] Mitchell Arriola, DO [address] [place] [address] [facility]OMS BCP OBStart: 14-62-7361Qeepkcsnv vaccinationKANE COUNTY HUMAN RESOURCE SSD HealthcareStart: 72-77-3833Uscvzsluu for malignant neoplasm of cervixPap Smear [facility] Hospitaltart: 90-68-2420Lwcersfvk vaccinationFlu vaccine (#1)[facility]ENTERStart: 01-21-6310PJpZ/Tdap/Td vaccine (1 - Tdap) DTaP/Tdap/Td vaccine (1 - Tdap)[facility] Healthart: 21-72-9237Wibvx BMI Follow Up PlanAdult BMI Follow Up PlanAshe Memorial Hospitaltart: 73-87-2887Ubgol BMI ScreeningAdult BMI ScreeningAshe Memorial Hospitaltart: 57-96-7243Thhqqyrcj C screeningHepatitis C screenCJW MEDICAL CENTERStart: 54-60-2068Tjcfyzkpi for Chlamydia trachomatisChlamydia/GC screenCJW MEDICAL CENTERStart: 18-34-0032CMD screeningHIV screenCJW MEDICAL CENTER Start: 13-73-9124Oyltbnmvpx ScreenDepression ScreenCJW MEDICAL CENTER Start: 14-83-7394Peehmgowhe ScreeningDepression ScreeningLouis [facility] Start: 53-82-0512Wmmujad ScreeningTobacco ScreeningAshe Memorial Hospitaltart: 73-77-3645RUB vaccine (1 - 2-dose series)HPV vaccine (1 - 2-dose series)[facility]ENTERStart: 36-14-6460Nshfindvg vaccine (1 of 2 - 2-dose childhood series)Varicella vaccine (1 of 2 - 2-dose childhood series)[facility] CompareAway [facility]ITALStart: 68-55-7647BFQJQ-19 Vaccine (#1)COVID-19 Vaccine (#1)[facility] CompareAway [facility]OS[facility]ITALBlood Culture 1Blood Culture 1 Microbiology Stat [employer] Label print 01/07/2023 4:41 PM EDTBON D[facility] HOSPITALLISNR [facility] HOSPITALCHLAMYDIA TRACHOMATIS (GENITO/STI)CHLAMYDIA TRACHOMATIS (GENITO/STI) Lab Routine Exposure to STD Ordered: 08/30/2024[facility] HospitalComment on above:Ordered: 08/30/2024 End: 69-65-0674Tepjsry, Blood 2Culture, Blood 2 Microbiology STAT One Time for 1 Occurrences starting 01/07/2023 until 01/07/2023ON CompareAway [facility] HOSPITALComment on above:One Time for 1 Occurrences starting 01/07/2023 until 01/07/2023 End: 29-22-5397Pzcdpdh, UrineBON [facility] [employer] Work Phone: Comment on above:Once for 1 Occurrences starting 01/07/2023 until 01/07/2023ytology Cervical or vaginal smear or scraping study Pap Smear Pathology and Cytology Routine Well woman exam with routine gynecological exam Ordered: 10/18/2024[facility] Work Phone: comment on above:Ordered: 10/18/2024Neisseria gonorrhoeae DNA [Presence] in Unspecified specimen by ELEONORA with probe detection Neisseria gonorrhea DNA probe, direct Lab Routine Exposure to STD Ordered: 08/30/2024[facility] HealthcareComment on above:Ordered: 08/30/2024SURESWAB(R) ADVANCED VAGINITIS PLUS, TMASURESWAB(R) ADVANCED VAGINITIS PLUS, TMA Pathology and Cytology Routine Exposure to STD Ordered: 08/30/2024[facility] Work Phone: comment on above:Ordered: 08/30/2024 Payers DatePayer CategoryPayerPolicy ID2024Self-pay2021Medicaid (Managed Care)[employer] Member Subscriber Plan / Payer (Effective 2021-Present) Name: Ana Sauceda Relation to Subscriber: Self Name: Ana Sauceda Payer ID: Not on file Group ID: Not on file Type: Not on file Address: [address] [id number] 2021[place] [facility] [place] [id number] 2..1.440401.3.57[id number] 2..1.785931.3.57[id number] 2..1.634775.3.57[id number] 2..1.814471.3.57[id number] 2..1.083563.3.57[id number] 2..1.559378.3.57[id number] 2.16.840.1.063095.3.57[id number] 2.16.840.1.607801.3.57[id number] 2.16.840.1.498930.3.57[id number] 2.16.840.1.797089.3.579.[id number] 2.16.840.1.856711.3.579.2.04[id number] 2.16.840.1.318580.3.579.[id number] 2.16.840.1.136356.3.57[id number] 2.16.840.1.572318.3.57[id number] 2.16.840.1.438014.3.57[id number] 2.16.840.1.545476.3.57[id number] 2.16.840.1.218066.3.57[id number] 2.16.840.1.863504.3.57[id number] 2.16.840.1.178153.3.57[id number] 2.16.840.1.992550.3.57[id number] 2.16.840.1.504920.3.57[id number] 2..840.1.646973.3.57[id number] 2..840.1.088874.3.57[id number] 2..840.1.492796.3.579.2.531 Social History DateTypeDetailFacilityStart: 07-48-4718Otyccse smoking status NHISNever smoked tobaccoCJW MEDICAL CENTERStart: 32-22-0710Jimkhas intakeCurrent non- drinker of alcohol (finding)[facility] CENTERStart: 17-25-2564Svq Assigned At BirthNot on fileCJW MEDICAL CENTERStart: 11-29-2022 End: 58-63-5951Xidhwlx smoking status NHISEx-smokerNOMS HealthcareHistory of tobacco useCurrent smokerNOMS HealthcareHistory of tobacco useCigarette Smoker [facility] HealthcareStart: 11-29-2022 End: 46-21-2628Dpcuzea use and exposureSmokeless tobacco non-userNOMS Healthcare Start: 02-24-2024 End: 33-25-5029Lwqfmmqjh beverage intakeLifetime non-drinker (finding)[facility] HealthcareStart: 04-11-2023 End: 48-88-3232Pslhntq of Social functionNOMS HealthcareStart: 04-11-2023 End: 66-43-9860Rhpvcbu use panelNOMS HealthcareTobacco smoking status NHIS Tobacco smoking consumption unknownProMedica Health SystemStart: 07-24-2022 ChildcareUnknownProMedica Health SystemStart: 90-40-7901YmjGjrpux (finding) [facility] SystemStart: 80-59-6339Rzgcytqfe beverage intakeCurrent drinker of alcohol (finding)[facility] Medical Equipment Procedure CodeEquipment CodeEquipment Original TextEquipment IdentifierDates Screw Lk W/ T25 Stardrive [id number]: 10-12-2016 Clinical Notes 08-29-2023 to 03-22-2025 Note Date & TfugWpsmRrfbucah30-50-8909 NoteEntered by Courtney Reyes LPN on March 22, 2025 12:14:17 EST From: Courtney Reyes LPN To: [facility] [id number] Sent: 03/22/2025 12:14:17 EST Subject: Medication Management Submitted: Complete:levothyroxine (levothyroxine 100 mcg (0.1 mg) oral tablet) Signed by Courtney Reyes LPN 03/22/2025 12:14:00 EST Approved with modifications: levothyroxine (LEVOTHYROXINE 100 MCG TABLET) TAKE 1 TABLET BY MOUTH DAILY Qty: 90 tab(s) Days Supply: 90 Refills: 0 Substitutions Allowed Route To Pharmacy - [facility] [id number] Signed by Courtney Reyes LPN From: [facility] [id number] To: Joseph Ortiz MD Sent: March 22, 2025 7:19:15 AM PRODUCE WEIGHER Subject: Medication Management Due: March 23, 2025 12:10:27 AM PRODUCE WEIGHER On Hold Pending Signature Drug: levothyroxine (levothyroxine 100 mcg (0.1 mg) oral tablet), TAKE 1 TABLET BY MOUTH DAILY Quantity: 30 tab(s) Days Supply: 0 Refills: 1 Substitutions Allowed Notes from Pharmacy: Dispensed Drug: levothyroxine (levothyroxine 100 mcg (0.1 mg) oral tablet), TAKE 1 TABLET BY MOUTH DAILY Quantity: 90 tab(s) Days Supply: 90 Refills: 0 Substitutions Allowed [id number] History of Present illness Narrative* YVONNE Gregg - 03/22/2025 9:00 AM EST Reason for Appointment: Patient ID: Ana Sauceda is a 25 y.o. female who presents for Gynecologic Exam (Pt present due to a cyst outside the vagina and an IUD surveillance visit.) Patient presents today for Acute Visit. MEDICATIONS Current Outpatient Medications Medication Instructions cephalexin (KEFLEX) 500 mg, Oral, 2 times daily Levonorgestrel (Mirena, 52 MG,) 20 [...] Problems Son Mekhi No Known Problems Son Hab[place] Cancer Other Grandmother SURGICAL HISTORY Past Surgical [...] Appearance: Normal appearance. She is normal weight. HENT: Head: Normocephalic. Cardiovascular: Rate and Rhythm: Normal rate. Pulses: Normal pulses. Pulmonary: Effort: Pulmonary effort is normal. Breath sounds: Normal breath sounds. Abdominal: Palpations: Abdomen is soft. Musculoskeletal: General: Normal range of motion. Neurological: General: No focal deficit present. Mental Status: She is alert and oriented to person, place, and time. Skin: General: Skin is warm. Psychiatric: Mood and Affect: Mood normal. Behavior: Behavior normal. Thought Content: Thought content normal. Judgment: Judgment normal. Vitals and nursing note reviewed. Vitals: Estimated body mass index is 34.87 kg/m as calculated from the following: Height as of this encounter: 5' 9 . Weight as of this encounter: 236 lb 1.9 oz. BP: 110/60 No LMP recorded. (Menstrual status: IUD). Assessment/Plan ICD-10-CM 1. Vaginal cyst N89.8 cephalexin (Keflex) 500 MG capsule 2. Missed menses N92.6 POCT , urine manually resulted 3. Nausea R11.0 POCT , urine manually resulted 4. Encounter for intrauterine device placement Z30.430 US pelvis transvaginal 5. Skin infection L08.9 cephalexin (Keflex) 500 MG capsule Assessment/Plan Patient presents for string check and vaginal lump causing irritation with intercourse. She states she has had it drained previously. A small sharpe size, freely mobil cyst palpated. Area cleaned with betadine and anesthetized with 1% lidocaine. 15 blade used to incise the area, no drainage noted. No IUD strings noted on exam, she believes it fell out in toilet and she flushed it. We will order US for placement and pt is going to return for follow up after US and reassess the small cyst. We will place her on keflex at this time. PVU Documented by YVONNE Gregg on behalf of: YVONNE Gregg documented in this encounterLiberty HospitalYmtdlknfdo60-92-5555 NoteEntered by Courtney Reyes LPN on February 09, 2025 15:51:04 EDT From: Courtney Reyes LPN To: [facility] [id number] Sent: 02/09/2025 15:51:03 EDT Subject: Medication Management Submitted: Complete:levothyroxine (levothyroxine 100 mcg (0.1 mg) oral tablet) Signed by Courtney Reyes LPN 02/09/2025 15:51:00 EDT Approved with modifications: levothyroxine (LEVOTHYROXINE 100 MCG TABLET) TAKE 1 TABLET BY MOUTH DAILY Qty: 30 tab(s) Days Supply: 30 Refills: 2 Substitutions Allowed Route To Pharmacy - [facility] [id number] Signed by Courtney Reyes LPN From: [facility] [id number] To: Joseph Ortiz MD Sent: February 09, 2025 2:32:37 PM CDT Subject: Medication Management Due: February 10, 2025 12:31:09 AM CDT On Hold Pending Signature Drug: levothyroxine (levothyroxine 100 mcg (0.1 mg) oral tablet), TAKE 1 TABLET BY MOUTH DAILY Quantity: 30 tab(s) Days Supply: 0 Refills: 8 Substitutions Allowed Notes from Pharmacy: Dispensed Drug: levothyroxine (levothyroxine 100 mcg (0.1 mg) oral tablet), TAKE 1 TABLET BY MOUTH DAILY Quantity: 30 tab(s) Days Supply: 30 Refills: 0 Substitutions Allowed Notes from [facility]acy[facility] [id number] Note Education Materials Gastroenterology Abdominal Pain, Adult Many things can cause belly (abdominal) pain. In most cases, belly pain is not a serious problem and can be watched and treated at home. But in some cases, it can be serious. Your doctor will try to find the cause of your belly pain. Follow these instructions at home: Medicines ? Take qxjj-sxk-fjoxsbe and prescription medicines only as told by [...] provider. Document Revised: 02/12/2023 Document Reviewed: 02/12/2023 2359 Media Patient Education ? 2024 [employer]. Nephrology Pyelonephritis, Adult Pyelonephritis is an infection [...] given antibiotics to take by mouth. You willneed to drink lots of fluids. ? If [...] can irritate the bladder. General instructions ? (more content not included)...[facility] [id number] History of Present illness Narrative* YVONNE Gregg - 10/18/2024 11:00 AM EDT [...] Past Medical History: Diagnosis Date BMI 29.0-29.9,adult ALIL (generalized anxiety disorder) (CMS/HCC) Hypothyroidism (CMS/HCC) Panic [...] nursing note reviewed. Exam conducted with a damage cutter present. Vitals: Estimated body mass index is [...] behalf of: YVONNE Gregg documented in this encounterLiberty HospitalGkscdltcgi05-00-0534 History of Present illness Narrative* Valarie Ernst LPN - 09/20/2024 11:10 AM EDT Reason for Appointment: Patient ID: [...] Generalized anxiety disorder (CMS/HCC) 10/09/2022 Panic disorder ([facility]/HCC) 10/09/2022 Hypothyroid (CMS/HCC) 10/09/2022 Resolved Ambulatory Problems Diagnosis Date Noted No Resolved Ambulatory Problems Past Medical History: Diagnosis Date BMI 29.0-29.9,adult ALLI (generalized anxiety disorder) (CMS/HCC) Hypothyroidism (CMS/HCC) Panic disorder without agoraphobia (CMS/HCC) HISTORY PAST MEDICAL HISTORY SOCIAL HISTORY Past Medical History: Diagnosis Date BMI 29.0-29.9,adult ALLI (generalized anxiety disorder) (CMS/HCC) Hypothyroidism (CMS/HCC) Panic disorder without agoraphobia (CMS/HCC) Social History Tobacco Use Smoking status: Former Types: Cigarettes Smokeless tobacco: Never Substance Use Topics Alcohol use: Never Drug use: Never FAMILY HISTORY Family History Problem Relation Name Age of Onset Alcohol abuse Father No Known Problems Son Mekhi No Known Problems Son [place] Cancer Other Grandmother SURGICAL HISTORY Past Surgical [...] nursing note reviewed. Exam conducted with a damage cutter present. Vitals: Estimated body mass index is [...] to have increased to 1,000 mg and isdoing well on medication. Patient will reach out to office if refills when needed. Patient to ensure annual appointment is scheduled prior to leaving office. Documented by Valarie Ernst LPN... on behalf of: Terri Gallardo PA-C documented in this encounterLiberty [id number] NoteEducation Materials Dermatology Sunburn, Adult Sunburn is damage [...] many freckles or moles, or skin that tendsto burn instead of long. ? Having fair [...] Moisturizer or aloe for pain relief. ? Sjwy-cvn-ijfawkz pain relievers. ? Drinking extra water to replace lost fluids and to prevent dehydration. A severe sunburn may require: ? Antibiotic medicines if there is an associated infection. ? IV fluids. Follow these instructions at home: Medicines ? Take or apply jsnw-zne-bbsznly and prescription medicines only as told by [...] damage. Try taking a cool bath or applyinga cool compress to your skin. This may help with pain. ? Drink enough fluid to keep your urine pale yellow. ? Try applying aloe vera or a moisturizer that has soy in it to your sunburn. This may help. Do notapply aloe vera or moisturizer with soy if [...] managed with self-care strategies, including cool baths orcool cloths (compresses). ? To help prevent sunburn, apply sunscreen 15?30 minutes or more before you will be exposed to the sun. This information is not intended to (more content not included)...[facility] [id number] History of Present illness Narrative* Valarie Ernst, QUALITY REVIEW TRAINER - 08/30/2024 9:20 AM EDT Reason for Appointment: Patient ID: [...] Hypothyroidism (CMS/HCC) Panic disorder without agoraphobia (CMS/HCC) Social History Tobacco Use Smoking status: Former Types: Cigarettes Smokeless tobacco: Never Substance Use Topics Alcohol use: Never Drug use: Never FAMILY HISTORY Family History Problem Relation Name Age of Onset Alcohol abuse Father No Known Problems Son Mekhi No Known Problems Son [place] Cancer Other Grandmother SURGICAL HISTORY Past Surgical [...] Sinus Tachycardia. Patient to restart Metformin and returnto clinic in 4 weeks to discuss weight management and possible GLP medication. PVU and will then discuss increasing Metformin at that time to 1,000mg. RTC 4 weeks. Documented by Valarie Ernst LPN on behalf of: Mitchell Arriola DO documented in this encounterLiberty [id number] NoteEducation Materials Infectious Disease Cellulitis, Adult Cellulitis is a skin infection. The infected area is often warm, red, swollen, and sore. It occurs most often on the legs, feet, and toes, but can happen on any part of the body. This condition can be life-threatening without treatment. It is very important to get treated rightaway. What are the causes? This condition is [...] these instructions at home: Medicines ? Take deql-lja-gebegbw and prescription medicines only as told by your doctor. ? If you were prescribed antibiotics, take them as told by your doctor. Do not stop using them evenif you start to feel better. General instructions [...] provider. Document Revised: 12/24/2022 Document Reviewed: 12/24/2022 2359 Media Patient Education ? 2023 [employer].[facility] [id number] History of Present illness Narrative* Peyton Murrell MD - 06/10/2024 1:30 PM EST Ana Sauceda Date of visit: 06/10/2024 Date [...] with New Patient Rapid Heart Rate ER [facility] Vs Shortness of Breath History of Present Illness 24-year-old female who is seeing me for the 1st time in consultation for sinus tachycardia. She reports history of recurrent UTIs and now has been referred to urology. She has had couple admissions to the ER EKG was noted to have sinus tachycardia with no other abnormality. She does report episodesof palpitations, shortness of breath and sometimes chest getting super tight. She does have prior history of syncope. She reports placement of a monitors in 2021 was okay. I do not have results of that event monitor. She has also been diagnosed with hypothyroidism on medications. She says at home 1time she had a heart rate of 200 [...] a heart rate of 137. No pre-excitation onEKG. Recommended echo and an event monitor for 7 days. Discussed cardiac testing with patient she agrees with the plan discussed lifestyle modification including increasing hydration. Discussed sinus tachycardia could be response to infection with stress. No medications needed. Follow-up on cardiactesting. If cardiac testing is unremarkable will see her back in 6 months TODAYS ORDERS No orders of the defined types were placed in this encounter. FOLLOW UP No follow-ups on file. PCP: No primary care provider on file. Referring Physician: No referring provider defined for this encounter. documented in this encounterWilson HealthLuxul Technology [facility] [id number] Miscellaneous Notes* Telephone Encounter - Susie Rivas MA - 06/09/2024 11:43 AM EST Called patient to remind them to bring their most current copy of their medication list with them to their appt. No answer, Mailbox full, unable to leave message. DARIUS documented in this encounterWilson HealthLuxul Technology [facility] [id number] Telephone encounter Note* Telephone Encounter - Susie Rivas MA - 06/09/2024 11:43 AM EST Called patient to remind them to bring their most current copy of their medication list with them to their appt. No answer, Mailbox full, unable to leave message. DARIUS [employer]12-23-2024 NoteEducation Materials Gastroenterology Abdominal Pain, Adult Use Tylenol [...] these instructions at home: Medicines ? Take cwcx-wgt-pnfgzuz and prescription medicines only as told by [...] provider. Document Revised: 02/12/2023 Document Reviewed: 02/12/2023 2359 Media Patient Education ? 2023 [employer].[facility] [id number] History of Present illness Narrative* Meredith Tripathi, QUALITY REVIEW TRAINER - 03/24/2024 1:50 PM EST Reason for Appointment: Patient ID: Ana Sauceda [...] Hypothyroidism (CMS/HCC) Panic disorder without agoraphobia (CMS/HCC) Social History Tobacco Use Smoking status: Former Types: Cigarettes Smokeless tobacco: Never Substance Use Topics Alcohol use: Never Drug use: Never FAMILY HISTORY Family History Problem Relation Name Age of Onset Alcohol abuse Father No Known Problems Son Mekhi No Known Problems Son [place] Cancer Other Grandmother SURGICAL HISTORY Past Surgical [...] nursing note reviewed. Exam conducted with a damage cutter present. Vitals: Estimated body mass index is [...] of: Mitchell Arriola DO documented in this encounterLiberty [id number] History of Present illness Narrative* Evie Sr LPN - 02/24/2024 1:30 PM EDTAssociated Order(s): IUD Insertion Post-Procedure Diagnose(s): Encounter for [...] nursing note reviewed. Exam conducted with a damage cutter present. Vitals: Estimated body mass index is [...] by patient, parent, or legal power of channel process supervisor - including discussion of procedurerisks and benefits, patient questions answered, and patient [...] cut to the length from external os. Allinstruments were removed from the vagina. Post-procedure instructions given. All of patients questions were answered and she expressed understanding. Advised to call interim with any questions or concerns. Follow Up: Patient is to return to the office in 4 weeks for a string check. Documented by Meredith Tripathi LPN on behalf of: Mitchell Arriola DO documented in this encounterLiberty [id number] Hospital Discharge instructions* Discharge Instructions* Georgi Butt MD - 01/07/2023 6:30 PM EDT You were seen Emergency Department due to fevers and chills. Your testing revealed COVID-19. We have attached isolation instructions on how to help care for yourself. If you develop any worsening condition, difficulty breathing, persistent nausea, vomiting, diarrhea, or any other urgent health concerns please do not hesitate to return to the emergency department. * Attachments The following attachments cannot be sent through Care Everywhere. * Coronavirus Disease (COVID-19): Exposure: Quick List (Qatari) * Coronavirus Disease (COVID-19): General Info (Qatari) * Coronavirus Disease (COVID-19): Caring for Yourself: Quick List (Qatari) * Coronavirus Disease (COVID-19): Isolation (Qatari) documented in [facility] encounterC[facility]* Diagnosis COVID-19- Primary documented in this encounter [facility]* Diagnosis Encounter for IUD insertion Insertion of intrauterine contraceptive device Insulin resistance Other abnormal glucose documented in this encounter [facility]* Diagnosis Encounter for weight management Urinary tract infection without hematuria, site unspecified documented in this encounter [facility]* Diagnosis Intermittent palpitations- Primary Precordial pain [facility]* Diagnosis Vaginal cyst Other specified noninflammatory disorder of vagina Exposure to STD Sinus tachycardia Other specified cardiac dysrhythmias Infected sebaceous gland Insulin resistance Other abnormal glucose Bacterial vaginosis Unspecified vaginitis and vulvovaginitis documented in this encounter [facility]* Diagnosis Follow-up encounter involving medication documented in this encounter [facility]* Diagnosis Well woman exam with routine gynecological exam Routine gynecological examination Follow-up encounter involving medication Yeast infection Encounter for routine checking of intrauterine contraceptive device (IUD) Menorrhagia with irregular cycle documented in this encounter [facility]* Diagnosis Vaginal cyst Other specified noninflammatory disorder of vagina Missed menses Nausea Nausea alone Encounter for intrauterine device placement Insertion of intrauterine contraceptive device Skin infection Unspecified local infection of skin and subcutaneous tissue documented in this encounter [facility] HealthcareInstructionsNot on filedocumented in this encounterProKettering Memorial Hospital SystemInstructionsNot on filedocumented in this encounterProKettering Memorial Hospital System Summary Purpose Family History No Family History Records FoundNo Family History Records FoundNo Family History Records FoundNo Family History Records FoundNo Family History Records FoundNo Family History Records Found Advance Directives Code StatusDate ActivatedDate InactivatedCommentsFull Code10/12/2016 3:24 AM 10/14/2016 9:38 PM Additional Source Comments INFORMATION SOURCE (unrecogn ized section and content) DATE CREATED AUTHOR 09/08/2019 [facility] DATE CREATED AUTHOR AUTHOR'S ORGANIZ ATION 10/20/2022 [facility] DATE CREATED AUTHOR AUTHOR'S ORGANIZ ATION 05/24/2024 [facility] DATE CREATED AUTHOR AUTHOR'S ORGANIZ ATION 06/30/2024 [facility] DATE CREATED AUTHOR AUTHOR'S ORGANIZ ATION 03/23/2025 [facility] DATE CREATED AUTHOR AUTHOR'S ORGANIZ ATION 03/23/2025 [facility] Reason for Visit (unrecogniz ed section and content) ReasonCommentsCoughFeverBreast PainPharyngitisPost-op ProblemReasonComments Mirena insertionReasonCommentsDiscuss Adipexstring checkReasonCommentsNew PatientRapid Heart RateER [facility]/ VsShortness of BreathReasonComments Barthadam's CystPt present today to check vaginal cyst she has had for a month now. Pt states she has some pain/discomfort w/the cyst. Pt would also want to get checked for std's due to unprotected sex w/a partner.ReasonCommentsFollow-up ReasonCommentsWell Women VisitReasonCommentsGynecologic ExamPt present due to a cyst outside the vagina and an IUD surveillance visit. Ordered Prescriptions (unrec ognized section and content) PrescriptionSigDispensedRefillsStart DateEnd Date ondansetron (ZOFRAN-ODT) 4 MG disintegrating tablet Take 1 tablet by mouth 3 times daily as needed for Nausea or Vomiting 12 tablet Menthol (CEPACOL SORE THROAT) 5.4 MG LOZG Take 1 lozenge by mouth every 4 hours as needed (sore throat) 30 lozenge acetaminophen (TYLENOL) 325 MG tablet Take 1 tablet by mouth every 6 hours as needed for Pain 80 tablet Scheduled Active and Recently Administ ered Medications (unrecognized section and content) Medication Order/ acetaminophen (TYLENOL) tablet 1,000 mg (COMPLETED) 1,000 mg, Oral, ONCE, 1 dose, On Fri01/07/23 at 1600 * 1602 (Given - Provider: Ana Espinosa RN) magnesium oxide (MAG-OX) tablet 400 mg (COMPLETED) 400 mg, Oral, ONCE, 1 dose, On Fri01/07/23 at 1830 * 1847 (Given - Provider: Kaity Melvin RN) potassium bicarb-citric acid (EFFER-K) effervescent tablet 40 mEq (COMPLETED) 40 mEq, Oral, ONCE, 1 dose, On Fri01/07/23 at 1830, Do not chew or crush. Dissolve flavored tabletscompletely in 3 to 4 ounces of cold water; unflavored tablets may be dissolved in 3 to 4 ounces of cold juice. Patient to sip slowly over a 5 to 10 minute period. May further dilute if GI adverse effects occur. * 1847 (Given - Provider: Kaity Melvin RN) sodium chloride 0.9 % bolus 1,986 mL (COMPLETED) 1,986 mL (30 mL/kg 66.2 kg [place] weight), IntraVENous, at 1,986 mL/hr, Administer over 1 Hours, ONCE, On Fri01/07/23 at 1615, For 1 dose * 1653 (New Bag - Provider: Radha Douglas LPN) * 1740 (Stopped - Provider: Ana Espinosa RN) Care Teams (unrecognized sec tion and content) Team MemberRelationshipSpecialtyStart DateEnd Date Joseph Ortiz MD [address] [place] [id number] PCP - GeneralPediatrics10/09/22 Terri Gallardo PA [address] [place] [address] Dr Hilliard, [id number] PCP - [facility]11/10/23Team MemberRelationshipSpecialtyStart DateEnd Date Joseph Ortiz MD [address] [place] [id number] [facility] - [facility]10/09/22 Terri Gallardo PA [address] [place] [address] [place] [address] PCP - [facility]11/10/23Team MemberRelationshipSpecialtyStart DateEnd Date Joseph Ortiz MD [address] [place] [id number] PCP - GeneralPediatrics10/09/22 Terri Gallardo, PA [address] [place] [address] Dr [place] [id number] PCP - [facility]11/09/2410Team MemberRelationshipSpecialtyStart Date End Date Joseph Ortiz MD [address] [place], [place] [phone] [facility] - [facility]10/09/22 Terri Gallardo, PA [address] [place] [address] [place] [address] PCP - [place] [phone] MemberRelationshipSpecialtyStart Date End Date Joseph Ortiz MD [address] [place], [place] [phone] PCP - [facility]Pedwh[facility]10/09/22 Terri Gallardo, PA [address] [place] [address] Dr [place] [id number] PCP - [place] [phone] MemberRelationshipSpecialtyStart Date End Date Joseph Ortiz MD [address] [place] [id number] PCP - GeneralPediatrics10/09/22 Terri Gallardo PA [address] [place] [address] Dr Hilliard, [place] [id number] PCP - [facility]11/09/2410Te MemberRelationshipSpecialtyStart Date End Date Joseph Ortiz MD [address] [place] [address] PCP - [facility]10/09/22 Terri Gallardo PA [address] [place] [address] Dr Hilliard, [place] [phone] PCP - [place] [phone] MemberRelationshipSpecialtyStart Date End Date Joseph Ortiz MD [address] [place] [address] PCP - [facility]10/09/22 Terri Gallardo PA [address] [place] [address] Dr Hilliard, [place] [phone] [facility] - [place] [phone] MemberRelationshipSpecialtyStart Date End Date Joseph Ortiz MD [address] [place] [address] PCP - [facility]10/09/22 Terri Gallardo PA [address] [place] [address] Dr Hilliard, [place] [id number] [facility] - [place] [phone] MemberRelationshipSpecialtyStart Date End Date Joseph Ortiz MD [address] [place] [phone] PCP - GeneralPediatrics10/09/22 Terri Gallardo PA [address] [place] [address] [place] [id number] [facility]CP [facility]Team MemberRelationshipSpecialtyStart Date End Date Joseph Ortiz MD [address] [place] [phone] PCP - GeneralPediatrics10/09/22Te MemberRelationshipSpecialtyStart DateEnd Date Joseph Ortiz MD [address] [place] [phone] PCP - GeneralPediatrics10/09/22 FOR RECORDS PERTAINING TO PATIENTS WHO ARE [...] BE BASED ON THE PRIMARY CLINICAL RECORDS. [employer] [facility]. provides no warranty or guarantee of the accuracy or completeness of information in this document.
--- NOTE | 2025-04-12 04:25 | ED_ITS ---
HPI - Female Genitourinary General Chief complaint: Urogenital-Female Stated complaint: Infected cyst, GI problems Time Seen by Provider: 04/12/25 04:19 Source: patient Mode of arrival: walk-in Limitations: no limitations History of Present Illness HPI Narrative: seen by Dr Arriola for genital cyst . States he tried to incise it but was not successful and placed her on antibiotics. She also described episode of rectal bleeding one week ago without recurrence. she not complains of rectal pain and feels the cyst has enlarged. has not rescheduled with Dr Arriola. No fever Related Data Home Medications ?Medication ?Instructions ?Recorded ?Confirmed levothyroxine 50 mcg tablet 50 mcg PO DAILY 12/11/22 1 06/13/24 (Euthyrox) Previous Rx's ?Medication ?Instructions ?Recorded ferrous sulfate 325 mg (65 mg 325 mg PO BID 30 days #6 0 tabs 01/07/23 iron) tablet ferrous sulfate 325 mg (65 mg 325 mg PO BID 30 days #6 0 tabs 01/07/23 iron) tablet (Iron (ferrous sulfate)) ibuprofen 800 mg tablet 800 mg PO Q8H PRN Moderate P ain 01/07/23 #60 tabs acetaminophen 300 mg-codeine 30 mg 1 tab PO Q6H PRN pa in 5 days #20 04/12/25 tablet tabs doxycycline hyclate 100 mg capsule 100 mg PO BID 10 da ys #20 caps 04/12/25 Allergies Allergy/AdvReac Type Severity Reaction Status Date / Time No Known Drug Allergies Allergy Verified 04/12/25 04:01 Review of Systems ROS Status of ROS 10 or more systems reviewed and unremark able except as noted in history and below PFSH PFSH Social History Little interest or pleasure in doing things: not at all Feeling down, depressed, or hopeless: not at all Exam Constitutional Vital Signs, click to edit/add: Last Vital Signs Temp 97.7 F 04/12/25 05:56 Pulse 80 04/12/25 09:37 Resp 16 04/12/25 09:37 BP 100/75 04/12/25 09:37 Pulse Ox 98 04/12/25 09:37 O2 Del Method Room Air 04/12/25 04:09 Common normals: no apparent distress, average body habitus and oriented x3 HENMT Common normals: normocephalic and head/scalp atraumatic Eye Common normals: PERRL, EOMs intact bilaterally and conjunctivae normal Respiratory Common normals: normal respiratory effort, no retractions, no use of accessory muscles and clear to auscultation bilaterally Cardio Common normals: regular rate, regular rhythm, S1 normal heart sound and S2 normal heart sound GI Common normals: Normal to inspection, nondistended, normoactive bowel sounds present and soft to palpation Other: mild LLQ tenderness Other: normal external exam. small 4mm cyst found at base of vaginal orifice. Tender but too small to sabra. anal verge appears normal. Digital exam tender. no obvious fluctuance or obvious internal hemorrhoids. Back & Pelvis Common normals: no CVA tenderness and thoracic and lumbar spine normal to inspection Extremity Common normals: normal to inspection and full ROM Neuro Common normals: oriented x3, CN's II-XII intact bilaterally, moves all extremities and no focal motor deficits Psych Appearance: grossly normal Course Vital Signs Vital signs: Vital Signs Blood Pressure 130/91 04/12/25 04:07 Pulse Oximetry 99 04/12/25 04:07 Temperature 97.7 F 04/12/25 05:56 Pulse Rate 80 04/12/25 09:37 Respiratory Rate 16 04/12/25 09:37 Blood Pressure 100/75 04/12/25 09:37 Pulse Oximetry 98 04/12/25 09:37 Oxygen Delivery Method Room Air 04/12/25 04:09 MDM - Female Genitourinary MDM Narrative Medical decision making narrative: patient presents complaining of painful vaginal cyst. States [address] Arriola did attempt I and D without success and she was prescribed antibiotic. She describes one episode of passing blood per rectum last week. She now presents with complaint of continued pain of the vaginal cyst and she feels it has enlarged and also complains of anal pain. Exam of genital area with nursing present demonstrates very small cyst at base of entry of the floor of the vagina measuring about 4-5mm. Tender but not something I would try to incise in the ED. Inspection of anal verge unremarkable. Digital exam found rectal vault empty and no obvious internal hemorrhoids or fluctuations. Digital exam of the anal verge was very tender. labs ordered along with CT abd/pelvis as part of the workup. UA returned with possible UTI. CT pending at change of shift. care transferred to Dr Godinez Lab Data Labs: Lab Results 04/12/25 04/12/25 Range/Units 04:48 04:50 WBC 10.3 (4.0-11.0) 10^3/uL RBC 4.75 (4.20-5.40) 10^6/uL Hgb 13.0 (12.0-16.0) g/dL Hct 41.2 (36.0-48.0) % MCV 86.7 (81.0-99.0) fL MCH 27.4 (26.7-34.0) pg MCHC 31.6 (29.9-35.2) g/dL RDW 14.5 (11.0-15.0) % Plt Count 260 (150-450) 10^3/uL MPV 10.2 (9.5-13.5) fL Neut % (Auto) 69.1 (43.0-75.0) % Lymph % (Auto) 19.1 L (20.5-60.0) % [place] % (Auto) 9.5 (1.7-12.0) % Eos % (Auto) 1.7 (0.9-7.0) % Baso % (Auto) 0.4 (0.2-2.0) % Neut # (Auto) 7.1 H (1.4-6.5) 10^3/uL Lymph # (Auto) 2.0 (1.2-3.8) 10^3/uL [place] # (Auto) 1.0 H (0.3-0.8) 10^3/uL Eos # (Auto) 0.2 (0.0-0.7) 10^3/uL Baso # (Auto) 0.0 (0.0-0.1) 10^3/uL Abs Immat Gran (auto) 0.02 (0.00-0.03) 10^3/uL Imm/Tot Granulo (auto) 0.2 (0.0-0.5) % Sodium 144 (136-145) mmol/L Potassium 3.5 (3.5-5.1) mmol/L Chloride 107 (98-107) mmol/L Carbon Dioxide 32.1 H (21.0-32.0) mmol/L Anion Gap 8.4 BUN 12.0 (7.0-18.0) mg/dL Creatinine 0.68 (0.55-1.02) mg/dL Est GFR ( Amer) >60 (>=60 mL/min/1.73m^2) Est GFR (Non-Af Amer) >60 (>=60 mL/min/1.73m^2) BUN/Creatinine Ratio 17.6 Glucose 84 (74-106) mg/dL Lactate 0.9 (0.4-2.0) mmol/L Calcium 9.0 (8.5-10.1) mg/dL HCG, Quant <1 mIU/mL Urine Color Lt. yellow (YELLOW) Urine Clarity Clear (CLEAR) Urine pH 5.5 (5.0-9.0) Ur Specific [place] >=1.030 A (1.005-1.025) Urine Protein Negative (NEG/TRACE) mg/dL Urine Glucose (UA) Negative (NEGATIVE) mg/dL Urine Ketones Negative (NEGATIVE) mg/dL Urine Occult Blood Negative (NEGATIVE) Urine Nitrite Negative (NEGATIVE) Urine Bilirubin Negative (NEGATIVE) Urine Urobilinogen 0.2 (0.2-1.0) EU/dL Ur Leukocyte Esterase Small A (NEGATIVE) Urine RBC 2-5 A (0-2) #/HPF Urine WBC 5-10 A (NONE SEEN) #/HPF Ur Squamous Epith Cells Moderate A (NONE/RARE) #/LPF Urine Crystals None seen (None Seen) #/HPF Urine Bacteria Small A (NONE SEEN) #/HPF Urine Casts None seen (NONE SEEN) #/LPF Urine Mucus None seen (NONE SEEN) Ur [place] [place] Discharge Chief Complaint: Urogenital-Female Clinical Impression: Cyst, vagina, Pyuria Patient Disposition: Home, Self-Care Time of Disposition Decision: 09:11 Mode of Transportation: Private Vehicle Prescriptions / Home Meds: New acetaminophen-codeine 300-30 mg tablet 1 tab PO Q6H PRN (Reason: pain) 5 Days Qty: 20 0RF doxycycline hyclate 100 mg capsule 100 mg PO BID 10 Days Qty: 20 0RF No Action levothyroxine [Euthyrox] 50 mcg tablet 50 mcg PO DAILY ibuprofen 800 mg tablet 800 mg PO Q8H PRN (Reason: Moderate Pain) Qty: 60 1RF ferrous sulfate 325 mg (65 mg iron) tablet 325 mg PO BID 30 Days Qty: 60 3RF ferrous sulfate [Iron (ferrous sulfate)] 325 mg (65 mg iron) tablet 325 mg PO BID 30 Days Qty: 60 2RF Print Language: Greenlandic Instructions: Cyst (ED) Referrals: JOSEPH ORTIZ [Primary Care Provider, Family Practice] - 1 week Discharge Date/Time: 04/12/25 09:43
--- NOTE | 2025-04-12 04:39 | CT_ITS ---
The [address] [address] Patient Name: SIMON RAMOS MRN: [id number] date: 2000 Sex: F Assigned Patient Location: ER Current Patient Location: [facility] Accession/Order Number: [id number] Exam Date: 04/12/2025 05:45 Report Date: 04/12/2025 08:17 At the request of: CLINTON VALDERRAMA MD Procedure: CT abdomen pelvis w con CT ABDOMEN AND PELVIS WITH CONTRAST COMPARISON: None CLINICAL DATA: Anal pain. Perineal cyst. Spiral images were obtained through the abdomen and pelvis following 100 mL of Isovue 300. This CT exam was performed using one or more following dose reduction techniques: Automated exposure control, adjustment of the mA and/or kV according to patient size, or use of iterative reconstruction technique. Limited cuts through the lung bases show minor dependent atelectasis. There is mild focal fat within the liver near the fossa of the ligamentum teres. No calcified gallstones are identified. The spleen, pancreas and adrenal glands show no acute abnormalities. There are bilateral symmetric renal nephrograms, without hydronephrosis. The abdominal aorta is normal caliber. There are small mesenteric lymph nodes. No ascites is seen. The small bowel loops are normal caliber. There is fluid within the stomach. Stool is present along the colon, right side greater than the left. The bony structures are intact. Images through the pelvis show no appendiceal inflammation. There are normal caliber small bowel loops. There is minimal distal colonic stool. No diverticular disease is noted. There is question of a subtle 2.3 cm hypodense area at the perineum which might relate to the reported cyst. There is some streak artifact in the area from patient's right femoral intramedullary dennis. The uterus is slightly dextroverted. It contains a T-shaped IUD. The urinary bladder is poorly distended and the wall appears thickened. There are small inguinal lymph nodes bilaterally. No ascites is present. CT/CT abdomen pelvis w con IMPRESSION: NO BOWEL OR URINARY TRACT OBSTRUCTION. POSSIBLE VISUALIZATION OF THE REPORTED PERINEAL CYST. NO OTHER ACUTE FINDINGS. Impression dictated by: Meredith Pascual M.D. 04/12/2025 8:17 AM Dictation Location: [facility] Electronically authenticated by: [id number] Y Date: 04/12/2025 08:17
[2025-04-12 05:05] LABS: Hematocrit 41.2 % (36.0-48.0); Hemoglobin 13.0 g/dL (12.0-16.0); Immature Granulocytes Abs Auto 0.02 10^3/uL (0.00-0.03); Immature Granulocytes Pct Auto 0.2 % (0.0-0.5); Lymphocytes Absolute Auto 2.0 10^3/uL (1.2-3.8); Mean Corpuscular HGB Conc 31.6 g/dL (29.9-35.2); Mean Corpuscular Hemoglobin 27.4 pg (26.7-34.0); Mean Corpuscular Volume 86.7 fL (81.0-99.0); Platelet Count 260 10^3/uL (150-450); Red Blood Count 4.75 10^6/uL (4.20-5.40); White Blood Count 10.3 10^3/uL (4.0-11.0)
[2025-04-12 05:07] LABS: Glucose Urine UA NEGATIVE (NEGATIVE)
[2025-04-12 05:17] LABS: Cast Seen? NONE SEEN #/LPF (NONE SEEN); Crystals Seen? None Seen #/HPF (None Seen)
[2025-04-12 05:18] LABS: Urine Culture Indicated YES-FRMC
[2025-04-12 05:24] LABS: Lactate/Lactic Acid 0.9 mmol/L (0.4-2.0)
[2025-04-12 05:27] LABS: Anion Gap 8.4; Blood Urea Nitrogen 12.0 mg/dL (7.0-18.0); Calcium 9.0 mg/dL (8.5-10.1); Carbon Dioxide 32.1 mmol/L (21.0-32.0); Chloride 107 mmol/L (98-107); Estimated GFR (African America >60 (>=60 mL/min/1.73m^2); Estimated GFR (Non-African Ame >60 (>=60 mL/min/1.73m^2); Glucose 84 mg/dL (74-106); Potassium 3.5 mmol/L (3.5-5.1); Sodium 144 mmol/L (136-145)
[2025-04-12] MEDS: KETOROLAC TROMETHAMINE 30 MG/ML VIAL IVP (05:31)
--- NOTE | 2025-04-12 09:13 | ED_ITS ---
HPI HPI - General Adult General Chief complaint: Urogenital-Female Stated complaint: Infected cyst, GI problems Time Seen by Provider: 04/12/25 04:19 Source: patient Mode of arrival: walk-in Limitations: no limitations History of Present Illness HPI narrative: 25-year-old female who is not presented to the emergency department and was initially seen by Dr. Nicole. The patient was signed out to me after discussing the case with him thoroughly. Related Data Home Medications ?Medication ?Instructions ?Recorded ?Confirmed levothyroxine 50 mcg tablet 50 mcg PO DAILY 12/11/22 1 06/13/24 (Euthyrox) Previous Rx's ?Medication ?Instructions ?Recorded ferrous sulfate 325 mg (65 mg 325 mg PO BID 30 days #6 0 tabs 01/07/23 iron) tablet ferrous sulfate 325 mg (65 mg 325 mg PO BID 30 days #6 0 tabs 01/07/23 iron) tablet (Iron (ferrous sulfate)) ibuprofen 800 mg tablet 800 mg PO Q8H PRN Moderate P ain 01/07/23 #60 tabs acetaminophen 300 mg-codeine 30 mg 1 tab PO Q6H PRN pa in 5 days #20 04/12/25 tablet tabs doxycycline hyclate 100 mg capsule 100 mg PO BID 10 da ys #20 caps 04/12/25 Allergies Allergy/AdvReac Type Severity Reaction Status Date / Time No Known Drug Allergies Allergy Verified 04/12/25 04:01 Opioid HPI Opioid Management Most Recent Opioid Data: Last Pain Scale 10 Today, 06:36 Last ED Pain Assessment Today, 06:36 Last MAR Pain Assessment Today, 05:31 Ur Phencyclidine Scrn, (NEGATIVE) Negative , 21:45 PFSH PFSH Social History Little interest or pleasure in doing things: not at all Feeling down, depressed, or hopeless: not at all Exam Constitutional Vital Signs, click to edit/add: Last Vital Signs Temp 97.7 F 04/12/25 05:56 Pulse 76 04/12/25 07:45 Resp 18 04/12/25 07:45 BP 111/56 04/12/25 07:45 Pulse Ox 98 04/12/25 07:45 O2 Del Method Room Air 04/12/25 04:09 Course Vital Signs Vital signs: Vital Signs Blood Pressure 130/91 04/12/25 04:07 Pulse Oximetry 99 04/12/25 04:07 Temperature 97.7 F 04/12/25 05:56 Pulse Rate 76 04/12/25 07:45 Respiratory Rate 18 04/12/25 07:45 Blood Pressure 111/56 04/12/25 07:45 Pulse Oximetry 98 04/12/25 07:45 Oxygen Delivery Method Room Air 04/12/25 04:09 Medical Decision Making MDM Narrative Medical decision making narrative: Blood work is nonspecific. She is not and WBC is normal. CT scan shows a questionable subtle 2.3 cm hypodense area. Case is discussed with Dr. Arriola and the patient is provided prescriptions for Tylenol 3 and doxycycline. Follow-up with him this week. Treatment diagnosis and follow-up were discussed with the patient. Lab Data Lab results reviewed: Yes I reviewed the patient's lab results Labs: Lab Results 04/12/25 04/12/25 Range/Units 04:48 04:50 WBC 10.3 (4.0-11.0) 10^3/uL RBC 4.75 (4.20-5.40) 10^6/uL Hgb 13.0 (12.0-16.0) g/dL Hct 41.2 (36.0-48.0) % MCV 86.7 (81.0-99.0) fL MCH 27.4 (26.7-34.0) pg MCHC 31.6 (29.9-35.2) g/dL RDW 14.5 (11.0-15.0) % Plt Count 260 (150-450) 10^3/uL MPV 10.2 (9.5-13.5) fL Neut % (Auto) 69.1 (43.0-75.0) % Lymph % (Auto) 19.1 L (20.5-60.0) % [place] % (Auto) 9.5 (1.7-12.0) % Eos % (Auto) 1.7 (0.9-7.0) % Baso % (Auto) 0.4 (0.2-2.0) % Neut # (Auto) 7.1 H (1.4-6.5) 10^3/uL Lymph # (Auto) 2.0 (1.2-3.8) 10^3/uL [place] # (Auto) 1.0 H (0.3-0.8) 10^3/uL Eos # (Auto) 0.2 (0.0-0.7) 10^3/uL Baso # (Auto) 0.0 (0.0-0.1) 10^3/uL Abs Immat Gran (auto) 0.02 (0.00-0.03) 10^3/uL Imm/Tot Granulo (auto) 0.2 (0.0-0.5) % Sodium 144 (136-145) mmol/L Potassium 3.5 (3.5-5.1) mmol/L Chloride 107 (98-107) mmol/L Carbon Dioxide 32.1 H (21.0-32.0) mmol/L Anion Gap 8.4 BUN 12.0 (7.0-18.0) mg/dL Creatinine 0.68 (0.55-1.02) mg/dL Est GFR ( Amer) >60 (>=60 mL/min/1.73m^2) Est GFR (Non-Af Amer) >60 (>=60 mL/min/1.73m^2) BUN/Creatinine Ratio 17.6 Glucose 84 (74-106) mg/dL Lactate 0.9 (0.4-2.0) mmol/L Calcium 9.0 (8.5-10.1) mg/dL HCG, Quant <1 mIU/mL Urine Color Lt. yellow (YELLOW) Urine Clarity Clear (CLEAR) Urine pH 5.5 (5.0-9.0) Ur Specific [place] >=1.030 A (1.005-1.025) Urine Protein Negative (NEG/TRACE) mg/dL Urine Glucose (UA) Negative (NEGATIVE) mg/dL Urine Ketones Negative (NEGATIVE) mg/dL Urine Occult Blood Negative (NEGATIVE) Urine Nitrite Negative (NEGATIVE) Urine Bilirubin Negative (NEGATIVE) Urine Urobilinogen 0.2 (0.2-1.0) EU/dL Ur Leukocyte Esterase Small A (NEGATIVE) Urine RBC 2-5 A (0-2) #/HPF Urine WBC 5-10 A (NONE SEEN) #/HPF Ur Squamous Epith Cells Moderate A (NONE/RARE) #/LPF Urine Crystals None seen (None Seen) #/HPF Urine Bacteria Small A (NONE SEEN) #/HPF Urine Casts None seen (NONE SEEN) #/LPF Urine Mucus None seen (NONE SEEN) Ur Culture Indicated? [place] [place] CT scan - abdomen: Radiologist's impression: ITS Impressions Abdomen/Pelvis CT 04/12/25 04:39 IMPRESSION: NO BOWEL OR URINARY TRACT OBSTRUCTION. POSSIBLE VISUALIZATION OF THE REPORTED PERINEAL CYST. NO OTHER ACUTE FINDINGS. Impression dictated by: Meredith Pascual M.D. 04/12/2025 8:17 AM Dictation Location: [place] [address] Electronically authenticated by: [id number] Y Date: 04/12/2025 08:17 Discharge Plan Discharge Chief Complaint: Urogenital-Female Clinical Impression: Cyst, vagina Patient Disposition: Home, Self-Care Time of Disposition Decision: 09:11 Mode of Transportation: Private Vehicle Prescriptions / Home Meds: New acetaminophen-codeine 300-30 mg tablet 1 tab PO Q6H PRN (Reason: pain) 5 Days Qty: 20 0RF doxycycline hyclate 100 mg capsule 100 mg PO BID 10 Days Qty: 20 0RF No Action levothyroxine [Euthyrox] 50 mcg tablet 50 mcg PO DAILY ibuprofen 800 mg tablet 800 mg PO Q8H PRN (Reason: Moderate Pain) Qty: 60 1RF ferrous sulfate 325 mg (65 mg iron) tablet 325 mg PO BID 30 Days Qty: 60 3RF ferrous sulfate [Iron (ferrous sulfate)] 325 mg (65 mg iron) tablet 325 mg PO BID 30 Days Qty: 60 2RF Print Language: Bur[place]ian Instructions: Cyst (ED) Referrals: JOSEPH ORTIZ [Primary Care Provider, Family Practice] - 1 week
[2025-04-12] MEDS: ACETAMINOPHEN 300 MG/ 30 MG CODEINE TABLET 1 TAB PO (09:28)
== END 2025-04-12 09:43 | disposition home or self-care (01) ==
PROVIDERS: Internal Medicine; Emergency Provider Emergency Medicine; PCP Family Medicine
DX: N89.8 Other specified noninflammatory disorders of vagina (principal)
CPT/HCPCS: 36415; 74177; 80048; 81001; 83605; 84702; 85025; 87086; 96374; 99284; G0328; J1885; Q9967